=== PATIENT | male | born 1960 | race Caucasian/White ===

== ENCOUNTER 2020-11-30 15:36 | Outpatient (RCR) | payer OTHER, SELFPAY ==
[2020-11-30] MEDS: COVID-19 VACC, MRNA(PFIZER)/PF 30 MCG/0.3 ML SYRINGE IM (07:42)
[2020-12-21] MEDS: COVID-19 VACC, MRNA(PFIZER)/PF 30 MCG/0.3 ML SYRINGE IM (07:31)
== END 2021-02-22 23:59 ==
LOC: IMMUN 15:36
PROVIDERS: Referring Provider Family Medicine; Visit Provider Family Medicine
DX: Z23 Encounter for immunization (principal)
CPT/HCPCS: 0001A; 0002A; 91300

== ENCOUNTER → 2021-02-15 08:17 | Outpatient (CLI) | payer OTHER, SELFPAY | PROVIDERS: PCP Nurse Practitioner; Referring Provider Nurse Practitioner; Visit Provider Nurse Practitioner | DX: I49.9 Cardiac arrhythmia, unspecified (principal) | CPT/HCPCS: 93225; 93226 ==

== ENCOUNTER → 2021-02-16 14:24 | Outpatient (CLI) | payer OTHER, SELFPAY ==
--- NOTE | 2021-02-16 14:25 | ECHOD_ITS ---
Reason For Study: IRREGULAR HEARTBEAT Procedure This was a 2D Doppler, Color Flow transthoracic echocardiogram. Contrast injection was performed. Exam performed in department. Left Ventricle Normal LV size. Left ventricular systolic function is normal. The estimated ejection fraction is 65 %. No evidence for diastolic dysfunction. No regional wall motion abnormalities noted. Right Ventricle Normal RV size. Normal systolic function. Atria Normal left atrium. Normal right atrium. No doppler evidence for ASD. Mitral Valve There is no mitral annular calcification. Mild diffuse mitral valve thickening. Trivial mitral valve insufficiency. Tricuspid Valve Normal tricuspid valve. Trivial tricuspid valve insufficiency. Right ventricular systolic pressure estimated to be 21 mmHg. Aortic Valve Trisinus/trileaflet aortic valve. Mild focal aortic valve thickening. Mild focal aortic valve calcification. Trivial aortic valve insufficiency. Pulmonic Valve The pulmonic valve is not well visualized. Trivial pulmonic valve insufficiency. Great Vessels Mild to moderately dilated aortic root. Pericardium/Pleural No pericardial effusion. MMode/2D Measurements & Calculations LVIDd: 4.9 cm IVSd: 1.2 cm Ao root diam: 4.5 cm LVIDs: 3.1 cm LVPWd: 1.0 cm FS: 36.9 % LAV(MOD-bp): 53.6 ml LA A4 area: 19.2 cm2 LA dimension(2D): 4.1 cm LAV(MOD-bp) Indexed: 23.7 ml/m2 LAV(MOD-sp2): 52.5 ml LAV(MOD-sp4): 53.2 ml RA A4 area: 15.6 cm2 Time Measurements MV dec time: 0.31 sec Doppler Measurements & Calculations MV E max mich: 63.4 cm/sec Lat Peak E' Mich: 10.3 cm/sec Med Peak E' Mich: 5.9 cm/sec MV A max mich: 82.5 cm/sec E/E' lat: 6.1 E/E' med: 10.7 MV E/A: 0.77 Ao V2 max: 143.0 cm/sec LV V1 max: 130.3 cm/sec PA V2 max: 112.9 cm/sec Ao max P.2 mmHg LV V1 max P.8 mmHg PI dec slope: 110.8 cm/sec2 TR max mich: 212.9 cm/sec TR max P.1 mmHg ECHO/Echo Complete Interpretation Summary Left ventricular systolic function is normal. The estimated ejection fraction is 65 %. Mild diffuse mitral valve thickening. Trivial mitral valve insufficiency. Trivial tricuspid valve insufficiency. Mild focal aortic valve thickening. Mild focal aortic valve calcification. Trivial aortic valve insufficiency. Trivial pulmonic valve insufficiency. Mild to moderately dilated aortic root. Right ventricular systolic pressure estimated to be 21 mmHg. No evidence for diastolic dysfunction. Ordering Physician: 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 Referring Physician: 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 Performed By: Marley Parker, MICHAEL, RVT
== END ==
PROVIDERS: PCP Nurse Practitioner; Referring Provider Nurse Practitioner; Visit Provider Nurse Practitioner
DX: I49.9 Cardiac arrhythmia, unspecified (principal)
CPT/HCPCS: 93306

== ENCOUNTER → 2021-06-06 08:40 | Outpatient (CLI) | payer OTHER, SELFPAY ==
--- NOTE | 2021-06-06 08:45 | CDU_ITS ---
Reason For Study: CAD Rt. Velocities/BP Lt. Velocities/BP Prox CCA 88/14 cm/sec. Prox CCA 91/24 cm/sec. Mid CCA 82/23 cm/sec. Mid CCA 84/26 cm/sec. Dist CCA 82/25 cm/sec. Dist CCA 78/27 cm/sec. Prox ICA 68/16 cm/sec. Prox ICA 71/20 cm/sec. Mid ICA 46/15 cm/sec. Mid ICA 58/22 cm/sec. Dist ICA 66/32 cm/sec. Dist ICA 72/31 cm/sec. Rt. ICA/CCA = 0.8. Lt. ICA/CCA = 0.9. Prox ECA 64/13 cm/sec. Prox ECA 77/15 cm/sec. Rt. Vert. 47/20 cm/sec. Lt. Vert. 35/12 cm/sec. Right Extracranial There is intimal thickening but no significant atherosclerotic plaque noted in the right common carotid artery. There is heterogeneous, irregular atherosclerotic plaque noted in the right internal carotid artery. There is no significant atherosclerotic plaque noted in the right external carotid artery. Antegrade flow is noted in the right vertebral artery. Left Extracranial There is homogeneous, smooth atherosclerotic plaque noted in the left common carotid artery. There is heterogeneous, irregular atherosclerotic plaque noted in the left internal carotid artery. There is heterogeneous, smooth atherosclerotic plaque noted in the left external carotid artery. Antegrade flow is noted in the left vertebral artery. Procedure Carotid Duplex [id number]. This is a Carotid Duplex examination using B-mode, color flow and specral Doppler. Exam performed in department. VL/Carotid Duplex Ultrasound Interpretation Summary Calcific plaque at the proximal right internal carotid artery with less than 50 percent stenosis Less than 50 percent stenosis right external carotid artery Calcific plaque with shadowing at the proximal left internal carotid artery wit h less than 50 percent stenosis Less than 50 percent stenosis left external carotid artery Patent and antegrade vertebral arteries bilaterally Bilateral proximal internal carotid artery plaque was identified on the previou s blood flow examination of February 10, 2021 Ordering Physician: 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 Referring Physician: 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 Performed By: Pau Hendricks, MICHAEL, RVT
== END ==
PROVIDERS: PCP Nurse Practitioner; Referring Provider Nurse Practitioner; Visit Provider Nurse Practitioner
DX: I65.23 Occlusion and stenosis of bilateral carotid arteries (principal); I25.10 Atherosclerotic heart disease of native coronary artery without angina pectoris
CPT/HCPCS: 93880

== ENCOUNTER 2021-12-17 16:34 | Emergency (ER) | payer OTHER, SELFPAY ==
[2021-12-17 16:34] VITALS: BP 132/95; PULSE 66; RESP 18; TEMP 35.5; O2SAT 95; BMI 28.0
[2021-12-17] MEDS: Lidocaine 1% (20 ml mdv) 20 ML Vial INFILT (17:13)
[2021-12-17] MEDS: Diphth,Pertuss(Acell),Tet Vac 0.5 ML Vial IM (17:13)
--- NOTE | 2021-12-17 17:26 | EDS_ITS ---
HPI <CRISTINE Jerez - Last Filed: 12/17/21 17:33> History of Present Illness Chief Complaint: Laceration Narrative Narrative: Patient is a 61-year-old male with history of early dementia, hyperlipidemia who presents to the emergency department after cutting himself with a knife at work. 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 Patient has a flap-like laceration to the pad of the finger, negative for any foreign body. Patient's tetanus is not up-to-date. PFSH <CRISTINE Jerez - Last Filed: 12/17/21 17:33> [facility] Home Medications donepezil 5 mg PO QHS 12/17/21 [History Last Taken Unknown] rosuvastatin 5 mg PO QHS 12/17/21 [History Last Taken Unknown] Allergy/AdvReac Type Severity Reaction Status Date / Time No Known Allergies Allergy Verified 12/17/21 16:34 Social History Smoking Status: Never smoker ROS <CRISTINE Jerez - Last Filed: 12/17/21 17:33> ROS ED ROS Narrative Constitutional: Negative for fever, chills, weight loss or gain, weakness Eyes: Negative for vision loss, vision change, double vision ENT: Negative for any hearing changes, ringing in the ears, discharge, pain Nose: Negative for any congestion, runny nose, sinus pain, allergies Throat: Negative for any sore throat, swelling, voice changes, Cardiovascular: Negative for any chest pain, tightness, palpitations, racing heartbeat Respiratory: Negative for any cough, sputum production, hemoptysis, shortness of breath, shortness of breath on exertion, Gastrointestinal: Negative for any abdominal pain, nausea, vomiting, diarrhea, constipation, blood in stool, blood in vomit : Negative for any urinary frequency, incontinence, dysuria, retention, blood in urine Muscle skeletal: Negative for any muscle joint pain, stiffness, myalgias, arthralgias, neck pain, back pain Neurological: Negative for any headache, dizziness, syncope, numbness or tingling Skin: Negative for any rashes, lumps, itching, abrasions. Positive for laceration to the right fourth digit Psychiatric: Negative for any depression, anxiety, stress, suicidal ideation, homicidal ideation Hematologic: Negative for any easy bruising, excessive bruising, easy bleeding Allergies: Negative for any eczema, hives, rash EXAM <CRISTINE Jerez - Last Filed: 12/17/21 17:33> Physical Exam Const Vital Signs: 12/17/21 16:34 Temperature 96 F L Temperature Source Temporal Pulse Rate 66 Respiratory Rate 18 Blood Pressure 132/95 H Blood Pressure Mean 107 Pulse Ox 95 Oxygen Delivery Method Room Air Positive well nourished and well developed General Appearance ED: well developed HEENT Negative for trauma or tenderness Eyes PERRL and EOMs intact bilaterally Neck no lymphadenopathy and supple Chest Wall inspection of chest normal and palpation of chest normal Resp normal respiratory effort and clear to auscultation bilaterally Cardio regular rate and regular rhythm GI normal to inspection, nondistended, normoactive bowel sounds Back/Spine no CVA tenderness Extremity Extremity Narrative: Patient has a 1 cm flap-like laceration to the anterior aspect of the fourth digit on the right hand above the DIP joint. Patient has full range of motion of the extremity. Negative for any tendon injury. General Extremety ED: Negative for tenderness Neuro oriented x3 and CN's II-XII intact bilaterally Sensorium / Orientation: alert Motor Exam: strength 5/5 throughout Psych mental status grossly normal Skin No no wounds Skin Narrative: Laceration to the fourth digit on the right hand <Dr. Shanelle Boyer MD - Last Filed: 12/17/21 17:48> Physical Exam Const Vital Signs: 12/17/21 16:34 Temperature 96 F L Temperature Source Temporal Pulse Rate 66 Respiratory Rate 18 Blood Pressure 132/95 H Blood Pressure Mean 107 Pulse Ox 95 Oxygen Delivery Method Room Air MDM <CRISTINE Jerez - Last Filed: 12/17/21 17:33> [facility] Narrative Medical decision making narrative: Patient appears well, patient appears nontoxic, vital signs are stable. This is a Workmen's Comp. injury, patient has a 1 cm laceration to the tip of the right fourth digit. This area was cleansed, anesthetized, 4 simple noted suture of 4-0 Ethilon was used. Patient tolerated well. Patient keep the area clean and dry. Patient was updated on his tetanus vaccination today, he will return to work with no restrictions, patient struck to keep the area clean and dry and instructed return for any worsening pain or signs or symptoms of infection. <Dr. Shanelle Boyer MD - Last Filed: 12/17/21 17:48> [facility] Treatment and Re-Evaluation Narrative: Patient seen and evaluated with JACQUI. I personally interviewed and examined the patient. I was involved in all aspects of patient's orders, inte rpretation of results, and treatment. Patient presents with laceration to the distal aspect of the right fourth finger. He cut this with a knife prior to arrival. Patient sitting upright in bed no acute distress. Head and neck examination unremarkable. Regular pulses. Right upper extremity examination reveals a 1 cm laceration along the distal aspect of the right fourth finger. This is a flap laceration. Good cap refill and sensation distally. Tetanus update will be given and sutures placed across the wound. Patient will follow up for suture removal and wound check. Patient comfortable with plan. Procedures <CRISTINE Jerez - Last Filed: 12/17/21 17:33> Lacerations Finger laceration: Length: 0.39 in Depth: Skin Shape: Flap Prep: Shvikash-Clens Laceration repair: Lidocaine Irrigated (ml): 500 Number of Sutures/Anni: 3 Suture Information: Ethilon and Simple Comment: Sterile gloves, sterile drapes were used, patient tolerated well. Discharge Plan Triage Chief Complaint: Laceration ED Midlevel Provider: Harlan Mcgill ED Provider: Shanelle Boyer Dx/Rx/DC Orders Clinical Impression: Finger laceration Instructions: ED Laceration Hand with ... Prescriptions: No Action donepezil 5 mg tablet 5 mg PO QHS RF: 0 rosuvastatin 5 mg tablet 5 mg PO QHS RF: 0 Primary Care Provider: 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 NP Referrals: Clinic,NOW [NON-STAFF] - (Per your companies wishes) Fabiana yAoub NP, [employer] [Primary Care Provider] - Activity Restrictions/Additional Instructions: Please keep the area clean and dry, please return for any signs or symptoms of infection Print Language: Slovenian Disposition Disposition: Home, Self Care Discharge Date/Time: 12/17/21 17:38
== END 2021-12-17 17:38 | disposition home or self-care (01) ==
LOC: ED 17:33
PROVIDERS: Emergency Provider Emergency Medicine; PCP Nurse Practitioner; Visit Provider Emergency Medicine
DX: S61.215A Laceration without foreign body of left ring finger without damage to nail, initial encounter (principal); F03.90 Unspecified dementia, unspecified severity, without behavioral disturbance, psychotic disturbance, mood disturbance, and anxiety; E78.5 Hyperlipidemia, unspecified; W26.0XXA Contact with knife, initial encounter; Z79.899 Other long term (current) drug therapy; Z23 Encounter for immunization; Y99.0 Civilian activity done for income or pay
CPT/HCPCS: 12001; 90471; 90715; 99282

== ENCOUNTER → 2023-03-01 | Outpatient (CLI) | payer MEDICARE, OTHER, SELFPAY ==
[2023-03-01 10:54] LABS: PSA,Total - Annual Screen 1.04 ng/mL (0.00-4.00)
== END | disposition home or self-care (01) ==
LOC: LAB 08:47
PROVIDERS: PCP Nurse Practitioner Family; Referring Provider Urology; Visit Provider Urology
DX: Z12.5 Encounter for screening for malignant neoplasm of prostate (principal)
CPT/HCPCS: 36415; 84153; G0103

== ENCOUNTER → 2024-02-05 | Outpatient (CLI) | payer MEDICARE, OTHER, SELFPAY ==
--- NOTE | 2024-02-05 14:57 | CDU_ITS ---
Reason For Study: Bilateral CAD Rt. Velocities/BP Lt. Velocities/BP Prox CCA 90.4/14.2 cm/sec. Prox CCA 93.0/20.4 cm/sec. Mid CCA 79.0/18.8 cm/sec. Mid CCA 71.3/19.7 cm/sec. Dist CCA 68.8/18.8 cm/sec. Dist CCA 76.8/20.8 cm/sec. Prox ICA 48.5/12.7 cm/sec. Prox ICA 64.1/22.6 cm/sec. Mid ICA 33.1/15.8 cm/sec. Mid ICA 60.9/27.1 cm/sec. Dist ICA 110.7/37.6 cm/sec. Dist ICA 80.9/35.5 cm/sec. Rt. ICA/CCA = 1.4. Lt. ICA/CCA = 1.1. Prox ECA 60.1/10.2 cm/sec. Prox ECA 71.1/4.8 cm/sec. Rt. Vert. 41.5/16.2 cm/sec. Lt. Vert. 28.2/11.1 cm/sec. Right Extracranial There is intimal thickening but no significant atherosclerotic plaque noted in the right common carotid artery. There is heterogeneous, irregular atherosclerotic plaque noted in the right internal carotid artery. The distal right internal carotid artery is not well visualized. There is intimal thickening but no significant atherosclerotic plaque noted in the right external carotid artery. Antegrade flow is noted in the right vertebral artery. Left Extracranial There is homogeneous, smooth atherosclerotic plaque noted in the left common carotid artery. There is heterogeneous, irregular atherosclerotic plaque noted in the left internal carotid artery. The distal left internal carotid artery is not well visualized. There is heterogeneous, irregular atherosclerotic plaque noted in the left external carotid artery. Antegrade flow is noted in the left vertebral artery. Procedure Carotid Duplex [id number]. This is a Carotid Duplex examination using B-mode, color flow and specral Doppler. The exam was diagnostic. Exam performed in department. VL/Carotid Duplex Ultrasound Interpretation Summary Mild (<50%) stenosis right extracranial internal carotid. Mild (<50%) stenosis left extracranial internal carotid. Patent and antegrade vertebrals bilaterally. Ordering Physician: Erin Sanchez Referring Physician: Erin Sanchez Performed By: Gary Butt RVT
== END | disposition home or self-care (01) ==
LOC: CVS 14:56
PROVIDERS: PCP Nurse Practitioner Family; Referring Provider Nurse Practitioner Family; Visit Provider Nurse Practitioner Family
DX: I65.23 Occlusion and stenosis of bilateral carotid arteries (principal)
CPT/HCPCS: 93880

== ENCOUNTER → 2024-05-01 | Outpatient (CLI) | payer MEDICARE, OTHER, SELFPAY ==
[2024-05-01 17:09] LABS: PSA,Total - Annual Screen 1.44 ng/mL (0.00-4.00)
== END | disposition home or self-care (01) ==
LOC: LAB 16:04
PROVIDERS: PCP Nurse Practitioner Family; Referring Provider Urology; Visit Provider Urology
DX: Z12.5 Encounter for screening for malignant neoplasm of prostate (principal)
CPT/HCPCS: 36415; 84153; G0103

== ENCOUNTER → 2024-07-16 | Outpatient (CLI) | payer MEDICARE, OTHER, SELFPAY ==
--- OUTSIDE RECORDS SUMMARY | 2024-07-16 06:36 | XMS RPT_ITS | CCD ---
Author Organization [facility] ion [facility] Care Team Providers Care Technical Manager Name Role Phone 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 CNP E Unavailable Tone PHD, Vince Zapata Unavailable Gene VICENTE, Steve Unavailable Unavailable Unavailable Unavailable Kirby VICENTE, Sinai Unavailable Unavailable Mariposa ABDIN, Christelle Unavailable Unavailable Srinivas Sandra Unavailable Unavailable Unavailable Anand VICENTE, SHOLA Unavailable Unavailable Sinai Omalley MD Unavailable Dr. rGegory Llanos Unavailable Ivonne Graf MA Unavailable Unavailable Mega Faibana Unavailable Sinai Omalley MD Unavailable Unavailable Unavailable Unavailable Mega Fabiana Unavailable Unavailable Losa Fabiana Unavailable Santy Wynn CNP Unavailable Callahan ELECTRICAL LINEMAN, Kayela Unavailable Unavailable Unavailable Unavailable Santy Wynn CNP Unavailable Gravius ELECTRICAL LINEMAN, Caridad Unavailable Unavailable Borruso Alcides Unavailable Santy Wynn CNP Attending Unavailable Santy Wynn CNP Referring Unavailable Santy Wynn CNP Consulting Unavailable Unavailable Primary Care Provider UnavailDwayne Lugo MD Unavailable ANT MOSQUERA Attending Unavailable ANT MOSQUERA Admitting Unavailable Santy Wynn Primary Care Provider ANT MOSQUERA Attending Unavailable SANTY WYNN Primary Care Unavailable SANTY WYNN Primary Care Unavailable BERNICE HERNANDEZ Attending Unavailable ANT MOSQUERA Attending Unavailable Medications Completed/Discontinued Medications Medication Drug Class(es) Dates Sig (Normalized) Sig (Original) amLODIPine 5 mg oral tablet (20 sources) Dihydropyridine Calcium Channel Adria Start: 02-08-2021 End: 05-17-2021 take 0.5 tablet by mouth once daily amLODIPine Besylate 5 MG Oral Tablet 1/2 (one half) Tablet daily for 0 days Quantity: 30 {Tablet} Refills: 3 Ordered: 17-May-2021 Sinai Orr LPN Start : 08-Feb-2021 End : 17-May-2021 Inactive aspirin 81 mg delayed release oral tablet (20 sources) Platelet Aggregation Inhibitor, Nonsteroidal Anti-inflammatory Drug Start: 05-17-2021 take 1 tablet by mouth once daily Aspirin 81 MG Oral Tablet Delayed Release 1 (one) Tablet daily for 0 days Quantity: 30 {Tablet} Refills: 0 Ordered: 27-Jul-2021 SHOLA Michel LPN Start : 17-May-2021 Active Start: 05-17-2021 aspirin, enter ic coated (ASPIRIN, ENTERIC COATED) 81 mg EC tablet Take by mouth q 24 HR. 0 05/17/2021 Active Comment on above: Take by mouth q 24 H R. cholecalciferol 0.05 mg oral capsule (20 sources) Vitamin D Start: 07-28-2021 take 2 capsules by mouth once daily Vitamin D3 50 MCG (2000 UT) Oral Capsule 2 (two) Capsule daily for 0 days Quantity: 30 {Capsule} Refills: 0 Ordered: 28-Jul-2021 Debsonambenny Fabiana Start : 28-Jul-2021 Active Start: 07-28-2021 Cholecalcifero l, Vitamin D3, 50 mcg (2,000 unit) cap Take by mouth q 24 HR. 0 07/28/2021 Active Comment on above: Take by mouth q 24 H R. cyanocobalamin, vitamin B-12, (VITAMIN B-12 ORAL) (3 sources) Start: 02-09-20 21 cyanocobalamin, vitamin B-12, (VITAMIN B-12 ORAL) Dissolve under the tongue. 0 02/08/2021 Active Comment on above: Dissolve under the t ongue. donepezil hydrochloride 5 mg oral tablet (20 sources) Start: 08-29-20 21 take 1 tablet by mouth once daily at bedtime donepeziL 5 mg oral tablet 1 (one) Tablet qhs for 30 days Quantity: 30 {Tablet} Refills: 3 Ordered: 03-Oct-2022 Santy Wynn CNP Start : 03-Oct-2022 Active Comment on above: Take by mouth. ergocalciferol 1.25 mg oral capsule (20 sources) Provitamin D2 Compound Start: 02-09-20 End: 05-17-20 Ergocalciferol 1.25 MG (05701 UT) Oral Capsule 1 (one) Capsule twice weekly x 3 months for 0 days Quantity: 24 {Capsule} Refills: 0 Ordered: 17-May-2021 DebFabiana aguillon Start : 08-Feb-2021 End : 17-May-2021 Inactive metoprolol tartrate 50 mg oral tablet (20 sources) beta-Adrenergic Adria Start: 02-10-20 End: 05-17-20 take 1 tablet by mouth every hour Metoprolol Tartrate 50 MG Oral Tablet 1 (one) Tablet 1hr prior to scan for 0 days Quantity: 1 {Tablet} Refills: 0 Ordered: 17-May-2021 Myron Orr LPNcy Start : 09-Feb-2021 End : 17-May-2021 Inactive rosuvastatin calcium 5 mg oral tablet (20 sources) HMG-CoA Reductase Inhibitor Start: 08-07-20 take 1 tablet by mouth once daily at bedtime rosuvastatin 5 mg oral tablet 1 (one) Tablet qhs for 0 days Quantity: 90 {Tablet} Refills: 3 Ordered: 03-Oct-2022 Santy Wynn CNP Start : 03-Oct-2022 Active Start: 03-24-2022 take 1 tablet by mai th once daily at bedtime Rosuvastatin Calcium 5 MG Oral Tablet 1 (one) Tablet qhs for 0 days Quantity: 90 {Tablet} Refills: 3 Ordered: 24-Mar-2022 Santy Wynn CNP Start : 24-Mar-2022 Active Start: 08-29-2021 take 1 tablet by mai th once daily at bedtime Rosuvastatin Calcium 5 MG Oral Tablet 1 (one) Tablet qhs for 0 days Quantity: 90 {Tablet} Refills: 3 Ordered: 29-Aug-2021 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 Fabiana Start : 29-Aug-2021 Active sildenafil 20 mg oral tablet (19 sources) Phosphodiesterase 5 Inhibitor Start: 05-15-2022 take 1 tablet by mouth once daily sildenafil (pulm.hypertension) 20 mg oral tablet 1 Tablet daily as directed for 30 days Quantity: 30 {Tablet} Refills: 1 Ordered: 15-May-2022 Santy Wynn CNP Start : 15-May-2022 Active Start: 03-24-2022 take 1 tablet by mai th once daily Sildenafil Citrate 20 MG Oral Tablet 1 Tablet daily as directed for 30 days Quantity: 30 {Tablet} Refills: 1 Ordered: 24-Mar-2022 Santy Wynn CNP Start : 24-Mar-2022 Active vitamin b12 2.5 mg sublingual tablet (20 sources) Vitamin B12 Start: 07-28-2021 End: 03-24-2022 take 1 tablet under the tongue two times weekly Cyanocobalamin 2500 MCG Sublingual Tablet Sublingual 1 (one) Tablet twice weekly for 0 days Quantity: 30 {Tablet} Refills: 0 Ordered: 24-Mar-2022 Christelle Monge LPN Start : 28-Jul-2021 End : 24-Mar-2022 Inactive Start: 07-28-2021 End: 03-24-2022 take 1 tablet under the tongue two times weekly Cyanocobalamin 2500 MCG Sublingual Tablet Sublingual 1 (one) Tablet twice weekly for 0 days Quantity: 30 {Tablet} Refills: 0 Ordered: 24-Mar-2022 Christelle Monge LPN Start : 28-Jul-2021 End : 24-Mar-2022 Inactive Start: 02-08-2021 take 1 tablet under the tongue once daily Cyanocobalamin 2500 MCG Sublingual Tablet Sublingual 1 (one) Tablet daily for 0 days Quantity: 30 {Tablet} Refills: 0 Ordered: 08-Feb-2021 Mega GUZMAN SheriMario Ayoub CNP Fabiana Martin Start : 08-Feb-2021 Active NEGATED: Highlighted row has not occurred!No Known Historical Medications (20 sources) No Known Histori sergio Medications Problems Active Problems Problem Classification Problem Date Documented Date Episodic/Chronic Cardiac dysrhythmias (20 sources) Irregular heart beat; Translations: [Irregular heart beat] 02-08-2021 Chronic Comment on above: Sinus amauri, no symp toms. Delirium, dementia, and amnestic and other cognitive disorders (20 sources) Primary degenerative dementia of the Alzheimer type, presenile onset; Translations: [Early onset Alzheimer's dementia] Resolved: 08-26-2021 Chronic Comment on above: stable on med sleep study done has seen Tone -no new issues, mini mental normal todaystable on med. sleep study done has seen Tone Diabetes mellitus without complication (20 sources) Impaired fasting glycemia; Translations: [Impaired fasting glucose] 02-08-2021 Episodic Comment on above: a1c 5.3 A1c 5.3% Diseases of mouth; excluding dental (20 sources) Lesion of lip; Translations: [Lip lesion] 11-03-2021 Episodic Comment on above: 3mm on right upper l ip Disorders of lipid metabolism (20 sources) Mixed hypercholesterolemia and hypertriglyceridemia; Translations: [Elevated triglycerides with high cholesterol] 02-08-2021 Chronic Comment on above: -check lipids prior to next ov, on 5mg daily nowon rosuvastatin stable on 5mg daily now, last lab March 2022 so will recheck prior to next ovon rosuvastatin Genitourinary symptoms and ill-defined conditions (8 sources) Dysuria; Translations: [Difficult or painful urination] 11-22-2022 Episodic Gout and other crystal arthropathies (20 sources) Gout; Translations: [Gout] 01-25-2021 Chronic Heart valve disorders (20 sources) Irregular heart beat Episodic Nutritional deficiencies (20 sources) Vitamin D deficiency; Translations: [Vitamin D deficiency] 01-30-2021 Chronic Comment on above: will supplement Nutritional deficiencies (20 sources) Cobalamin deficiency; Translations: [Vitamin B12 deficiency] 01-30-2021 Episodic Comment on above: needs weekly B12 octavio ts start this week now on sublingual Other circulatory disease (20 sources) Disorder of carotid artery; Translations: [Bilateral carotid artery disease, unspecified type] 08-26-2021 Chronic Comment on above: seen on blood flow s creening on 02-10-21 Mild to mod disease in carotid artery (significant plaque) Other circulatory disease (20 sources) Elevated blood-pressure reading without diagnosis of hypertension; Translations: [Elevated blood-pressure reading, without diagnosis of hypertension (Renamed from Elevated blood-pressure reading without diagnosis of hypertension)] 01-25-2021 Episodic Comment on above: -keep blood pressure log for 1-2 weeks then come in for nurse visit to get it checked. Please bring home BP machine with you. We will decide at that time if you need to restart a medication or not.142/80, not on any antihypertensives. not check recently but when does his systolic is in the 120's. Other connective tissue disease (12 sources) Ganglion of hand; Translations: [Ganglion cyst of finger] 10-03-2022 Episodic Other connective tissue disease (3 sources) Cyst ; Translations: [Ganglion, multiple sites] Episodic Other connective tissue disease (1 source) Ganglion, multiple sites; Translations: [Ganglion and cyst of synovium, tendon, and bursa] Onset: 3 Episodic Other connective tissue disease (1 source) Other bursal cyst, multiple sites; Translations: [Ganglion and cyst of synovium, tendon, and bursa] Onset: 3 Episodic Other connective tissue disease (1 source) Other specified disorders of synovium and tendon, multiple sites; Translations: [Ganglion and cyst of synovium, tendon, and bursa] Onset: 3 Episodic Other liver diseases (20 sources) Alkaline phosphatase raised; Translations: [Elevated alkaline phosphatase level] 01-30-2021 Episodic Other liver diseases (20 sources) Serum lactate dehydrogenase level elevated; Translations: [Elevated LDH] 02-08-2021 Episodic Other male genital disorders (20 sources) Male erectile dysfunction, unspecified; Translations: [Erectile dysfunction] 03-24-2022 Chronic Comment on above: sildenafil, discusse d med side effects, use, precautions. sent to rxstarted recently, no hx med changes. Other nutritional; endocrine; and metabolic disorders (20 sources) Body mass index 25-29 - overweight; Translations: [BMI 28.0-28.9,adult] 01-25-2021 Episodic Other nutritional; endocrine; and metabolic disorders (20 sources) Overweight in adulthood with body mass index of 25 or more but less than 30; Translations: [BMI 27.0-27.9,adult] Resolved: 3 11-03-2021 Episodic Other screening for suspected conditions (not mental disorders or infectious disease) (20 sources) Patient encounter status; Translations: [Encounter for screening for lipid disorder] Resolved: 3 01-25-2021 Episodic Comment on above: do yearly stool ester creviewed colonoscopy (recent), Dr. Llanos. repeat in 5-7 yrs Other skin disorders (20 sources) Lesion of skin of face; Translations: [Skin lesion of face] 10-28-2021 Episodic Residual codes; unclassified (20 sources) Sleep apnea; Translations: [Sleep apnea] 10-11-2021 Chronic Comment on above: saw Jocy ching ds nasal Residual codes; unclassified (20 sources) Reduced libido; Translations: [Low libido] 01-25-2021 Episodic Residual codes; unclassified (20 sources) Non-smoker; Translations: [Nonsmoker] 01-25-2021 Episodic Residual codes; unclassified (20 sources) Poor short-term memory ; Translations: [Short-term memory loss] 01-25-2021 Episodic Comment on above: seeing in May saw neuropsych, was thought to have early onset dementia but he had repeat testing done June 2022 and it was recommended to treat him for ADHD instead.-consult with Dr. Omalley for ADHD management. plan to wean off donepezil Unclassified (20 sources) Unclassified (20 sources) Nonsmoker Unclassified (20 sources) BMI 28.0-28.9,adult Unclassified (20 sources) Short-term memory loss Unclassified (20 sources) Elevated triglycerides with high cholesterol Unclassified (18 sources) BMI 27.0-27.9,adult Unclassified (20 sources) Early onset Alzheimer's dementia Unclassified (18 sources) Bilateral carotid artery disease, unspecified type Unclassified (18 sources) Elevated LDL cholesterol level Unclassified (18 sources) Screening for colon cancer Unclassified (7 sources) Prostate cancer screening Past or Other Problems Problem Classification Problem Date Documented Da te Episodic/Chronic Unclassified (20 sources) Encounter for screening for malignant neoplasm of prostate (Renamed from Screening for prostate cancer) Unclassified (20 sources) Low libido Unclassified (20 sources) Encounter for screening for lipid disorder Unclassified (20 sources) Elevated alkaline phosphatase level Unclassified (20 sources) Elevated LDH Unclassified (20 sources) Unspecified Diagnosis 07-28-2021 Unclassified (13 sources) Lip lesion Unclassified (13 sources) Skin lesion of face Results Test Name Value Interpretation Reference Range Facility CNOVon 01-15-2023 CNOV Office Visit (ORTHWS ) ACACIAJARRETT uFentes ([id number]) 1960 M Date Time Provider Department 01/15/23 4:15 PM ANT MOSQUERA During your visit today, we recorded the following information about you: Ant Mosquera MD 02/16/2023 6:04 PM Signed Ant Mosquera MD Department of Orthopaedics Orthopaedics [address] [facility] [address] Dept: [phone] Dept January 15, 2023 CHIEF COMPLAINT: Established Patient and Post Op of the Right Hand. HPI Patient here today for 5 weeks 5 days post op excision right index finger cyst. Patient denies any pain. ASSESSMENT: M67.49, M71.39, M67.89 Ganglion and cyst of synovium, tendon, and bursa (primary encounter diagnosis) SUMMARY/PLAN: Just shy of 6 weeks and he is doing quite well. He is pleased with his results thus far. No pain really. Mildly sore and appropriate at the healing scar. He can follow-up as needed Healing appropriately. Good motion. No recurrence. Supporting Information Below: Medications: Current Outpatient Medications Medication Sig cyanocobalamin, vitamin B-12, (VITAMIN B-12 ORAL) Dissolve under the tongue. Cholecalciferol, Vitamin D3, 50 mcg (2,000 unit) cap Take by mouth q 24 HR. aspirin, enteric coated (ASPIRIN, ENTERIC COATED) 81 mg EC tablet Take by mouth q 24 HR. donepezil (ARICEPT) 5 mg tablet Take by mouth. No current facility-administered medications for this visit. Allergies: Patient has no known allergies. Ant Mosquera MD Allergies As of Date: 01/15/2023 (No Known Allergies) Date Reviewed: 01/15/2023 Reviewed by: Lauren Ledbetter Ma - Fully Assessed Reason for Visit: Established Patient [175] Post Op [174] Primary Visit Diagnosis:Ganglion and cyst of synovium, tendon, and bursa [M67.49, M71.39, M67.89] Prescriptions as of 02/16/2023 - cyanocobalamin, vitamin B-12, (VITAMIN B-12 ORAL) Dissolve under the tongue. - Cholecalciferol, Vitamin D3, 50 mcg (2,000 unit) cap Take by mouth q 24 HR. - aspirin, enteric coated (ASPIRIN, ENTERIC COATED) 81 mg EC tablet Take by mouth q 24 HR. - donepezil (ARICEPT) 5 mg tablet Take by mouth. Problem List As Of Date: 01/15/2023 (None) Encounter Status:Closed by ANT MOSQUERA on 02/16/23 [facility] CNOVon 12-18-2022 CNOV Office Visit (ORTHWS ) JARRETT ROGER ([id number]) 1960 M Date Time Provider Department 12/18/22 3:00 PM BERNICE HERNANDEZ During your visit today, we recorded the following information about you: Angela Gonzalez RN 12/18/2022 3:07 PM Signed Patient presents with: Right Index Finger - Post Op, Ganglion Cyst Patient is 1 week 5 days post op excision of ganglion cyst, R index finger. Denies pain. Bernice Hernandez PA-C 12/18/2022 3:07 PM Signed Bernice Hernandez PA-C Department of Orthopaedics Orthopaedics [address] [facility] [address] Dept: [phone] Dept December 18, 2022 CHIEF COMPLAINT: Post Op and Ganglion Cyst of the Right Index Finger. ASSESSMENT: M67.49, M71.39, M67.89 Ganglion and cyst of synovium, tendon, and bursa (primary encounter diagnosis) SUMMARY/PLAN: Patient presents 1 week and 5 days status post excision of right index finger digital mucous cyst. He is doing very well, he denies any pain today. He is very happy thus far. 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 We discussed proper hand washing, no soaking of the operative hand. No heavy lifting, pushing or pulling with the operative hand, encourage gentle motion. We discussed scar massage. Follow up as planned. Exam: Incision sites well approximated without erythema or drainage, there is mild but appropriate edema, no ecchymosis. Patient has full and active range of motion of the digit with some subjective hypersensitivity along the radial border. Imaging: Deferred today. Mr. Jarrett Roger was advised as to contrast therapies and/or to take analgesics/anti-inflamm atories as needed and all contraindications were reviewed. Supporting Information Below: Medications: Current Outpatient Medications Medication Sig cyanocobalamin, vitamin B-12, (VITAMIN B-12 ORAL) Dissolve under the tongue. Cholecalciferol, Vitamin D3, 50 mcg (2,000 unit) cap Take by mouth q 24 HR. aspirin, enteric coated (ASPIRIN, ENTERIC COATED) 81 mg EC tablet Take by mouth q 24 HR. donepezil (ARICEPT) 5 mg tablet Take by mouth. No current facility-administered medications for this visit. Allergies: Patient has no known allergies. This note was partially generated using Videolicious voice recognition system, and there may be some incorrect words, spellings, and punctuation that were not noted in checking the note before saving. Bernice Hernandez PA-C Allergies As of Date: 12/18/2022 (No Known Allergies) Date Reviewed: 12/18/2022 Reviewed by: Bernice Hernandez PA-C - Fully Assessed Reason for Visit: Post Op [174] Ganglion Cyst [1032] Primary Visit Diagnosis:Ganglion and cyst of synovium, tendon, and bursa [M67.49, M71.39, M67.89] Prescriptions as of 12/18/2022 - cyanocobalamin, vitamin B-12, (VITAMIN B-12 ORAL) Dissolve under the tongue. - Cholecalciferol, Vitamin D3, 50 mcg (2,000 unit) cap Take by mouth q 24 HR. - aspirin, enteric coated (ASPIRIN, ENTERIC COATED) 81 mg EC tablet Take by mouth q 24 HR. - donepezil (ARICEPT) 5 mg tablet Take by mouth. Problem List As Of Date: 12/18/2022 (None) Encounter Status:Closed by BERNICE HERNANDEZ on 12/18/22 [facility] NURSING PROGon 12-06-2022 NURSING PROG HNO ID: [id number] Author: Ayde Ribeiro RN Service: Nursing Author Type: Registered Nurse Type: Nursing Progress Note Filed: 12/06/2022 2:41 PM Note Text: Other: Sign In/ Timme out @1430 at bedside for local injection to R index finger. 1430 local injection of 3 ml to R index finger by . 1431 Sign out. Pt tolerated well, VSS, report to Ada Branham [facility] OPERATIVE NOon 12-06-2022 OPERATIVE NO HNO ID: [id number] Author: Ant Mosquera MD Service: Orthopaedic Surgery Author Type: Physician Type: Operative Report Filed: 12/12/2022 7:41 AM Note Text: OPERATIVE/PROCEDURE REPORT LOG ID: [id number] SURGERY/PROCEDURE DATE: 12/06/2022 INCISION/PROCEDURE START TIME: 2:49 PM INCISION CLOSE/PROCEDURE END TIME: 3:05 PM SURGEON(S)/PROCEDURALIS T(S) AND ASSET PROTECTION AGENT(S): Surgeon(s) and Role: * Ant Mosquera MD - Primary Physician China Painter: Bernice Hernandez PA-C SURGERY/PROCEDURE(S): Right, Index finger, excision of ganglion cyst. (Digital mucous) ANESTHESIA: Local SURGERY/PROCEDURE DETAILS: This is a pleasant, 62-year-old male who had a ongoing, ganglion cyst at the tip of the right index finger. It was quite painful when he bumped it and the skin was thinning out she had concerns about appearance and pain and infection possibilities. The risks, benefits, alternatives and potential complications involving both operative nonoperative care were reviewed. She understood and wished to pursue surgery. On 12/06/2022, the patient was cleared identified the preoperative area marked accordingly on the right index finger by myself. No perioperative antibiotics were necessary due to the local soft tissue procedure. He was taken the operative suite and placed in a supine position with an armboard on the right. All other bony landmarks were properly padded in standard fashion. The right upper extremity was then sterilely prepped and draped in standard fashion. Local anesthetic was provided with 2% lidocaine with 1 100,000 epinephrine for total of 3 cc locally at the digit. A turnicot was then applied for exsanguination and bleeding controlled. A 15 blade was used to make an L-shaped incision along the mid lateral portion directly over the top of the ganglion at the DIP joint. It was so thin that we were able to get into the ganglion cyst proper even just coming through the skin incision. I bluntly dissected down to its stalk distally to the joint and laterally to the attachment of the extensor tendon. I cauterized at its tip. Copiously irrigated the joint. I did not send anything for pathology as it was unnecessary based on appearance. The tournicot was taken down and hemostasis was obtained using bipolar electrocautery. 3-0 nylons were used to close the wound. Xeroform gauze, light Ronan and a Coban was used for final bandage. There are no complications during the procedure. Patient was safely transferred to the postanesthetic care unit stable condition. PRE-OP/PRE-PROCEDURE DIAGNOSIS: Right index finger, digital mucous cyst POST-OP/POST-PROCEDURE DIAGNOSIS: Same as Preop ESTIMATED BLOOD LOSS: 0 ml SPECIMENS: None sent IMPLANTABLE DEVICES: None DRAINS: None COMPLICATIONS: None PARTICIPATION IN SURGERY/PROCEDURE: I/primary surgeon/proceduralist performed the entire procedure. CLOSURE TECHNIQUE: Primary SIGNATURE: Ant Mosquera MD PATIENT NAME: Jarrett Fuentes Acacia DATE: December 12, 2022 TIME: 7:[address] [facility] 11-01-2022 [facility] Telephone (RUDY) JARRETT ROGER ([id number]) 1960 Date Time Provider Department 11/01/22 ANT MOSQUERA During your visit today, we recorded the following information about you: Karie Tapia Ma 11/01/2022 11:16 AM Signed Patient scheduled for Right index finger excision ganglion cyst on 12/06/22. Surgical request completed. Post op appointments scheduled and mailed to patient. Lauren Ledbetter Ma 11/01/2022 4:51 PM Signed Surgery has been scheduled as requested. Allergies As of Date: 11/01/2022 (No Known Allergies) Date Reviewed: 10/26/2022 Reviewed by: Ant Mosquera MD - Fully Assessed Reason for Visit: Schedule Surgery [1330] Primary Visit Diagnosis:Ganglion and cyst of synovium, tendon, and bursa [M67.49, M71.39, M67.89] Order(s):SURGICAL REQUEST - ELECTIVE (04/2020) [[id number]] Order #: [id number]: 1 Prescriptions as of 11/01/2022 - cyanocobalamin, vitamin B-12, (VITAMIN B-12 ORAL) Dissolve under the tongue. - Cholecalciferol, Vitamin D3, 50 mcg (2,000 unit) cap Take by mouth q 24 HR. - aspirin, enteric coated (ASPIRIN, ENTERIC COATED) 81 mg EC tablet Take by mouth q 24 HR. - donepezil (ARICEPT) 5 mg tablet Take by mouth. Problem List As Of Date: 11/01/2022 (None) Letter Text Encounter Status:Closed by LAUREN LEDBETTER MA on 11/01/22 [facility] CNOVon 10-26-2022 CNOV Office Visit (RUDY ) JARRETT ROGER ([id number]) 1960 M Date Time Provider Department 10/26/22 3:30 PM ANT MOSQUERA During your visit today, we recorded the following information about you: Ant Mosquera MD 11/27/2022 4:24 PM Signed Ant Mosquera MD Department of Orthopaedics Orthopaedics [address] [facility] [address] Dept: [phone] Dept October 26, 2022 CHIEF COMPLAINT: No chief complaint on file. HPI Pt here today for a cyst on R index finger. Noticed around a year ago, just appeared with no incident. Pt states at times the cyst will get bigger. Not painful unless bumped. Non limiting, just careful to not bump it at work. 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 ASSESSMENT: M67.49, M71.39, M67.89 Ganglion and cyst of synovium, tendon and bursa (primary encounter diagnosis) PLAN: We discussed the risks, benefits, alternatives and potential complications involving both operative and nonoperative treatment. He would like to pursue surgery for excision of the cyst. FOLLOW UP INSTRUCTIONS: Schedule at his convenience OBJECTIVE: Mr. Jarrett Roger is a pleasant 62 year old in no apparent distress. Gen:There were no vitals taken for this visit. nl development, non obese, no deformities ENT: Normocephalic, normal hearing, moist mucosa CV: Pulses:Radial= 2+ and symmetric, capillary refill < 2 secs, no peripheral edema/varicosities Skin: no rash, bruising or lesions. Good turgor. Psych: cooperative and appropriate, alert and oriented x 3, good mood and affect. Musculoskeletal: Focal area of swelling on the right index finger consistent with likely ganglion cyst. No skin changes. No redness or drainage. IMAGING: Deferred Supporting Subjective Information Below: Past Medical History: PAST MEDICAL HISTORY Diagnosis Date ADD (attention deficit disorder) Past Surgical History: PAST SURGICAL HISTORY Procedure Laterality Date NONE Family History: FAMILY HISTORY Problem Relation Age of Onset Breast Cancer Mother Colon Cancer Father Cancer Paternal Grandfather Social History: Social History Tobacco Use Smoking status: Former Smokeless tobacco: Former Types: Chew Substance Use Topics Alcohol use: Never Drug use: Never Medications: Current Outpatient Medications Medication Sig cyanocobalamin, vitamin B-12, (VITAMIN B-12 ORAL) Dissolve under the tongue. Cholecalciferol, Vitamin D3, 50 mcg (2,000 unit) cap Take by mouth q 24 HR. aspirin, enteric coated (ASPIRIN, ENTERIC COATED) 81 mg EC tablet Take by mouth q 24 HR. donepezil (ARICEPT) 5 mg tablet Take by mouth. No current facility-administered medications for this visit. Allergies: Patient has no known allergies. ROS: General (negative for fatigue, malaise, weight loss/gain) HEENT (negative for headache, earache, recent vision changes, sinus pain, sore throat) Respiratory (no recent shortness of breath, hemoptysis) CV (negative for chest tightness, palpitations) Musculoskeletal (see HPI) Psych (no depression, anxiety) Ant Mosquera MD Referring Provider: SELF [200] Allergies As of Date: 10/26/2022 (No Known Allergies) Date Reviewed: 10/26/2022 Reviewed by: Ant Mosquera MD - Fully Assessed Reason for Visit: New [805029] Cmt: cyst Pain [78] Cmt: cyst Primary Visit Diagnosis:Ganglion and cyst of synovium, tendon and bursa [M67.49, M71.39, M67.89] Prescriptions as of 11/27/2022 - cyanocobalamin, vitamin B-12, (VITAMIN B-12 ORAL) Dissolve under the tongue. - Cholecalciferol, Vitamin D3, 50 mcg (2,000 unit) cap Take by mouth q 24 HR. - aspirin, enteric coated (ASPIRIN, ENTERIC COATED) 81 mg EC tablet Take by mouth q 24 HR. - donepezil (ARICEPT) 5 mg tablet Take by mouth. Problem List As Of Date: 10/26/2022 (None) Encounter Status:Closed by ANT MOSQUERA on 11/27/22 Normal [facility] CALCIFEDIOL (55211)Ordered B y: Rnfa on 10-03-2022 25-hydroxyvitamin D [Mass/Vol] 26.7 ng/mL Abnormal 30.0-100.0 [facility]; [facility] Work Phone: Comment on above: Vitamin D deficiency has been defined by the [place] of[place]icine and an Endocrine Society practice guideline as alevel of serum 25-OH vitamin D less than 20 ng/mL (1,2).The Endocrine Society went on to further define vitamin Dinsufficiency as a level between 21 and 29 ng/mL (2).1. IOM ([place] of Medicine). 2010. Dietary reference intakes for calcium and D. [place]: The National Academies Press.2. Bharti MF, Cholo CHRISTY, Tung THOMSON, et al. Evaluation, treatment, and prevention of vitamin D deficiency: an Endocrine Society clinical practice guideline. JCEM. 2010; 96():1911-30. PATIENT WAS FASTINGP ERFORMED BY: CARL Lab[facility]gar Uirqfy7099 Gilbert RoadDublin [place] [id number] CBC W/AUTO DIFF WBC (52908)O rdered By: Rnfa on 10-03-2022 Basophils (Bld) [#/Vol] 0.1 10*3/uL Normal 0.0-0.2 [facility]; [facility] Work Phone: Comment on above: PATIENT WAS FASTINGP ERFORMED BY: CARL [facility] Cybbje0958 [address] RoadDublin [place] [id number] Basophils/100 WBC (Bld) 1 % Normal [facility]; [facility] Work Phone: Comment on above: PATIENT WAS FASTINGP ERFORMED BY: CARL Lablen Xejzsr2139 [address] RoadDublin [place] [id number] Eosinophils (Bld) [#/Vol] 0.4 10*3/uL Normal 0.0-0.4 [facility]; [facility] Work Phone: Comment on above: PATIENT WAS FASTINGP ERFORMED BY: CARL Lablenedgar Sybwsr9555 [address] RoadDublin [place] [id number] Eosinophils/100 WBC (Bld) 6 % Normal [facility]; [facility] Work Phone: Comment on above: PATIENT WAS FASTINGP ERFORMED BY: CARL Lablen Oylgqo1585 [address] RoadDublin [place] [id number] Erythrocyte distribution width (RBC) [Ratio] 12.7 % Normal 11.6-15.4 [facility]; [facility] Work Phone: Comment on above: PATIENT WAS FASTINGP ERFORMED BY: CARL [facility] Ngtkws4804 [address] RoadDublin [place] [id number] Hematocrit (Bld) [Volume fraction] 43.7 % Normal 37.5-51.0 [facility]; [facility] Work Phone: Comment on above: PATIENT WAS FASTINGP ERFORMED BY: CARL [facility] Npdraw6523 [facility] [id number] Hemoglobin (Bld) [Mass/Vol] 14.2 g/dL Normal 13.0-17.7 [facility]; [facility] Work Phone: Comment on above: PATIENT WAS FASTINGP ERFORMED BY: CARL [facility] Rvwtvo4899 [facility] [id number] Immature granulocytes (Bld) [#/Vol] 0.0 10*3/uL Normal 0.0-0.1 [facility]; [facility] Work Phone: Comment on above: PATIENT WAS FASTINGP ERFORMED BY: CARL [facility] Btlmgb4055 [facility] [id number] Immature granulocytes/100 WBC (Bld) 0 % Normal [facility]; [facility] Work Phone: Comment on above: PATIENT WAS FASTINGP ERFORMED BY: [facility] Mwlnuk4414 [facility] [id number] Lymphocytes (Bld) [#/Vol] 2.0 10*3/uL Normal 0.7-3.1 [facility]; [facility] Work Phone: Comment on above: PATIENT WAS FASTINGP ERFORMED BY: CARL Bianca Hohyna3944 [facility] [id number] Lymphocytes/100 WBC (Bld) 28 % Normal [facility]; [facility] Work Phone: Comment on above: PATIENT WAS FASTINGP ERFORMED BY: [facility] Qhxtdt1939 [facility] [id number] MCH (RBC) [Entitic mass] 27.5 pg Normal 26.6-33.0 [facility]; [facility] Work Phone: Comment on above: PATIENT WAS FASTINGP ERFORMED BY: [facility] Ddyxdl3346 [facility] [id number] MCHC (RBC) [Mass/Vol] 32.5 g/dL Normal 31.5-35.7 [facility]; [facility] Work Phone: Comment on above: PATIENT WAS FASTINGP ERFORMED BY: CARL [facility] Rangel6370 [address] RoadDublin [place] [id number] MCV (RBC) [Entitic vol] 85 fL Normal 79-97 [facility]; [facility] Work Phone: Comment on above: PATIENT WAS FASTINGP ERFORMED BY: CARL [facility] Rangel6370 [address] RoadDublin [place] [id number] Monocytes (Bld) [#/Vol] 0.6 10*3/uL Normal 0.1-0.9 [facility]; [facility] Work Phone: Comment on above: PATIENT WAS FASTINGP ERFORMED BY: CARL [facility] Rangel6370 [address] RoadDublin [place] [id number] Monocytes/100 WBC (Bld) 8 % Normal [facility]; [facility] Work Phone: Comment on above: PATIENT WAS FASTINGP ERFORMED BY: Bianca Yyszou8468 [address] RoadDublin [place] [id number] Neutrophils (Bld) [#/Vol] 4.0 10*3/uL Normal 1.4-7.0 [facility]; [facility] Work Phone: Comment on above: PATIENT WAS FASTINGP ERFORMED BY: CARL Rangel6370 [address] RoadDublin [place] [id number] Neutrophils/100 WBC (Bld) 57 % Normal [facility]; [facility] Work Phone: Comment on above: PATIENT WAS FASTINGP ERFORMED BY: Lablen Ytrgfi0423 [address] RoadDublin [place] [id number] Platelets (Bld) [#/Vol] 206 10*3/uL Normal 150-450 [facility]; [facility] Work Phone: Comment on above: PATIENT WAS FASTINGP ERFORMED BY: CARL [facility] SanchezPnwhpp3811 [address] RoadDublin [place] [id number] RBC (Bld) [#/Vol] 5.16 10*6/uL Normal 4.14-5.80 Compr [facility]; [facility] Work Phone: Comment on above: PATIENT WAS FASTINGP ERFORMED BY: CARL [facility] Zdgsjf1900 [address] RoadDublin [place] [id number] WBC (Bld) [#/Vol] 7.0 10*3/uL Normal 3.4-10.8 [facility]; [facility] Work Phone: Comment on above: PATIENT WAS FASTINGP ERFORMED BY: CB [facility] Bdpxln8048 [address] RoadDublin [place] [id number] LIPID PANEL (46188)Ordered B y: Rnfa on 10-03-2022 Cholesterol [Mass/Vol] 133 mg/dL Normal 100-199 [facility]; [facility] Work Phone: Comment on above: PATIENT WAS FASTINGP ERFORMED BY: CARL [facility] Fwnphl5867 [address] RoadDublin [place] [id number] Cholesterol in HDL [Mass/Vol] 39 mg/dL Abnormal [facility]; [facility] Work Phone: Comment on above: PATIENT WAS FASTINGP ERFORMED BY: CARL [facility] Zlqrow4573 [address] RoadDublin [place] [id number] Triglyceride [Mass/Vol] 56 mg/dL Normal 0-149 [facility]; [facility] Work Phone: Comment on above: PATIENT WAS FASTINGP ERFORMED BY: CARL [facility] Lnjoof9717 [address] RoadDublin [place] [id number] LIPID PANEL (47430) 12 mg/dL Normal 5-40 [facility]; [facility] Work Phone: Comment on above: PATIENT WAS FASTINGP ERFORMED BY: CB [facility] Mjisad6560 [address] RoadDublin [place] [id number] LIPID PANEL (99563) 82 mg/dL Normal 0-99 [facility]; [facility] Work Phone: Comment on above: PATIENT WAS FASTINGP ERFORMED BY: CB [facility] Ugydmo8207 [address] RoadDublin [place] [id number] LIPID PANEL (36044) 2.1 {ratio} Normal 0.0-3.6 [facility]; [facility] Work Phone: Comment on above: LDL/HDL Ratio Men Wo men 1/2 Avg.Risk 1.0 1.5 Avg.Risk 3.6 3.2 2X Avg.Risk 6.2 5.0 3X Avg.Risk 8.0 6.1 PATIENT WAS FASTINGP ERFORMED BY: CB [facility] Wdrxaw5451 [address] RoadDublin [place] [id number] METABOLIC PANEL, COMPREHENSI VE (15413)Ordered By: Rnfa on 10-03-2022 Albumin [Mass/Vol] 4.4 g/dL Normal 3.8-4.8 [facility]; [facility] Work Phone: Comment on above: PATIENT WAS FASTINGP ERFORMED BY: CB [facility] Syzxdb6436 [address] RoadDublin [place] [id number] Albumin/Globulin [Mass ratio] 2.1 {ratio} Normal 1.2-2.2 [facility]; [facility] Work Phone: Comment on above: PATIENT WAS FASTINGP ERFORMED BY: CB [facility] Kdzpcj0309 [address] RoadDublin [place] [id number] ALP [Catalytic activity/Vol] 106 U/L Normal 44-121 [facility]; [facility] Work Phone: Comment on above: PATIENT WAS FASTINGP ERFORMED BY: CB [facility] Svkdhh1309 [address] RoadDublin [place] [id number] ALT [Catalytic activity/Vol] 21 U/L Normal 0-44 [facility]; [facility] Work Phone: Comment on above: PATIENT WAS FASTINGP ERFORMED BY: CB [facility] Zhoief8588 [address] RoadDublin [place] [id number] AST [Catalytic activity/Vol] 27 U/L Normal 0-40 [facility]; [facility] Work Phone: Comment on above: PATIENT WAS FASTINGP ERFORMED BY: CB [facility] Bgfcjw9288 [address] RoadDublin [place] [id number] Bilirubin [Mass/Vol] 0.6 mg/dL Normal 0.0-1.2 [facility]; [facility] Work Phone: Comment on above: PATIENT WAS FASTINGP ERFORMED BY: CARL [facility] Ajspnd4899 [address] [facility] [place] [id number] Calcium [Mass/Vol] 9.3 mg/dL Normal 8.6-10.2 [facility]; [facility] Work Phone: Comment on above: PATIENT WAS FASTINGP ERFORMED BY: [facility] Cdvmnu3417 Gilbert Roadblin [place] [id number] Chloride [Moles/Vol] 105 mmol/L Normal 96-106 [facility]; [facility] Work Phone: Comment on above: PATIENT WAS FASTINGP ERFORMED BY: [facility] Pauwkc1635 [address] Roadblin [place] [id number] CO2 [Moles/Vol] 27 mmol/L Normal 20-29 Comprehen sive [facility]; [facility] Work Phone: Comment on above: PATIENT WAS FASTINGP ERFORMED BY: CARL Bianca Pktucq6901 [address] [facility]in [place] [id number] Creatinine [Mass/Vol] 1.09 mg/dL Normal 0.76-1.27 [facility]; [facility] Work Phone: Comment on above: PATIENT WAS FASTINGP ERFORMED BY: CARL [facility] Cgobtg3119 [address] [facility]in [place] [id number] GFR/1.73 sq M.predicted among non-blacks MDRD (S/P/Bld) [Vol rate/Area] 76 mL/min/{1.73_m2} Normal Comprehensiv e [facility]; [facility] Work Phone: Comment on above: PATIENT WAS FASTINGP ERFORMED BY: CARL [facility] Lncirq7035 [address] [facility] [place] [id number] Globulin (S) [Mass/Vol] 2.1 g/dL Normal 1.5-4.5 [facility]; [facility] Work Phone: Comment on above: PATIENT WAS FASTINGP ERFORMED BY: [facility] Oyaamp5036 [address] [facility] [id number] Glucose [Mass/Vol] 103 mg/dL Abnormal 70-99 [facility]; [facility] Work Phone: Comment on above: PATIENT WAS FASTINGP ERFORMED BY: CARL Lablenedgar SanchezLtlciz4917 [address] [facility] [id number] Potassium [Moles/Vol] 4.9 mmol/L Normal 3.5-5.2 [facility]; [facility] Work Phone: Comment on above: PATIENT WAS FASTINGP ERFORMED BY: CARL [facility] Yvxywi2440 [address] [facility] [id number] Protein [Mass/Vol] 6.5 g/dL Normal 6.0-8.5 [facility]; [facility] Work Phone: Comment on above: PATIENT WAS FASTINGP ERFORMED BY: CARL [facility] SanchezGsaygs7346 [address] [facility] [id number] Sodium [Moles/Vol] 143 mmol/L Normal 134-144 [facility]; [facility] Work Phone: Comment on above: PATIENT WAS FASTINGP ERFORMED BY: CARL Labcoedgar SanchezOpbyaj1955 [address] RoadAtrium Health Stanlyin [place] [id number] Urea nitrogen [Mass/Vol] 17 mg/dL Normal 8-27 [facility]; [facility] Work Phone: Comment on above: PATIENT WAS FASTINGP ERFORMED BY: CARL [facility] Aywrlo0527 [address] [facility]in [place] [id number] Urea nitrogen/Creatini ne [Mass ratio] 16 mg/mg Normal 10-24 [facility]; [facility] Work Phone: Comment on above: PATIENT WAS FASTINGP ERFORMED BY: CARL Labcoedgar Xeqnkv7608 [address] [facility]bl[facility] [place] [id number] URINALYSIS W MICROSCOPY (810 00)Ordered By: Rnfa on 10-03-2022 Appearance (U) Clear Normal Comprehens ayse [facility]; [facility] Work Phone: Comment on above: PATIENT WAS FASTINGP ERFORMED BY: CARL LabcoLaura [place] 6956170 [facility] [id number] Bilirubin Ql (U) Negative Normal Comprehe nsive [facility]; [facility] Work Phone: Comment on above: PATIENT WAS FASTINGP ERFORMED BY: CARL María Sanchezlin6370 [facility] [id number] Color (U) Yellow Normal [facility]; [facility] Work Phone: Comment on above: PATIENT WAS FASTINGP ERFORMED BY: CARL Bianca Rxqyga8756 [facility] [id number] Glucose Ql (U) Negative Normal Comprehens ayse [facility]; [facility] Work Phone: Comment on above: PATIENT WAS FASTINGP ERFORMED BY: CARL Biancaedgar SanchezLqyggj6944 [facility] [id number] Hemoglobin Ql (U) Negative Normal Compreh ensive [facility]; [facility] Work Phone: Comment on above: PATIENT WAS FASTINGP ERFORMED BY: CARL Tavareslen Ywdgll9605 [facility] [id number] Ketones Ql (U) Negative Normal Comprehens ayse [facility]; [facility] Work Phone: Comment on above: PATIENT WAS FASTINGP ERFORMED BY: CARL Bianca Hfvidu2070 [facility] [id number] Leukocyte esterase Test strip Ql (U) Negative Normal [facility]; [facility] Work Phone: Comment on above: PATIENT WAS FASTINGP ERFORMED BY: CARL Tavareslen Kcluho8493 [facility] [id number] Microscopic observation LM Nom (Urine sed) MICNIP Normal [facility]; [facility] Work Phone: Comment on above: Microscopic not peg cated and not performed. PATIENT WAS FASTINGP ERFORMED BY: CARL [place] [id number] [facility] [id number] Nitrite Ql (U) Negative Normal Comprehens ayse [facility]; [facility] Work Phone: Comment on above: PATIENT WAS FASTINGP ERFORMED BY: CARL Tavaresco Gihemt9492 [address] Roadblin [place] [id number] pH (U) 5.5 [pH] Normal 5.0-7.5 [facility]; [facility] Work Phone: Comment on above: PATIENT WAS FASTINGP ERFORMED BY: CARL [employer] Zfjfbz7605 [address] [facility]bl[facility] [place] [id number] Protein Ql (U) Negative Normal Comprehens ayse [facility]; [facility] Work Phone: Comment on above: PATIENT WAS FASTINGP ERFORMED BY: CARL [employer] Fomotw2739 [address] [facility]in [place] [id number] Specific gravity (U) [Rel density] 1.024 1 Normal 1.005-1.030 [facility]; [facility] Work Phone: Comment on above: PATIENT WAS FASTINGP ERFORMED BY: [facility] Sqhzdp8378 Gilbert RoadAtrium Health Stanlyin [place] [id number] Urobilinogen (U) [Mass/Vol] 0.2 mg/dL Normal 0.2-1.0 [facility]; [facility] Work Phone: Comment on above: PATIENT WAS FASTINGP ERFORMED BY: [facility] Xkchub8820 [address] [facility] Health SystemLectus Therapeuticsblin [place] [id number] VITAMIN B12 AND FOLATES (826 07)Ordered By: Rnfa on 10-03-2022 Cobalamin (Vitamin B12) [Mass/Vol] 339 pg/mL Normal 232-1245 [facility]; [facility] Work Phone: Comment on above: PATIENT WAS FASTINGP ERFORMED BY: [employer] Jfpptx0706 [address] [facility]bl[facility] [place] [id number] Folate [Mass/Vol] 18.3 ng/mL Normal Compreh ensive [facility]; [facility] Work Phone: Comment on above: A serum folate lexi ntration of less than 3.1 ng/mL isconsidered to represent clinical deficiency. PATIENT WAS FASTINGP ERFORMED BY: [employer] Uekgdo8454 [address] RoadDublin [place] [id number] CBC with auto diff ([id number])Or dered By: Rnfa on 04-14-2022 Basophils (Bld) [#/Vol] 0.1 10*3/uL Normal 0.0-0.2 [facility]; [facility] Work Phone: Comment on above: PATIENT WAS FASTINGP ERFORMED BY: CARL [facility] Tpzpde8145 [address] RoadDublin [place] [id number] Basophils/100 WBC (Bld) 1 % Normal [facility]; [facility] Work Phone: Comment on above: PATIENT WAS FASTINGP ERFORMED BY: CARL [facility] Flriop9441 [address] RoadDublin [place] [id number] Eosinophils (Bld) [#/Vol] 0.4 10*3/uL Normal 0.0-0.4 [facility]; [facility] Work Phone: Comment on above: PATIENT WAS FASTINGP ERFORMED BY: [facility] Qsyvra8185 [address] RoadDublin [place] [id number] Eosinophils/100 WBC (Bld) 5 % Normal [facility]; [facility] Work Phone: Comment on above: PATIENT WAS FASTINGP ERFORMED BY: CARL [facility] Jhrskx4171 [address] RoadDublin [place] [id number] Erythrocyte distribution width (RBC) [Ratio] 12.8 % Normal 11.6-15.4 [facility]; [facility] Work Phone: Comment on above: PATIENT WAS FASTINGP ERFORMED BY: [facility] Llkquv8794 [address] RoadDublin [place] [id number] Hematocrit (Bld) [Volume fraction] 44.0 % Normal 37.5-51.0 [facility]; [facility] Work Phone: Comment on above: PATIENT WAS FASTINGP ERFORMED BY: [facility] Zoubgx1486 [address] RoadDublin [place] [id number] Hemoglobin (Bld) [Mass/Vol] 14.4 g/dL Normal 13.0-17.7 [facility]; [facility] Work Phone: Comment on above: PATIENT WAS FASTINGP ERFORMED BY: [facility]6370 [facility] [id number] Immature granulocytes (Bld) [#/Vol] 0.0 10*3/uL Normal 0.0-0.1 [facility]; [facility] Work Phone: Comment on above: PATIENT WAS FASTINGP ERFORMED BY: [facility]6370 [facility] [id number] Immature granulocytes/100 WBC (Bld) 0 % Normal [facility]; [facility] Work Phone: Comment on above: PATIENT WAS FASTINGP ERFORMED BY: [place] [id number] [facility] [id number] Lymphocytes (Bld) [#/Vol] 2.1 10*3/uL Normal 0.7-3.1 [facility]; [facility] Work Phone: Comment on above: PATIENT WAS FASTINGP ERFORMED BY: [facility]6370 [facility] [id number] Lymphocytes/100 WBC (Bld) 29 % Normal [facility]; [facility] Work Phone: Comment on above: PATIENT WAS FASTINGP ERFORMED BY: [facility]6370 [facility] [id number] MCH (RBC) [Entitic mass] 27.9 pg Normal 26.6-33.0 [facility]; [facility] Work Phone: Comment on above: PATIENT WAS FASTINGP ERFORMED BY: [facility]6370 [facility] [id number] MCHC (RBC) [Mass/Vol] 32.7 g/dL Normal 31.5-35.7 [facility]; [facility] Work Phone: Comment on above: PATIENT WAS FASTINGP ERFORMED BY: [facility]6370 [facility] [id number] MCV (RBC) [Entitic vol] 85 fL Normal 79-97 [facility]; [facility] Work Phone: Comment on above: PATIENT WAS FASTINGP ERFORMED BY: CARL [facility] Dculbc7679 [address] RoadD[address] [place] [id number] Monocytes (Bld) [#/Vol] 0.6 10*3/uL Normal 0.1-0.9 [facility]; [facility] Work Phone: Comment on above: PATIENT WAS FASTINGP ERFORMED BY: CB [facility] Puwndz9224 [address] RoadDublin [place] [id number] Monocytes/100 WBC (Bld) 8 % Normal [facility]; [facility] Work Phone: Comment on above: PATIENT WAS FASTINGP ERFORMED BY: CB [facility] Gtrleu6595 [address] RoadDublin [place] [id number] Neutrophils (Bld) [#/Vol] 4.0 10*3/uL Normal 1.4-7.0 [facility]; [facility] Work Phone: Comment on above: PATIENT WAS FASTINGP ERFORMED BY: [facility] Fbysoh4994 [address] RoadDublin [place] [id number] Neutrophils/100 WBC (Bld) 57 % Normal [facility]; [facility] Work Phone: Comment on above: PATIENT WAS FASTINGP ERFORMED BY: CB [facility] Gtxabi8083 [address] RoadDublin [place] [id number] Platelets (Bld) [#/Vol] 212 10*3/uL Normal 150-450 [facility]; [facility] Work Phone: Comment on above: PATIENT WAS FASTINGP ERFORMED BY: CB [facility] Wszcoc6873 [address] RoadDublin [place] [id number] RBC (Bld) [#/Vol] 5.17 10*6/uL Normal 4.14-5.80 [facility]; [facility] Work Phone: Comment on above: PATIENT WAS FASTINGP ERFORMED BY: CB [facility] Opaptz2051 [address] RoadDublin [place] [id number] WBC (Bld) [#/Vol] 7.1 10*3/uL Normal 3.4-10.8 [facility]; [facility] Work Phone: Comment on above: PATIENT WAS FASTINGP ERFORMED BY: CARL [facility] Sppibg3918 [address] RoadDublin [place] [id number] LIPID PANEL (16977)Ordered B y: Rnfa on 04-14-2022 Cholesterol [Mass/Vol] 130 mg/dL Normal 100-199 [facility]; [facility] Work Phone: Comment on above: prior to next ov in aug 2022; PATIENT WAS FASTINGPERFORMED BY: CARL [facility] Bfjpcm4970 [address] RoadDublin [place] [id number] Cholesterol in HDL [Mass/Vol] 40 mg/dL Normal [facility]; [facility] Work Phone: Comment on above: prior to next ov in aug 2022; PATIENT WAS FASTINGPERFORMED BY: CARL [facility] Eqlcbx3221 [address] RoadDublin [place] [id number] Triglyceride [Mass/Vol] 114 mg/dL Normal 0-149 [facility]; [facility] Work Phone: Comment on above: prior to next ov in aug 2022; PATIENT WAS FASTINGPERFORMED BY: CARL [facility] Qlpeaz3173 [address] RoadDublin [place] [id number] LIPID PANEL (09524) 21 mg/dL Normal 5-40 [facility]; [facility] Work Phone: Comment on above: prior to next ov in aug 2022; PATIENT WAS FASTINGPERFORMED BY: CB [facility] Oevvox119[address]Dublin [place] [id number] LIPID PANEL (63893) 69 mg/dL Normal 0-99 [facility]; [facility] Work Phone: Comment on above: prior to next ov in aug 2022; PATIENT WAS FASTINGPERFORMED BY: CB [facility] Gszhlc19[address]Dublin [place] [id number] LIPID PANEL (36013) 1.7 {ratio} Normal 0.0-3.6 [facility]; [facility] Work Phone: Comment on above: LDL/HDL Ratio Men Wo men 1/2 Avg.Risk 1.0 1.5 Avg.Risk 3.6 3.2 2X Avg.Risk 6.2 5.0 3X Avg.Risk 8.0 6.1 prior to next ov in Jul/aug 2022; PATIENT WAS FASTINGPERFORMED BY: CB [facility] Obuoyf1829 [address] RoadDublin [place] [id number] METABOLIC PANEL, COMPREHENSI VE (50758)Ordered By: Rnfa on 04-14-2022 Albumin [Mass/Vol] 4.1 g/dL Normal 3.8-4.8 [facility]; [facility] Work Phone: Comment on above: PATIENT WAS FASTINGP ERFORMED BY: [facility] Wodrqr2707 [address] RoadDublin [place] [id number] Albumin/Globulin [Mass ratio] 1.8 {ratio} Normal 1.2-2.2 [facility]; [facility] Work Phone: Comment on above: PATIENT WAS FASTINGP ERFORMED BY: [facility] Pcordm3230 [address] RoadDublin [place] [id number] ALP [Catalytic activity/Vol] 106 U/L Normal 44-121 [facility]; [facility] Work Phone: Comment on above: PATIENT WAS FASTINGP ERFORMED BY: [facility] Rnaldr0276 [address] RoadDublin [place] [id number] ALT [Catalytic activity/Vol] 25 U/L Normal 0-44 [facility]; [facility] Work Phone: Comment on above: PATIENT WAS FASTINGP ERFORMED BY: [facility] Elswvy1740 [address]Dublin [place] [id number] AST [Catalytic activity/Vol] 32 U/L Normal 0-40 [facility]; [facility] Work Phone: Comment on above: PATIENT WAS FASTINGP ERFORMED BY: [facility] Enlqpn6573 [address] RoadDublin [place] [id number] Bilirubin [Mass/Vol] 0.3 mg/dL Normal 0.0-1.2 [facility]; [facility] Work Phone: Comment on above: PATIENT WAS FASTINGP ERFORMED BY: CARL [facility] Edtscp3098 [address] RoadDublin [place] [id number] Calcium [Mass/Vol] 9.0 mg/dL Normal 8.6-10.2 [facility]; [facility] Work Phone: Comment on above: PATIENT WAS FASTINGP ERFORMED BY: CB [facility] Ulmshr2238 [address] RoadDublin [place] [id number] Chloride [Moles/Vol] 104 mmol/L Normal 96-106 [facility]; [facility] Work Phone: Comment on above: PATIENT WAS FASTINGP ERFORMED BY: [facility] Nvfhdk4[address] RoadDublin [place] [id number] CO2 [Moles/Vol] 26 mmol/L Normal 20-29 Comprehen sive [facility]; [facility] Work Phone: Comment on above: PATIENT WAS FASTINGP ERFORMED BY: CARL [facility] Ngydxd7890 Gilbert Roadblin [place] [id number] Creatinine [Mass/Vol] 1.00 mg/dL Normal 0.76-1.27 [facility]; [facility] Work Phone: Comment on above: PATIENT WAS FASTINGP ERFORMED BY: CARL [facility] Hyxiia4[address] RoadDublin [place] [id number] GFR/1.73 sq M.predicted among non-blacks MDRD (S/P/Bld) [Vol rate/Area] 84 mL/min/{1.73_m2} Normal Comprehensiv e [facility]; [facility] Work Phone: Comment on above: PATIENT WAS FASTINGP ERFORMED BY: CARL [facility] Qugfje2685 [address] RoadDublin [place] [id number] Globulin (S) [Mass/Vol] 2.3 g/dL Normal 1.5-4.5 [facility]; [facility] Work Phone: Comment on above: PATIENT WAS FASTINGP ERFORMED BY: [facility] Izkeiw1079 [address] RoadDublin [place] [id number] Glucose [Mass/Vol] 114 mg/dL Abnormal 65-99 [facility]; [facility] Work Phone: Comment on above: PATIENT WAS FASTINGP ERFORMED BY: [facility] Ucyrqc1473 [facility] [id number] Potassium [Moles/Vol] 4.3 mmol/L Normal 3.5-5.2 [facility]; [facility] Work Phone: Comment on above: PATIENT WAS FASTINGP ERFORMED BY: [facility]6370 [facility] [id number] Protein [Mass/Vol] 6.4 g/dL Normal 6.0-8.5 [facility]; [facility] Work Phone: Comment on above: PATIENT WAS FASTINGP ERFORMED BY: [facility]6370 [facility] [id number] Sodium [Moles/Vol] 142 mmol/L Normal 134-144 [facility]; [facility] Work Phone: Comment on above: PATIENT WAS FASTINGP ERFORMED BY: [facility]6370 [facility] [id number] Urea nitrogen [Mass/Vol] 23 mg/dL Normal 8-27 [facility]; [facility] Work Phone: Comment on above: PATIENT WAS FASTINGP ERFORMED BY: [facility]6370 [facility] [id number] Urea nitrogen/Creatini ne [Mass ratio] 23 mg/mg Normal 10-24 [facility]; [facility] Work Phone: Comment on above: PATIENT WAS FASTINGP ERFORMED BY: [facility] Uhpdry7543 [facility] [id number] PSA (PROSTATE SPECIFIC ANTIG EN) (50655)Ordered By: Rnfa on 04-14-2022 Prostate specific Ag [Mass/Vol] 1.1 ng/mL Normal 0.0-4.0 [facility]; [facility] Work Phone: Comment on above: Jorge A ECLIA methodol ogy. .According to the [place] [employer], Serum PSA shoulddecrease and remain at undetectable levels after radicalprostatectomy. The AUA defines biochemical recurrence as an initialPSA value 0.2 ng/mL or greater followed by a subsequent confirmatoryPSA value 0.2 ng/mL or greater.Values obtained with different assay methods or kits cannot be usedinterchangeably. Results cannot be interpreted as absolute evidenceof the presence or absence of malignant disease. PATIENT WAS FASTINGP ERFORMED BY: [employer] Warenp[address] RDA MicroelectronicsAtrium Health Stanlyin [place] [id number] TSH (THYROID STIMULATING HOR SHASTA) (57868)Ordered By: Rnfa on 04-14-2022 TSH Qn 1.220 {uIU/mL} Normal 0.450-4.500 [facility]; [facility] Work Phone: Comment on above: PATIENT WAS FASTINGP ERFORMED BY: [employer] [facility] Wwzieh9402 [facility] BellsSampson [facility] [id number] Blood Glucose , Office (8296 2)Ordered By: Christelle Monge on 03-24-2022 Glucose Glucometer (BldC) [Moles/Vol] 122 1 Normal [facility]; [facility] Work Phone: HgA1C , Office ([id number])Ordere d By: Christelle Monge on 03-24-2022 HbA1c (Bld) [Mass fraction] 5.3 % Normal 4.6 - 7.1 [facility]; [facility] Work Phone: CALCIFEDIOL (91476)Ordered B y: Rnfa on 07-27-2021 25-hydroxyvitamin D [Mass/Vol] 29.4 ng/mL Abnormal 30.0-100.0 [facility]; [facility] Work Phone: Comment on above: Vitamin D deficiency has been defined by the [place] of[place]icine and an Endocrine Society practice guideline as alevel of serum 25-OH vitamin D less than 20 ng/mL (1,2).The Endocrine Society went on to further define vitamin Dinsufficiency as a level between 21 and 29 ng/mL (2).1. IOM ([place] of Medicine). 2010. Dietary reference intakes for calcium and D. [place]: The National Academies Press.2. Bharti MF, Cholo NC, Tung THOMSON, et al. Evaluation, treatment, and prevention of vitamin D deficiency: an Endocrine Society clinical practice guideline. JCEM. 2010; 96(7):1911-30. PATIENT NOT FASTINGP ERFORMED BY: Moonbasa Ykklbb0864 Arkmicroblin [place] [id number] HgA1C , Office (89815)Ordere d By: Steve Mills on 07-27-2021 HbA1c (Bld) [Mass fraction] 5.3 % Normal 4.6 - 7.1 [facility]; [facility] Work Phone: Comment on above: 5.3 VITAMIN B12 AND FOLATES (826 14)Ordered By: Rnfa on 07-27-2021 Cobalamin (Vitamin B12) [Mass/Vol] pg/mL Abnormal 232-1245 [facility]; [facility] Work Phone: Comment on above: PATIENT NOT FASTINGP ERFORMED BY: Moonbasa Njloem8822 Arkmicroblin [place] [id number] Folate [Mass/Vol] 15.2 ng/mL Normal Compreh ensive [facility]; [facility] Work Phone: Comment on above: A serum folate lexi ntration of less than 3.1 ng/mL isconsidered to represent clinical deficiency. PATIENT NOT FASTINGP ERFORMED BY: Moonbasa Ivgxby0223 Arkmicroblin [place] [id number] LIPID PANEL (03817)Ordered B y: Rnfa on 07-22-2021 Cholesterol [Mass/Vol] 138 mg/dL Normal 100-199 [facility]; [facility] Work Phone: Comment on above: PATIENT WAS FASTINGP ERFORMED BY: Moonbasa Khebpr[address] Picatchablin [place] [id number] Cholesterol in HDL [Mass/Vol] 42 mg/dL Normal [facility]; [facility] Work Phone: Comment on above: PATIENT WAS FASTINGP ERFORMED BY: Moonbasa Tvlxfj5[address] [facility] [id number] Triglyceride [Mass/Vol] 66 mg/dL Normal 0-149 [facility]; [facility] Work Phone: Comment on above: PATIENT WAS FASTINGP ERFORMED BY: CARL ChaitanyaMode SanchezIurqkv5216 [facility] [id number] LIPID PANEL (25488) 2.0 {ratio} Normal 0.0-3.6 [facility]; [facility] Work Phone: Comment on above: LDL/HDL Ratio Men Wo men 1/2 Avg.Risk 1.0 1.5 Avg.Risk 3.6 3.2 2X Avg.Risk 6.2 5.0 3X Avg.Risk 8.0 6.1 PATIENT WAS FASTINGP ERFORMED BY: CARL Sanchezlin6370 [facility] [id number] LIPID PANEL (25836) 82 mg/dL Normal 0-99 [facility]; [facility] Work Phone: Comment on above: PATIENT WAS FASTINGP ERFORMED BY: CARL Sanhcezlin6370 [facility] [id number] LIPID PANEL (74710) 14 mg/dL Normal 5-40 [facility]; [facility] Work Phone: Comment on above: PATIENT WAS FASTINGP ERFORMED BY: CARL Sanchezlin6370 [facility] [id number] Metabolic Panel, Comprehensi ve (35377)Ordered By: Rnfa on 07-22-2021 Albumin [Mass/Vol] 4.2 g/dL Normal 3.8-4.8 [facility]; [facility] Work Phone: Comment on above: PATIENT WAS FASTINGP ERFORMED BY: CARL [facility] SanchezAjpkxn7391 [facility] [id number] Albumin/Globulin [Mass ratio] 1.9 {ratio} Normal 1.2-2.2 [facility]; [facility] Work Phone: Comment on above: PATIENT WAS FASTINGP ERFORMED BY: CARL LabCoedgar Esytuz8628 [facility] [id number] ALP [Catalytic activity/Vol] 104 U/L Normal 44-121 [facility]; [facility] Work Phone: Comment on above: Please note refere nce interval change PATIENT WAS FASTINGP ERFORMED BY: CB [facility] Xbagjs9556 Gilbert RoadDublin [place] [id number] ALT [Catalytic activity/Vol] 22 U/L Normal 0-44 [facility]; [facility] Work Phone: Comment on above: PATIENT WAS FASTINGP ERFORMED BY: CB [facility] Oevntd4418 [address] RoadDublin [place] [id number] AST [Catalytic activity/Vol] 22 U/L Normal 0-40 [facility]; [facility] Work Phone: Comment on above: PATIENT WAS FASTINGP ERFORMED BY: CB [facility] Qsgikp6729 [address] RoadDublin [place] [id number] Bilirubin [Mass/Vol] 0.4 mg/dL Normal 0.0-1.2 [facility]; [facility] Work Phone: Comment on above: PATIENT WAS FASTINGP ERFORMED BY: CB [facility] Wwapbe6633 [address] RoadDublin [place] [id number] Calcium [Mass/Vol] 9.4 mg/dL Normal 8.6-10.2 [facility]; [facility] Work Phone: Comment on above: PATIENT WAS FASTINGP ERFORMED BY: CB [facility] Lkriqf7793 Gilbert RoadDublin [place] [id number] Chloride [Moles/Vol] 104 mmol/L Normal 96-106 [facility]; [facility] Work Phone: Comment on above: PATIENT WAS FASTINGP ERFORMED BY: CB [facility] Ynwcva8704 [address] RoadDublin [place] [id number] CO2 [Moles/Vol] 28 mmol/L Normal 20-29 [facility]; [facility] Work Phone: Comment on above: PATIENT WAS FASTINGP ERFORMED BY: CB [facility] Zlfwer8450 [address] RoadDublin [place] [id number] Creatinine [Mass/Vol] 1.01 mg/dL Normal 0.76-1.27 [facility]; [facility] Work Phone: Comment on above: PATIENT WAS FASTINGP ERFORMED BY: CARL Rangel6370 GilbertResearch [facility] [id number] GFR/1.73 sq M.predicted among blacks CKD-EPI (S/P/Bld) [Vol rate/Area] 91 mL/min/1.73 Normal [facility]; [facility] Work Phone: Comment on above: In accordance with recommendations from the NKF-ASN Task force, María is in the process of updating its eGFR calculation to the 2020 CKD-EPI creatinine equation that estimates kidney function without a race variable. PATIENT WAS FASTINGP ERFORMED BY: CARL Rangel6370 GilbertResearch [facility] [id number] GFR/1.73 sq M.predicted among non-blacks CKD-EPI (S/P/Bld) [Vol rate/Area] 79 mL/min/1.73 Normal [facility]; [facility] Work Phone: Comment on above: PATIENT WAS FASTINGP ERFORMED BY: CARL Rangel6370 [facility] [id number] Globulin (S) [Mass/Vol] 2.2 g/dL Normal 1.5-4.5 [facility]; [facility] Work Phone: Comment on above: PATIENT WAS FASTINGP ERFORMED BY: CARL Sanchezlin6370 [facility] [id number] Glucose [Mass/Vol] 108 mg/dL Abnormal 65-99 [facility]; [facility] Work Phone: Comment on above: PATIENT WAS FASTINGP ERFORMED BY: CARL Sanchezlin6370 [facility] [id number] Potassium [Moles/Vol] 4.4 mmol/L Normal 3.5-5.2 [facility]; [facility] Work Phone: Comment on above: PATIENT WAS FASTINGP ERFORMED BY: CB [facility] Gmltvo6637 [address] RoadDublin [place] [id number] Protein [Mass/Vol] 6.4 g/dL Normal 6.0-8.5 [facility]; [facility] Work Phone: Comment on above: PATIENT WAS FASTINGP ERFORMED BY: CB [facility] Fnmfik2865 Gilbert RoadDublin [place] [id number] Sodium [Moles/Vol] 143 mmol/L Normal 134-144 [facility]; [facility] Work Phone: Comment on above: PATIENT WAS FASTINGP ERFORMED BY: CB [facility] Ykwhil9887 [address] RoadDublin [place] [id number] Urea nitrogen [Mass/Vol] 19 mg/dL Normal 8-27 [facility]; [facility] Work Phone: Comment on above: PATIENT WAS FASTINGP ERFORMED BY: CB [facility] Hhtvvd7305 [address] RoadDublin [place] [id number] Urea nitrogen/Creatini ne [Mass ratio] 19 mg/mg Normal 10-24 [facility]; [facility] Work Phone: Comment on above: PATIENT WAS FASTINGP ERFORMED BY: CB [facility] Sglosm0998 [address] RoadDublin [place] [id number] CALCIFEDIOL (59967)Ordered B y: Rnfa on 05-05-2021 25-hydroxyvitamin D [Mass/Vol] 58.8 ng/mL Normal 30.0-100.0 [facility]; [facility] Work Phone: Comment on above: Vitamin D deficiency has been defined by the [place] of[place]icine and an Endocrine Society practice guideline as alevel of serum 25-OH vitamin D less than 20 ng/mL (1,2).The Endocrine Society went on to further define vitamin Dinsufficiency as a level between 21 and 29 ng/mL (2).1. IOM ([place] of Medicine). 2010. Dietary reference intakes for calcium and D. [place]: The National Academies Press.2. Bharti MF, [place], Tung THOMSON, et al. Evaluation, treatment, and prevention of vitamin D deficiency: an Endocrine Society clinical practice guideline. JCEM. 2010; 96(7):1911-30. PATIENT WAS FASTINGP ERFORMED BY: CARL [facility] Lpkxah5688 [facility] [id number] LDH (LD) (LACTATE DEHYDROGEN ASE) (83879)Ordered By: Rnfa on 05-05-2021 LDH [Catalytic activity/Vol] 204 U/L Normal 121-224 [facility]; [facility] Work Phone: Comment on above: PATIENT WAS FASTINGP ERFORMED BY: [facility]6370 [facility] [id number] LIPID PANEL (09026)Ordered B y: Rnfa on 05-05-2021 Cholesterol [Mass/Vol] 187 mg/dL Normal 100-199 [facility]; [facility] Work Phone: Comment on above: PATIENT WAS FASTINGP ERFORMED BY: [address] [id number] Information: ADD AIC 508510 Cholesterol in HDL [Mass/Vol] 42 mg/dL Normal [facility]; [facility] Work Phone: Comment on above: PATIENT WAS FASTINGP ERFORMED BY: [place]aitanyaBrittney V[place] 6592870 [facility] [id number] Information: ADD AIC 818045 Triglyceride [Mass/Vol] 63 mg/dL Normal 0-149 [facility]; [facility] Work Phone: Comment on above: PATIENT WAS FASTINGP ERFORMED BY: [facility]6370 [facility] [id number] Information: ADD AIC 091412 LIPID PANEL (51255) 12 mg/dL Normal 5-40 [facility]; [facility] Work Phone: Comment on above: PATIENT WAS FASTINGP ERFORMED BY: [facility]6370 [facility] [id number] Information: ADD AIC 487895 LIPID PANEL (04028) 133 mg/dL Abnormal 0-99 [facility]; [facility] Work Phone: Comment on above: PATIENT WAS FASTINGP ERFORMED BY: [facility] Pgugrp1601 ArkmicroAtrium [facility] [id number] Information: ADD AIC 578002 LIPID PANEL (03786) 3.2 {ratio} Normal 0.0-3.6 [facility]; [facility] Work Phone: Comment on above: LDL/HDL Ratio Men Wo men 1/2 Avg.Risk 1.0 1.5 Avg.Risk 3.6 3.2 2X Avg.Risk 6.2 5.0 3X Avg.Risk 8.0 6.1 PATIENT WAS FASTINGP ERFORMED BY: [facility] Ijyfpd76[address] RDA MicroelectronicsSampson Regional Medical Center [id number] Information: ADD AIC 097470 HgA1C , Office (87412)Ordere d By: Steve Mills on 02-08-2021 HbA1c (Bld) [Mass fraction] 5.3 % Normal 4.6 - 7.1 [facility]; [facility] Work Phone: ALKALINE PHOSPHATASE-ISOENZY M ([id number])Ordered By: Rnfa on 02-01-2021 ALP [Catalytic activity/Vol] 115 U/L Normal 48-121 [facility]; [facility] Work Phone: Comment on above: Please note refere nce interval change PATIENT NOT FASTINGP ERFORMED BY: [employer]6370 [facility] BellsSampson [facility] Center [id number] ALP Bone [Catalytic fraction] 27 % Normal 12-68 [facility]; [facility] Work Phone: Comment on above: PATIENT NOT FASTINGP ERFORMED BY: LabPixplitrp Vesrzj6[address] RDA MicroelectronicsSampson Regional Medical Center [id number] ALP Intest [Catalytic fraction] 23 % Abnormal 0-18 [facility]; [facility] Work Phone: Comment on above: Intestinal alkaline phosphatase is seennormally in the serum of subjects whohave B or O blood types, especiallyafter a fatty meal. Pathologically theband may be present in perforation ofthe bowel, ulcerative disease of theintestine and faintly in livercirrhosis. Acute infarction of theintestine will cause a release ofintestinal ALP from the mucosa. Largeerosive or ulcerative lesions of thestomach, duodenum or other smallintestinal areas, or colon may resultin an elevation of the serum ALP level.The small intestinal lesions associatedwith malabsorption are associated withan elevation of the serum intestinalALP level only if there is an erosiveor ulcerative mucosal lesion. PATIENT NOT FASTINGP ERFORMED BY: Talkwheelrp Udrzry1018 Gilbert RoadDublin [place] [id number] ALP Liver [Catalytic fraction] 51 % Normal 13-88 [facility]; [facility] Work Phone: Comment on above: PATIENT NOT FASTINGP ERFORMED BY: [employer] [facility] Uvwbwa72[address] RDA MicroelectronicsDublin [place] [id number] LDH (LD) (LACTATE DEHYDROGEN ASE) (01283)Ordered By: Rnfa on 02-01-2021 LDH [Catalytic activity/Vol] 245 U/L Abnormal 121-224 [facility]; [facility] Work Phone: Comment on above: PATIENT NOT FASTINGP ERFORMED BY: [employer] Kdpwqp5095 [address] RoadDublin [place] [id number] CALCIFEDIOL (34873)Ordered B y: Rnfa on 01-26-2021 25-hydroxyvitamin D [Mass/Vol] 9.5 ng/mL Abnormal 30.0-100.0 [facility]; [facility] Work Phone: Comment on above: Vitamin D deficiency has been defined by the [place] ofMedicine and an Endocrine Society practice guideline as alevel of serum 25-OH vitamin D less than 20 ng/mL (1,2).The Endocrine Society went on to further define vitamin Dinsufficiency as a level between 21 and 29 ng/mL (2).1. IOM ([place] of Medicine). 2010. Dietary reference intakes for calcium and D. [place]: The National Academies Press.2. Bharti PATIÑO, Cholo CHRISTY, Tung THOMSON, et al. Evaluation, treatment, and prevention of vitamin D deficiency: an Endocrine Society clinical practice guideline. JCEM. 2010; 96(7):1911-30. PATIENT WAS FASTINGP ERFORMED BY: Moonbasa Xhzmto2530 [facility] [id number] BY: [address] [id number] CBC, Platelets & Auto Diff ( 42073)Ordered By: Rnfa on 01-26-2021 Basophils (Bld) [#/Vol] 0.1 10*3/uL Normal 0.0-0.2 [facility]; [facility] Work Phone: Comment on above: PATIENT WAS FASTINGP ERFORMED BY: LabCoAncora Psychiatric HospitalKcnhvf7542 [facility] [id number] BY: [address] [id number] Basophils/100 WBC (Bld) 1 % Normal [facility]; [facility] Work Phone: Comment on above: PATIENT WAS FASTINGP ERFORMED BY: LabPixplitAncora Psychiatric HospitalQviwnq4038 [facility] [id number] BY: [address] [id number] Eosinophils (Bld) [#/Vol] 0.3 10*3/uL Normal 0.0-0.4 [facility] Work Phone: Comment on above: PATIENT WAS FASTINGP ERFORMED BY: LabPixplitAncora Psychiatric HospitalMitcfe9647 [facility] [id number] BY: [address] [id number] Eosinophils/100 WBC (Bld) 5 % Normal [facility]; [facility] Work Phone: Comment on above: PATIENT WAS FASTINGP ERFORMED BY: [facility] Wlrszq4115 [facility] [id number] BY: [address] [id number] Erythrocyte distribution width (RBC) [Ratio] 12.8 % Normal 11.6-15.4 [facility]; [facility] Work Phone: Comment on above: PATIENT WAS FASTINGP ERFORMED BY: [facility] Kbxwhn0179 [facility] [id number] BY: [address] [id number] Hematocrit (Bld) [Volume fraction] 46.5 % Normal 37.5-51.0 [facility]; [facility] Work Phone: Comment on above: PATIENT WAS FASTINGP ERFORMED BY: [facility] Lszahx9310 [facility] [id number] BY: [address] [id number] Hemoglobin (Bld) [Mass/Vol] 15.3 g/dL Normal 13.0-17.7 [facility]; [facility] Work Phone: Comment on above: PATIENT WAS FASTINGP ERFORMED BY: [facility]Core[facility]6370 [facility] [id number] BY: Lab[address] [id number] Immature granulocytes (Bld) [#/Vol] 0.1 10*3/uL Normal 0.0-0.1 [facility]; [facility] Work Phone: Comment on above: PATIENT WAS FASTINGP ERFORMED BY: [facility] Fojxac5301 [facility] [id number] BY: [address] [id number] Immature granulocytes/100 WBC (Bld) 1 % Normal [facility]; [facility] Work Phone: Comment on above: PATIENT WAS FASTINGP ERFORMED BY: [facility] Pjxsjo8117 [facility] [id number] BY: [address] [id number] Lymphocytes (Bld) [#/Vol] 1.6 10*3/uL Normal 0.7-3.1 [facility]; [facility] Work Phone: Comment on above: PATIENT WAS FASTINGP ERFORMED BY: LabCoAncora Psychiatric HospitalVhohhw2748 [facility] [id number] BY: [address] [id number] Lymphocytes/100 WBC (Bld) 23 % Normal [facility]; [facility] Work Phone: Comment on above: PATIENT WAS FASTINGP ERFORMED BY: LabCo[place] 6956170 [facility] [id number] BY: [address] [id number] MCH (RBC) [Entitic mass] 27.7 pg Normal 26.6-33.0 [facility]; [facility] Work Phone: Comment on above: PATIENT WAS FASTINGP ERFORMED BY: LabCore[facility]6370 [facility] [id number] BY: [address] [id number] MCHC (RBC) [Mass/Vol] 32.9 g/dL Normal 31.5-35.7 [facility]; [facility] Work Phone: Comment on above: PATIENT WAS FASTINGP ERFORMED BY: LabCoAncora Psychiatric HospitalWakciz3695 [facility] [id number] BY: [address] [id number] MCV (RBC) [Entitic vol] 84 fL Normal 79-97 [facility]; [facility] Work Phone: Comment on above: PATIENT WAS FASTINGP ERFORMED BY: LabCoAncora Psychiatric HospitalVuwijj5701 [facility] [id number] BY: [address] [id number] Monocytes (Bld) [#/Vol] 0.5 10*3/uL Normal 0.1-0.9 [facility]; [facility] Work Phone: Comment on above: PATIENT WAS FASTINGP ERFORMED BY: CARL [facility] Fgstxb3907 [facility] [id number] BY: BN [facility] [address] [id number] Monocytes/100 WBC (Bld) 7 % Normal [facility]; [facility] Work Phone: Comment on above: PATIENT WAS FASTINGP ERFORMED BY: CARL [facility] Gjrvah6546 [facility] [id number] BY: BN [facility] [address] [id number] Neutrophils (Bld) [#/Vol] 4.5 10*3/uL Normal 1.4-7.0 [facility]; [facility] Work Phone: Comment on above: PATIENT WAS FASTINGP ERFORMED BY: CARL [facility] Pwhomf7838 [facility] [id number] BY: [facility] [address] [id number] Neutrophils/100 WBC (Bld) 63 % Normal [facility]; [facility] Work Phone: Comment on above: PATIENT WAS FASTINGP ERFORMED BY: CARL LabLenrp Rxbwfy2740 [facility] [id number] BY: JYA [facility] [address] [id number] Platelets (Bld) [#/Vol] 227 10*3/uL Normal 150-450 [facility]; [facility] Work Phone: Comment on above: PATIENT WAS FASTINGP ERFORMED BY: CARL [facility] Tljlso4913 [facility] [id number] BY: [facility] [address] [id number] RBC (Bld) [#/Vol] 5.52 10*6/uL Normal 4.14-5.80 [facility]; [facility] Work Phone: Comment on above: PATIENT WAS FASTINGP ERFORMED BY: CARL [facility] Ezlppl9825 [facility] [id number] BY: LabCo[address] [id number] WBC (Bld) [#/Vol] 7.0 10*3/uL Normal 3.4-10.8 [facility]; [facility] Work Phone: Comment on above: PATIENT WAS FASTINGP ERFORMED BY: CARL [facility] Gukgaq5980 [facility] [id number] BY: [facility] [address] [id number] LIPID PANEL (77643)Ordered B y: Rnfa on 01-26-2021 Cholesterol [Mass/Vol] 192 mg/dL Normal 100-199 [facility]; [facility] Work Phone: Comment on above: PATIENT WAS FASTINGP ERFORMED BY: CARL [facility] Bwlmjc3170 [facility] [id number] BY: LabCo[address] [id number] Cholesterol in HDL [Mass/Vol] 43 mg/dL Normal [facility]; [facility] Work Phone: Comment on above: PATIENT WAS FASTINGP ERFORMED BY: CARL [facility] Khpucf7525 [facility] [id number] BY: LabCo[address] [id number] Triglyceride [Mass/Vol] 236 mg/dL Abnormal 0-149 [facility]; [facility] Work Phone: Comment on above: PATIENT WAS FASTINGP ERFORMED BY: CARL [facility] Qtbyjl8156 [facility] [id number] BY: [facility] [address] [id number] LIPID PANEL (91800) 41 mg/dL Abnormal 5-40 [facility]; [facility] Work Phone: Comment on above: PATIENT WAS FASTINGP ERFORMED BY: [facility] Uinalt4013 [facility] [id number] BY: Picarro[address] [id number] LIPID PANEL (38489) 108 mg/dL Abnormal 0-99 [facility]; [facility] Work Phone: Comment on above: PATIENT WAS FASTINGP ERFORMED BY: LabPixplit Isplht4701 [facility] [id number] BY: Lab[address] [id number] LIPID PANEL (26337) 2.5 {ratio} Normal 0.0-3.6 [facility]; [facility] Work Phone: Comment on above: LDL/HDL Ratio Men Wo men 1/2 Avg.Risk 1.0 1.5 Avg.Risk 3.6 3.2 2X Avg.Risk 6.2 5.0 3X Avg.Risk 8.0 6.1 PATIENT WAS FASTINGP ERFORMED BY: LabPixplit Tavajk1807 [facility] [id number] BY: Picarro[address] [id number] Metabolic Panel, Comprehensi ve (75274)Ordered By: Rnfa on 01-26-2021 Albumin [Mass/Vol] 4.2 g/dL Normal 3.8-4.8 [facility]; [facility] Work Phone: Comment on above: PATIENT WAS FASTINGP ERFORMED BY: LabPixplit Fnyfkq6127 [facility] [id number] BY: [address] [id number] Albumin/Globulin [Mass ratio] 1.8 {ratio} Normal 1.2-2.2 [facility]; [facility] Work Phone: Comment on above: PATIENT WAS FASTINGP ERFORMED BY: LabPixplit Sawrst1127 [facility] [id number] BY: [address] [place] [id number] ALP [Catalytic activity/Vol] 135 U/L Abnormal 39-117 [facility]; [facility] Work Phone: Comment on above: Effective January 31, 2021 Alkaline Phosphatase reference interval will be changing to: Age Male Female 0 - 5 days 52 - 127 52 - 127 6 - 10 days 34 - 242 34 - 242 11 - 20 days 114 - 357 114 - 357 21 - 30 days 107 - 494 107 - 494 1 - 2 months 162 - 539 162 - 539 3 - 6 months 141 - 452 141 - 452 7 - 11 months 128 - 401 128 - 401 12 months - 6 years 170 - 369 170 - 369 7 - 12 years 161 - 409 161 - 409 13 years 166 - 435 83 - 227 14 years 121 - 375 68 - 161 15 years 94 - 279 60 - 134 16 years 78 - 207 55 - 121 17 years 67 - 161 50 - 113 18 - 20 years 55 - 125 45 - 106 >20 years 48 - 121 48 - 121 PATIENT WAS FASTINGP ERFORMED BY: Wakoopa70 [facility] [id number] BY: [employer] [id number] ALT [Catalytic activity/Vol] 16 U/L Normal 0-44 [facility]; [facility] Work Phone: Comment on above: PATIENT WAS FASTINGP ERFORMED BY: Wakoopa70 [facility] [id number] BY: [employer] Bvj[address]zp[address] [id number] AST [Catalytic activity/Vol] 17 U/L Normal 0-40 [facility]; [facility] Work Phone: Comment on above: PATIENT WAS FASTINGP ERFORMED BY: ZAPITANO [facility] [id number] BY: [employer] [id number] Bilirubin [Mass/Vol] 0.3 mg/dL Normal 0.0-1.2 [facility]; [facility] Work Phone: Comment on above: PATIENT WAS FASTINGP ERFORMED BY: CB [facility] Lrforp6819 [facility] [id number] BY: [facility] [address] [id number] Calcium [Mass/Vol] 9.1 mg/dL Normal 8.6-10.2 [facility]; [facility] Work Phone: Comment on above: PATIENT WAS FASTINGP ERFORMED BY: CB [facility] Qcsvro3915 [facility] [id number] BY: Lab[address] [id number] Chloride [Moles/Vol] 103 mmol/L Normal 96-106 [facility]; [facility] Work Phone: Comment on above: PATIENT WAS FASTINGP ERFORMED BY: CB [facility] Qnkszb1982 [facility] [id number] BY: LabCo[address] [id number] CO2 [Moles/Vol] 25 mmol/L Normal 20-29 [facility]; [facility] Work Phone: Comment on above: PATIENT WAS FASTINGP ERFORMED BY: CB [facility] Rmqghd3887 [facility] [id number] BY: LabCo[address] [id number] Creatinine [Mass/Vol] 1.04 mg/dL Normal 0.76-1.27 [facility]; [facility] Work Phone: Comment on above: PATIENT WAS FASTINGP ERFORMED BY: CB [facility] Qkpura4543 [facility] [id number] BY: Lab[address] [id number] GFR/1.73 sq M.predicted among blacks CKD-EPI (S/P/Bld) [Vol rate/Area] 89 mL/min/1.73 Normal [facility]; [facility] Work Phone: Comment on above: [facility] currently reports eGFR in compliance with the current recommendations of the National Kidney Foundation. [facility] will update reporting as new guidelines are published from the NKF-ASN Task force. PATIENT WAS FASTINGP ERFORMED BY: [facility]6370 [facility] [id number] BY: [address] [id number] GFR/1.73 sq M.predicted among non-blacks CKD-EPI (S/P/Bld) [Vol rate/Area] 77 mL/min/1.73 Normal [facility]; [facility] Work Phone: Comment on above: PATIENT WAS FASTINGP ERFORMED BY: [facility]6370 [facility] [id number] BY: [address] [id number] Globulin (S) [Mass/Vol] 2.3 g/dL Normal 1.5-4.5 [facility]; [facility] Work Phone: Comment on above: PATIENT WAS FASTINGP ERFORMED BY: [place] 2278870 [facility] [id number] BY: [address] [id number] Glucose [Mass/Vol] 117 mg/dL Abnormal 65-99 [facility]; [facility] Work Phone: Comment on above: PATIENT WAS FASTINGP ERFORMED BY: [facility]6370 [facility] [id number] BY: [address] [id number] Potassium [Moles/Vol] 4.9 mmol/L Normal 3.5-5.2 [facility]; [facility] Work Phone: Comment on above: PATIENT WAS FASTINGP ERFORMED BY: [facility]6370 [facility] [id number] BY: Picarro[address] [id number] Protein [Mass/Vol] 6.5 g/dL Normal 6.0-8.5 [facility]; [facility] Work Phone: Comment on above: PATIENT WAS FASTINGP ERFORMED BY: [facility] Gsgkle3508 [facility] [id number] BY: [address] [id number] Sodium [Moles/Vol] 140 mmol/L Normal 134-144 [facility]; [facility] Work Phone: Comment on above: PATIENT WAS FASTINGP ERFORMED BY: [facility] Hevgvd2203 [facility] [id number] BY: [address] [id number] Urea nitrogen [Mass/Vol] 18 mg/dL Normal 8-27 [facility]; [facility] Work Phone: Comment on above: PATIENT WAS FASTINGP ERFORMED BY: [facility] Nailaq5504 [facility] [id number] BY: Lab[address] [id number] Urea nitrogen/Creatini ne [Mass ratio] 17 mg/mg Normal 10-24 [facility]; [facility] Work Phone: Comment on above: PATIENT WAS FASTINGP ERFORMED BY: [facility] Qxqibk8666 [facility] [id number] BY: Picarro[address] [id number] PSA (PROSTATE SPECIFIC ANTIG EN) (V76.44)Ordered By: Rnfa on 01-26-2021 Prostate specific Ag [Mass/Vol] 0.8 ng/mL Normal 0.0-4.0 [facility]; [facility] Work Phone: Comment on above: Jorge A ECLIA methodol ogy. .According to the [place] [employer], Serum PSA shoulddecrease and remain at undetectable levels after radicalprostatectomy. The AUA defines biochemical recurrence as an initialPSA value 0.2 ng/mL or greater followed by a subsequent confirmatoryPSA value 0.2 ng/mL or greater.Values obtained with different assay methods or kits cannot be usedinterchangeably. Results cannot be interpreted as absolute evidenceof the presence or absence of malignant disease. PATIENT WAS FASTINGP ERFORMED BY: Wakoopa70 [facility] [id number] BY: [facility] [address] [id number] TESTOSTERONE ,TOT/FREE [id number] (67778)Ordered By: Rnfa on 01-26-2021 Testosterone [Mass/Vol] 576 ng/dL Normal 264-916 [facility]; [facility] Work Phone: Comment on above: Adult male reference interval is based on a population ofhealthy nonobese males (BMI <30) between 19 and 39 years old.saba King.al. JCEM 2017,102;4482-2071. PMID: 25173716. Please note reference interval change PATIENT WAS FASTINGP ERFORMED BY: Wakoopa70 [facility] [id number] BY: [facility] [address] [id number] Testosterone Free [Mass/Vol] 9.2 pg/mL Normal 6.6-18.1 [facility]; [facility] Work Phone: Comment on above: PATIENT WAS FASTINGP ERFORMED BY: Wakoopa70 [facility] [id number] BY: [facility] [address] [id number] TSH (THYROID STIMULATING HOR SHASTA) ([id number])Ordered By: Rnfa on 01-26-2021 TSH Qn 1.320 {uIU/mL} Normal 0.450-4.500 [facility]; [facility] Work Phone: Comment on above: PATIENT WAS FASTINGP ERFORMED BY: [facility]6370 [facility] [id number] BY: Phoneplus[address] [id number] URIC ACID BLOOD (64982)Order ed By: Rnfa on 01-26-2021 Urate [Mass/Vol] 5.3 mg/dL Normal 3.8-8.4 Comprehe nsive [facility]; [facility] Work Phone: Comment on above: Therapeutic target f or gout patients: <6.0 PATIENT WAS FASTINGP ERFORMED BY: Wakoopa70 [facility] PicatchaAt[facility] [id number] BY: Phoneplus[address] [id number] VITAMIN B12 AND FOLATES (826 07)Ordered By: Rnfa on 01-26-2021 Cobalamin (Vitamin B12) [Mass/Vol] 233 pg/mL Normal 232-1245 [facility]; [facility] Work Phone: Comment on above: PATIENT WAS FASTINGP ERFORMED BY: [facility]6370 [facility] [id number] BY: Phoneplus[address] [id number] Folate [Mass/Vol] 10.9 ng/mL Normal Compreh ensive [facility]; [facility] Work Phone: Comment on above: A serum folate lexi ntration of less than 3.1 ng/mL isconsidered to represent clinical deficiency. PATIENT WAS FASTINGP ERFORMED BY: Wakoopa70 [facility] [id number] BY: Phoneplus[address] [id number] Vital Signs Date Time Vital Sign Value Performing Clinician Facility 10-03-2022 08:31-0500 Body height 187.96 cm Christelle Monge LPN [facility]; [facility] Work Phone: 10-03-2022 08:31-0500 Body mass index (BMI) [Ratio] 29.14 kg/m2 Christelle Trentonrb [employer] [facility]; [facility] Work Phone: 10-03-2022 08:31-0500 Body surface area Derived from formula 2.29 m2 Christelle Slarb [employer] [facility]; [facility] Work Phone: 10-03-2022 08:31-0500 Body temperature 97.8 [degF] Christelle Slarb [employer] [facility]; [facility] Work Phone: Comment on above: Method: Temporal 10-03-2022 08:31-0500 Body weight 102.97 kg Christelle Slarb [employer] [facility]; [facility] Work Phone: 10-03-2022 08:31-0500 Diastolic blood pressure 80 mm[Hg] Christelle Slarb [employer] [facility]; [facility] Work Phone: Comment on above: Patient Position: Sitting; Cuff Location : Left Arm; Cuff Size: Standard 10-03-2022 08:31-0500 Heart rate 80 /min Christelle Trentonrb [employer] [facility]; [facility] Work Phone: Comment on above: Pattern: Regular 10-03-2022 08:31-0500 Respiratory rate 17 /min Christelle Slarb [employer] [facility]; [facility] Work Phone: Comment on above: Pattern: Unlabored 10-03-2022 08:31-0500 SaO2% (BldA) [Mass fraction] 98 % Christelle Slarb [employer] [facility]; [facility] Work Phone: Comment on above: Room air 10-03-2022 08:31-0500 Systolic blood pressure 142 mm[Hg] Christelle Slarb [employer] [facility]; [facility] Work Phone: Comment on above: Patient Position: Sitting; Cuff Location : Left Arm; Cuff Size: Standard 03-24-2022 07:17-0400 Body height 187.96 cm Christelle Slarb [employer] [facility]; [facility] Work Phone: 03-24-2022 07:17-0400 Body mass index (BMI) [Ratio] 28.42 kg/m2 Christelle Monge [employer] [facility]; [facility] Work Phone: 03-24-2022 07:17-0400 Body surface area Derived from formula 2.27 m2 Christelle Chowdhuryrb [employer] [facility]; [facility] Work Phone: 03-24-2022 07:17-0400 Body temperature 97.1 [degF] Christelle Monge [employer] [facility]; [facility] Work Phone: 03-24-2022 07:17-0400 Body weight 100.42 kg Christelle Monge [employer] [facility]; [facility] Work Phone: 03-24-2022 07:17-0400 Diastolic blood pressure 82 mm[Hg] Christelle Monge [employer] [facility]; [facility] Work Phone: Comment on above: Patient Position: Sitting; Cuff Location : Left Arm; Cuff Size: Standard 03-24-2022 07:17-0400 Heart rate 76 /min Christelle Monge [employer] [facility]; [facility] Work Phone: Comment on above: Pattern: Regular 03-24-2022 07:17-0400 Respiratory rate 16 /min Christelle Monge [employer] [facility]; [facility] Work Phone: Comment on above: Pattern: Unlabored 03-24-2022 07:17-0400 SaO2% (BldA) [Mass fraction] 97 % Christelle Monge [employer] [facility]; [facility] Work Phone: Comment on above: Room air 03-24-2022 07:17-0400 Systolic blood pressure 132 mm[Hg] Christelle Chowdhuryrb [employer] [facility]; [facility] Work Phone: Comment on above: Patient Position: Sitting; Cuff Location : Left Arm; Cuff Size: Standard 11-03-2021 07:21-0500 Body height 187.96 cm SHOLA Michel [employer] [facility]; [facility] Work Phone: 11-03-2021 07:21-0500 Body mass index (BMI) [Ratio] 27.6 kg/m2 SHOLADICK Michel LPN [facility]; [facility] Work Phone: 11-03-2021 07:21-0500 Body surface area Derived from formula 2.24 m2 SHOLADICK Michel LPN [facility]; [facility] Work Phone: 11-03-2021 07:21-0500 Body temperature 97.9 [degF] SHOLA Michel CINTHIA Comprehensiv e [facility]; [facility] Work Phone: Comment on above: Method: Temporal 11-03-2021 07:0500 Body weight 97.52 kg SHOLADICK Michel LPN [facility]; [facility] Work Phone: 11-03-2021 07:21-0500 Diastolic blood pressure 82 mm[Hg] SHOLADICK Michel LPN [facility]; [facility] Work Phone: Comment on above: Patient Position: Sitting; Cuff Location : Left Arm; Cuff Size: Standard 11-03-2021 07:21-0500 Heart rate 74 /min SHOLADICK Michel LPN [facility]; [facility] Work Phone: Comment on above: Pattern: Regular 11-03-2021 07:21-0500 Respiratory rate 20 /min SHOLA Michel CINTHIA Comprehens[facility] e [facility]; [facility] Work Phone: Comment on above: Pattern: Unlabored 11-03-2021 07:21-0500 SaO2% (BldA) [Mass fraction] 98 % SHOLA Anand VICENTE [facility]; [facility] Work Phone: Comment on above: Room air 11-03-2021 07:21-0500 Systolic blood pressure 120 mm[Hg] SHOLA Michel LPN [facility]; [facility] Work Phone: Comment on above: Patient Position: Sitting; Cuff Location : Left Arm; Cuff Size: Standard 08-26-2021 07:22-0500 Body height 187.96 cm Steve Mills LPN [facility]; [facility] Work Phone: 08-26-2021 07:22-0500 Body mass index (BMI) [Ratio] 27.66 kg/m2 Steve Mills LPN [facility]; [facility] Work Phone: 08-26-2021 07:22-0500 Body surface area Derived from formula 2.24 m2 Steve Mills LPN [facility]; [facility] Work Phone: 08-26-2021 07:22-0500 Body temperature 97.6 [degF] Steve Mills LPN [facility]; [facility] Work Phone: Comment on above: Method: Infrared 08-26-2021 07:22-0500 Body weight 97.71 kg Steve Mills LPN [facility]; [facility] Work Phone: 08-26-2021 07:22-0500 Diastolic blood pressure 78 mm[Hg] Steve Mills LPN [facility]; [facility] Work Phone: Comment on above: Patient Position: Sitting; Cuff Location : Left Arm; Cuff Size: Standard 08-26-2021 07:22-0500 Heart rate 71 /min Steve Mills LPN [facility]; [facility] Work Phone: Comment on above: Pattern: Regular 08-26-2021 07:22-0500 Respiratory rate 16 /min Steve Mills LPN [facility]; [facility] Work Phone: Comment on above: Pattern: Unlabored 08-26-2021 07:22-0500 SaO2% (BldA) [Mass fraction] 97 % Steve Mills LPN [facility]; [facility] Work Phone: Comment on above: Room air 08-26-2021 07:22-0500 Systolic blood pressure 130 mm[Hg] Steve Mills LPN [facility]; [facility] Work Phone: Comment on above: Patient Position: Sitting; Cuff Location : Left Arm; Cuff Size: Standard 07-27-2021 08:46-0500 Body height 187.96 cm SHOLA Michel LPN [facility]; [facility] Work Phone: 07-27-2021 08:46-0500 Body mass index (BMI) [Ratio] 28.12 kg/m2 SHOLADICK Michel LPN [facility]; [facility] Work Phone: 07-27-2021 08:46-0500 Body surface area Derived from formula 2.26 m2 SHOLADICK Michel LPN [facility]; [facility] Work Phone: 07-27-2021 08:46-0500 Body temperature 97.9 [degF] SHOLA Michel [facility]; [facility] Work Phone: Comment on above: Method: Temporal 07-27-2021 08:46-0500 Body weight 99.34 kg SHOLADICK Michel LPN [facility]; [facility] Work Phone: 07-27-2021 08:46-0500 Diastolic blood pressure 74 mm[Hg] SHOLADICK Michel LPN [facility]; [facility] Work Phone: Comment on above: Patient Position: Sitting; Cuff Location : Left Arm; Cuff Size: Standard 07-27-2021 08:46-0500 Heart rate 78 /min SHOLA Anand VICENTE [facility]; [facility] Work Phone: Comment on above: Pattern: Regular 07-27-2021 08:46-0500 Respiratory rate 20 /min SHOLA Michel [facility]; [facility] Work Phone: Comment on above: Pattern: Unlabored 07-27-2021 08:46-0500 SaO2% (BldA) [Mass fraction] 98 % SHOLADICK Michel LPN [facility]; [facility] Work Phone: Comment on above: Room air 07-27-2021 08:46-0500 Systolic blood pressure 110 mm[Hg] SHOLA Michel LPN [facility]; [facility] Work Phone: Comment on above: Patient Position: Sitting; Cuff Location : Left Arm; Cuff Size: Standard 05-17-2021 08:07-0400 Body height 187.96 cm Sinai Orr LPN [facility]; [facility] Work Phone: 05-17-2021 08:07-0400 Body mass index (BMI) [Ratio] 27.88 kg/m2 Sinai Orr CINTHIA [facility]; [facility] Work Phone: 05-17-2021 08:07-0400 Body surface area Derived from formula 2.25 m2 Sinai Kirby VICENTE [facility]; [facility] Work Phone: 05-17-2021 08:07-0400 Body temperature 97.3 [degF] Sinai Jackarsenio VICENTE [facility]; [facility] Work Phone: Comment on above: Method: Temporal 05-17-2021 08:07-0400 Body weight 98.49 kg Sinaijabari Orr LPN [facility]; [facility] Work Phone: 05-17-2021 08:07-0400 Diastolic blood pressure 90 mm[Hg] Sinai Orr LPN [facility]; [facility] Work Phone: Comment on above: Patient Position: Sitting; Cuff Location : Left Arm; Cuff Size: Standard 05-17-2021 08:07-0400 Heart rate 61 /min Sinai Orr LPN [facility]; [facility] Work Phone: Comment on above: Pattern: Regular 05-17-2021 08:07-0400 Respiratory rate 16 /min Sinai Orr LPN [facility]; [facility] Work Phone: Comment on above: Pattern: Unlabored 05-17-2021 08:07-0400 SaO2% (BldA) [Mass fraction] 97 % Sinai Orr CINTHIA [facility]; [facility] Work Phone: Comment on above: Room air 05-17-2021 08:07-0400 Systolic blood pressure 110 mm[Hg] Sinai Kirby CINTHIA [facility]; [facility] Work Phone: Comment on above: Patient Position: Sitting; Cuff Location : Left Arm; Cuff Size: Standard 02-08-2021 15:06-0400 Body height 187.96 cm Steve Mills LPN [facility]; [facility] Work Phone: 02-08-2021 15:06-0400 Body mass index (BMI) [Ratio] 28.12 kg/m2 Steve Mills LPN [facility]; [facility] Work Phone: 02-08-2021 15:06-0400 Body surface area Derived from formula 2.26 m2 Steve Mills LPN [facility]; [facility] Work Phone: 02-08-2021 15:06-0400 Body temperature 97.6 [degF] Steve Mills LPN [facility]; [facility] Work Phone: Comment on above: Method: Infrared 02-08-2021 15:06-0400 Body weight 99.36 kg Steve Mills LPN [facility]; [facility] Work Phone: 02-08-2021 15:06-0400 Diastolic blood pressure 70 mm[Hg] Steve Mills LPN [facility]; [facility] Work Phone: Comment on above: Patient Position: Sitting; Cuff Location : Left Arm; Cuff Size: Standard 02-08-2021 15:06-0400 Heart rate 74 /min Steve Mills LPN [facility]; [facility] Work Phone: Comment on above: Pattern: Regular 02-08-2021 15:06-0400 Respiratory rate 16 /min Steve Mills LPN [facility]; [facility] Work Phone: Comment on above: Pattern: Unlabored 02-08-2021 15:06-0400 SaO2% (BldA) [Mass fraction] 94 % Steve Mills LPN [facility]; [facility] Work Phone: Comment on above: Room air 02-08-2021 15:06-0400 Systolic blood pressure 120 mm[Hg] Steve Mills LPN [facility]; [facility] Work Phone: Comment on above: Patient Position: Sitting; Cuff Location : Left Arm; Cuff Size: Standard 01-25-2021 14:23-0400 Body height 187.96 cm Steve Mills LPN [facility]; [facility] Work Phone: 01-25-2021 14:23-0400 Body mass index (BMI) [Ratio] 28.12 kg/m2 Steve Mills LPN [facility]; [facility] Work Phone: 01-25-2021 14:23-0400 Body surface area Derived from formula 2.26 m2 Steve Mills LPN [facility]; [facility] Work Phone: 01-25-2021 14:23-040 Body temperature 97.3 [degF] Steve Mills LPN [facility]; [facility] Work Phone: Comment on above: Method: Infrared 01-25-2021 14:040 Body weight 99.36 kg Steve Mills LPN [facility]; [facility] Work Phone: 01-25-2021 14:23-0400 Diastolic blood pressure 100 mm[Hg] Steve Mills LPN [facility]; [facility] Work Phone: Comment on above: Patient Position: Sitting; Cuff Location : Left Arm; Cuff Size: Standard 01-25-2021 14:23-0400 Heart rate 64 /min Steve Mills LPN [facility]; [facility] Work Phone: Comment on above: Pattern: Regular 01-25-2021 14:23-0400 Respiratory rate 16 /min Steve Mills LPN [facility]; [facility] Work Phone: Comment on above: Pattern: Unlabored 01-25-2021 14:23-0400 SaO2% (BldA) [Mass fraction] 98 % Steve Mills LPN [facility]; [facility] Work Phone: Comment on above: Room air 01-25-2021 14:23-0400 Systolic blood pressure 140 mm[Hg] Steve Mills LPN [facility]; [facility] Work Phone: Comment on above: Patient Position: Sitting; Cuff Location : Left Arm; Cuff Size: Standard Encounters Encounter Date Encounter Type Care Provider Facility Start: 04-03-2023 End: 04-05-2023 Patient encounter procedure Santy Wynn [employer]OMER [employer]CCESS MANAGER Work Phone: [facility] Start: 01-15-2023 End: 01-15-2023 ambulatory ANT TIPTON Facility:[facility] Start: 01-15-2023 End: 01-15-2023 Patient encounter procedure Ant Mosquera MD Work Phone: Orthopaedics Comment on above: Ganglion and cyst of synovium, tendon, and bursa (Primary Dx) Start: 12-18-2022 End: 12-18-2022 ambulatory SANTY WYNN Facility:[facility] Start: 12-18-2022 End: 12-18-2022 Patient encounter procedure Bernice Hernandez PA-C Work Phone: Orthopaedics Comment on above: Ganglion and cyst of synovium, tendon, and bursa (Primary Dx) Start: 12-06-2022 End: 12-06-2022 ambulatory ANT MOSQUERA Facility:[facility] Start: 11-22-2022 End: 11-22-2022 Annotation/Addendum Santy Wynn CNP Work Phone: [facility] Start: 11-01-2022 Telephone encounter Ant villasenor MD Work Phone: Orthopaedics Comment on above: Schedule Surgery Start: 10-26-2022 End: 10-26-2022 ambulatory ANT MOSQUERA Facility:[facility] Start: 10-03-2022 ambulatory Santy Wynn CNP [facility] Start: 10-03-2022 End: 10-03-2022 Office outpatient visit 25 minutes Santy Wynn CNP Work Phone: [facility] Start: 10-03-2022 Review Santy Wynn CNP Work Phone: [facility] Start: 04-05-2022 End: 04-05-2022 Phone Encounter Santy Wynn CNP Work Phone: [facility] Start: 03-24-2022 End: 03-24-2022 Office outpatient visit 25 minutes Santy Wynn CNP Work Phone: [facility] Start: 03-24-2022 Review Fabiana tavera [facility] Start: 11-15-2021 End: 11-15-2021 Annotation/Addendum 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 CNP Work Phone: [facility] Start: 11-03-2021 End: 11-06-2021 Office outpatient visit 25 minutes 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 CNP Work Phone: [facility] Start: 11-03-2021 Review 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 CNP Work Phone: [facility] Start: 10-28-2021 End: 11-06-2021 Office outpatient visit 25 minutes 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 CUSTOMER SUCCESS MANAGER Work Phone: [facility] Start: 10-28-2021 Review 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 CNP Work Phone: [facility] Start: 10-11-2021 End: 10-11-2021 Annotation/Addendum 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 CNP Work Phone: [facility] Start: 08-26-2021 End: 08-26-2021 Office outpatient visit 15 minutes 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 CUSTOMER SUCCESS MANAGER Work Phone: [facility] Start: 07-28-2021 End: 07-28-2021 Annotation/Addendum 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 CNP Work Phone: [facility] Start: 07-27-2021 End: 07-27-2021 Office outpatient visit 25 minutes 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 CNP Work Phone: [facility] Start: 06-28-2021 End: 06-28-2021 Annotation/Addendum 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 CNP Work Phone: [facility] Start: 05-17-2021 End: 05-17-2021 Office outpatient visit 25 minutes 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 CNP Work Phone: [facility] Start: 05-06-2021 End: 05-06-2021 Annotation/Addendum 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 CNP Work Phone: [facility] Start: 03-01-2021 End: 03-01-2021 Office outpatient visit 5 minutes 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 CUSTOMER SUCCESS MANAGER Work Phone: [facility] Start: 02-22-2021 End: 02-22-2021 Office outpatient visit 5 minutes 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 CNP Work Phone: [facility] Start: 02-15-2021 End: 02-15-2021 Office outpatient visit 5 minutes 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 CNP Work Phone: [facility] Start: 02-09-2021 End: 02-09-2021 Annotation/Addendum 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 CNP Work Phone: [facility] Start: 02-08-2021 End: 02-08-2021 Office outpatient visit 25 minutes 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 CNP Work Phone: [facility] Start: 02-01-2021 End: 02-01-2021 Office outpatient visit 5 minutes 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 CNP Work Phone: [facility] Start: 01-30-2021 End: 01-30-2021 Annotation/Addendum 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 CNP Work Phone: [facility] Start: 01-25-2021 End: 01-25-2021 Office outpatient new 45 minutes 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 CNP Work Phone: [facility] Procedures Date Procedure Procedure Detail Performing Clinician Start: 12-26-2021 End: 12-26-2021 Urgent Care Visit Report Comments: See Note; NOTES: [facility] [address] [place] [address] OFFICE VISIT Date of Service: 12/26/21 MR#: [id number] Acct: [id number] Name: JARRETT ROGER Rep #: [id number] : 1960 Provider: SHELLY masters Age/Sex: 61/M Location: [facility] Status: Signed Intake Vital Signs 12/26/21 09:15 Height 6 ft 2 in Weight: 210 lb BMI 26.9 BP 124/76 H Blood Pressure Location Lt brachial Position Sitting Respiration 16 Pulse 51 L Pulse Source Monitor Temp 97.8 F Temp Source Temporal Pulse Oximetry (%) 98 Oxygen Delivery Method room air Intake Visit Reasons: ER F/U SUTURE REMOVAL/31 BISTRO Allergies No Known Allergies Allergy (Verified 12/17/21 16:34) PFSH Medical History (Updated 12/26/21 @ 09:52 by SHELLY Conley) Laceration of right ring finger Social History Smoking Status: Never smoker HPI HPI Details: JARRETT ROGER, is a 61 M who presents to the office today for f/u s/p RRP palmar DP laceration w/ knife at work on [employer] (12/17/21). +compliance with wound care, noting no c/o to same at this time. ROS Const Constitutional: No other (as above) Exam Const General: cooperative, healthy appearing and comfortable Nutritional Appearance: well nourished Orientation: alert, awake and oriented x3 Resp Effort Inspection: normal respiratory effort, able to speak in complete sentences and symmetric chest movement Cardio Rhythm: regular rhythm Pulses: radial pulses present Skin General: no rashes or lesions noted Trauma: laceration ( 1cm to RRF palmar DP x3 SI; all removed w/o incident - bacitracin/ bandaid) Neuro General: patient alert, patient awake and patient oriented x3 Cognition: normal cognition Speech: speech normal Motor: muscle tone normal throughout Sensory Exam: no sensory deficits noted Extrem General: full ROM, capillary refill normal and normal exam except as noted (see skin exam) Psych Appearance: grossly normal Mental Status: mental status grossly normal Mood: congruent mood Affect: normal affect Speech and Movement: speech and movement normal Attitude: cooperative Thought Process: normal Thought Content: normal Judgment: judgment good Coding Level of Care Code Off vis,new,level 2 Diagnoses Laceration of right ring finger S61.214A Assessment and Plan Assessment and Plan (1) Laceration of right ring finger: Status: Acute Plan - Garry BRAVO PA: Released w/o restrictions, recommending keeping wound covered for 7 more days. F[facility]u w/ the [facility] on an as needed basis only. Pt states acknowledging understanding all the above. 12/26/21 0955 <Electronically signed by Garry RBAVO> Date Garry BRAVO Cosigner Signature: Date (if applicable) CC: 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 Work Phone: Start: 12-17-2021 End: 12-17-2021 Emergency Department Summary Comments: See Note; NOTES: [facility] Records Department [address] [place] [address] Emergency Department Summary 12/17/21 MR#: [id number] Acct: [id number] Name: JARRETT ROGER Rep #: [id number] : 1960 61 From: Harlan COLUNGA PCP: CRISTINE Hayward Status:DEP ER Location: ED HPI <CRISTINE Jerez - Last Filed: 12/17/21 17:33> History of Present Illness Chief Complaint: Laceration Narrative Narrative: Patient is a 61-year-old male with history of early dementia, hyperlipidemia who presents to the emergency department after cutting himself with a knife at work. 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 Patient has a flap-like laceration to the pad of the finger, negative for any foreign body. Patient's tetanus is not up-to-date. PFSH <CRISTINE Jerez - Last Filed: 12/17/21 17:33> PFS Home Medications donepezil 5 mg PO QHS 12/17/21 [History Last Taken Unknown] rosuvastatin 5 mg PO QHS 12/17/21 [History Last Taken Unknown] Allergy/AdvReac Type Severity Reaction Status Date / Time No Known Allergies Allergy Verified 12/17/21 16:34 Social History Smoking Status: Never smoker ROS <CRISTINE Jerez - Last Filed: 12/17/21 17:33> ROS ED ROS Narrative Constitutional: Negative for fever, chills, weight loss or gain, weakness Eyes: Negative for vision loss, vision change, double vision ENT: Negative for any hearing changes, ringing in the ears, discharge, pain Nose: Negative for any congestion, runny nose, sinus pain, allergies Throat: Negative for any sore throat, swelling, voice changes, Cardiovascular: Negative for any chest pain, tightness, palpitations, racing heartbeat Respiratory: Negative for any cough, sputum production, hemoptysis, shortness of breath, shortness of breath on exertion, Gastrointestinal: Negative for any abdominal pain, nausea, vomiting, diarrhea, constipation, blood in stool, blood in vomit : Negative for any urinary frequency, incontinence, dysuria, retention, blood in urine Muscle skeletal: Negative for any muscle joint pain, stiffness, myalgias, arthralgias, neck pain, back pain Neurological: Negative for any headache, dizziness, syncope, numbness or tingling Skin: Negative for any rashes, lumps, itching, abrasions. Positive for laceration to the right fourth digit Psychiatric: Negative for any depression, anxiety, stress, suicidal ideation, homicidal ideation Hematologic: Negative for any easy bruising, excessive bruising, easy bleeding Allergies: Negative for any eczema, hives, rash EXAM <CRISTINE Jerez - Last Filed: 12/17/21 17:33> Physical Exam Const Vital Signs: 12/17/21 16:34 Temperature 96 F L Temperature Source Temporal Pulse Rate 66 Respiratory Rate 18 Blood Pressure 132/95 H Blood Pressure Mean 107 Pulse Ox 95 Oxygen Delivery Method Room Air Positive well nourished and well developed General Appearance ED: well developed HEENT Negative for trauma or tenderness Eyes PERRL and EOMs intact bilaterally Neck no lymphadenopathy and supple Chest Wall inspection of chest normal and palpation of chest normal Resp normal respiratory effort and clear to auscultation bilaterally Cardio regular rate and regular rhythm GI normal to inspection, nondistended, normoactive bowel sounds Back/Spine no CVA tenderness Extremity Extremity Narrative: Patient has a 1 cm flap-like laceration to the anterior aspect of the fourth digit on the right hand above the DIP joint. Patient has full range of motion of the extremity. Negative for any tendon injury. General Extremety ED: Negative for tenderness Neuro oriented x3 and CN's II-XII intact bilaterally Sensorium / Orientation: alert Motor Exam: strength 5/5 throughout Psych mental status grossly normal Skin No no wounds Skin Narrative: Laceration to the fourth digit on the right hand <Dr. Shanelle Boyer MD - Last Filed: 12/17/21 17:48> Physical Exam Const Vital Signs: 12/17/21 16:34 Temperature 96 F L Temperature Source Temporal Pulse Rate 66 Respiratory Rate 18 Blood Pressure 132/95 H Blood Pressure Mean 107 Pulse Ox 95 Oxygen Delivery Method Room Air [facility] <CRISTINE Jerez - Last Filed: 12/17/21 17:33> [facility] Narrative Medical decision making narrative: Patient appears well, patient appears nontoxic, vital signs are stable. This is a Workmen's Comp. injury, patient has a 1 cm laceration to the tip of the right fourth digit. This area was cleansed, anesthetized, 4 simple noted suture of 4-0 Ethilon was used. Patient tolerated well. Patient keep the area clean and dry. Patient was updated on his tetanus vaccination today, he will return to work with no restrictions, patient struck to keep the area clean and dry and instructed return for any worsening pain or signs or symptoms of infection. <Dr. Shanelle Boyer MD - Last Filed: 12/17/21 17:48> [facility] Treatment and Re-Evaluation Narrative: Patient seen and evaluated with JACQUI. I personally interviewed and examined the patient. I was involved in all aspects of patient's orders, interpretation of results, and treatment. Patient presents with laceration to the distal aspect of the right fourth finger. He cut this with a knife prior to arrival. Patient sitting upright in bed no acute distress. Head and neck examination unremarkable. Regular pulses. Right upper extremity examination reveals a 1 cm laceration along the distal aspect of the right fourth finger. This is a flap laceration. Good cap refill and sensation distally. Tetanus update will be given and sutures placed across the wound. Patient will follow up for suture removal and wound check. Patient comfortable with plan. Procedures <CRISTINE Jerez - Last Filed: 12/17/21 17:33> Lacerations Finger laceration: Length: 0.39 in Depth: Skin Shape: Flap Prep: Elaine-Nick Laceration repair: Lidocaine Irrigated (ml): 500 Number of Sutures/Anni: 3 Suture Information: Ethilon and Simple Comment: Sterile gloves, sterile drapes were used, patient tolerated well. Discharge Plan Triage Chief Complaint: Laceration ED Midlevel Provider: Harlan Mcgill ED Provider: Shanelle Boyer Dx/Rx/DC Orders Clinical Impression: Finger laceration Instructions: ED Laceration Hand with ... Prescriptions: No Action donepezil 5 mg tablet 5 mg PO QHS RF: 0 rosuvastatin 5 mg tablet 5 mg PO QHS RF: 0 Primary Care Provider: 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 NP Referrals: [facility] [NON-STAFF] - (Per your companies wishes) 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 NP, LABELLING MACHINE OPERATOR-C [Primary Care Provider] - Activity Restrictions/Additional Instructions: Please keep the area clean and dry, please return for any signs or symptoms of infection Print Language: Spanish Disposition Disposition: Home, Self Care Discharge Date/Time: 12/17/21 17:38 What to do if you have Problems For any increased pain, shortness of breath, bleeding, nausea or vomiting, chest pain, or any unexpected problems, contact your Primary Care Provider. Call [facility] ([phone]) or report to the closest Emergency Room. Call 911 if necessary. 12/17/21 1733 <Electronically signed by Harlan COLUNGA> Cosigner Signature (if applicable): 12/17/211928 <Electronically signed by Shanelle Boyer MD> CC: LABELLING MACHINE OPERATOR-C 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 Signed 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 Work Phone: Start: 06-06-2021 End: 06-06-2021 Carotid Duplex Ultrasound Comments: See Note; NOTES: [facility] [address] [place] [address] Carotid Duplex Ultrasound 06/06/21927 MR#: [id number] Acct: [id number] Name: JARRETT ROGER Rep #: [id number] : 1960 61 From: Srinivas Maynard MD Attending Dr: CRISTINE Hayward Status: REG CLI Ordering Dr: 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 NP LABELLING MACHINE OPERATOR-C Date: 06/06/21 Location: [facility] Sex: M C Admitted: Reason For Study: CAD Rt. Velocities/BP Lt. Velocities/BP Prox CCA 88/14 cm/sec. Prox CCA 91/24 cm/sec. Mid CCA 82/23 cm/sec. Mid CCA 84/26 cm/sec. Dist CCA 82/25 cm/sec. Dist CCA 78/27 cm/sec. Prox ICA 68/16 cm/sec. Prox ICA 71/20 cm/sec. Mid ICA 46/15 cm/sec. Mid ICA 58/22 cm/sec. Dist ICA 66/32 cm/sec. Dist ICA 72/31 cm/sec. Rt. ICA/CCA = 0.8. Lt. ICA/CCA = 0.9. Prox ECA 64/13 cm/sec. Prox ECA 77/15 cm/sec. Rt. Vert. 47/20 cm/sec. Lt. Vert. 35/12 cm/sec. Right Extracranial There is intimal thickening but no significant atherosclerotic plaque noted in the right common carotid artery. There is heterogeneous, irregular atherosclerotic plaque noted in the right internal carotid artery. There is no significant atherosclerotic plaque noted in the right external carotid artery. Antegrade flow is noted in the right vertebral artery. Left Extracranial There is homogeneous, smooth atherosclerotic plaque noted in the left common carotid artery. There is heterogeneous, irregular atherosclerotic plaque noted in the left internal carotid artery. There is heterogeneous, smooth atherosclerotic plaque noted in the left external carotid artery. Antegrade flow is noted in the left vertebral artery. Procedure Carotid Duplex 15755. This is a Carotid Duplex examination using B-mode, color flow and specral Doppler. Exam performed in department. VL/Carotid Duplex Ultrasound Interpretation Summary Calcific plaque at the proximal right internal carotid artery with less than 50 percent stenosis Less than 50 percent stenosis right external carotid artery Calcific plaque with shadowing at the proximal left internal carotid artery with less than 50 percent stenosis Less than 50 percent stenosis left external carotid artery Patent and antegrade vertebral arteries bilaterally Bilateral proximal internal carotid artery plaque was identified on the previous blood flow examination of February 10, 2021 _ Ordering Physician: 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 Referring Physician: 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 Performed By: Pau Hendricks, LOLACS, RVT 06/06/21 1155 Date Srinivas Maynard MD CC: LABELLING MACHINE OPERATOR-C 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 Date Dictated: 06/06/21 0928 Date Transcribed: 06/06/21 115 Manager Aerospace: Signed 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 CNP Work Phone: Start: 02-16-2021 End: 02-16-2021 Echo Complete Comments: See Note; NOTES: [facility] [address] [place] [address] Echo Complete 02/16/21 1432 MR#: [id number] Acct: [id number] Name: JARRETT ROGER Rep #: [id number] : [id number] 60 From: Harlan Marcelo MD Attending Dr: CRISTINE Hayward Status: REG CLI Ordering Dr: 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 NP Date: 02/16/21 Location: [facility] Sex: M C Admitted: Reason For Study: IRREGULAR HEARTBEAT Procedure This was a 2D Doppler, Color Flow transthoracic echocardiogram. Contrast injection was performed. Exam performed in department. Left Ventricle Normal LV size. Left ventricular systolic function is normal. The estimated ejection fraction is 65 %. No evidence for diastolic dysfunction. No regional wall motion abnormalities noted. Right Ventricle Normal RV size. Normal systolic function. Atria Normal left atrium. Normal right atrium. No doppler evidence for ASD. Mitral Valve There is no mitral annular calcification. Mild diffuse mitral valve thickening. Trivial mitral valve insufficiency. Tricuspid Valve Normal tricuspid valve. Trivial tricuspid valve insufficiency. Right ventricular systolic pressure estimated to be 21 mmHg. Aortic Valve Trisinus/trileaflet aortic valve. Mild focal aortic valve thickening. Mild focal aortic valve calcification. Trivial aortic valve insufficiency. Pulmonic Valve The pulmonic valve is not well visualized. Trivial pulmonic valve insufficiency. Great Vessels Mild to moderately dilated aortic root. Pericardium/Pleural No pericardial effusion. MMode/2D Measurements Calculations LVIDd: 4.9 cm IVSd: 1.2 cm Ao root diam: 4.5 cm LVIDs: 3.1 cm LVPWd: 1.0 cm FS: 36.9 % ___ LAV(MOD-bp): 53.6 ml LA A4 area: 19.2 cm2 LA dimension(2D): 4.1 cm LAV(MOD-bp) Indexed: 23.7 ml/m2 LAV(MOD-sp2): 52.5 ml LAV(MOD-sp4): 53.2 ml ___ RA A4 area: 15.6 cm2 Time Measurements MV dec time: 0.31 sec Doppler Measurements Calculations MV E max cadence: 63.4 cm/sec Lat Peak E' Cadence: 10.3 cm/sec Med Peak E' Cadence: 5.9 cm/sec MV A max cadence: 82.5 cm/sec E/E' lat: 6.1 E/E' med: 10.7 MV E/A: 0.77 ___ Ao V2 max: 143.0 cm/sec LV V1 max: 130.3 cm/sec PA V2 max: 112.9 cm/sec Ao max P.2 mmHg LV V1 max P.8 mmHg ___ PI dec slope: 110.8 cm/sec2 TR max cadence: 212.9 cm/sec TR max P.1 mmHg ECHO/Echo Complete Interpretation Summary Left ventricular systolic function is normal. The estimated ejection fraction is 65 %. Mild diffuse mitral valve thickening. Trivial mitral valve insufficiency. Trivial tricuspid valve insufficiency. Mild focal aortic valve thickening. Mild focal aortic valve calcification. Trivial aortic valve insufficiency. Trivial pulmonic valve insufficiency. Mild to moderately dilated aortic root. Right ventricular systolic pressure estimated to be 21 mmHg. No evidence for diastolic dysfunction. _ Ordering Physician: 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 Referring Physician: 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 Performed By: Marley Parker, MICHAEL, RVT 02/16/21 172 Date Harlan Marcelo MD CC: LABELLING MACHINE OPERATOR-C 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 Date Dictated: 02/16/21 1432 Date Transcribed: 02/16/211721 Manager Aerospace: Signed 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 [facility] Work Phone: Colonoscopy 2017- Dr Jerald Mills LPN Colonoscopy 2016- Dr Jerald Mills LPN Colonoscopy 2016- Dr Jerald Mills LPN Colonoscopy 2016- Dr Jerald Mihcel [employer]IKE [employer]ANNING APPLICATIONS Colonoscopy 2016- Dr Jerald Romero [employer]LECT[employer] LINEMAN Colonoscopy 2016- Dr Jerald Monge LPN [facility] orthoscopic surgery 1989 [facility] Steve Gene [employer]IKE PLANNING APPLICATIONS Knee orthoscopic surgery 1989 approx Steve Mills STRIKE PLANNING APPLICATIONS Knee orthoscopic surgery 1989 approx Steve Mills STRIKE PLANNING APPLICATIONS Knee orthoscopic surgery 1989 approx SHOLA Michel [employer]IKE PLANNING APPLICATIONS Knee orthoscopic surgery 1989 approx Leoncio Romero [employer]EM[employer] Knee orthoscopic surgery 1989 approx Christelle Monge [employer]IKE PLANNING APPLICATIONS Plan of Treatment Date Care Activity Detail Author Start: 05-18-2023 Influenza vaccination INFLUENZ A (Season Ended) [facility] Start: 10-03-2022 25 hydroxy includes fractions if performed CALCIFEDIOL (42115) [facility] Work Phone: Start: 10-03-2022 Blood count complete auto&auto difrntl wbc CBC W/AUTO DIFF WBC (83486) [facility] Work Phone: Start: 10-03-2022 Comprehensive metabo lic panel METABOLIC PANEL, COMPREHENSIVE (77517) [facility] Work Phone: Start: 10-03-2022 Cyanocobalamin vitam in b-12 VITAMIN B12 AND FOLATES (03659) [facility] Work Phone: Start: 10-03-2022 Lipid panel LIPID PANEL (73316) [facility] Work Phone: Start: 10-03-2022 Procedure Education Eprescribe d prescriptions (G8553) [facility] Work Phone: Start: 10-03-2022 Provider Instruction s for Treatment Follow up in 6 months [facility] Work Phone: Start: 10-03-2022 Urinls dip stick/tab let reagnt non-auto micrscpy URINALYSIS W MICROSCOPY (76229) [facility]; [facility] Work Phone: Start: 09-17-2022 DEPRESSION ASSESSMENT DEPRESSION ASS ESSMENT [facility] Start: 05-18-2022 Influenza vaccination INFLUENZA (#1) [facility] Start: 03-24-2022 Procedure Education Eprescribe d prescriptions (G8553) [facility]; [facility] Work Phone: Start: 03-24-2022 Provider Instruction s for Treatment Follow up in 4 months [facility] Work Phone: Start: 03-24-2022 Lipid panel LIPID PANEL (15579) [facility]; [facility] Work Phone: Comment on above: prior to next ov in aug 2022 Start: 03-24-2022 Assay of thyroid stimulating hormone tsh TSH (THYROID STIMULATING HORMONE) (18176) [facility]; [facility] Work Phone: Start: 03-24-2022 Blood count manual c ell count each CBC with auto diff (96391) [facility]; [facility] Work Phone: Start: 03-24-2022 Comprehensive metabo lic panel METABOLIC PANEL, COMPREHENSIVE (21943) [facility]; [facility] Work Phone: Start: 03-24-2022 Assay of prostate specific antigen total PSA (PROSTATE SPECIFIC ANTIGEN) (51202) [facility]; [facility] Work Phone: Start: 11-06-2021 Provider Instruction s for Treatment Punch Biopsy with Epi [facility] Work Phone: Start: 09-18-2021 COVID-19 VACCINE (4 - Booster for Pfizer series) COVID-19 VACCINE (4 - Booster for Pfizer series) [facility] Start: 08-26-2021 Procedure Education Eprescribe d prescriptions (G8553) [facility]; [facility] Work Phone: Start: 08-26-2021 Provider Instruction s for Treatment Follow up in 6 months [facility] Work Phone: Start: 07-27-2021 Provider Instruction s for Treatment Follow up in 1 month [facility] Work Phone: Start: 05-17-2021 Procedure Education Eprescribe d prescriptions (G8553) [facility] Work Phone: Start: 05-17-2021 Provider Instruction s for Treatment Follow up in 3 months [facility]; [facility] Work Phone: Start: 05-11-2021 Lactate dehydrogenas e ldh LDH (LD) (LACTATE DEHYDROGENASE) (97435) [facility]; [facility] Work Phone: Start: 05-11-2021 Lipid panel LIPID PANEL (40388) [facility]; [facility] Work Phone: Start: 05-11-2021 25 hydroxy includes fractions if performed CALCIFEDIOL (22805) [facility]; [facility] Work Phone: Start: 02-08-2021 Hemoglobin glycosyla denise a1c HGB A1C (40746) [facility]; [facility] Work Phone: Start: 02-08-2021 Procedure Education Eprescribe d prescriptions (G8553) [facility]; [facility] Work Phone: Start: 02-08-2021 Provider Instruction s for Treatment [facility]; [facility] Work Phone: Start: 01-30-2021 Lactate dehydrogenas e ldh LDH (LD) (LACTATE DEHYDROGENASE) (09174) [facility]; [facility] Work Phone: Start: 01-30-2021 Assay of phosphatase alkaline isoenzymes ALKALINE PHOSPHATASE-ISOENZYM (24550) [facility]; [facility] Work Phone: Start: 01-25-2021 Assay of blood/uric acid URIC ACID BLOOD (95553) [facility]; [facility] Work Phone: Start: 01-25-2021 Lipid panel LIPID PANEL (66199) [facility]; [facility] Work Phone: Start: 01-25-2021 Assay of testosteron e free TESTOSTERONE ,TOT/FREE 92475 (05482) [facility]; [facility] Work Phone: Start: 01-25-2021 Assay of prostate specific antigen total PSA (PROSTATE SPECIFIC ANTIGEN) (V76.44) [facility]; [facility] Work Phone: Start: 01-25-2021 Cyanocobalamin vitam in b-12 VITAMIN B12 AND FOLATES (67104) [facility]; [facility] Work Phone: Start: 01-25-2021 25 hydroxy includes fractions if performed CALCIFEDIOL (46204) [facility]; [facility] Work Phone: Start: 01-25-2021 Assay of thyroid stimulating hormone tsh TSH (THYROID STIMULATING HORMONE) (54070) [facility]; [facility] Work Phone: Start: 01-25-2021 Blood count complete auto&auto difrntl wbc CBC, Platelets & Auto Diff (10996) [facility]; [facility] Work Phone: Start: 01-25-2021 Comprehensive metabo lic panel Metabolic Panel, Comprehensive (11088) [facility]; [facility] Work Phone: Start: 01-25-2021 Procedure Education Eprescribe d prescriptions (G4279) [facility]; [facility] Work Phone: Start: 01-25-2021 Provider Instruction s for Treatment [facility]; [facility] Work Phone: Start: 2013 PROSTATE CANCER SCREENING DISCUSSION PROSTATE CANCER SCREENING DISCUSSION [facility] Start: 02-27-2008 SHINGRIX VACCINE (1 of 2) SHINGRIX VACCINE (1 of 2) [facility] Start: 2003 COLOGUARD (FIT-DNA) COLOGUARD (FIT-D NA) [facility] Start: 2003 Colonoscopy COLONOSCOPY [facility] Start: 2003 COLORECTAL CANCER SCREENING COLORECTAL CANCER SCREENING [facility] Start: [address] COLONOGRAPHY [facility] Start: 2003 DIABETES SCREEN DIABETES SCREEN [facility] Start: 2003 FECAL OCCULT BLOOD FECAL OCCULT BLOO D [facility] Start: 2003 SIGMOIDOSCOPY SIGMOIDOSCOPY [facility] Start: 1993 LIPID SCREEN LIPID SCREEN [facility] Start: 1977 Urine microalbumin profile DTAP,TDAP,TD (1 - Tdap) [facility] Start: 02-27-1976 HEPATITIS C SCREENING HEPATITIS C SC JUSTICE [facility] Start: 02-27-1976 HIV SCREENING HIV SCREENING [facility] Work Phone: [facility] Work Phone: [facility] Work Phone: [facility] Work Phone: [facility] Work Phone: [facility] Work Phone: [facility] Work Phone: [facility] Work Phone: [facility] Work Phone: [facility] Work Phone: [facility] Immunizations Immunization Date Immunization Notes Care Provider Romero nunez 07-24-2021 COVID-Pfizer (30 MCG/0.3 ML) 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 CUSTOMER SUCCESS MANAGER Work Phone: [facility]; [facility] Work Phone: 06-22-2021 Seasonal, quadrivalent, recombinant, injectable influenza vaccine, preservative free 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 CUSTOMER SUCCESS MANAGER Work Phone: [facility]; [facility] Work Phone: 01-15-2021 COVID-Pfizer (30 MCG/0.3 ML) 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 CUSTOMER SUCCESS MANAGER Work Phone: [facility]; [facility] Work Phone: 12-21-2020 COVID-19 (Moderna) Fabiana zapata CUSTOMER SUCCESS MANAGER Work Phone: [facility]; [facility] Work Phone: 12-16-2020 COVID-Pfizer (30 MCG/0.3 ML) 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 CUSTOMER SUCCESS MANAGER Work Phone: [facility]; [facility] Work Phone: 11-30-2020 COVID-19 (Moderna) Fabiana zapata CUSTOMER SUCCESS MANAGER Work Phone: [facility] Work Phone: 07-18-2020 influenza, seasonal, injectable 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 CUSTOMER SUCCESS MANAGER Work Phone: [facility]; [facility] Work Phone: Payers Date Payer Category Payer Unknown 2021 Unknown [id number] 2021 Unknown [id number] 1960 Unknown [id number] Social History Date Type Detail Facility Alcohol Use: Alcohol Use: [facility] Work Phone: Caffeine Use Caffeine Use [facility] Work Phone: Comment on above: 1 pot daily smokeless tobacco- q uit 4-5 yrs ago [facility] Work Phone: Start: 10-26-2022 Tobacco smoking status NHIS Ex-smoker [facility] History of tobacco use Current smoker [facility] Start: 10-26-2022 Tobacco use and exposure Former smokeless tobacco user [facility] History of tobacco use Chews Tobacco [facility] Start: 10-26-2022 End: 02-16-2023 Alcohol intake Lifetime non-drinker (finding) [facility] Start: 1960 Sex Assigned At Not on file [facility] Clinical Notes 10-26-2022 to 01-15-2023 Ant Mosquera MD - 01/15/2023 4:13 PM Prabha Hernandez PA-C - 12/18/2022 3:02 PM Wendy Gonzalez RN - 12/18/2022 2:38 PM EDTTelephone Encounter - Lauren Ledbetter Ma - 11/01/2022 4:51 PM EST Note Date & Type Note Facility 01-15-2023 Note HNO ID: [id number] Author: Ant Mosquera MD Service: ? Author Type: Physician Type: Progress Notes Filed: 02/16/2023 6:04 PM Note Text: Ant Mosquera MD Department of Orthopaedics [facility] [address] [facility] [address] Dept: [phone] Dept January 15, 2023 CHIEF COMPLAINT: Established Patient and Post Op of the Right Hand. HPI Patient here today for 5 weeks 5 days post op excision right index finger cyst. Patient denies any pain. ASSESSMENT: M67.49, M71.39, M67.89 Ganglion and cyst of synovium, tendon, and bursa (primary encounter diagnosis) SUMMARY/PLAN: Just shy of 6 weeks and he is doing quite well. He is pleased with his results thus far. No pain really. Mildly sore and appropriate at the healing scar. He can follow-up as needed Healing appropriately. Good motion. No recurrence. Supporting Information Below: Medications: Current Outpatient Medications Medication Sig cyanocobalamin, vitamin B-12, (VITAMIN B-12 ORAL) Dissolve under the tongue. Cholecalciferol, Vitamin D3, 50 mcg (2,000 unit) cap Take by mouth q 24 HR. aspirin, enteric coated (ASPIRIN, ENTERIC COATED) 81 mg EC tablet Take by mouth q 24 HR. donepezil (ARICEPT) 5 mg tablet Take by mouth. No current facility-administered medications for this visit. Allergies: Patient has no known allergies. Ant Mosquera MD [facility] 01-15-2023 History of Presen t illness Narrative Ant Mosquera MD Department of Orthopaedics Orthopaedics [address] [facility] [address] Dept: [phone] Dept January 15, 2023 CHIEF COMPLAINT: Established Patient and Post Op of the Right Hand. HPI Patient here today for 5 weeks 5 days post op excision right index finger cyst. Patient denies any pain. ASSESSMENT: M67.49, M71.39, M67.89 Ganglion and cyst of synovium, tendon, and bursa (primary encounter diagnosis) SUMMARY/PLAN: Just shy of 6 weeks and he is doing quite well. He is pleased with his results thus far. No pain really. Mildly sore and appropriate at the healing scar. He can follow-up as needed Healing appropriately. Good motion. No recurrence. Supporting Information Below: Medications: Current Outpatient Medications Medication Sig cyanocobalamin, vitamin B-12, (VITAMIN B-12 ORAL) Dissolve under the tongue. Cholecalciferol, Vitamin D3, 50 mcg (2,000 unit) cap Take by mouth q 24 HR. aspirin, enteric coated (ASPIRIN, ENTERIC COATED) 81 mg EC tablet Take by mouth q 24 HR. donepezil (ARICEPT) 5 mg tablet Take by mouth. No current facility-administered medications for this visit. Allergies: Patient has no known allergies. Ant Mosquera MD documented in this encounter [facility] 12-18-2022 Note HNO ID: [id number] Author: Bernice Hernandez PA-C Service: ? Author Type: Physician China Painter Type: Progress Notes Filed: 12/18/2022 3:07 PM Note Text: Bernice Hernandez PA-C Department of Orthopaedics Orthopaedics [address] [facility] [address] Dept: [phone] Dept December 18, 2022 CHIEF COMPLAINT: Post Op and Ganglion Cyst of the Right Index Finger. ASSESSMENT: M67.49, M71.39, M67.89 Ganglion and cyst of synovium, tendon, and bursa (primary encounter diagnosis) SUMMARY/PLAN: Patient presents 1 week and 5 days status post excision of right index finger digital mucous cyst. He is doing very well, he denies any pain today. He is very happy thus far. 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 We discussed proper hand washing, no soaking of the operative hand. No heavy lifting, pushing or pulling with the operative hand, encourage gentle motion. We discussed scar massage. Follow up as planned. Exam: Incision sites well approximated without erythema or drainage, there is mild but appropriate edema, no ecchymosis. Patient has full and active range of motion of the digit with some subjective hypersensitivity along the radial border. Imaging: Deferred today. Mr. Jarrett Roger was advised as to contrast therapies and/or to take analgesics/anti-inflammatories as needed and all contraindications were reviewed. Supporting Information Below: Medications: Current Outpatient Medications Medication Sig cyanocobalamin, vitamin B-12, (VITAMIN B-12 ORAL) Dissolve under the tongue. Cholecalciferol, Vitamin D3, 50 mcg (2,000 unit) cap Take by mouth q 24 HR. aspirin, enteric coated (ASPIRIN, ENTERIC COATED) 81 mg EC tablet Take by mouth q 24 HR. donepezil (ARICEPT) 5 mg tablet Take by mouth. No current facility-administered medications for this visit. Allergies: Patient has no known allergies. This note was partially generated using [employer] voice recognition system, and there may be some incorrect words, spellings, and punctuation that were not noted in checking the note before saving. Bernice Hernandez PA-C [facility] 12-18-2022 Note HNO ID: [id number] Author: Angela Gonzalez RN Service: ? Author Type: ? Type: Progress Notes Filed: 12/18/2022 3:07 PM Note Text: Patient presents with: Right Index Finger - Post Op, Ganglion Cyst Patient is 1 week 5 days post op excision of ganglion cyst, R index finger. Denies pain. [facility] 12-18-2022 History of Presen t illness Narrative Bernice Hernandez PA-C Department of Orthopaedics Orthopaedics [address] [place] [address] Dept: [phone] Dept December 18, 2022 CHIEF COMPLAINT: Post Op and Ganglion Cyst of the Right Index Finger. ASSESSMENT: M67.49, M71.39, M67.89 Ganglion and cyst of synovium, tendon, and bursa (primary encounter diagnosis) SUMMARY/PLAN: Patient presents 1 week and 5 days status post excision of right index finger digital mucous cyst. He is doing very well, he denies any pain today. He is very happy thus far. 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 We discussed proper hand washing, no soaking of the operative hand. No heavy lifting, pushing or pulling with the operative hand, encourage gentle motion. We discussed scar massage. Follow up as planned. Exam: Incision sites well approximated without erythema or drainage, there is mild but appropriate edema, no ecchymosis. Patient has full and active range of motion of the digit with some subjective hypersensitivity along the radial border. Imaging: Deferred today. Mr. Jarrett Roger was advised as to contrast therapies and/or to take analgesics/anti-inflammatories as needed and all contraindications were reviewed. Supporting Information Below: Medications: Current Outpatient Medications Medication Sig cyanocobalamin, vitamin B-12, (VITAMIN B-12 ORAL) Dissolve under the tongue. Cholecalciferol, Vitamin D3, 50 mcg (2,000 unit) cap Take by mouth q 24 HR. aspirin, enteric coated (ASPIRIN, ENTERIC COATED) 81 mg EC tablet Take by mouth q 24 HR. donepezil (ARICEPT) 5 mg tablet Take by mouth. No current facility-administered medications for this visit. Allergies: Patient has no known allergies. This note was partially generated using [employer] voice recognition system, and there may be some incorrect words, spellings, and punctuation that were not noted in checking the note before saving. Bernice Hernandez PA-C Patient presents with: Right Index Finger - Post Op, Ganglion Cyst Patient is 1 week 5 days post op excision of ganglion cyst, R index finger. Denies pain. documented in this encounter [facility] 12-06-2022 Note HNO ID: [id number] Author: Ayde Ribeiro RN Service: Nursing Author Type: Registered Nurse Type: Nursing Progress Note Filed: 12/06/2022 1:41 PM Note Text: Other: pt ready for OR, call light in reach, no one here with pt, brought self. [facility] 11-01-2022 Miscellaneous Notes Surgery has been scheduled as requested. Patient scheduled for Right index finger excision ganglion cyst on 12/06/22. Surgical request completed. Post op appointments scheduled and mailed to patient. documented in this encounter [facility] 10-26-2022 Note HNO ID: [id number] Author: Ant Mosquera MD Service: ? Author Type: Physician Type: Progress Notes Filed: 11/27/2022 4:24 PM Note Text: Ant Mosquera MD Department of Orthopaedics Orthopaedics [address] [facility] [address] Dept: [phone] Dept October 26, 2022 CHIEF COMPLAINT: No chief complaint on file. HPI Pt here today for a cyst on R index finger. Noticed around a year ago, just appeared with no incident. Pt states at times the cyst will get bigger. Not painful unless bumped. Non limiting, just careful to not bump it at work. 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 ASSESSMENT: M67.49, M71.39, M67.89 Ganglion and cyst of synovium, tendon and bursa (primary encounter diagnosis) PLAN: We discussed the risks, benefits, alternatives and potential complications involving both operative and nonoperative treatment. He would like to pursue surgery for excision of the cyst. FOLLOW UP INSTRUCTIONS: Schedule at his convenience OBJECTIVE: Mr. Jarrett Roger is a pleasant 62 year old in no apparent distress. Gen:There were no vitals taken for this visit. nl development, non obese, no deformities ENT: Normocephalic, normal hearing, moist mucosa CV: Pulses:Radial= 2+ and symmetric, capillary refill < 2 secs, no peripheral edema/varicosities Skin: no rash, bruising or lesions. Good turgor. Psych: cooperative and appropriate, alert and oriented x 3, good mood and affect. Musculoskeletal: Focal area of swelling on the right index finger consistent with likely ganglion cyst. No skin changes. No redness or drainage. IMAGING: Deferred Supporting Subjective Information Below: Past Medical History: PAST MEDICAL HISTORY Diagnosis Date ADD (attention deficit disorder) Past Surgical History: PAST SURGICAL HISTORY Procedure Laterality Date NONE Family History: FAMILY HISTORY Problem Relation Age of Onset Breast Cancer Mother Colon Cancer Father Cancer Paternal Grandfather Social History: Social History Tobacco Use Smoking status: Former Smokeless tobacco: Former Types: Chew Substance Use Topics Alcohol use: Never Drug use: Never Medications: Current Outpatient Medications Medication Sig cyanocobalamin, vitamin B-12, (VITAMIN B-12 ORAL) Dissolve under the tongue. Cholecalciferol, Vitamin D3, 50 mcg (2,000 unit) cap Take by mouth q 24 HR. aspirin, enteric coated (ASPIRIN, ENTERIC COATED) 81 mg EC tablet Take by mouth q 24 HR. donepezil (ARICEPT) 5 mg tablet Take by mouth. No current facility-administered medications for this visit. Allergies: Patient has no known allergies. ROS: General (negative for fatigue, malaise, weight loss/gain) HEENT (negative for headache, earache, recent vision changes, sinus pain, sore throat) Respiratory (no recent shortness of breath, hemoptysis) CV (negative for chest tightness, palpitations) Musculoskeletal (see HPI) Psych (no depression, anxiety) Ant Mosquera MD [facility] Evaluation note Diagnosis Ganglion and cyst of synovium, tendon, and bursa- Primary Other ganglion and cyst of synovium, tendon, and bursa Ganglion and cyst of synovium, tendon, and bursa Other ganglion and cyst of synovium, tendon, and bursa [facility] Ganglion and cyst of synovium, tendon, and bursa- Primary Other ganglion and cyst of synovium, tendon, and bursa [facility] Ganglion and cyst of synovium, tendon, and bursa- Primary Other ganglion and cyst of synovium, tendon, and bursa [facility] Name Dates Details Patient Instructions Indication:BMI 28.0-28.9,adult Start:25-Jan-2021 Instruction Type:Provider Instructions for Treatment How to Access Health Informa tion Online using Patient Portal and [employer]rd [employer] Apps Indication:BMI 28.0-28.9,adult Start:25-Jan-2021 Instruction Type:Patient Education [facility]; [facility] Work Phone: Instructions* Name Dates Details Patient Instructions Indication:BMI 28.0-28.9,adult Start:25-Jan-2021 Instruction Type:Provider Instructions for Treatment How to Access Health Informa tion Online using Patient Portal and [employer]rd [employer] Apps Indication:BMI 28.0-28.9,adult Start:25-Jan-2021 Instruction Type:Patient Education [facility]; [facility] Work Phone: instructions* Name Dates Details Patient Instructions Indication:BMI 28.0-28.9,adult Start:25-Jan-2021 Instruction Type:Provider Instructions for Treatment How to Access Health Informa tion Online using Patient Portal and [employer]rd [employer] Apps Indication:BMI 28.0-28.9,adult Start:25-Jan-2021 Instruction Type:Patient Education [facility]; [facility] Work Phone: instructions* Name Dates Details Patient Instructions Indication:BMI 28.0-28.9,adult Start:25-Jan-2021 Instruction Type:Provider Instructions for Treatment How to Access Health Informa tion Online using Patient Portal and [employer]rd [employer] Apps Indication:BMI 28.0-28.9,adult Start:25-Jan-2021 Instruction Type:Patient Education [facility]; [facility] Work Phone: instructions* Name Dates Details Patient Instructions Indication:BMI 28.0-28.9,adult Start:25-Jan-2021 Instruction Type:Provider Instructions for Treatment How to Access Health Informa tion Online using Patient Portal and [employer]rd [employer] Apps Indication:BMI 28.0-28.9,adult Start:25-Jan-2021 Instruction Type:Patient Education [facility]; [facility] Work Phone: instructions* Name Dates Details Patient Instructions Indication:Nonsmoker Start:08-Feb-2021 Instruction Type:Provider Instructions for Treatment How to Access Health Informa tion Online using Patient Portal and [employer]rd [employer] Apps Indication:Nonsmoker Start:08-Feb-2021 Instruction Type:Patient Education Patient Instructions Indication:BMI 28.0-28.9,adult Start:25-Jan-2021 Instruction Type:Provider Instructions for Treatment How to Access Health Informa tion Online using Patient Portal and [employer]rd [employer] Apps Indication:BMI 28.0-28.9,adult Start:25-Jan-2021 Instruction Type:Patient Education [facility]; [facility] Work Phone: Instructions* Name Dates Details Patient Instructions Indication:Nonsmoker Start:08-Feb-2021 Instruction Type:Provider Instructions for Treatment How to Access Health Informa tion Online using Patient Portal and [employer]rd [employer] Apps Indication:Nonsmoker Start:08-Feb-2021 Instruction Type:Patient Education Patient Instructions Indication:BMI 28.0-28.9,adult Start:25-Jan-2021 Instruction Type:Provider Instructions for Treatment How to Access Health Informa tion Online using Patient Portal and [employer]rd [employer] Apps Indication:BMI 28.0-28.9,adult Start:25-Jan-2021 Instruction Type:Patient Education [facility]; [facility] Work Phone: [employer]* Name Dates Details Patient Instructions Indication:Nonsmoker Start:08-Feb-2021 Instruction Type:Provider Instructions for Treatment How to Access Health Informa tion Online using Patient Portal and [employer]rd [employer] Apps Indication:Nonsmoker Start:08-Feb-2021 Instruction Type:Patient Education Patient Instructions Indication:BMI 28.0-28.9,adult Start:25-Jan-2021 Instruction Type:Provider Instructions for Treatment How to Access Health Informa tion Online using Patient Portal and [employer]rd [employer] Apps Indication:BMI 28.0-28.9,adult Start:25-Jan-2021 Instruction Type:Patient Education [facility]; [facility] Work Phone: [employer]* Name Dates Details Patient Instructions Indication:Nonsmoker Start:08-Feb-2021 Instruction Type:Provider Instructions for Treatment How to Access Health Informa tion Online using Patient Portal and [employer]rd [employer] Apps Indication:Nonsmoker Start:08-Feb-2021 Instruction Type:Patient Education Patient Instructions Indication:BMI 28.0-28.9,adult Start:25-Jan-2021 Instruction Type:Provider Instructions for Treatment How to Access Health Informa tion Online using Patient Portal and [employer]rd [employer] Apps Indication:BMI 28.0-28.9,adult Start:25-Jan-2021 Instruction Type:Patient Education [facility]; [facility] Work Phone: [email or web address]* Name Dates Details Patient Instructions Indication:Nonsmoker Start:08-Feb-2021 Instruction Type:Provider Instructions for Treatment How to Access Health Informa tion Online using Patient Portal and [employer]rd [employer] Apps Indication:Nonsmoker Start:08-Feb-2021 Instruction Type:Patient Education Patient Instructions Indication:BMI 28.0-28.9,adult Start:25-Jan-2021 Instruction Type:Provider Instructions for Treatment How to Access Health Informa tion Online using Patient Portal and [employer]rd [employer] Apps Indication:BMI 28.0-28.9,adult Start:25-Jan-2021 Instruction Type:Patient Education [facility]; [facility] Work Phone: Instructions* Name Dates Details Patient Instructions Indication:Nonsmoker Start:08-Feb-2021 Instruction Type:Provider Instructions for Treatment How to Access Health Informa tion Online using Patient Portal and [employer]rd [employer] Apps Indication:Nonsmoker Start:08-Feb-2021 Instruction Type:Patient Education Patient Instructions Indication:BMI 28.0-28.9,adult Start:25-Jan-2021 Instruction Type:Provider Instructions for Treatment How to Access Health Informa tion Online using Patient Portal and [employer]rd [employer] Apps Indication:BMI 28.0-28.9,adult Start:25-Jan-2021 Instruction Type:Patient Education [facility]; [facility] Work Phone: Instructions* Name Dates Details Patient Instructions Indication:Nonsmoker Start:26-Aug-2021 Instruction Type:Provider Instructions for Treatment How to Access Health Informa tion Online using Patient Portal and [employer]rd [employer] Apps Indication:Nonsmoker Start:26-Aug-2021 Instruction Type:Patient Education Patient Instructions Indication:Impaired fasting glucose Start:27-Jul-2021 Instruction Type:Provider Instructions for Treatment How to Access Health Informa tion Online using Patient Portal and [employer]rd [employer] Apps Indication:Impaired fasting glucose Start:27-Jul-2021 Instruction Type:Patient Education Patient Instructions Indication:Nonsmoker Start:17-May-2021 Instruction Type:Provider Instructions for Treatment How to Access Health Informa tion Online using Patient Portal and [employer]rd [employer] Apps Indication:BMI 28.0-28.9,adult Start:17-May-2021 Instruction Type:Patient Education Patient Instructions Indication:Nonsmoker Start:08-Feb-2021 Instruction Type:Provider Instructions for Treatment How to Access Health Informa tion Online using Patient Portal and [employer]rd [employer] Apps Indication:Nonsmoker Start:08-Feb-2021 Instruction Type:Patient Education Patient Instructions Indication:BMI 28.0-28.9,adult Start:25-Jan-2021 Instruction Type:Provider Instructions for Treatment How to Access Health Informa tion Online using Patient Portal and [employer]rd [employer] Apps Indication:BMI 28.0-28.9,adult Start:25-Jan-2021 Instruction Type:Patient Education [facility]; [facility] Work Phone: instructions* Name Dates Details Patient Instructions Indication:Nonsmoker Start:26-Aug-2021 Instruction Type:Provider Instructions for Treatment How to Access Health Informa tion Online using Patient Portal and [employer]rd [employer] Apps Indication:Nonsmoker Start:26-Aug-2021 Instruction Type:Patient Education Patient Instructions Indication:Impaired fasting glucose Start:27-Jul-2021 Instruction Type:Provider Instructions for Treatment How to Access Health Informa tion Online using Patient Portal and [employer]rd [employer] Apps Indication:Impaired fasting glucose Start:27-Jul-2021 Instruction Type:Patient Education Patient Instructions Indication:Nonsmoker Start:17-May-2021 Instruction Type:Provider Instructions for Treatment How to Access Health Informa tion Online using Patient Portal and 3rd [employer] Apps Indication:BMI 28.0-28.9,adult Start:17-May-2021 Instruction Type:Patient Education Patient Instructions Indication:Nonsmoker Start:08-Feb-2021 Instruction Type:Provider Instructions for Treatment How to Access Health Informa tion Online using Patient Portal and [employer]rd [employer] Apps Indication:Nonsmoker Start:08-Feb-2021 Instruction Type:Patient Education Patient Instructions Indication:BMI 28.0-28.9,adult Start:25-Jan-2021 Instruction Type:Provider Instructions for Treatment How to Access Health Informa tion Online using Patient Portal and [employer]rd [employer] Apps Indication:BMI 28.0-28.9,adult Start:25-Jan-2021 Instruction Type:Patient Education [facility]; [facility] Work Phone: [employer]* Name Dates Details Patient Instructions Indication:Nonsmoker Start:26-Aug-2021 Instruction Type:Provider Instructions for Treatment How to Access Health Informa tion Online using Patient Portal and [employer]rd [employer] Apps Indication:Nonsmoker Start:26-Aug-2021 Instruction Type:Patient Education Patient Instructions Indication:Impaired fasting glucose Start:27-Jul-2021 Instruction Type:Provider Instructions for Treatment How to Access Health Informa tion Online using Patient Portal and [employer]rd [employer] Apps Indication:Impaired fasting glucose Start:27-Jul-2021 Instruction Type:Patient Education Patient Instructions Indication:Nonsmoker Start:17-May-2021 Instruction Type:Provider Instructions for Treatment How to Access Health Informa tion Online using Patient Portal and [employer]rd [employer] Apps Indication:BMI 28.0-28.9,adult Start:17-May-2021 Instruction Type:Patient Education Patient Instructions Indication:Nonsmoker Start:08-Feb-2021 Instruction Type:Provider Instructions for Treatment How to Access Health Informa tion Online using Patient Portal and [employer]rd [employer] Apps Indication:Nonsmoker Start:08-Feb-2021 Instruction Type:Patient Education Patient Instructions Indication:BMI 28.0-28.9,adult Start:25-Jan-2021 Instruction Type:Provider Instructions for Treatment How to Access Health Informa tion Online using Patient Portal and [employer]rd [employer] Apps Indication:BMI 28.0-28.9,adult Start:25-Jan-2021 Instruction Type:Patient Education [facility]; [facility] Work Phone: Instructions* Name Dates Details Patient Instructions Indication:Lip lesion Start:03-Nov-2021 Instruction Type:Provider Instructions for Treatment How to Access Health Informa tion Online using Patient Portal and 3rd [employer] Apps Indication:Lip lesion Start:03-Nov-2021 Instruction Type:Patient Education Patient Instructions Indication:Nonsmoker Start:26-Aug-2021 Instruction Type:Provider Instructions for Treatment How to Access Health Informa tion Online using Patient Portal and [employer]rd [employer] Apps Indication:Nonsmoker Start:26-Aug-2021 Instruction Type:Patient Education Patient Instructions Indication:Impaired fasting glucose Start:27-Jul-2021 Instruction Type:Provider Instructions for Treatment How to Access Health Informa tion Online using Patient Portal and [employer]rd [employer] Apps Indication:Impaired fasting glucose Start:27-Jul-2021 Instruction Type:Patient Education Patient Instructions Indication:Nonsmoker Start:17-May-2021 Instruction Type:Provider Instructions for Treatment How to Access Health Informa tion Online using Patient Portal and 3rd [employer] Apps Indication:BMI 28.0-28.9,adult Start:17-May-2021 Instruction Type:Patient Education Patient Instructions Indication:Nonsmoker Start:08-Feb-2021 Instruction Type:Provider Instructions for Treatment How to Access Health Informa tion Online using Patient Portal and [employer]rd [employer] Apps Indication:Nonsmoker Start:08-Feb-2021 Instruction Type:Patient Education Patient Instructions Indication:BMI 28.0-28.9,adult Start:25-Jan-2021 Instruction Type:Provider Instructions for Treatment How to Access Health Informa tion Online using Patient Portal and [employer]rd [employer] Apps Indication:BMI 28.0-28.9,adult Start:25-Jan-2021 Instruction Type:Patient Education [facility]; [facility] Work Phone: Instructions* Name Dates Details Patient Instructions Indication:Lip lesion Start:03-Nov-2021 Instruction Type:Provider Instructions for Treatment How to Access Health Informa tion Online using Patient Portal and 3rd [employer] Apps Indication:Lip lesion Start:03-Nov-2021 Instruction Type:Patient Education Patient Instructions Indication:Nonsmoker Start:26-Aug-2021 Instruction Type:Provider Instructions for Treatment How to Access Health Informa tion Online using Patient Portal and 3rd [employer] Apps Indication:Nonsmoker Start:26-Aug-2021 Instruction Type:Patient Education Patient Instructions Indication:Impaired fasting glucose Start:27-Jul-2021 Instruction Type:Provider Instructions for Treatment How to Access Health Informa tion Online using Patient Portal and [employer]rd [employer] Apps Indication:Impaired fasting glucose Start:27-Jul-2021 Instruction Type:Patient Education Patient Instructions Indication:Nonsmoker Start:17-May-2021 Instruction Type:Provider Instructions for Treatment How to Access Health Informa tion Online using Patient Portal and [employer]rd [employer] Apps Indication:BMI 28.0-28.9,adult Start:17-May-2021 Instruction Type:Patient Education Patient Instructions Indication:Nonsmoker Start:08-Feb-2021 Instruction Type:Provider Instructions for Treatment How to Access Health Informa tion Online using Patient Portal and [employer]rd [employer] Apps Indication:Nonsmoker Start:08-Feb-2021 Instruction Type:Patient Education Patient Instructions Indication:BMI 28.0-28.9,adult Start:25-Jan-2021 Instruction Type:Provider Instructions for Treatment How to Access Health Informa tion Online using Patient Portal and 3rd [employer] Apps Indication:BMI 28.0-28.9,adult Start:25-Jan-2021 Instruction Type:Patient Education [facility]; [facility] Work Phone: Instructions* Name Dates Details Patient Instructions Indication:Lip lesion Start:03-Nov-2021 Instruction Type:Provider Instructions for Treatment How to Access Health Informa tion Online using Patient Portal and [employer]rd [employer] Apps Indication:Lip lesion Start:03-Nov-2021 Instruction Type:Patient Education Patient Instructions Indication:Nonsmoker Start:26-Aug-2021 Instruction Type:Provider Instructions for Treatment How to Access Health Informa tion Online using Patient Portal and [employer] Apps Indication:Nonsmoker Start:26-Aug-2021 Instruction Type:Patient Education Patient Instructions Indication:Impaired fasting glucose Start:27-Jul-2021 Instruction Type:Provider Instructions for Treatment How to Access Health Informa tion Online using Patient Portal and [employer] Apps Indication:Impaired fasting glucose Start:27-Jul-2021 Instruction Type:Patient Education Patient Instructions Indication:Nonsmoker Start:17-May-2021 Instruction Type:Provider Instructions for Treatment How to Access Health Informa tion Online using Patient Portal and [employer] Apps Indication:BMI 28.0-28.9,adult Start:17-May-2021 Instruction Type:Patient Education Patient Instructions Indication:Nonsmoker Start:08-Feb-2021 Instruction Type:Provider Instructions for Treatment How to Access Health Informa tion Online using Patient [employer] and [employer] Apps Indication:Nonsmoker Start:08-Feb-2021 Instruction Type:Patient Education Patient Instructions Indication:BMI 28.0-28.9,adult Start:25-Jan-2021 Instruction Type:Provider Instructions for Treatment How to Access Health Informa tion Online using Patient Portal and [employer] Apps Indication:BMI 28.0-28.9,adult Start:25-Jan-2021 Instruction Type:Patient Education [facility]; [facility] Work Phone: Instructions* Name Dates Details Patient Instructions Indication:Lip lesion Start:03-Nov-2021 Instruction Type:Provider Instructions for Treatment How to Access Health Informa tion Online using Patient [employer] and [employer] Apps Indication:Lip lesion Start:03-Nov-2021 Instruction Type:Patient Education Patient Instructions Indication:Nonsmoker Start:26-Aug-2021 Instruction Type:Provider Instructions for Treatment How to Access Health Informa tion Online using Patient Portal and [employer] Apps Indication:Nonsmoker Start:26-Aug-2021 Instruction Type:Patient Education Patient Instructions Indication:Impaired fasting glucose Start:27-Jul-2021 Instruction Type:Provider Instructions for Treatment How to Access Health Informa tion Online using Patient Portal and [employer] Apps Indication:Impaired fasting glucose Start:27-Jul-2021 Instruction Type:Patient Education Patient Instructions Indication:Nonsmoker Start:17-May-2021 Instruction Type:Provider Instructions for Treatment How to Access Health Informa tion Online using Patient Portal and 3rd [employer] Apps Indication:BMI 28.0-28.9,adult Start:17-May-2021 Instruction Type:Patient Education Patient Instructions Indication:Nonsmoker Start:08-Feb-2021 Instruction Type:Provider Instructions for Treatment How to Access Health Informa tion Online using Patient Portal and [employer]rd [employer] Apps Indication:Nonsmoker Start:08-Feb-2021 Instruction Type:Patient Education Patient Instructions Indication:BMI 28.0-28.9,adult Start:25-Jan-2021 Instruction Type:Provider Instructions for Treatment How to Access Health Informa tion Online using Patient Portal and [employer]rd [employer] Apps Indication:BMI 28.0-28.9,adult Start:25-Jan-2021 Instruction Type:Patient Education [facility]; [facility] Work Phone: Instructions* Name Dates Details Patient Instructions Indication:Lip lesion Start:03-Nov-2021 Instruction Type:Provider Instructions for Treatment How to Access Health Informa tion Online using Patient Portal and [employer]rd [employer] Apps Indication:Lip lesion Start:03-Nov-2021 Instruction Type:Patient Education Patient Instructions Indication:Nonsmoker Start:26-Aug-2021 Instruction Type:Provider Instructions for Treatment How to Access Health Informa tion Online using Patient Portal and [employer] Apps Indication:Nonsmoker Start:26-Aug-2021 Instruction Type:Patient Education Patient Instructions Indication:Impaired fasting glucose Start:27-Jul-2021 Instruction Type:Provider Instructions for Treatment How to Access Health Informa tion Online using Patient Portal and [employer] Apps Indication:Impaired fasting glucose Start:27-Jul-2021 Instruction Type:Patient Education Patient Instructions Indication:Nonsmoker Start:17-May-2021 Instruction Type:Provider Instructions for Treatment How to Access Health Informa tion Online using Patient Portal and [employer]rd [employer] Apps Indication:BMI 28.0-28.9,adult Start:17-May-2021 Instruction Type:Patient Education Patient Instructions Indication:Nonsmoker Start:08-Feb-2021 Instruction Type:Provider Instructions for Treatment How to Access Health Informa tion Online using Patient Portal and [employer]rd [employer] Apps Indication:Nonsmoker Start:08-Feb-2021 Instruction Type:Patient Education Patient Instructions Indication:BMI 28.0-28.9,adult Start:25-Jan-2021 Instruction Type:Provider Instructions for Treatment How to Access Health Informa tion Online using Patient Portal and [employer]rd [employer] Apps Indication:BMI 28.0-28.9,adult Start:25-Jan-2021 Instruction Type:Patient Education [facility]; [facility] Work Phone: Instructions* Name Dates Details Patient Instructions Indication:Impaired fasting glucose Start:24-Mar-2022 Instruction Type:Provider Instructions for Treatment How to Access Health Informa tion Online using Patient Portal and [employer]rd [employer] Apps Indication:Impaired fasting glucose Start:24-Mar-2022 Instruction Type:Patient Education Patient Instructions Indication:Lip lesion Start:03-Nov-2021 Instruction Type:Provider Instructions for Treatment How to Access Health Informa tion Online using Patient Portal and [employer]rd [employer] Apps Indication:Lip lesion Start:03-Nov-2021 Instruction Type:Patient Education Patient Instructions Indication:Nonsmoker Start:26-Aug-2021 Instruction Type:Provider Instructions for Treatment How to Access Health Informa tion Online using Patient Portal and [employer] Apps Indication:Nonsmoker Start:26-Aug-2021 Instruction Type:Patient Education Patient Instructions Indication:Impaired fasting glucose Start:27-Jul-2021 Instruction Type:Provider Instructions for Treatment How to Access Health Informa tion Online using Patient Portal and [employer] Apps Indication:Impaired fasting glucose Start:27-Jul-2021 Instruction Type:Patient Education Patient Instructions Indication:Nonsmoker Start:17-May-2021 Instruction Type:Provider Instructions for Treatment How to Access Health Informa tion Online using Patient Portal and [employer] Apps Indication:BMI 28.0-28.9,adult Start:17-May-2021 Instruction Type:Patient Education Patient Instructions Indication:Nonsmoker Start:08-Feb-2021 Instruction Type:Provider Instructions for Treatment How to Access Health Informa tion Online using Patient Portal and [employer] Apps Indication:Nonsmoker Start:08-Feb-2021 Instruction Type:Patient Education Patient Instructions Indication:BMI 28.0-28.9,adult Start:25-Jan-2021 Instruction Type:Provider Instructions for Treatment How to Access Health Informa tion Online using Patient Portal and [employer] Apps Indication:BMI 28.0-28.9,adult Start:25-Jan-2021 Instruction Type:Patient Education [facility]; [facility] Work Phone: Instructions* Name Dates Details Patient Instructions Indication:Impaired fasting glucose Start:24-Mar-2022 Instruction Type:Provider Instructions for Treatment How to Access Health Informa tion Online using Patient Portal and [employer] Apps Indication:Impaired fasting glucose Start:24-Mar-2022 Instruction Type:Patient Education Patient Instructions Indication:Lip lesion Start:03-Nov-2021 Instruction Type:Provider Instructions for Treatment How to Access Health Informa tion Online using Patient Portal and [employer]rd [employer] Apps Indication:Lip lesion Start:03-Nov-2021 Instruction Type:Patient Education Patient Instructions Indication:Nonsmoker Start:26-Aug-2021 Instruction Type:Provider Instructions for Treatment How to Access Health Informa tion Online using Patient Portal and [employer] Apps Indication:Nonsmoker Start:26-Aug-2021 Instruction Type:Patient Education Patient Instructions Indication:Impaired fasting glucose Start:27-Jul-2021 Instruction Type:Provider Instructions for Treatment How to Access Health Informa tion Online using Patient Portal and [employer] Apps Indication:Impaired fasting glucose Start:27-Jul-2021 Instruction Type:Patient Education Patient Instructions Indication:Nonsmoker Start:17-May-2021 Instruction Type:Provider Instructions for Treatment How to Access Health Informa tion Online using Patient Portal and [employer] Apps Indication:BMI 28.0-28.9,adult Start:17-May-2021 Instruction Type:Patient Education Patient Instructions Indication:Nonsmoker Start:08-Feb-2021 Instruction Type:Provider Instructions for Treatment How to Access Health Informa tion Online using Patient Portal and [employer] Apps Indication:Nonsmoker Start:08-Feb-2021 Instruction Type:Patient Education Patient Instructions Indication:BMI 28.0-28.9,adult Start:25-Jan-2021 Instruction Type:Provider Instructions for Treatment How to Access Health Informa tion Online using Patient Portal and [employer] Apps Indication:BMI 28.0-28.9,adult Start:25-Jan-2021 Instruction Type:Patient Education [facility]; [facility] Work Phone: Instructions* Name Dates Details Patient Instructions Indication:Impaired fasting glucose Start:24-Mar-2022 Instruction Type:Provider Instructions for Treatment How to Access Health Informa tion Online using Patient Portal and [employer] Apps Indication:Impaired fasting glucose Start:24-Mar-2022 Instruction Type:Patient Education Patient Instructions Indication:Lip lesion Start:03-Nov-2021 Instruction Type:Provider Instructions for Treatment How to Access Health Informa tion Online using Patient Portal and [employer] Apps Indication:Lip lesion Start:03-Nov-2021 Instruction Type:Patient Education Patient Instructions Indication:Nonsmoker Start:26-Aug-2021 Instruction Type:Provider Instructions for Treatment How to Access Health Informa tion Online using Patient Portal and [employer] Apps Indication:Nonsmoker Start:26-Aug-2021 Instruction Type:Patient Education Patient Instructions Indication:Impaired fasting glucose Start:27-Jul-2021 Instruction Type:Provider Instructions for Treatment How to Access Health Informa tion Online using Patient Portal and [employer] Apps Indication:Impaired fasting glucose Start:27-Jul-2021 Instruction Type:Patient Education Patient Instructions Indication:Nonsmoker Start:17-May-2021 Instruction Type:Provider Instructions for Treatment How to Access Health Informa tion Online using Patient Portal and [employer] Apps Indication:BMI 28.0-28.9,adult Start:17-May-2021 Instruction Type:Patient Education Patient Instructions Indication:Nonsmoker Start:08-Feb-2021 Instruction Type:Provider Instructions for Treatment How to Access Health Informa tion Online using Patient Portal and [employer] Apps Indication:Nonsmoker Start:08-Feb-2021 Instruction Type:Patient Education Patient Instructions Indication:BMI 28.0-28.9,adult Start:25-Jan-2021 Instruction Type:Provider Instructions for Treatment How to Access Health Informa tion Online using Patient Portal and [employer] Apps Indication:BMI 28.0-28.9,adult Start:25-Jan-2021 Instruction Type:Patient Education [facility]; [facility] Work Phone: Instructions* Name Dates Details Patient Instructions Indication:Impaired fasting glucose Start:24-Mar-2022 Instruction Type:Provider Instructions for Treatment How to Access Health Informa tion Online using Patient Portal and [employer] Apps Indication:Impaired fasting glucose Start:24-Mar-2022 Instruction Type:Patient Education Patient Instructions Indication:Lip lesion Start:03-Nov-2021 Instruction Type:Provider Instructions for Treatment How to Access Health Informa tion Online using Patient Portal and [employer] Apps Indication:Lip lesion Start:03-Nov-2021 Instruction Type:Patient Education Patient Instructions Indication:Nonsmoker Start:26-Aug-2021 Instruction Type:Provider Instructions for Treatment How to Access Health Informa tion Online using Patient Portal and [employer] Apps Indication:Nonsmoker Start:26-Aug-2021 Instruction Type:Patient Education Patient Instructions Indication:Impaired fasting glucose Start:27-Jul-2021 Instruction Type:Provider Instructions for Treatment How to Access Health Informa tion Online using Patient Portal and [employer] Apps Indication:Impaired fasting glucose Start:27-Jul-2021 Instruction Type:Patient Education Patient Instructions Indication:Nonsmoker Start:17-May-2021 Instruction Type:Provider Instructions for Treatment How to Access Health Informa tion Online using Patient Portal and [employer] Apps Indication:BMI 28.0-28.9,adult Start:17-May-2021 Instruction Type:Patient Education Patient Instructions Indication:Nonsmoker Start:08-Feb-2021 Instruction Type:Provider Instructions for Treatment How to Access Health Informa tion Online using Patient Portal and [employer] Apps Indication:Nonsmoker Start:08-Feb-2021 Instruction Type:Patient Education Patient Instructions Indication:BMI 28.0-28.9,adult Start:25-Jan-2021 Instruction Type:Provider Instructions for Treatment How to Access Health Informa tion Online using Patient Portal and [employer] Apps Indication:BMI 28.0-28.9,adult Start:25-Jan-2021 Instruction Type:Patient Education [facility]; [facility] Work Phone: Instructions* Name Dates Details Patient Instructions Indication:Impaired fasting glucose Start:24-Mar-2022 Instruction Type:Provider Instructions for Treatment How to Access Health Informa tion Online using Patient Portal and [employer] Apps Indication:Impaired fasting glucose Start:24-Mar-2022 Instruction Type:Patient Education Patient Instructions Indication:Lip lesion Start:03-Nov-2021 Instruction Type:Provider Instructions for Treatment How to Access Health Informa tion Online using Patient Portal and [employer] Apps Indication:Lip lesion Start:03-Nov-2021 Instruction Type:Patient Education Patient Instructions Indication:Nonsmoker Start:26-Aug-2021 Instruction Type:Provider Instructions for Treatment How to Access Health Informa tion Online using Patient Portal and [employer] Apps Indication:Nonsmoker Start:26-Aug-2021 Instruction Type:Patient Education Patient Instructions Indication:Impaired fasting glucose Start:27-Jul-2021 Instruction Type:Provider Instructions for Treatment How to Access Health Informa tion Online using Patient Portal and [employer] Apps Indication:Impaired fasting glucose Start:27-Jul-2021 Instruction Type:Patient Education Patient Instructions Indication:Nonsmoker Start:17-May-2021 Instruction Type:Provider Instructions for Treatment How to Access Health Informa tion Online using Patient Portal and [employer] Apps Indication:BMI 28.0-28.9,adult Start:17-May-2021 Instruction Type:Patient Education Patient Instructions Indication:Nonsmoker Start:08-Feb-2021 Instruction Type:Provider Instructions for Treatment How to Access Health Informa tion Online using Patient Portal and [employer] Apps Indication:Nonsmoker Start:08-Feb-2021 Instruction Type:Patient Education Patient Instructions Indication:BMI 28.0-28.9,adult Start:25-Jan-2021 Instruction Type:Provider Instructions for Treatment How to Access Health Informa tion Online using Patient Portal and [employer] Apps Indication:BMI 28.0-28.9,adult Start:25-Jan-2021 Instruction Type:Patient Education [facility]; [facility] Work Phone: Instructions* Name Dates Details Patient Instructions Indication:Impaired fasting glucose Start:24-Mar-2022 Instruction Type:Provider Instructions for Treatment How to Access Health Informa tion Online using Patient Portal and [employer] Apps Indication:Impaired fasting glucose Start:24-Mar-2022 Instruction Type:Patient Education Patient Instructions Indication:Lip lesion Start:03-Nov-2021 Instruction Type:Provider Instructions for Treatment How to Access Health Informa tion Online using Patient Portal and [employer] Apps Indication:Lip lesion Start:03-Nov-2021 Instruction Type:Patient Education Patient Instructions Indication:Nonsmoker Start:26-Aug-2021 Instruction Type:Provider Instructions for Treatment How to Access Health Informa tion Online using Patient Portal and [employer] Apps Indication:Nonsmoker Start:26-Aug-2021 Instruction Type:Patient Education Patient Instructions Indication:Impaired fasting glucose Start:27-Jul-2021 Instruction Type:Provider Instructions for Treatment How to Access Health Informa tion Online using Patient Portal and [employer] Apps Indication:Impaired fasting glucose Start:27-Jul-2021 Instruction Type:Patient Education Patient Instructions Indication:Nonsmoker Start:17-May-2021 Instruction Type:Provider Instructions for Treatment How to Access Health Informa tion Online using Patient Portal and [employer] Apps Indication:BMI 28.0-28.9,adult Start:17-May-2021 Instruction Type:Patient Education Patient Instructions Indication:Nonsmoker Start:08-Feb-2021 Instruction Type:Provider Instructions for Treatment How to Access Health Informa tion Online using Patient Portal and [employer] Apps Indication:Nonsmoker Start:08-Feb-2021 Instruction Type:Patient Education Patient Instructions Indication:BMI 28.0-28.9,adult Start:25-Jan-2021 Instruction Type:Provider Instructions for Treatment How to Access Health Informa tion Online using Patient Portal and [employer] Apps Indication:BMI 28.0-28.9,adult Start:25-Jan-2021 Instruction Type:Patient Education [facility]; [facility] Work Phone: Instructions* Name Dates Details Patient Instructions Indication:Nonsmoker Start:03-Oct-2022 Instruction Type:Provider Instructions for Treatment How to Access Health Informa tion Online using Patient Portal and [employer] Apps Indication:Nonsmoker Start:03-Oct-2022 Instruction Type:Patient Education Patient Instructions Indication:Impaired fasting glucose Start:24-Mar-2022 Instruction Type:Provider Instructions for Treatment How to Access Health Informa tion Online using Patient Portal and [employer] Apps Indication:Impaired fasting glucose Start:24-Mar-2022 Instruction Type:Patient Education Patient Instructions Indication:Lip lesion Start:03-Nov-2021 Instruction Type:Provider Instructions for Treatment How to Access Health Informa tion Online using Patient Portal and [employer] Apps Indication:Lip lesion Start:03-Nov-2021 Instruction Type:Patient Education Patient Instructions Indication:Nonsmoker Start:26-Aug-2021 Instruction Type:Provider Instructions for Treatment How to Access Health Informa tion Online using Patient Portal and [employer] Apps Indication:Nonsmoker Start:26-Aug-2021 Instruction Type:Patient Education Patient Instructions Indication:Impaired fasting glucose Start:27-Jul-2021 Instruction Type:Provider Instructions for Treatment How to Access Health Informa tion Online using Patient Portal and [employer] Apps Indication:Impaired fasting glucose Start:27-Jul-2021 Instruction Type:Patient Education Patient Instructions Indication:Nonsmoker Start:17-May-2021 Instruction Type:Provider Instructions for Treatment How to Access Health Informa tion Online using Patient Portal and [employer] Apps Indication:BMI 28.0-28.9,adult Start:17-May-2021 Instruction Type:Patient Education Patient Instructions Indication:Nonsmoker Start:08-Feb-2021 Instruction Type:Provider Instructions for Treatment How to Access Health Informa tion Online using Patient Portal and [employer] Apps Indication:Nonsmoker Start:08-Feb-2021 Instruction Type:Patient Education Patient Instructions Indication:BMI 28.0-28.9,adult Start:25-Jan-2021 Instruction Type:Provider Instructions for Treatment How to Access Health Informa tion Online using Patient Portal and [employer] Apps Indication:BMI 28.0-28.9,adult Start:25-Jan-2021 Instruction Type:Patient Education [facility]; [facility] Work Phone: Instructions* Name Dates Details Patient Instructions Indication:Nonsmoker Start:03-Oct-2022 Instruction Type:Provider Instructions for Treatment How to Access Health Informa tion Online using Patient Portal and [employer] Apps Indication:Nonsmoker Start:03-Oct-2022 Instruction Type:Patient Education Patient Instructions Indication:Impaired fasting glucose Start:24-Mar-2022 Instruction Type:Provider Instructions for Treatment How to Access Health Informa tion Online using Patient Portal and [employer] Apps Indication:Impaired fasting glucose Start:24-Mar-2022 Instruction Type:Patient Education Patient Instructions Indication:Lip lesion Start:03-Nov-2021 Instruction Type:Provider Instructions for Treatment How to Access Health Informa tion Online using Patient Portal and [employer] Apps Indication:Lip lesion Start:03-Nov-2021 Instruction Type:Patient Education Patient Instructions Indication:Nonsmoker Start:26-Aug-2021 Instruction Type:Provider Instructions for Treatment How to Access Health Informa tion Online using Patient Portal and [employer] Apps Indication:Nonsmoker Start:26-Aug-2021 Instruction Type:Patient Education Patient Instructions Indication:Impaired fasting glucose Start:27-Jul-2021 Instruction Type:Provider Instructions for Treatment How to Access Health Informa tion Online using Patient Portal and [employer] Apps Indication:Impaired fasting glucose Start:27-Jul-2021 Instruction Type:Patient Education Patient Instructions Indication:Nonsmoker Start:17-May-2021 Instruction Type:Provider Instructions for Treatment How to Access Health Informa tion Online using Patient Portal and [employer] Apps Indication:BMI 28.0-28.9,adult Start:17-May-2021 Instruction Type:Patient Education Patient Instructions Indication:Nonsmoker Start:08-Feb-2021 Instruction Type:Provider Instructions for Treatment How to Access Health Informa tion Online using Patient Portal and [employer] Apps Indication:Nonsmoker Start:08-Feb-2021 Instruction Type:Patient Education Patient Instructions Indication:BMI 28.0-28.9,adult Start:25-Jan-2021 Instruction Type:Provider Instructions for Treatment How to Access Health Informa tion Online using Patient Portal and [employer] Apps Indication:BMI 28.0-28.9,adult Start:25-Jan-2021 Instruction Type:Patient Education [facility]; [facility] Work Phone: Instructions* Name Dates Details Patient Instructions Indication:Nonsmoker Start:03-Oct-2022 Instruction Type:Provider Instructions for Treatment How to Access Health Informa tion Online using Patient Portal and [employer] Apps Indication:Nonsmoker Start:03-Oct-2022 Instruction Type:Patient Education Patient Instructions Indication:Impaired fasting glucose Start:24-Mar-2022 Instruction Type:Provider Instructions for Treatment How to Access Health Informa tion Online using Patient Portal and [employer] Apps Indication:Impaired fasting glucose Start:24-Mar-2022 Instruction Type:Patient Education Patient Instructions Indication:Lip lesion Start:03-Nov-2021 Instruction Type:Provider Instructions for Treatment How to Access Health Informa tion Online using Patient Portal and [employer] Apps Indication:Lip lesion Start:03-Nov-2021 Instruction Type:Patient Education Patient Instructions Indication:Nonsmoker Start:26-Aug-2021 Instruction Type:Provider Instructions for Treatment How to Access Health Informa tion Online using Patient Portal and [employer] Apps Indication:Nonsmoker Start:26-Aug-2021 Instruction Type:Patient Education Patient Instructions Indication:Impaired fasting glucose Start:27-Jul-2021 Instruction Type:Provider Instructions for Treatment How to Access Health Informa tion Online using Patient Portal and [employer] Apps Indication:Impaired fasting glucose Start:27-Jul-2021 Instruction Type:Patient Education Patient Instructions Indication:Nonsmoker Start:17-May-2021 Instruction Type:Provider Instructions for Treatment How to Access Health Informa tion Online using Patient Portal and [employer] Apps Indication:BMI 28.0-28.9,adult Start:17-May-2021 Instruction Type:Patient Education Patient Instructions Indication:Nonsmoker Start:08-Feb-2021 Instruction Type:Provider Instructions for Treatment How to Access Health Informa tion Online using Patient Portal and [employer] Apps Indication:Nonsmoker Start:08-Feb-2021 Instruction Type:Patient Education Patient Instructions Indication:BMI 28.0-28.9,adult Start:25-Jan-2021 Instruction Type:Provider Instructions for Treatment How to Access Health Informa tion Online using Patient Portal and [employer] Apps Indication:BMI 28.0-28.9,adult Start:25-Jan-2021 Instruction Type:Patient Education [facility]; [facility] Work Phone: Instructions* Name Dates Details Patient Instructions Indication:Nonsmoker Start:03-Oct-2022 Instruction Type:Provider Instructions for Treatment How to Access Health Informa tion Online using Patient Portal and [employer] Apps Indication:Nonsmoker Start:03-Oct-2022 Instruction Type:Patient Education Patient Instructions Indication:Impaired fasting glucose Start:24-Mar-2022 Instruction Type:Provider Instructions for Treatment How to Access Health Informa tion Online using Patient Portal and [employer] Apps Indication:Impaired fasting glucose Start:24-Mar-2022 Instruction Type:Patient Education Patient Instructions Indication:Lip lesion Start:03-Nov-2021 Instruction Type:Provider Instructions for Treatment How to Access Health Informa tion Online using Patient Portal and [employer] Apps Indication:Lip lesion Start:03-Nov-2021 Instruction Type:Patient Education Patient Instructions Indication:Nonsmoker Start:26-Aug-2021 Instruction Type:Provider Instructions for Treatment How to Access Health Informa tion Online using Patient Portal and [employer] Apps Indication:Nonsmoker Start:26-Aug-2021 Instruction Type:Patient Education Patient Instructions Indication:Impaired fasting glucose Start:27-Jul-2021 Instruction Type:Provider Instructions for Treatment How to Access Health Informa tion Online using Patient Portal and [employer] Apps Indication:Impaired fasting glucose Start:27-Jul-2021 Instruction Type:Patient Education Patient Instructions Indication:Nonsmoker Start:17-May-2021 Instruction Type:Provider Instructions for Treatment How to Access Health Informa tion Online using Patient Portal and [employer] Apps Indication:BMI 28.0-28.9,adult Start:17-May-2021 Instruction Type:Patient Education Patient Instructions Indication:Nonsmoker Start:08-Feb-2021 Instruction Type:Provider Instructions for Treatment How to Access Health Informa tion Online using Patient Portal and [employer] Apps Indication:Nonsmoker Start:08-Feb-2021 Instruction Type:Patient Education Patient Instructions Indication:BMI 28.0-28.9,adult Start:25-Jan-2021 Instruction Type:Provider Instructions for Treatment How to Access Health Informa tion Online using Patient Portal and [employer] Apps Indication:BMI 28.0-28.9,adult Start:25-Jan-2021 Instruction Type:Patient Education [facility]; [facility] Work Phone: Instructions* Name Dates Details Patient Instructions Indication:Nonsmoker Start:03-Oct-2022 Instruction Type:Provider Instructions for Treatment How to Access Health Informa tion Online using Patient Portal and 3rd [employer] Apps Indication:Nonsmoker Start:03-Oct-2022 Instruction Type:Patient Education Patient Instructions Indication:Impaired fasting glucose Start:24-Mar-2022 Instruction Type:Provider Instructions for Treatment How to Access Health Informa tion Online using Patient Portal and 3rd [employer] Apps Indication:Impaired fasting glucose Start:24-Mar-2022 Instruction Type:Patient Education Patient Instructions Indication:Lip lesion Start:03-Nov-2021 Instruction Type:Provider Instructions for Treatment How to Access Health Informa tion Online using Patient Portal and 3rd [employer] Apps Indication:Lip lesion Start:03-Nov-2021 Instruction Type:Patient Education Patient Instructions Indication:Nonsmoker Start:26-Aug-2021 Instruction Type:Provider Instructions for Treatment How to Access Health Informa tion Online using Patient Portal and 3rd [employer] Apps Indication:Nonsmoker Start:26-Aug-2021 Instruction Type:Patient Education Patient Instructions Indication:Impaired fasting glucose Start:27-Jul-2021 Instruction Type:Provider Instructions for Treatment How to Access Health Informa tion Online using Patient Portal and 3rd [employer] Apps Indication:Impaired fasting glucose Start:27-Jul-2021 Instruction Type:Patient Education Patient Instructions Indication:Nonsmoker Start:17-May-2021 Instruction Type:Provider Instructions for Treatment How to Access Health Informa tion Online using Patient Portal and 3rd [employer] Apps Indication:BMI 28.0-28.9,adult Start:17-May-2021 Instruction Type:Patient Education Patient Instructions Indication:Nonsmoker Start:08-Feb-2021 Instruction Type:Provider Instructions for Treatment How to Access Health Informa tion Online using Patient Portal and 3rd [employer] Apps Indication:Nonsmoker Start:08-Feb-2021 Instruction Type:Patient Education Patient Instructions Indication:BMI 28.0-28.9,adult Start:25-Jan-2021 Instruction Type:Provider Instructions for Treatment How to Access Health Informa tion Online using Patient Portal and 3rd [employer] Apps Indication:BMI 28.0-28.9,adult Start:25-Jan-2021 Instruction Type:Patient Education [facility]; [facility] Work Phone: Instructions* Name Dates Details Patient Instructions Indication:Nonsmoker Start:03-Oct-2022 Instruction Type:Provider Instructions for Treatment How to Access Health Informa tion Online using Patient Portal and 3rd [employer] Apps Indication:Nonsmoker Start:03-Oct-2022 Instruction Type:Patient Education Patient Instructions Indication:Impaired fasting glucose Start:24-Mar-2022 Instruction Type:Provider Instructions for Treatment How to Access Health Informa tion Online using Patient Portal and 3rd [employer] Apps Indication:Impaired fasting glucose Start:24-Mar-2022 Instruction Type:Patient Education Patient Instructions Indication:Lip lesion Start:03-Nov-2021 Instruction Type:Provider Instructions for Treatment How to Access Health Informa tion Online using Patient Portal and 3rd [employer] Apps Indication:Lip lesion Start:03-Nov-2021 Instruction Type:Patient Education Patient Instructions Indication:Nonsmoker Start:26-Aug-2021 Instruction Type:Provider Instructions for Treatment How to Access Health Informa tion Online using Patient Portal and 3rd [employer] Apps Indication:Nonsmoker Start:26-Aug-2021 Instruction Type:Patient Education Patient Instructions Indication:Impaired fasting glucose Start:27-Jul-2021 Instruction Type:Provider Instructions for Treatment How to Access Health Informa tion Online using Patient Portal and 3rd [employer] Apps Indication:Impaired fasting glucose Start:27-Jul-2021 Instruction Type:Patient Education Patient Instructions Indication:Nonsmoker Start:17-May-2021 Instruction Type:Provider Instructions for Treatment How to Access Health Informa tion Online using Patient Portal and 3rd [employer] Apps Indication:BMI 28.0-28.9,adult Start:17-May-2021 Instruction Type:Patient Education Patient Instructions Indication:Nonsmoker Start:08-Feb-2021 Instruction Type:Provider Instructions for Treatment How to Access Health Informa tion Online using Patient Portal and 3rd [employer] Apps Indication:Nonsmoker Start:08-Feb-2021 Instruction Type:Patient Education Patient Instructions Indication:BMI 28.0-28.9,adult Start:25-Jan-2021 Instruction Type:Provider Instructions for Treatment How to Access Health Informa tion Online using Patient Portal and [employer] Apps Indication:BMI 28.0-28.9,adult Start:25-Jan-2021 Instruction Type:Patient Education [facility]; [facility] Work Phone: Family History Unknown Family Member Name Dates Details Cancer Comments:Breast, Colon, Lung , prostate Status:Active Drug Dependency/ Abuse Comments:Brother. Sister. Status:Active Emotional/Anxiety/Depression /Suicide Comments:Sister. Status:Active Grandparent Comments:alcoholism Status:Active HTN- father Status:Active Unknown Family Member Name Dates Details Cancer Comments:Breast, Colon, Lung , prostate Status:Active Drug Dependency/ Abuse Comments:Brother. Sister. Status:Active Emotional/Anxiety/Depression /Suicide Comments:Sister. Status:Active Grandparent Comments:alcoholism Status:Active HTN- father Status:Active Unknown Family Member Name Dates Details Cancer Comments:Breast, Colon, Lung , prostate Status:Active Drug Dependency/ Abuse Comments:Brother. Sister. Status:Active Emotional/Anxiety/Depression /Suicide Comments:Sister. Status:Active Grandparent Comments:alcoholism Status:Active HTN- father Status:Active Unknown Family Member Name Dates Details Cancer Comments:Breast, Colon, Lung , prostate Status:Active Drug Dependency/ Abuse Comments:Brother. Sister. Status:Active Emotional/Anxiety/Depression /Suicide Comments:Sister. Status:Active Grandparent Comments:alcoholism Status:Active HTN- father Status:Active Unknown Family Member Name Dates Details Cancer Comments:Breast, Colon, Lung , prostate Status:Active Drug Dependency/ Abuse Comments:Brother. Sister. Status:Active Emotional/Anxiety/Depression /Suicide Comments:Sister. Status:Active Grandparent Comments:alcoholism Status:Active HTN- father Status:Active Unknown Family Member Name Dates Details Cancer Comments:Breast, Colon, Lung , prostate Status:Active Drug Dependency/ Abuse Comments:Brother. Sister. Status:Active Emotional/Anxiety/Depression /Suicide Comments:Sister. Status:Active Grandparent Comments:alcoholism Status:Active HTN- father Status:Active Unknown Family Member Name Dates Details Cancer Comments:Breast, Colon, Lung , prostate Status:Active Drug Dependency/ Abuse Comments:Brother. Sister. Status:Active Emotional/Anxiety/Depression /Suicide Comments:Sister. Status:Active Grandparent Comments:alcoholism Status:Active HTN- father Status:Active Unknown Family Member Name Dates Details Cancer Comments:Breast, Colon, Lung , prostate Status:Active Drug Dependency/ Abuse Comments:Brother. Sister. Status:Active Emotional/Anxiety/Depression /Suicide Comments:Sister. Status:Active Grandparent Comments:alcoholism Status:Active HTN- father Status:Active Unknown Family Member Name Dates Details Cancer Comments:Breast, Colon, Lung , prostate Status:Active Drug Dependency/ Abuse Comments:Brother. Sister. Status:Active Emotional/Anxiety/Depression /Suicide Comments:Sister. Status:Active Grandparent Comments:alcoholism Status:Active HTN- father Status:Active Unknown Family Member Name Dates Details Cancer Comments:Breast, Colon, Lung , prostate Status:Active Drug Dependency/ Abuse Comments:Brother. Sister. Status:Active Emotional/Anxiety/Depression /Suicide Comments:Sister. Status:Active Grandparent Comments:alcoholism Status:Active HTN- father Status:Active Unknown Family Member Name Dates Details Cancer Comments:Breast, Colon, Lung , prostate Status:Active Drug Dependency/ Abuse Comments:Brother. Sister. Status:Active Emotional/Anxiety/Depression /Suicide Comments:Sister. Status:Active Grandparent Comments:alcoholism Status:Active HTN- father Status:Active Unknown Family Member Name Dates Details Cancer Comments:Breast, Colon, Lung , prostate Status:Active Drug Dependency/ Abuse Comments:Brother. Sister. Status:Active Emotional/Anxiety/Depression /Suicide Comments:Sister. Status:Active Grandparent Comments:alcoholism Status:Active HTN- father Status:Active Unknown Family Member Name Dates Details Cancer Comments:Breast, Colon, Lung , prostate Status:Active Drug Dependency/ Abuse Comments:Brother. Sister. Status:Active Emotional/Anxiety/Depression /Suicide Comments:Sister. Status:Active Grandparent Comments:alcoholism Status:Active HTN- father Status:Active Unknown Family Member Name Dates Details Cancer Comments:Breast, Colon, Lung , prostate Status:Active Drug Dependency/ Abuse Comments:Brother. Sister. Status:Active Emotional/Anxiety/Depression /Suicide Comments:Sister. Status:Active Grandparent Comments:alcoholism Status:Active HTN- father Status:Active Unknown Family Member Name Dates Details Cancer Comments:Breast, Colon, Lung , prostate Status:Active Drug Dependency/ Abuse Comments:Brother. Sister. Status:Active Emotional/Anxiety/Depression /Suicide Comments:Sister. Status:Active Grandparent Comments:alcoholism Status:Active HTN- father Status:Active Unknown Family Member Name Dates Details Cancer Comments:Breast, Colon, Lung , prostate Status:Active Drug Dependency/ Abuse Comments:Brother. Sister. Status:Active Emotional/Anxiety/Depression /Suicide Comments:Sister. Status:Active Grandparent Comments:alcoholism Status:Active HTN- father Status:Active Unknown Family Member Name Dates Details Cancer Comments:Breast, Colon, Lung , prostate Status:Active Drug Dependency/ Abuse Comments:Brother. Sister. Status:Active Emotional/Anxiety/Depression /Suicide Comments:Sister. Status:Active Grandparent Comments:alcoholism Status:Active HTN- father Status:Active Unknown Family Member Name Dates Details Cancer Comments:Breast, Colon, Lung , prostate Status:Active Drug Dependency/ Abuse Comments:Brother. Sister. Status:Active Emotional/Anxiety/Depression /Suicide Comments:Sister. Status:Active Grandparent Comments:alcoholism Status:Active HTN- father Status:Active Unknown Family Member Name Dates Details Cancer Comments:Breast, Colon, Lung , prostate Status:Active Drug Dependency/ Abuse Comments:Brother. Sister. Status:Active Emotional/Anxiety/Depression /Suicide Comments:Sister. Status:Active Grandparent Comments:alcoholism Status:Active HTN- father Status:Active Unknown Family Member Name Dates Details Cancer Comments:Breast, Colon, Lung , prostate Status:Active Drug Dependency/ Abuse Comments:Brother. Sister. Status:Active Emotional/Anxiety/Depression /Suicide Comments:Sister. Status:Active Grandparent Comments:alcoholism Status:Active HTN- father Status:Active Unknown Family Member Name Dates Details Cancer Comments:Breast, Colon, Lung , prostate Status:Active Drug Dependency/ Abuse Comments:Brother. Sister. Status:Active Emotional/Anxiety/Depression /Suicide Comments:Sister. Status:Active Grandparent Comments:alcoholism Status:Active HTN- father Status:Active Unknown Family Member Name Dates Details Cancer Comments:Breast, Colon, Lung , prostate Status:Active Drug Dependency/ Abuse Comments:Brother. Sister. Status:Active Emotional/Anxiety/Depression /Suicide Comments:Sister. Status:Active Grandparent Comments:alcoholism Status:Active HTN- father Status:Active Unknown Family Member Name Dates Details Cancer Comments:Breast, Colon, Lung , prostate Status:Active Drug Dependency/ Abuse Comments:Brother. Sister. Status:Active Emotional/Anxiety/Depression /Suicide Comments:Sister. Status:Active Grandparent Comments:alcoholism Status:Active HTN- father Status:Active Unknown Family Member Name Dates Details Cancer Comments:Breast, Colon, Lung , prostate Status:Active Drug Dependency/ Abuse Comments:Brother. Sister. Status:Active Emotional/Anxiety/Depression /Suicide Comments:Sister. Status:Active Grandparent Comments:alcoholism Status:Active HTN- father Status:Active Unknown Family Member Name Dates Details Cancer Comments:Breast, Colon, Lung , prostate Status:Active Drug Dependency/ Abuse Comments:Brother. Sister. Status:Active Emotional/Anxiety/Depression /Suicide Comments:Sister. Status:Active Grandparent Comments:alcoholism Status:Active HTN- father Status:Active Unknown Family Member Name Dates Details Cancer Comments:Breast, Colon, Lung , prostate Status:Active Drug Dependency/ Abuse Comments:Brother. Sister. Status:Active Emotional/Anxiety/Depression /Suicide Comments:Sister. Status:Active Grandparent Comments:alcoholism Status:Active HTN- father Status:Active Unknown Family Member Name Dates Details Cancer Comments:Breast, Colon, Lung , prostate Status:Active Drug Dependency/ Abuse Comments:Brother. Sister. Status:Active Emotional/Anxiety/Depression /Suicide Comments:Sister. Status:Active Grandparent Comments:alcoholism Status:Active HTN- father Status:Active Unknown Family Member Name Dates Details Cancer Comments:Breast, Colon, Lung , prostate Status:Active Drug Dependency/ Abuse Comments:Brother. Sister. Status:Active Emotional/Anxiety/Depression /Suicide Comments:Sister. Status:Active Grandparent Comments:alcoholism Status:Active HTN- father Status:Active Unknown Family Member Name Dates Details Cancer Comments:Breast, Colon, Lung , prostate Status:Active Drug Dependency/ Abuse Comments:Brother. Sister. Status:Active Emotional/Anxiety/Depression /Suicide Comments:Sister. Status:Active Grandparent Comments:alcoholism Status:Active HTN- father Status:Active Unknown Family Member Name Dates Details Cancer Comments:Breast, Colon, Lung , prostate Status:Active Drug Dependency/ Abuse Comments:Brother. Sister. Status:Active Emotional/Anxiety/Depression /Suicide Comments:Sister. Status:Active Grandparent Comments:alcoholism Status:Active HTN- father Status:Active Unknown Family Member Name Dates Details Cancer Comments:Breast, Colon, Lung , prostate Status:Active Drug Dependency/ Abuse Comments:Brother. Sister. Status:Active Emotional/Anxiety/Depression /Suicide Comments:Sister. Status:Active Grandparent Comments:alcoholism Status:Active HTN- father Status:Active Unknown Family Member Name Dates Details Cancer Comments:Breast, Colon, Lung , prostate Status:Active Drug Dependency/ Abuse Comments:Brother. Sister. Status:Active Emotional/Anxiety/Depression /Suicide Comments:Sister. Status:Active Grandparent Comments:alcoholism Status:Active HTN- father Status:Active Advance Directives Name Dates Details Immunization Registry [place] - Effective on 01/25/2021. Expiration date unspecified Effective:25-Jan-2021 Name Dates Details Immunization Registry [place] - Effective on 01/25/2021. Expiration date unspecified Effective:25-Jan-2021 Name Dates Details Immunization Registry [place] - Effective on 01/25/2021. Expiration date unspecified Effective:25-Jan-2021 Name Dates Details Immunization Registry [place] - Effective on 01/25/2021. Expiration date unspecified Effective:25-Jan-2021 Name Dates Details Immunization Registry [place] - Effective on 01/25/2021. Expiration date unspecified Effective:25-Jan-2021 Name Dates Details Immunization Registry [place] - Effective on 01/25/2021. Expiration date unspecified Effective:25-Jan-2021 Name Dates Details Immunization Registry [place] - Effective on 01/25/2021. Expiration date unspecified Effective:25-Jan-2021 Name Dates Details Immunization Registry [place] - Effective on 01/25/2021. Expiration date unspecified Effective:25-Jan-2021 Name Dates Details Immunization Registry [place] - Effective on 01/25/2021. Expiration date unspecified Effective:25-Jan-2021 Name Dates Details Immunization Registry [place] - Effective on 01/25/2021. Expiration date unspecified Effective:25-Jan-2021 Name Dates Details Immunization Registry [place] - Effective on 01/25/2021. Expiration date unspecified Effective:25-Jan-2021 Name Dates Details Immunization Registry [place] - Effective on 01/25/2021. Expiration date unspecified Effective:25-Jan-2021 Name Dates Details Immunization Registry [place] - Effective on 01/25/2021. Expiration date unspecified Effective:25-Jan-2021 Name Dates Details Immunization Registry [place] - Effective on 01/25/2021. Expiration date unspecified Effective:25-Jan-2021 Name Dates Details Immunization Registry [place] - Effective on 01/25/2021. Expiration date unspecified Effective:25-Jan-2021 Name Dates Details Immunization Registry [place] - Effective on 01/25/2021. Expiration date unspecified Effective:25-Jan-2021 Name Dates Details Immunization Registry [place] - Effective on 01/25/2021. Expiration date unspecified Effective:25-Jan-2021 Name Dates Details Immunization Registry [place] - Effective on 01/25/2021. Expiration date unspecified Effective:25-Jan-2021 Name Dates Details Immunization Registry [place] - Effective on 01/25/2021. Expiration date unspecified Effective:25-Jan-2021 Name Dates Details Immunization Registry [place] - Effective on 01/25/2021. Expiration date unspecified Effective:25-Jan-2021 Name Dates Details Immunization Registry [place] - Effective on 01/25/2021. Expiration date unspecified Effective:25-Jan-2021 Name Dates Details Immunization Registry [place] - Effective on 01/25/2021. Expiration date unspecified Effective:25-Jan-2021 Name Dates Details Immunization Registry [place] - Effective on 01/25/2021. Expiration date unspecified Effective:25-Jan-2021 Name Dates Details Immunization Registry [place] - Effective on 01/25/2021. Expiration date unspecified Effective:25-Jan-2021 Name Dates Details Immunization Registry [place] - Effective on 01/25/2021. Expiration date unspecified Effective:25-Jan-2021 Name Dates Details Immunization Registry [place] - Effective on 01/25/2021. Expiration date unspecified Effective:25-Jan-2021 Name Dates Details Immunization Registry [place] - Effective on 01/25/2021. Expiration date unspecified Effective:25-Jan-2021 Summary Purpose Additional Source Comments (unrecognized sect ion and content) No Status Records FoundNo Status Records FoundNo Status Records Found INFORMATION SOURCE (unrecogn ized section and content) DATE CREATED AUTHOR 10/03/2022 [facility] DATE CREATED AUTHOR AUTHOR'S ORGANIZ ATION 12/14/2022 [facility] DATE CREATED AUTHOR AUTHOR'S ORGANIZ ATION 02/24/2023 [facility] Source Comments (unrecognize d section and content) In the event this informatio n is protected by the [facility] Confidentiality of Alcohol and Drug Abuse Patient Records regulations: The Federal rules restrict any use of the information to criminally investigate or prosecute any alcohol or drug abuse patient.[facility] the event this information is protected by the Federal Confidentiality of Alcohol and Drug Abuse Patient Records regulations: The Federal rules restrict any use of the information to criminally investigate or prosecute any alcohol or drug abuse patient.[facility] the event this information is protected by the Federal Confidentiality of Alcohol and Drug Abuse Patient Records regulations: The Federal rules restrict any use of the information to criminally investigate or prosecute any alcohol or drug abuse patient.[facility] Reason for Visit (unrecogniz ed section and content) Reason Comments Schedule Surgery Reason Comments Post Op Ganglion Cyst Reason Comments Established Patient Post Op Care Teams (unrecognized sec tion and content) Technical Manager Relationship Specialty Start Date End Date Santy Wynn [address] [place] [address] PCP - General Family Medicine 11/23/22 Technical Manager Relationship Specialty Start Date End Date Santy Wynn [address] [place], [place] [id number] PCP - General Family Medicine 11/23/22 FOR RECORDS PERTAINING TO PATIENTS WHO ARE OR HAVE BEEN ENROLLED IN A CHEMICAL DEPENDENCY/SUBSTANCEABUSE PROGRAM, SOME INFORMATION MAY BE OMITTED. This clinical summary was aggregated from multiple sources. Caution should be exercised in using it in the provision of clinical care. This summary normalizes information from multiple sources, and as a consequence, information in this document may materially change the coding, format and clinical context of patient data. In addition, data may be omitted in some cases. CLINICAL DECISIONS SHOULD BE BASED ON THE PRIMARY CLINICAL RECORDS. [facility]. provides no warranty or guarantee of the accuracy or completeness of information in this document.
--- NOTE | 2024-07-16 06:45 | MRI_ITS ---
EXAM: MR HEAD WITHOUT AND WITH INTRAVENOUS CONTRAST CLINICAL INDICATION: progressive memory loss, behavior changes. r/o mass, cva TECHNIQUE: Multiplanar and multisequence MR images of the brain were obtained without and with intravenous contrast. CONTRAST: IV 19 cc Clariscan COMPARISON: No relevant prior studies available. FINDINGS: BRAIN AND EXTRA-AXIAL SPACES: Unremarkable. No intra- or extra-axial hemorrhage. No evidence of acute infarct. No intracranial mass or mass effect. There is preservation of the carroll/white matter interface. Posterior fossa structures are unremarkable. Ventricles are appropriate for age. No hydrocephalus. Basal cisterns are patent. Following IV contrast administration, there are no abnormally enhancing lesions intra-axially and extra-axially. SELLA: Unremarkable. Normal sella turcica, pituitary gland, infundibular stalk, optic chiasm and hypothalamus. AUDITORY SYSTEM: Unremarkable. The internal auditory canals are patent. BONES/JOINTS: Unremarkable. No discrete lytic or blastic abnormalities. SINUSES: Unremarkable as visualized. Clear. MASTOID AIR CELLS: Unremarkable as visualized. Clear. ORBITS: Unremarkable as visualized. Both globes, extraocular muscles, optic nerves and retrobulbar fat appear unremarkable. VASCULATURE: Unremarkable as visualized. Normal flow voids in the major intracranial circulation. MRI/Brain W/WO Contrast IMPRESSION: Negative MRI brain without and with intravenous contrast. Electronically Signed: Eliud Stanley MD at 13:44 EDT ,
[2024-07-16 07:11] LABS: CREATININE FINGERSTICK < 1.0 mg/dL (0.70-1.30); EGFR FINGERSTICK > 60.0000 mL/min (>60)
== END | disposition home or self-care (01) ==
LOC: MRI 06:34
PROVIDERS: PCP Nurse Practitioner Family; Referring Provider Nurse Practitioner Family; Visit Provider Nurse Practitioner Family
DX: R41.89 Other symptoms and signs involving cognitive functions and awareness (principal)
CPT/HCPCS: 70553; A9575

== ENCOUNTER → 2024-11-14 | Outpatient (CLI) | payer MEDICARE, SELFPAY ==
[2024-11-14 15:41] LABS: Absolute Lymphocyte Count 1.91 X10^3/uL (0.83-4.51); Absolute Neutrophil Count 5.6 X10^3/uL (2.0-7.7); Basophil# 0.07 X10^3/uL; Basophil% 0.8 % (0-1); Eosinophil# 0.33 X10^3/uL; Eosinophils% 3.9 % (0-5); Hematocrit 43.6 % (40-54); Hemoglobin 14.2 g/dL (13.0-16.5); Lymphocyte # 1.91 X10^3/ul (0.83-4.51); Lymphocyte % 22.4 % (19-41); Mean Corp Hgb Conc 32.6 g/dL (32-36); Mean Corpuscular Hgb 27.7 pg (27.0-32.0); Mean Corpuscular Volume 85.2 fL (80-94); Mean Platelet Vol. 11.5 fl (6.2-12.0); Monocyte# 0.59 X10^3/uL; Monocyte% 6.9 % (0-10); NRBC Flagged by Analyzer 0 % (0-5); Neutrophil % 65.8 % (47-70); Platelet Count 238 K/mm3 (150-450); RBC Distribution Width SD 40.6 fl (35.1-43.9); Red Blood Count 5.12 M/mm3 (4.6-6.2); White Blood Count 8.5 K/mm3 (4.4-11.0)
[2024-11-14 16:41] LABS: ALB/GLOB Ratio 1.7 RATIO (0.9-2.4); AST(SGOT) 27 U/L (<=37); Alanine Aminotransfer ALT/SGPT 21 U/L (<=46); Albumin, Serum 4.4 g/dL (3.4-4.8); Alkaline Phosphatase 92 U/L (40-129); Anion Gap 12 (5-15); BUN 25 mg/dL (4-19); BUN/Creat Ratio 24.7 RATIO (10-20); Calcium 9.5 mg/dL (7.6-11.0); Carbon Dioxide 23.9 mmol/L (22.0-29.0); Chloride 102 mmol/L (96-108); Creatinine, Serum 1.02 mg/dL (0.70-1.20); EST Glomerular Filtration Rate 81 (>60); Globulin 2.6 g/dL (2.2-4.2); Glucose 80 mg/dL (70-99); Potassium 4.2 mmol/L (3.3-5.1); Sodium Level 138 mmol/L (133-145); Thyroid Stim Hormone (TSH) 0.813 uIU/mL (0.300-4.200); Total Bilirubin 0.75 mg/dL (0.00-1.30); Vitamin B12 766 pg/mL (180-914)
[2024-11-18 15:08] LABS: Vitamin D 1,25-Dihydroxy 33.1 pg/mL (24.8-81.5)
== END | disposition home or self-care (01) ==
PROVIDERS: PCP Nurse Practitioner Family; Referring Provider Internal Medicine; Visit Provider Internal Medicine
DX: E87.5 Hyperkalemia (principal); R41.3 Other amnesia
CPT/HCPCS: 36415; 80053; 82607; 82652; 82746; 83735; 84443; 85025

== ENCOUNTER 2025-01-30 07:00 | Outpatient (RCR) | payer MEDICARE, SELFPAY ==
--- NOTE | 2025-01-05 09:43 | HP.PTEVAL_ITS ---
Patient's Visit Information Visit Information Visit Information: LYNN ROGER is a 64 year old M referred to Physical Therapy by CRISTINE Holland with a diagnosis of L sciatica. Date of Evaluation: 01/05/25 Physical Therapist: Christelle Dunlap MPT Visit Plan Frequency: 2x /Week Duration: 6 Weeks Plan: started with 4 visits 2X/ week for 6 weeks for L piriformis stretching, IT band, Core stability with HEP HEP: seated L knee to R shoulder piriformis stretch, seated 4 piriformis stretch Subjective Subjective: Pt has pain 1/2 way through his sleep. He has no pain when he is up and moving. He has pain when he sits. They tied give him Prednisone and it did not help at all. They took x-rays and shows spondylosis. They said to go to PT. His pain is in his L buttocks when he is sitting or sleeping. He is ok while he is moving. Pain Back pain: Pain Intensity (Out of 10): 0 L buttock pain: Pain Intensity (Out of 10): 0 Objective Objective: Gait: Normal gait pattern Trunk AROM: flexion 100%, Ext 50%, SB B 75%, Rot B 75% Pt is able to walk on heels and toes with no issue LE MMT: B hip flex, knee ext, knee flex, hip abd 5/5 Pt is able to do a full bridge without pain Pt is tight piriformis on the L. Decreased R hip AROM on the R (IR/ER) but no pain and does not feel tight but just more of a restriction. Stretching in supine L piriformis 30 sec X 3 manually and then did L knee to R shoulder sitting in a chair 30 sec X 3 and then figure 4 piriformis stretch 30 sec X 3 and pt felt like it really hit the right spot Balance/Special Test Scores Oswestry Low Back Score: 10 Goals Goal 1:: I HEP Goal Time Frame: 4-6 Weeks Goal 2:: Increase L piriformis flexibility Goal Time Frame: 4-6 Weeks Goal 3:: Be able to sit at night without having L buttock pain Goal Time Frame: 4-6 Weeks Goal 4:: Be able to sleep through the night without having L buttock pain Goal Time Frame: 4-6 Weeks Rehabilitation Potential Rehabilitation Potential: Good Anticipated Interventions Patient/Client Instruction: Educate patient on: Condition and Plan of Care For the Purpose of:: To decrease pain, To increase ROM, To improve nutrient delivery to tissue, To improve muscle performance and motor function, To improve ability to perform ADL's, To improve health of tissue, To decrease soft tissue restriction and To increase flexibility/ROM Therapeutic Exercise to Include: Strength training, Postural training, Flexibilty training, Neuromotor development, Passive ROM and Active ROM For the Purpose of:: To decrease pain, To increase ROM, To improve nutrient delivery to tissue, To improve muscle performance and motor function, To improve ability to perform ADL's, To improve health of tissue, To decrease soft tissue restriction and To increase flexibility/ROM Manual Therapy Techniques to Include: Passive ROM and Soft tissue mobilization For the Purpose of:: To increase ROM, To improve nutrient delivery to tissue, To improve health of tissue, To decrease soft tissue restriction and To increase flexibility/ROM Text: Thank you for the opportunity to evaluate your patient. For Medicare and Medicare HMO plans, please review the plan of care and approve it. It will need to be FAXED BACK to us at [phone] for Medicare purposes. For Medicare only, by signing this I certify the plan of care. Please let me know if there are questions or concerns regarding this plan of care. Physician Signature: Date:
--- NOTE | 2025-06-16 08:34 | HP.PT.NRP ---
Patient Information Patient Information: LYNN ROGER was seen in my office for initial evaluation on 01/05/25. The following Plan of Care was established for this patient: POC Established Initial Frequency: 2x /Week Initial Duration: 6 Weeks Anticipated Interventions Patient/Client Instruction: Educate patient on: Condition and Plan of Care For the Purpose of:: To decrease pain, To increase ROM, To improve nutrient delivery to tissue, To improve muscle performance and motor function, To improve ability to perform ADL's, To improve health of tissue, To decrease soft tissue restriction and To increase flexibility/ROM Therapeutic Exercise to Include: Strength training, Postural training, Flexibilty training, Neuromotor development, Passive ROM and Active ROM For the Purpose of:: To decrease pain, To increase ROM, To improve nutrient delivery to tissue, To improve muscle performance and motor function, To improve ability to perform ADL's, To improve health of tissue, To decrease soft tissue restriction and To increase flexibility/ROM Manual Therapy Techniques to Include: Passive ROM and Soft tissue mobilization For the Purpose of:: To increase ROM, To improve nutrient delivery to tissue, To improve health of tissue, To decrease soft tissue restriction and To increase flexibility/ROM Last Seen Last Seen: This patient was last seen in our office 01/30/25. Pertinent comments regarding their Physical therapy will appear below: MARISELA PT At this point I will be discontinuing this patient from physical therapy. I would be happy to see this patient again in the future if found appropriate by the physician. Thank you! Christelle Dunlap, MEI Balance/Gait/Functional tests Balance/Special Test Scores Oswestry Low Back Score: 10
== END 2025-01-30 19:00 | disposition home or self-care (01) ==
LOC: PT 07:00
PROVIDERS: PCP Nurse Practitioner Family; Referring Provider Nurse Practitioner Family; Visit Provider Nurse Practitioner Family
DX: M54.32 Sciatica, left side (principal)
CPT/HCPCS: 97110; 97161

== ENCOUNTER 2025-04-27 09:40 | Outpatient (CLI) | payer MEDICARE, SELFPAY | END 2025-04-27 23:59 | disposition home or self-care (01) | LOC: MTLAB 09:41 | PROVIDERS: PCP Nurse Practitioner Family; Referring Provider Psychiatry & Neurology Neurology; Visit Provider Psychiatry & Neurology Neurology | DX: Z00.00 Encounter for general adult medical examination without abnormal findings (principal) | CPT/HCPCS: 36415 ==

== ENCOUNTER → 2025-05-08 | Outpatient (CLI) | payer MEDICARE, SELFPAY ==
--- OUTSIDE RECORDS SUMMARY | 2025-05-08 07:31 | XMS RPT_ITS | CCD ---
Author Organization [facility] Inform ion Partnership [facility] Care Team Providers Care Delinquent Tax Collector Name Role Phone 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 CNP E Unavailable Tone PHD, Vince España Unavailable Steve Mills LPN Unavailable Unavailable Unavailable Unavailable Kirby VICENTE, Sinai Unavailable Unavailable Mariposa VICENTE, Christelle Unavailable Unavailable Srinivas Sandra Unavailable Unavailable Unavailable SHOLA Michel LPN Unavailable Unavailable Sinai Omalley MD Unavailable Dr. Gregory Llanos Unavailable Ivonne Graf MA Unavailable Unavailable MegaFabiana Unavailable Sinai Omalley MD Unavailable Unavailable Unavailable Unavailable Fabiaan Ayoub Unavailable Unavailable Losa Fabiana Unavailable Santy Sanchez CNP Unavailable Nick NATURAL RESOURCES TECHNICIAN, Kayela Unavailable Unavailable Unavailable Unavailable Santy Sanchez CNP Unavailable Gravius NATURAL RESOURCES TECHNICIAN, Caridad Unavailable Unavailable Borruso Alcides Unavailable Santy Sanchez CNP Attending Unavailable Santy Sanchez CNP Referring Unavailable Santy Sanchez CNP Consulting Unavailable Unavailable Primary Care Provider UnavailDwayne Lugo MD Unavailable [phone] ANT MOSQUERA Attending Unavailable ANT MOSQUERA Admitting Unavailable Santy Sanchez Primary Care Provider [phone] ANT MOSQUERA Attending Unavailable SANTY SANCHEZ Primary Care Unavailable SANTY SANCHEZ Primary Care Unavailable BERNICE BASILIO Attending Unavailable ANT MOSQUERA Attending Unavailable Daniel MUSICAL INSTRUMENT MAKER-C, Santy Primary Care Provider Daniel MUSICAL INSTRUMENT MAKER-C, Santy Referring Provider Tanvir OLMOS, Dr. Mcgrath Attending Provider Shahram OLMOS, Dr. Rawls Attending Provider Shahram OLMOS, Dr. Rawls Referring Provider Daniel MUSICAL INSTRUMENT MAKER-C, Santy Primary Care Provider Kirsten OLMOS, Dr. Fragoso Attending Provider Daniel MUSICAL INSTRUMENT MAKER-C, Santy Attending Provider Daniel MUSICAL INSTRUMENT MAKER-C, Santy Referring Provider [phone] Tanvir OLMOS, Dr. Mcgrath Attending Provider [phone] Tanvir OLMOS, Dr. Mcgrath Referring Provider Daniel, Santy Primary Care Unavailable Sinai Omalley Attending Unavailable Sinai Omalley Referring Unavailable Daniel, Santy Attending Unavailable Daniel, Santy Referring Unavailable Daniel, Santy Primary Care Unavailable Alcides Ramey Attending Unavailable Daniel, Santy Referring Unavailable Daniel, Santy Primary Care Unavailable Alcides Ramey Attending Unavailable Daniel, Santy Referring Unavailable Daniel, Santy Primary Care Unavailable Daniel, Santy Primary Care Unavailable Daniel, Santy Attending Unavailable Daniel, Santy Referring Unavailable Richmond Curtis Attending Unavailable Daniel, Santy Primary Care Unavailable Alcides Ramey Referring Unavailable Daniel, Santy Primary Care Unavailable Alcides Ramey Attending Unavailable Alcides Ramey Referring Unavailable Daniel, Santy Primary Care Unavailable Alcides Ramey Attending Unavailable Medications Current Medications Medication Drug Class(es) Dates Sig (Normalized) Sig (Original) finasteride 5 mg oral tablet (3 sources) 5-alpha Reductase Inhibitor Start: 11-06-2024 take 1 tablet by mouth once daily Finasteride 5 mg tablet Active 5 mg PO daily November 06, 2024 1:00am methylphenidate hydrochloride 20 mg oral tablet (5 sources) Central Nervous System Stimulant Start: 04-15-2025 take 2 tablets by mouth twice daily Methylphenidate Hcl (Ritalin) 20 mg tablet Active 40 mg PO TWICE A DAY 0 April 15, 2025 8:07am Start: 11-06-2024 End: 04-15-2025 take 1 tablet by mouth twice daily Methylphenidate Hcl (Ritalin) 20 mg tablet Discontinued 20 mg PO TWICE A DAY 0 November 06, 2024 1:00am April 15, 2025 8:07am rosuvastatin calcium 5 mg oral tablet (20 sources) HMG-CoA Reductase Inhibitor Start: 08-29-2021 take 1 tablet by mouth at bedtime Rosuvastatin 5 mg tablet Active 5 mg PO AT BEDTIME December 17, 2021 12:00am Completed/Discontinued Medications Medication Drug Class(es) Dates Sig [...] Quantity: 30 {Capsule} Refills: 0 Ordered: 28-Jul-2021 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 Start : 28-Jul-2021 Active Start: 07-28-2021 Cholecalcifero l, Vitamin D3, 50 mcg (2,000 unit) cap Take by mouth q 24 HR. 0 07/28/2021 Active Comment on above: Take by mouth q 24 H R. cyanocobalamin, vitamin B-12, (VITAMIN B-12 ORAL) (3 sources) Start: cyanocobalamin, vitamin B-12, (VITAMIN B-12 ORAL) Dissolve under the tongue. 0 02/08/2021 Active Comment on above: Dissolve under the t ongue. donepezil hydrochloride 5 mg oral tablet (20 sources) Start: End: take 1 tablet by mouth at bedtime Donepezil 5 mg tablet Discontinued 5 mg PO AT BEDTIME December 17, 2021 12:00am November 06, 2024 3:16pm Comment on above: Take by mouth. ergocalciferol 1.25 mg oral capsule (20 sources) Provitamin D2 Compound Start: End: Ergocalciferol 1.25 MG (89805 UT) Oral Capsule 1 (one) Capsule twice weekly x 3 months for 0 days Quantity: 24 {Capsule} Refills: 0 Ordered: 17-May-2021 DebFabiana aguillon Start : 08-Feb-2021 End : 17-May-2021 Inactive metoprolol tartrate 50 mg oral tablet (20 sources) beta-Adrenergic Adria Start: End: take 1 tablet by mouth every hour Metoprolol Tartrate 50 MG Oral Tablet 1 (one) Tablet 1hr prior to scan for 0 days Quantity: 1 {Tablet} Refills: 0 Ordered: 17-May-2021 Sinai Orr LPN Start : 09-Feb-2021 End : 17-May-2021 Inactive sildenafil 20 mg oral tablet (19 sources) Phosphodiesterase 5 Inhibitor Start: take 1 tablet by mouth once daily sildenafil (pulm.hypertension) 20 mg oral tablet 1 Tablet daily as directed for 30 days Quantity: 30 {Tablet} Refills: 1 Ordered: 15-May-2022 Santy Sanchez CNP Start : 15-May-2022 Active Start: 03-24-2022 take 1 tablet by mai once daily Sildenafil Citrate 20 MG Oral Tablet 1 Tablet daily as directed for 30 days Quantity: 30 {Tablet} Refills: 1 Ordered: 24-Mar-2022 Daniel THOMASSanty Start : 24-Mar-2022 Active vitamin b12 2.5 mg sublingual tablet (20 sources) Vitamin B12 Start: 07-28-2021 End: 03-24-2022 take 1 tablet under the tongue two times weekly Cyanocobalamin 2500 MCG Sublingual Tablet Sublingual 1 (one) Tablet twice weekly for 0 days Quantity: 30 {Tablet} Refills: 0 Ordered: 24-Mar-2022 Dennis Monge LPNa Start : 28-Jul-2021 End : 24-Mar-2022 Inactive Start: 07-28-2021 End: 03-24-2022 take 1 tablet under the tongue two times weekly Cyanocobalamin 2500 MCG Sublingual Tablet Sublingual 1 (one) Tablet twice weekly for 0 days Quantity: 30 {Tablet} Refills: 0 Ordered: 24-Mar-2022 Slamaulik VICENTE Christelle Start : 28-Jul-2021 End : 24-Mar-2022 Inactive Start: 02-08-2021 take 1 tablet under the tongue once daily Cyanocobalamin 2500 MCG Sublingual Tablet Sublingual 1 (one) Tablet daily for 0 days Quantity: 30 {Tablet} Refills: 0 Ordered: 08-Feb-2021 Mega GUZMAN Fabiana Madisonbenny GUZMAN Fabiana Martin Start : 08-Feb-2021 Active NEGATED: [...] onset; Translations: [Early onset Alzheimer's dementia] Resolved: 3 08-26-2021 Chronic Comment on above: stable on [...] ts start this week now on sublingual Open wounds of extremities (9 sources) Laceration of finger; Translations: [Laceration without foreign body of unspecified finger without damage to nail, initial encounter] 12-25-2021 Episodic Other circulatory disease (20 sources) Disorder of [...] apnea] 10-11-2021 Chronic Comment on above: saw Sibilia recommen ds nasal Residual codes; unclassified (20 sources) Reduced libido; Translations: [Low libido] 01-25-2021 Episodic Residual codes; unclassified (20 sources) Non-smoker; Translations: [Nonsmoker] 01-25-2021 Episodic Residual codes; unclassified (20 sources) Poor short-term memory ; Translations: [Short-term memory loss] 01-25-2021 Episodic Comment on above: seeing in May saw marsha, was thought to have early onset dementia but he had repeat testing done June 2022 and it was recommended to treat him for ADHD instead.-consult with Dr. Omalley for ADHD management. plan to wean off donepezil Residual codes; unclassified (2 sources) Memory impairment; Translations: [Other amnesia] 11-06-2024 Episodic Residual codes; unclassified (2 sources) Other amnesia; Translations: [Other amnesia] Onset: Episodic Unclassified (20 sources) Unclassified (20 sources) Nonsmoker [...] Classification Problem Date Documented Da te Episodic/Chronic Fluid and electrolyte disorders (1 source) Hyperkalemia; Translations: [Hyperkalemia] Onset: 11-27-2024 Episodic Other nervous system disorders (1 source) Other symptoms and signs involving cognitive functions and awareness; Translations: [Other symptoms and signs involving cognitive functions and awareness] Onset: 08-05-2024 Episodic Spondylosis; intervertebral disc disorders; other back problems (1 source) Sciatica, left side; Translations: [Sciatica, left side] Onset: 01-02-2025 Episodic Unclassified (20 sources) Encounter for screening for [...] Test Name Value Interpretation Reference Range Facility L3410.9994on 05-07-2025 [facility] Misc. 2 COMMENT Normal . [facility] Comment on above: Order Comment: [id number] APOE alheimer disease risk Result Comment: Test Ordered: [id number] APOE Alzheimer's Disease Risk Test(s) 085111-GSMP Genotyping Result:; [id number]- Additional Comments was developed and its performance characteristics determined by [facility]. It has not been cleared or approved by the Food and Drug Administration. APOE Genotyping Result: Comment [facility] Reference Range: . E4/E4 This individual has the APOE E4/E4 genotype. This result is positive for APOE E4, which is associated with increased risk for late-onset Alzheimer's disease. Results should be interpreted in clinical context. Additional Comments Comment [facility] Reference Range: . This test cannot predict or rule out the development of Alzheimer's disease in an individual. Genetic counseling is recommended to discuss the potential clinical implications of positive results, as well as recommendations for testing family members. Limitations Comment [facility] Reference Range: . APOE E2, E3, and E4 are validated for this analysis. The rare APOE E1/E1, E1/E2 are reported as failed results. E2/E4 and E1/E3 genotypes cannot be distinguished by this assay. Molecular-based testing is highly accurate, but as in any laboratory test, rare errors may occur. False positive or false negative results may occur for reasons that include genetic variants, blood transfusions, bone marrow trans-plantation, somatic or tissue-specific mosaicism, mislabeled samples, or erroneous representation of family relationships. Methodology Comment [facility] Reference Range: . Custom genotyping arrays ([employer] are used to perform genetic testing for two common variants in the APOE gene: NM_000041.4(APOE):c.388T>C(p.Utx359Pjh)(ea677062) and NM_000041.4(APOE):c.526C>T(p.Duo172Bfk)(ld9856). Three common combi-nations of the two variants include: APOE E2(Qcf160,Kbt000); APOE E3(Cmq578,Jnx941); and APOE E4 (Sqw224,Igt760). Individuals are interpreted as having one of the following genotypes: E1/E4, E2/E2, E2/E3, E3/E3, E3/E4, and E4/E4, (E2/E4 or E1/E3). The rare allele APOE E1 (Cdl281,Pnh968) is not validated in this assay. The E1/E4 genotype, if detected, will be reported. The genotypes E2/E4 and E1/E3 cannot be distinguished in our assay. However, the E1 allele is very rare, making E2/E4 more likely in patients with this indeterminate genotype result. Analytical sensitivity and specificity is greater than 99%. Background Information Comment [facility] Reference Range: . Alzheimer's disease is a progressive neurodegenerative disorder that affects more than 6.7 million Americans ages 65 and older and is the most common form of dementia in the elderly. Signs and symptoms may include cognitive decline, memory loss, loss of problem-solving skills, and personality changes. Clinical symp-toms appear after 60-65 years in 95% of cases. The development of late-onset disease may be influenced by age, sex, family- history, level of education, history of head trauma, and other factors including cardiovascular risk factors. Approximately 15-20% of late-onset disease may be familial. The APOE gene is a known susceptibility gene for Alzheimer's disease. The APOE gene encodes apolipoprotein E, which has a role in lipid metabolism. APOE has three commom alleles: E2, E3, and E4. The presence of the E4 allele increases the lifetime risk of Alzheimer's disease but is neither necessary nor sufficient for the development of Alzheimer's disease. APOE E2 may have some protective effect against development of late-onset disease (PMID: 88827310). APOE also has a rare allele: E1 (legacy name E3r). There is insufficient evidence to assess the clinical association of APOE E1 with Alzheimer's disease PMID: 32477904. References Comment [facility] Reference Range: . 1) Vasile JENSEN. Alzheimer Disease Overview. GeneReviews (internet). Basim DOMINGUEZ et al., editors. [facility]: [facility], [place], [place]. Last revised 2014. PMID: 59950360. 2) Oneyda STEPHENS et al. Genetic counseling and testing for Alzheimer disease: Joint Practice guidelines of the [place] [employer] and the National Society of Genetic Counselors. Dena in Med 2011;13(6) 490-087. PMID: 48095935. 3) Cezar HANCOCK et al. The fourth apolipoprotein E haplotype [facility]. Am J Med Dena B Neuropsychiatr Dena. 2006 Feb 19;141B4):726-7. PMID: 54001316. Result release: Comment [facility] Reference Range: . Report released under the direction of Tia Cassidy, PhD, FACMG Performed at: [facility] [address] [place] [address] [id number] Mainframe Systems Engineer: Tia Cassidy PhD, Phone: [phone] Performed at: [address] [id number] Mainframe Systems Engineer: Gregory Connor PhD, Phone: [phone] Performed By: #### L 3410.9994, L3410.9992 #### [facility] [address] [place] [address]. [place], [place], [address] L3410.9992on 05-06-2025 [facility]. COMMENT Normal . [facility] Comment on above: Order Comment: [id number] yDhk841/Beta amyloid 42 ratio Result Comment: Test Ordered: [id number] pTau-217/AB42 Ratio Test(s) 474170-wKem-154; 036171-Flqy-xvcfxiw 42 was developed and its performance characteristics determined by [facility]. It has not been cleared or approved by the Food and Drug Administration. pTau-217 0.779 pg/mL L9 Reference Range: Not Estab. The quantitative range of this assay is 0.060 to 10.000 pg/mL. Beta-amyloid 42 21.0 pg/mL L9 Reference Range: Not Estab. The quantitative range of this assay is 1.0 to 230.0 pg/mL. pTau-217/AB42 Ratio 0.0371 [H ] L9 Reference Range: . Low <0.0086 Intermediate 0.0086 - 0.0152 High >0.0152 Interpretation Comment L9 Reference Range: . A high ratio is consistent with a positive (abnormal) amyloid-positron emission tomography (PET) scan result. This result aids in the identification of amyloid-related pathology associated with Alzheimer disease. In the proper clinical context this test is supportive of Alzheimer disease being related to current clinical symptoms. Both pTau-217 and Beta Amyloid 42 are well documented indicators of pathological changes associated with Alzheimer's disease. Their ratio provides a higher level of sensitivity and specificity than their individual measurements alone. The performance of this test meets the criteria for a confirmatory test as defined by an international consortium of Alzheimer's experts (1). This test should not be used in asymptomatic individuals. (1) Sunshine Sosa, et al. Acceptable performance of blood biomarker tests of amyloid pathology- recommendations from the operator and truck driver Initiative on Alzheimer's Disease. Nature Reviews Neurology 20.7 (2023): 426-439. Effective June 01, 2025, LDT panel 888279 will be made non-orderable. [facility] will transition to the FDA- cleared IVD version, test code 637983, Lumipulse(R) pTau- 217/Beta Amyloid 42 Ratio. Performed at: [facility] [employer] [address] [place] [id number] Mainframe Systems Engineer: Milton Shi MD, Phone: [phone] Performed at: - [facility] [address] [id number] Mainframe Systems Engineer: Gregory Connor PhD, Phone: [phone] Performed By: #### L 3410.9994, L3410.9992 #### [facility] [address] [place] [address]. [place], [address] Neurology Visit Reporton Neurology Visit Report [facility] [address], [address] [place] [address] OFFICE VISIT Date of Service: 04/15/25 MR#: [id number] Acct: [id number] Name: JARRETT ROGER Rep #: [id number] : 1960 Provider: Dr. Alcides vizcaino MD Age/Sex: 65/M Location: [facility] Status: Signed HPI HPI Details: The patient is a 65-year-old right-handed male who presents for a 5 month follow up on memory changes. This patient is accompanied by his for follow-up evaluation. Patient was referred by neuropsychology for management and assessment of possible dementia. Patient has a diagnosis of ADHD that is approximately 3 years old. Patient has been started on Ritalin. He has had a recent increase in dose since his last visit to this clinic. Last clinic visit was dated 11/07/2024. At that point it was decided to obtain basic blood work including B12 folate magnesium thyroid function test as well as CBC chemistries. Those have been performed by his PCP and those lab values are all within acceptable ranges. At this point in time patient has had no significant changes in overall performance. I will proceed to repeating the MRI to see if there is documentable evidence of a progressive neurologic disorder and because of what appears to be a change in cognition we will obtain screens f or Alzheimer's disease and neurologic degenerative change through blood work. Review of Systems: No changes in comparison to the last neurologic assessment. No headaches no change in vision no strokelike symptoms. Exam Const Other: Blood pressure 134/83 pulse 65 respiration 15 temperature 98.6 O2 sat 97% BMI is 27.4%. General appearance well-developed well nourished man sitting in a chair. Neurologic examination: Mental status: He is awake alert oriented to person place day month and year. Memory testing showed recall was impaired. Mini-Mental status exam on last visit was 20/30. No change observed at this time. There are no delusions hallucinations. CN II-XII: Pupils equal round react light. Visual barker full to confrontation. Extraocular muscles intact. Funduscopic exam not done. Motor and sensory function of face intact. Hearing swallowing phonation time normal. Motor exam demonstrates no focal weakness. Cerebellar testing showed no cogwheeling rigidity tremor bradykinesia or ataxia. Reflexes 1+ at biceps 1-2+ at knees. Pinsky not done. Sensory exam intact to tactile sense all 4 extremities. Station gait is normal. Assessment and Plan Assessment and Plan (1) Memory changes: Status: Suspected Comment: This patient has had change in cognitive capability. Exact etiology not clear. Evaluation is in progress. Plan: 1. MRI of brain without contrast to assess for potential progression of brain atrophy. 2. pTau 217/beta amyloid 42 will also be obtained to screen for neurodegenerative diseases including Alzheimer's disease. 3. Patient return to neurology clinic in 3 to 4 months for reassessment or as needed. Orders: Orders [facility] Misc. Today [facility] Misc. 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 Operator Required: No Accompanied by: Allergies No Known Allergies Allergy (Verified 04/15/25 08:06) Medications ???Medication ???Instructions ???Recorded ???Confirmed ???Type rosuvastatin 5 mg tablet 5 mg PO QHS 12/17/21 04/15/25 Hist ory finasteride 5 mg tablet 5 mg PO QDAY 11/06/24 04/15/25 His tory methylphenidate HCl 20 mg tablet 40 mg PO BID 04/15/25 04/15/25 His tory (Ritalin) Have you fallen in the past year?: No [facility] Medical History Hypercholesteremia Enlarged prostate ADHD Laceration of right ring finger Family History Father , 70 Hypertension Rectal cancer Mother , 40's Breast cancer Social History household members: spouse current occupational status: employed 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 Normal [facility] Inital Evaluation (1) - PTon 01-05-2025 Inital Evaluation (1) - PT [facility] Physical Therapy [address] [place] [address] / REHABILITATION SERVICES INITIAL EVALUATION MR#: [id number] Acct: [id number] Name: JARRETT ROGER Rep #: [id number] : 1960 64 From: Christelle HURLEY Referring Dr.: CRISTINE Holland Status: REG RCR Insurance: [facility] SELF PAY INSURANCE Patient's Visit Information Visit Information Visit Information: JARRETT ROGER is a 64 year old M referred to Physical Therapy by CRISTINE Holland with a diagnosis of L sciatica. Date of Evaluation: 01/05/25 Physical Therapist: MEI Kennedy Visit Plan Frequency: 2x /Week Duration: 6 Weeks Plan: started with 4 visits 2X/ week for 6 weeks for L piriformis stretching, IT band, Core stability with HEP HEP: seated L knee to R shoulder piriformis stretch, seated 4 piriformis stretch Subjective Subjective: Pt has pain 1/2 way through his sleep. He has no pain when he is up and moving. He has pain when he sits. They tied give him Prednisone and it did not help at all. They took x-rays and shows spondylosis. They said to go to PT. His pain is in his L buttocks when he is sitting or sleeping. He is ok while he is moving. Pain Back pain: Pain Intensity (Out of 10): 0 L buttock pain: Pain Intensity (Out of 10): 0 Objective Objective: Gait: Normal gait pattern Trunk AROM: flexion 100%, Ext 50%, SB B 75%, Rot B 75% Pt is able to walk on heels and toes with no issue LE MMT: B hip flex, knee ext, knee flex, hip abd 5/5 Pt is able to do a full bridge without pain Pt is tight piriformis on the L. Decreased R hip AROM on the R (IR/ER) but no pain and does not feel tight but just more of a restriction. Stretching in supine L piriformis 30 sec X 3 manually and then did L knee to R shoulder sitting in a chair 30 sec X 3 and then figure 4 piriformis stretch 30 sec X 3 and pt felt like it really hit the right spot Balance/Special Test Scores Oswestry Low Back Score: 10 Goals Goal 1:: I HEP Goal Time Frame: 4-6 Weeks Goal 2:: Increase L piriformis flexibility Goal Time Frame: 4-6 Weeks Goal 3:: Be able to sit at night without having L buttock pain Goal Time Frame: 4-6 Weeks Goal 4:: Be able to sleep through the night without having L buttock pain Goal Time Frame: 4-6 Weeks Rehabilitation Potential Rehabilitation Potential: Good Anticipated Interventions Patient/Client Instruction: Educate patient on: Condition and Plan of Care For the Purpose of:: To decrease pain, To increase ROM, To improve nutrient delivery to tissue, To improve muscle performance and motor function, To improve ability to perform ADL's, To improve health of tissue, To decrease soft tissue restriction and To increase flexibility/ROM Therapeutic Exercise to Include: Strength training, Postural training, Flexibilty training, Neuromotor development, Passive ROM and Active ROM For the Purpose of:: To decrease pain, To increase ROM, To improve nutrient delivery to tissue, To improve muscle performance and motor function, To improve ability to perform ADL's, To improve health of tissue, To decrease soft tissue restriction and To increase flexibility/ROM Manual Therapy Techniques to Include: Passive ROM and Soft tissue mobilization For the Purpose of:: To increase ROM, To improve nutrient delivery to tissue, To improve health of tissue, To decrease soft tissue restriction and To increase flexibility/ROM Text: Thank you for the opportunity to evaluate your patient. For Medicare and Medicare HMO plans, please review the plan of care and approve it. It will need to be FAXED BACK to us at [phone] for Medicare purposes. For Medicare only, by signing this I certify the plan of care. Please let me know if there are questions or concerns regarding this plan of care. Physician Signature: Date : 01/05/25 0943 CC: CRISTINE Sanchez Signed Normal [facility] L/S Spine Min 4 Viewson 12-16 L/S Spine Min 4 Views [facility] Imaging Services [address] [place] [address] L/S Spine Min 4 Views MR#: [id number] Acct: [id number] Name: JARRETT ROGER Rep #: [id number] : 1960 M 64 From: Duy chahal MD PCP: CRISTINE Holland Status: DEP AMB Study: L/S Spine Min 4 Views Date of Exam: 01/02/25 Exam# [id number] Ordering Dr: Santy Sanchez PROCEDURE: L/S SPINE MIN 4 VIEWS 01/02/2025 REASON FOR EXAM: XRAY LUMBAR SPINE, 4+ VIEWS - SCIATICA PAIN TECHNIQUE: Standing AP view(s) of the thoracic and lumbar spine. COMPARISON: None. FINDINGS: Mild S-shaped degenerative scoliosis. Moderate diffuse spondylosis. Exaggerated lumbar lordosis. Moderate chronic changes of Baastrup's disease. Moderate diffuse spondylosis, more prominent at L3-L4 and L4-L5 levels. No evidence of instability on flexion/extension images. RAD/L/S Spine Min 4 Views IMPRESSION: 1. Spondylosis. 2. S-shaped scoliosis. Reading Location: [place] [address] CC: CRISTINE Sanchez Chief Dispatcher: Signed Normal [facility] Vitamin D 1,25-Dihydroxyon 0 11-18-2024 VIT D 1,25 DIHY 33.1 pg/mL Normal 24.8-81.5 [facility] Comment on above: Result Comment: Perf ormed at: [facility] - [facility] [address] [id number] Mainframe Systems Engineer: Juan Akins MD, Phone: [phone] Performed By: #### L 501.4624, L3300.0960, L100.0100, L500.4050, L506.0200, L501.5200, L503.0106 ####[facility] [address] [place], [place], [id number] 1,25-dihydroxyvitamin D3 [Ma ss/Vol]Ordered By: Sinaibenny Omalley on 11-14-2024 Vitamin D 1,25-Dihydroxy 33.1 pg/mL 24.8-81.5 [facility] Comment on above: Performed at: [address] [id number] Director: Juan Akins MD, Phone: [phone] Absolute neutrophil countOrd ered By: Sinai Omalley on 11-14-2024 Neutrophils (Bld) [#/Vol] 5.6 10*3/uL 2.0-7.7 [facility] BUN/creatinine ratioOrdered By: Sinai Omalley on 11-14-2024 Urea nitrogen/Creatinine [Mass ratio] 24.7 mg/mg High 10-20 [facility] Basophil percentageOrdered B y: Sinai Omalley on 11-14-2024 Basophils/100 WBC (Bld) 0.8 % 0-1 [facility] Bilirubin, totalOrdered By: Sinai Omalley on 11-14-2024 Bilirubin [Mass/Vol] 0.75 mg/dL 0.00-1.30 [facility] CBC W/Diff, Automatedon 10-19 Absolute Lymph 1.91 X10 3/uL Normal 0.83-4.51 [facility] Comment on above: Performed By: #### L 501.9520, L3300.0960, L100.0100, L500.4050, L506.0200, L501.5200, L503.0106 #### [facility] [address] [place], [address] Absolute Neut 5.6 X10 3/uL Normal 2.0-7.7 [facility] Comment on above: Performed By: #### L 501.9520, L3300.0960, L100.0100, L500.4050, L506.0200, L501.5200, L503.0106 #### [facility] [address] [place], [address] Basophils/100 WBC (Bld) 0.8 % Normal 0-1 [facility] Comment on above: Performed By: #### L 501.9520, L3300.0960, L100.0100, L500.4050, L506.0200, L501.5200, L503.0106 #### [facility] [address] [place], [address] Eosinophils/100 WBC (Bld) 3.9 % Normal 0-5 [facility] Comment on above: Performed By: #### L 501.9520, L3300.0960, L100.0100, L500.4050, L506.0200, L501.5200, L503.0106 #### [facility] [address] [place], [address] Erythrocyte distribution width (RBC) [Ratio] 13.0 % Normal 11.6-14.6 [facility] Comment on above: Performed By: #### L 501.9520, L3300.0960, L100.0100, L500.4050, L506.0200, L501.5200, L503.0106 #### [facility] [address] [place], [address] Hematocrit (Bld) [Volume fraction] 43.6 % Normal 40-54 [facility] Comment on above: Performed By: #### L 501.9520, L3300.0960, L100.0100, L500.4050, L506.0200, L501.5200, L503.0106 #### [facility] [address] [place], [address] Hemoglobin (Bld) [Mass/Vol] 14.2 g/dL Normal 13.0-16.5 [facility] Comment on above: Performed By: #### L 501.9520, L3300.0960, L100.0100, L500.4050, L506.0200, L501.5200, L503.0106 #### [facility] [address] [place], [address] IG% 0.200 Normal 0.0-0.9 [facility] Comment on above: Result Comment: IG% - Immature Granulocytes (promyelocytes, myelocytes and metamyelocytes) > 1% indicates that a LEFT SHIFT is Present. Performed By: #### L 501.9520, L3300.0960, L100.0100, L500.4050, L506.0200, L501.5200, L503.0106 #### [facility] [address] [place], [address] Lymphocytes/100 WBC (Bld) 22.4 % Normal 19-41 [facility] Comment on above: Performed By: #### L 501.9520, L3300.0960, L100.0100, L500.4050, L506.0200, L501.5200, L503.0106 #### [facility] [address] [place], [address] MCH (RBC) [Entitic mass] 27.7 pg Normal 27.0-32.0 [facility] Comment on above: Performed By: #### L 501.9520, L3300.0960, L100.0100, L500.4050, L506.0200, L501.5200, L503.0106 #### [facility] [address] [place], [address] MCHC (RBC) [Mass/Vol] 32.6 g/dL Normal 32-36 [facility] Comment on above: Performed By: #### L 501.9520, L3300.0960, L100.0100, L500.4050, L506.0200, L501.5200, L503.0106 #### [facility] [address] [place], [address] MCV (RBC) [Entitic vol] 85.2 fL Normal 80-94 [facility] Comment on above: Performed By: #### L 501.9520, L3300.0960, L100.0100, L500.4050, L506.0200, L501.5200, L503.0106 #### [facility] [address] [place], [address] Monocytes/100 WBC (Bld) 6.9 % Normal 0-10 [facility] Comment on above: Performed By: #### L 501.9520, L3300.0960, L100.0100, L500.4050, L506.0200, L501.5200, L503.0106 #### [facility] [address] [place], [address] Neutrophils/100 WBC (Bld) 65.8 % Normal 47-70 [facility] Comment on above: Performed By: #### L 501.9520, L3300.0960, L100.0100, L500.4050, L506.0200, L501.5200, L503.0106 #### [facility] [address] [place], [address] Nucleated RBC (Bld) [#/Vol] 0 10*3/uL Normal 0-5 [facility] Comment on above: Performed By: #### L 501.9520, L3300.0960, L100.0100, L500.4050, L506.0200, L501.5200, L503.0106 #### [facility] [address] [place], [address] Platelet mean volume (Bld) [Entitic vol] 11.5 fL Normal 6.2-12.0 [facility] Comment on above: Performed By: #### L 501.9520, L3300.0960, L100.0100, L500.4050, L506.0200, L501.5200, L503.0106 #### [facility] [address] [place], [address] Platelets (Bld) [#/Vol] 238 10*3/uL Normal 150-450 [facility] Comment on above: Performed By: #### L 501.9520, L3300.0960, L100.0100, L500.4050, L506.0200, L501.5200, L503.0106 #### [facility] [address] [place], [place], [id number] (464) RBC (Bld) [#/Vol] 5.12 10*6/uL Normal 4.6-6.2 [facility] Comment on above: Performed By: #### L 501.9520, L3300.0960, L100.0100, L500.4050, L506.0200, L501.5200, L503.0106 #### [facility] [address] [place], [place], [id number] ([address] RDW SD 40.6 fl Normal 35.1-43.9 [facility] Comment on above: Performed By: #### L 501.9520, L3300.0960, L100.0100, L500.4050, L506.0200, L501.5200, L503.0106 #### [facility] [address] [place], [address] WBC (Bld) [#/Vol] 8.5 10*3/uL Normal 4.4-11.0 [facility] Comment on above: Performed By: #### L 501.9520, L3300.0960, L100.0100, L500.4050, L506.0200, L501.5200, L503.0106 #### [facility] [address] [place], [place], [id number] Carbon dioxide measurementOr dered By: Sinai Omalley on 11-14-2024 CO2 [Moles/Vol] 23.9 mmol/L 22.0-29.0 [facility] Chloride measurementOrdered By: Sinai Omalley on 11-14-2024 Chloride [Moles/Vol] 102 mmol/L 96-108 [facility] Comprehensive Metabolic Prof ilon 11-14-2024 Albumin [Mass/Vol] 4.4 g/dL Normal 3.4-4.8 [facility] Comment on above: Performed By: #### L 501.9520, L3300.0960, L100.0100, L500.4050, L506.0200, L501.5200, L503.0106 #### [facility] [address] [place], [address] Albumin/Globulin [Mass ratio] 1.7 {ratio} Normal 0.9-2.4 [facility] Comment on above: Performed By: #### L 501.9520, L3300.0960, L100.0100, L500.4050, L506.0200, L501.5200, L503.0106 #### [facility] [address] [place], [address] ALK PHOS 92 U/L Normal 40-129 [facility] Comment on above: Performed By: #### L 501.9520, L3300.0960, L100.0100, L500.4050, L506.0200, L501.5200, L503.0106 #### [facility] [address] [place], [address] ALT [Catalytic activity/Vol] 21 U/L Normal <=46 [facility] Comment on above: Performed By: #### L 501.9520, L3300.0960, L100.0100, L500.4050, L506.0200, L501.5200, L503.0106 #### [facility] [address] [place], [address] Anion gap [Moles/Vol] 12 mmol/L Normal 5-15 [facility] Comment on above: Performed By: #### L 501.9520, L3300.0960, L100.0100, L500.4050, L506.0200, L501.5200, L503.0106 #### [facility] [address] [place], [address] AST [Catalytic activity/Vol] 27 U/L Normal <=37 [facility] Comment on above: Performed By: #### L 501.9520, L3300.0960, L100.0100, L500.4050, L506.0200, L501.5200, L503.0106 #### [facility] [address] [place], [address] Bilirubin [Mass/Vol] 0.75 mg/dL Normal 0.00-1.30 [facility] Comment on above: Performed By: #### L 501.9520, L3300.0960, L100.0100, L500.4050, L506.0200, L501.5200, L503.0106 #### [facility] [address] [place], [address] BUN/CRE 24.7 RATIO High 10-20 [facility] Comment on above: Performed By: #### L 501.9520, L3300.0960, L100.0100, L500.4050, L506.0200, L501.5200, L503.0106 #### [facility] [address] [place], [address] Calcium [Mass/Vol] 9.5 mg/dL Normal 7.6-11.0 [facility] Comment on above: Performed By: #### L 501.9520, L3300.0960, L100.0100, L500.4050, L506.0200, L501.5200, L503.0106 #### [facility] [address] [place], [address] Chloride [Moles/Vol] 102 mmol/L Normal 96-108 [facility] Comment on above: Performed By: #### L 501.9520, L3300.0960, L100.0100, L500.4050, L506.0200, L501.5200, L503.0106 #### [facility] [address] [place], [address] CO2 [Moles/Vol] 23.9 mmol/L Normal 22.0-29.0 [facility] Comment on above: Performed By: #### L 501.9520, L3300.0960, L100.0100, L500.4050, L506.0200, L501.5200, L503.0106 #### [facility] [address] [place], [address] Creatinine [Mass/Vol] 1.02 mg/dL Normal 0.70-1.20 [facility] Comment on above: Performed By: #### L 501.9520, L3300.0960, L100.0100, L500.4050, L506.0200, L501.5200, L503.0106 #### [facility] [address] [place], [address] GFR/1.73 sq M.predicted among non-blacks MDRD (S/P/Bld) [Vol rate/Area] 81 mL/min/{1.73_m2} Normal >60 [facility] Comment on above: Result Comment: mL/m in/1.73m2 CKD-EPI Creatinine Equation (2020) Performed By: #### L 501.9520, L3300.0960, L100.0100, L500.4050, L506.0200, L501.5200, L503.0106 #### [facility] [address] [place], [address] Globulin (S) [Mass/Vol] 2.6 g/dL Normal 2.2-4.2 [facility] Comment on above: Performed By: #### L 501.9520, L3300.0960, L100.0100, L500.4050, L506.0200, L501.5200, L503.0106 #### [facility] [address] [place], [address] Glucose [Mass/Vol] 80 mg/dL Normal 70-99 [facility] Comment on above: Performed By: #### L 501.9520, L3300.0960, L100.0100, L500.4050, L506.0200, L501.5200, L503.0106 #### [facility] [address] [place], [address] Potassium [Moles/Vol] 4.2 mmol/L Normal 3.3-5.1 [facility] Comment on above: Performed By: #### L 501.9520, L3300.0960, L100.0100, L500.4050, L506.0200, L501.5200, L503.0106 #### [facility] [address] [place], [address] Sodium [Moles/Vol] 138 mmol/L Normal 133-145 [facility] Comment on above: Performed By: #### L 501.9520, L3300.0960, L100.0100, L500.4050, L506.0200, L501.5200, L503.0106 #### [facility] [address] [place], [address] T PROT 7.0 g/dL Normal 5.9-8.4 [facility] Comment on above: Performed By: #### L 501.9520, L3300.0960, L100.0100, L500.4050, L506.0200, L501.5200, L503.0106 #### [facility] [address] [place], [address] Urea nitrogen [Mass/Vol] 25 mg/dL High 4-19 [facility] Comment on above: Performed By: #### L 501.9520, L3300.0960, L100.0100, L500.4050, L506.0200, L501.5200, L503.0106 #### [facility] [address] [place], [place], [id number] Eosinophil percentageOrdered By: Sinai Omalley on 11-14-2024 Eosinophils/100 WBC (Bld) 3.9 % 0-5 [facility] Erythrocyte distribution wid th ratioOrdered By: Sinai Omalley on 11-14-2024 Erythrocyte distribution width (RBC) [Ratio] 13.0 % 11.6-14.6 [facility] Erythrocyte distribution wid th standard deviationOrdered By: Sinai Omalley on 11-14-2024 Erythrocyte distribution width (RBC) [Entitic vol] 40.6 fL 35.1-43.9 [facility] FOLATES,SERUM (FOLIC ACID)on 11-14-2024 FOLATES,SERUM 15.40 ng/mL Normal 4.60-34.80 [facility] Comment on above: Order Comment: N Result Comment: Hemo lysis, Results will be affected, Requires Recollection. Performed By: #### L 501.9520, L3300.0960, L100.0100, L500.4050, L506.0200, L501.5200, L503.0106 ####[facility] [address] [place], [place], [id number] Folate [Mass/Vol]Ordered By: Sinai Omalley on 11-14-2024 Folate 15.40 ng/mL 4.60-34.80 [facility] Comment on above: Hemolysis, Results w ill be affected, Requires Recollection. GFR/1.73 sq M.predicted bia g non-blacks MDRD (S/P/Bld) [Vol rate/Area]Ordered By: Sinai Omalley on 11-14-2024 Estimated GFR (MDRD) Non-Af Amer 81 >60 [facility] Comment on above: mL/min/1.73m2 CKD-EP I Creatinine Equation (2020) Hematocrit Auto (Bld) [Volum e fraction]Ordered By: Sinai Omalley on 11-14-2024 Hematocrit (Bld) [Volume fraction] 43.6 % 40-54 [facility] Hemoglobin measurementOrdere d By: Sinai Omalley on 11-14-2024 Hemoglobin (Bld) [Mass/Vol] 14.2 g/dL 13.0-16.5 [facility] Immature granulocytes/100 WB C Auto (Bld)Ordered By: Sinai Omalley on 11-14-2024 Immature granulocytes/100 WBC (Bld) 0.200 % 0.0-0.9 [facility] Comment on above: IG% - Immature Granu locytes (promyelocytes, myelocytes and metamyelocytes) > 1% indicates that a LEFT SHIFT is Present. L503.0106on 11-14-2024 Cobalamin (Vitamin B12) [Mass/Vol] 766 pg/mL Normal 180-914 [facility] Comment on above: Performed By: #### L 501.9520, L3300.0960, L100.0100, L500.4050, L506.0200, L501.5200, L503.0106 ####[facility] [address] [place], [address] Laboratory - Chemistry and C hemistry - challengeOrdered By: Sinai Omalley on 11-14-2024 AST [Catalytic activity/Vol] 27 U/L <38 [facility] Lymphocytes Auto (Unsp spec) [#/Vol]Ordered By: Sinai Omalley on 11-14-2024 Lymphocytes (Bld) [#/Vol] 1.91 10*3/uL 0.83-4.51 [facility] Lymphocytes/100 WBC Auto (Un sp spec)Ordered By: Sinai Omalley on 11-14-2024 Lymphocytes/100 WBC (Bld) 22.4 % 19-41 [facility] MCV (mean corpuscular volume ) determinationOrdered By: Sinai Omalley on 11-14-2024 MCV (RBC) [Entitic vol] 85.2 fL 80-94 [facility] Magnesiumon 11-14-2024 Magnesium [Mass/Vol] 2.0 mg/dL Normal 1.5-2.2 [facility] Comment on above: Performed By: #### L 501.9520, L3300.0960, L100.0100, L500.4050, L506.0200, L501.5200, L503.0106 #### [facility] [address] [place], [address] Magnesium (Unsp spec) [Mass/ Vol]Ordered By: Sinia Omalley on 11-14-2024 Magnesium [Mass/Vol] 2.0 mg/dL 1.5-2.2 [facility] Mean corpuscular hemoglobin (MCH) determinationOrdered By: Sinai Omalley on 11-14-2024 MCH (RBC) [Entitic mass] 27.7 pg 27.0-32.0 [facility] Mean corpuscular hemoglobin concentration (MCHC) determinationOrdered By: Sinai Omalley on 11-14-2024 MCHC (RBC) [Mass/Vol] 32.6 g/dL 32-36 [facility] Mean platelet volume determi nationOrdered By: Sinai Omalley on 11-14-2024 Platelet mean volume (Bld) [Entitic vol] 11.5 fL 6.2-12.0 [facility] Monocyte percentageOrdered B y: Sinai Omalley on 11-14-2024 Monocytes/100 WBC (Bld) 6.9 % 0-10 [facility] Neutrophil percentageOrdered By: Sinai Omalley on 11-14-2024 Neutrophils/100 WBC (Bld) 65.8 % 47-70 [facility] Nucleated red blood cell per centageOrdered By: Sinai Omalley on 11-14-2024 Nucleated RBC/100 WBC (Bld) [Ratio] 0 % 0-5 [facility] Platelet countOrdered By: Gerard Omalley on 11-14-2024 Platelets (Bld) [#/Vol] 238 10*3/uL 150-450 [facility] RBC Auto (Bld) [#/Vol]Ordere d By: Sinai Omalley on 11-14-2024 RBC (Bld) [#/Vol] 5.12 10*6/uL 4.6-6.2 [facility] Serum creatinine measurement (mass/volume)Ordered By: Sinai Omalley on 11-14-2024 Creatinine [Mass/Vol] 1.02 mg/dL 0.70-1.20 [facility] Serum globulin measurementOr dered By: Sinai Omalley on 11-14-2024 Globulin (S) [Mass/Vol] 2.6 g/dL 2.2-4.2 [facility] Serum glucose measurement (m ass/volume)Ordered By: Sinai Omalley on 11-14-2024 Glucose [Mass/Vol] 80 mg/dL 70-99 [facility] Serum or plasma alanine anderson otransferase (ALT) measurementOrdered By: Sinai Omalley on 11-14-2024 ALT [Catalytic activity/Vol] 21 U/L <47 [facility] Serum or plasma albumin harpal urement (mass/volume)Ordered By: Sinai Omalley on 11-14-2024 Albumin [Mass/Vol] 4.4 g/dL 3.4-4.8 [facility] Serum or plasma albumin/glob ulin mass ratioOrdered By: Sinai Omalley on 11-14-2024 Albumin/Globulin [Mass ratio] 1.7 {ratio} 0.9-2.4 [facility] Serum or plasma alkaline tramaine sphatase measurementOrdered By: Sinai Omalley on 11-14-2024 ALP [Catalytic activity/Vol] 92 U/L 40-129 [facility] Serum or plasma anion gap de termination (moles/volume)Ordered By: Sinai Omalley on 11-14-2024 Anion gap [Moles/Vol] 12 mmol/L 5-15 [facility] Serum or plasma calcium harpal urement (mass/volume)Ordered By: Sinai Omalley on 11-14-2024 Calcium [Mass/Vol] 9.5 mg/dL 7.6-11.0 [facility] Serum or plasma potassium me asurementOrdered By: Sinai Omalley on 11-14-2024 Potassium [Moles/Vol] 4.2 mmol/L 3.3-5.1 [facility] Serum or plasma sodium measu rement (moles/volume)Ordered By: Sinai Omalley on 02-28-2025 Sodium [Moles/Vol] 138 mmol/L 133-145 [facility] Serum or plasma urea nitroge n measurement (mass/volume)Ordered By: Sinai Omalley on 11-14-2024 Urea nitrogen [Mass/Vol] 25 mg/dL High 4-19 [facility] TSH DL <= 0.005 mIU/L QnOrde red By: Sinai Omalley on 11-14-2024 Thyroid Stimulating Hormone (TSH) 0.813 uIU/mL 0.300-4.200 [facility] Thyroid Stim Hormone (TSH)on 11-14-2024 TSH 0.813 uIU/mL Normal 0.300-4.200 [facility] Comment on above: Performed By: #### L 501.9520, L3300.0960, L100.0100, L500.4050, L506.0200, L501.5200, L503.0106 ####[facility] [address] [place], [place], [id number] Total proteinOrdered By: Maxwell Omalley on 11-14-2024 Protein [Mass/Vol] 7.0 g/dL 5.9-8.4 [facility] Vitamin B12 ser/plasOrdered By: Sinai Omalley on 11-14-2024 Cobalamin (Vitamin B12) [Mass/Vol] 766 pg/mL 180-914 [facility] White blood cell (WBC) count Ordered By: Sinai Omalley on 11-14-2024 WBC (Bld) [#/Vol] 8.5 10*3/uL 4.4-11.0 [facility] Neurology Visit Reporton Neurology Visit Report [facility] [address] [facility] [address], [address] [place], [place] [id number] OFFICE VISIT Date of Service: 11/06/24 MR#: [id number] Acct: [id number] Name: JARRETT ROGER Rep #: [id number] : 1960 Provider: Dr. Alcides vizcaino MD Age/Sex: 64/M Location: [facility] Status: Signed HPI HPI Chief Complaint: Establish Care Details: The patient is a 64-year-old right-handed male who presents to [facility]. He was referred 10/01/2024 by [facility] for rapid acceleration of cognitive decline. This patient presents with his for evaluation of cognitive changes. Patient has limited ability to provide information on his own behalf regarding these deficits. Patient has been evaluated by a neuropsychologist Dr. Vince Wayne PhD. I have records indicating that the patient has been seen by Dr. Wayne dating back to 07/06/2021 to the last report of 09/24/2024. Evaluations have supported a finding of mild cognitive impairment. The etiology has been less clear. Patient has been said to have ADHD for which he receives methylphenidate. There is also been concern over a progressive dementia which was thought to possibly be Alzheimer's type or possible Lewy body disease. Frontotemporal dementia did not seem as likely based on neuropsychology testing. Patient's indicates that the patient has become very impulsive. They have been for 7 years. Recently the patient has become impulsive and that he has been gambling and is incurred a serious debt. This is currently being addressed but has caused significant hardship on the patient and his . Patient has been in very good health. He is not a drinker or smoker. He has not done illicit drugs. He has not manifested impulsive sexual behavior or excessive eating habits. 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 Patient's has noticed a change in performance level and episodes of lapse of memory. For example he may forget names. He may also forget task that he is executing. He may forget tasks that he had recently performed. And every other respects he appears to be performing well. He does drive a car. No history of trauma is identified. No history of recent illnesses noted although he may have had an exposure to COVID and RSV. I was able to review MRI images of his brain which is in the file dated 07/16/2024. The study was interpreted as basically normal by radiology however to my eye I think that there is some vermian atrophy of the cerebellum which is relatively subtle. I do think that the right mesial temporal lobe shows atrophy and that there may be mild atrophy of the left mesial temporal lobes well. There may be very subtle atrophy of the cerebral hemispheres otherwise noted. ROS General: No fever malaise. Head: No headaches or injuries Eyes: No loss of vision double vision Ears: No loss of hearing Oropharynx maintains ability to swallow and speak Respiratory: No hemoptysis no lung disease Cardiac: No chest pain or palpitations. Abdomen: Does not cough up blood vomit blood past blood in stool or urine. Extremities intact no trauma Skin no evidence of rashes or inflammatory arthritis Neurologic no seizures or strokes. It should be noted patient does have a history of severe B12 and vitamin D deficiency. Those abnormalities have been corrected by laboratory values. Exam Const Other: Blood pressure 126/82 pulse 86 respiration 16 temperature 98 O2 sat 98% BMI is 27.5 General Appearance well-developed well-nourished male resting quietly in a chair Head appears atraumatic Eyes conjunctiva clear Ears hearing intact Oropharynx appears to be able to swallow and phonate normally Respiratory clear to auscultation Cardiac regular rhythm no murmur Abdomen not distended Extremities without evidence of trauma Skin no obvious rashes or abnormalities. Neurologic examination: Mental status: He is awake alert and did know that he was at doctor's office. He had some difficulty with day month and year. Recall was impaired. Mini-Mental status exam is on the chart performed by me which was 20/30. For many provide issues language capabilities are show normal treatment technician expression and repetition. At times some difficulty with communication was noted. Superficially appears to be intact. CN II-XII: Pupils equal round react to light. 3 mm in size. Visual barker grossly intact. Extraocular muscles intact. No nystagmus. No ptosis. Motor and sensory function face normal. Hearing swallowing phonation tongue appear normal. Motor exam: No focal weakness. Bulk tone and strength. Cerebellar testing: Normal finger-nose maneuvers. No cogwheeling or rigidity bradykinesia or ataxia. Reflexes were 2+ at biceps 2+ at knees 1+ at ankles toes down. Sensory exam is intact (more content not included)... Normal [facility] Brain W/WO Contraston 2023 Brain W/WO Contrast [facility] Imaging Services [address] [place], [place] [address] Brain W/WO Contrast MR#: [id number] Acct: [id number] Name: BILLIEMarthaJARRETT SEGUN Rep #: [id number] : 1960 M 64 From: Eliud Stanley MD PCP: CRISTINE Holland Status: REG CLI Study: Brain W/WO Contrast Date of Exam: 07/16/24 Exam# [id number] Ordering Dr: Santy Sanchez NP-C [id number] EXAM: MR HEAD WITHOUT AND WITH INTRAVENOUS CONTRAST CLINICAL INDICATION: progressive memory loss, behavior changes. r/o mass, cva TECHNIQUE: Multiplanar and multisequence MR images of the brain were obtained without and with intravenous contrast. CONTRAST: IV 19 cc Clariscan COMPARISON: No relevant prior studies available. FINDINGS: BRAIN AND EXTRA-AXIAL SPACES: Unremarkable. No intra- or extra-axial hemorrhage. No evidence of acute infarct. No intracranial mass or mass effect. There is preservation of the carroll/white matter interface. Posterior fossa structures are unremarkable. Ventricles are appropriate for age. No hydrocephalus. Basal cisterns are patent. Following IV contrast administration, there are no abnormally enhancing lesions intra-axially and extra-axially. SELLA: Unremarkable. Normal sella turcica, pituitary gland, infundibular stalk, optic chiasm and hypothalamus. AUDITORY SYSTEM: Unremarkable. The internal auditory canals are patent. BONES/JOINTS: Unremarkable. No discrete lytic or blastic abnormalities. SINUSES: Unremarkable as visualized. Clear. MASTOID AIR CELLS: Unremarkable as visualized. Clear. ORBITS: Unremarkable as visualized. Both globes, extraocular muscles, optic nerves and retrobulbar fat appear unremarkable. VASCULATURE: Unremarkable as visualized. Normal flow voids in the major intracranial circulation. MRI/Brain W/WO Contrast IMPRESSION: Negative MRI brain without and with intravenous contrast. Electronically Signed: Eliud Stanley MD at 13:44 EDT , CC: CRISTINE Sanchez Chief Dispatcher: Signed Normal [facility] CREATININE FINGERSTICKon CREATININE WB < 1.0 Normal 0.70-1.30 [facility] Comment on above: Performed By: #### L 9100.0200 ####[facility] [address] [place], [address] EGFR WB > 60.0000 Normal >60 [facility] Comment on above: Performed By: #### L 9100.0200 ####[facility] [address] [place], [address] No Panel InformationOrdered By: Dr. Calero on 03-01-2023 Prostate Specific Antigen Screen 1.04 ng/mL 0.00-4.00 [facility] Comment on above: This test was perfor med using the TPSA assay method for [employer] (formerly [employer]) chemistry system. Values obtained with differentassay methods cannot be used interchangably.When changing PSA assays in the course of monitoring apatient, additional sequential testing should be carriedout to confirm baseline values. CNOVon 01-15-2023 CNOV Office Visit (RUDY ) JARRETT ROGER ([id number]) 1960 Date Time Provider Department 01/15/23 4:15 PM ANT MOSQUERA During your visit today, we recorded the following information about you: Ant Mosquera MD 02/16/2023 6:04 PM Signed Ant Mosquera MD Department of Orthopaedics Orthopaedics [address] [facility] [address] Dept: [phone] Dept January 15, 2023 CHIEF COMPLAINT: Established [...] Encounter Status:Closed by ANT MOSQUERA on 02/16/23 [facility] CNOVon 12-18-2022 CNOV Office Visit (ORTHWS ) JARRETT ROGER ([id number]) 1960 M Date Time Provider Department 12/18/22 3:00 PM BERNICE BASILIO During your visit today, we recorded the following information about you: Angela Gonzalez RN 12/18/2022 3:07 PM Signed Patient presents with: Right Index Finger - Post Op, Ganglion Cyst Patient is 1 week 5 days post op excision of ganglion cyst, R index finger. Denies pain. Bernice Basilio PA-C 12/18/2022 3:07 PM Signed Bernice Basilio PA-C Department of Orthopaedics Orthopaed[facility] [address] [facility] [address] Dept: [phone] Dept December 18, 2022 CHIEF COMPLAINT: Post [...] as to contrast therapies and/or to take analgesics/anti-infla mmatories as needed and all contraindications were reviewed. [...] allergies. This note was partially generated using [employer] voice recognition system, and there may be some incorrect words, spellings, and punctuation that were not noted in checking the note before saving. Bernice Basilio PA-C Allergies As of Date: 12/18/2022 (No Known Allergies) Date Reviewed: 12/18/2022 Reviewed by: Bernice Basilio PA-C - Fully Assessed Reason for Visit: [...] Date: 12/18/2022 (None) Encounter Status:Closed by BERNICE BASILIO on 12/18/22 [facility] NURSING PROGon 12-06-2022 NURSING PROG HNO ID: [id number] Author: Ayde Ribeiro RN Service: Nursing Author Type: Registered Nurse Type: Nursing Progress Note Filed: 12/06/2022 2:41 PM Note Text: Other: Sign In/ Timme out @1430 at bedside for local injection to R index finger. 1430 local injection of 3 ml to R index finger by . 1431 Sign out. Pt tolerated well, VSS, report to [facility] OPERATIVE NOon 12-06-2022 OPERATIVE NO HNO ID: [id number] Author: Ant Mosquera MD Service: Orthopaedic Surgery Author Type: Physician Type: Operative Report Filed: 12/12/2022 7:41 AM Note Text: OPERATIVE/PROCEDURE REPORT LOG ID: [id number] SURGERY/PROCEDURE DATE: 12/06/2022 INCISION/PROCEDURE START TIME: 2:49 PM INCISION CLOSE/PROCEDURE END TIME: 3:05 PM SURGEON(S)/PROCEDURAL IST(S) AND PUBLIC HEALTH INFORMATICIAN(S): Surgeon(s) and Role: * Ant Mosquera MD - Primary Physician [employer] Soaping Machine Operator: Bernice Basilio PA-C SURGERY/PROCEDURE(S): Right, Index finger, excision of [...] DIAGNOSIS: Right index finger, digital mucous cyst POST-OP/POST-PROCEDUR E DIAGNOSIS: Same as Preop ESTIMATED BLOOD LOSS: 0 ml SPECIMENS: None sent IMPLANTABLE DEVICES: None DRAINS: None COMPLICATIONS: None PARTICIPATION IN SURGERY/PROCEDURE: I/primary surgeon/proceduralist performed the entire procedure. CLOSURE TECHNIQUE: Primary SIGNATURE: Ant Mosquera MD PATIENT NAME: Jarrett Reddmartha DATE: December 12, 2022 TIME: 7:39 AM [facility] JARRETT ROG[facility] ([id number]) 1960 M Date Time Provider Department 11/01/22 ANT MOSQUERA [...] M71.39, M67.89] Order(s):SURGICAL REQUEST - ELECTIVE (04/2020) [[id number]] Order #: [id number]: 1 Prescriptions as of 11/01/2022 - cyanocobalamin, [...] Status:Closed by LAUREN LEDBETTER MA on 11/01/22 [facility] CNOVon 10-26-2022 CNOV Office Visit (ORTHWS ) JARRETT ROGER ([id number]) 1960 M Date Time Provider Department 10/26/22 3:30 PM ANT MOSQUERA During your visit today, we recorded the following information about you: Ant Mosquera MD 11/27/2022 4:24 PM Signed Ant Mosquera MD Department of Orthopaedics Orthopaedics [address] [facility] [address] Dept: [phone] Dept October 26, 2022 CHIEF COMPLAINT: No [...] - Fully Assessed Reason for Visit: New [[id number]] Cmt: cyst Pain [78] Cmt: cyst Primary [...] Status:Closed by ANT MOSQUERA on 11/27/22 Normal [facility] CALCIFEDIOL ([id number])Ordered B y: Slot Floor Supervisor on 10-03-2022 25-hydroxyvitamin D [Mass/Vol] 26.7 ng/mL Abnormal 30.0-100.0 [facility]; [facility] Work Phone: Comment on above: Vitamin D deficiency has been defined by the [place] ofMedicine and an Endocrine Society practice guideline as alevel of serum 25-OH vitamin D less than 20 ng/mL (1,2).The Endocrine Society went on to further define vitamin Dinsufficiency as a level between 21 and 29 ng/mL (2).1. IOM ([place] of Medicine). 2010. Dietary reference intakes for calcium and D. [place]: The National Academies Press.2. Bharti MF, Cholo CHRISTY, Tung THOMSON, et al. Evaluation, treatment, and prevention of vitamin D deficiency: an Endocrine Society clinical practice guideline. JCEM. 2010; 96(7):1911-30. PATIENT WAS FASTINGP ERFORMED BY: [place] [id number] CBC W/AUTO DIFF WBC ([id number])O rdered By: Slot Floor Supervisor on 10-03-2022 Basophils (Bld) [#/Vol] 0.1 10*3/uL Normal 0.0-0.2 [facility]; [facility] Work Phone: Comment on above: PATIENT WAS FASTINGP ERFORMED BY: [employer]70 [facility] [id number] Basophils/100 WBC (Bld) 1 % Normal C omprehensive [facility]; [facility] Work Phone: Comment on above: PATIENT WAS FASTINGP ERFORMED BY: [employer]70 [facility] [id number] Eosinophils (Bld) [#/Vol] 0.4 10*3/uL Normal 0.0-0.4 [facility]; [facility] Work Phone: Comment on above: PATIENT WAS FASTINGP ERFORMED BY: [facility] Ocnypg2198 [address] RoadDublin [place] [id number] Eosinophils/100 WBC (Bld) 6 % Normal [facility]; [facility] Work Phone: Comment on above: PATIENT WAS FASTINGP ERFORMED BY: [facility] Gsnjtg0146 [address] Roadblin [place] [id number] Erythrocyte distribution width (RBC) [Ratio] 12.7 % Normal 11.6-15.4 [facility]; [facility] Work Phone: Comment on above: PATIENT WAS FASTINGP ERFORMED BY: [facility] Ajokod6468 [address] RoadDublin [place] [id number] Hematocrit (Bld) [Volume fraction] 43.7 % Normal 37.5-51.0 [facility]; [facility] Work Phone: Comment on above: PATIENT WAS FASTINGP ERFORMED BY: [facility] Qdzmvj6876 [address] RoadDublin [place] [id number] Hemoglobin (Bld) [Mass/Vol] 14.2 g/dL Normal 13.0-17.7 [facility]; [facility] Work Phone: Comment on above: PATIENT WAS FASTINGP ERFORMED BY: [facility] Rztqle7085 [address] RoadDublin [place] [id number] Immature granulocytes (Bld) [#/Vol] 0.0 10*3/uL Normal 0.0-0.1 [facility]; [facility] Work Phone: Comment on above: PATIENT WAS FASTINGP ERFORMED BY: [facility] Gjmcjq6[address] RoadDublin [place] [id number] Immature granulocytes/100 WBC (Bld) 0 % Normal [facility]; [facility] Work Phone: Comment on above: PATIENT WAS FASTINGP ERFORMED BY: CB [facility] Vtonry4176 [address] RoadDublin [place] [id number] Lymphocytes (Bld) [#/Vol] 2.0 10*3/uL Normal 0.7-3.1 [facility]; [facility] Work Phone: Comment on above: PATIENT WAS FASTINGP ERFORMED BY: CB [facility] Ipgzzh8663 [address] RoadDublin [place] [id number] Lymphocytes/100 WBC (Bld) 28 % Normal [facility]; [facility] Work Phone: Comment on above: PATIENT WAS FASTINGP ERFORMED BY: CB [facility] Zgidga4805 [address] RoadDublin [place] [id number] MCH (RBC) [Entitic mass] 27.5 pg Normal 26.6-33.0 [facility]; [facility] Work Phone: Comment on above: PATIENT WAS FASTINGP ERFORMED BY: CB [facility] Qspqhg2598 [address] RoadDublin [place] [id number] MCHC (RBC) [Mass/Vol] 32.5 g/dL Normal 31.5-35.7 [facility]; [facility] Work Phone: Comment on above: PATIENT WAS FASTINGP ERFORMED BY: CB [facility] Zguery20[address] [place] [id number] MCV (RBC) [Entitic vol] 85 fL Normal 79-97 C omprehens[facility]; [facility] Work Phone: Comment on above: PATIENT WAS FASTINGP ERFORMED BY: CB [facility] Xyrzqn2302 [address] RoadDublin [place] [id number] Monocytes (Bld) [#/Vol] 0.6 10*3/uL Normal 0.1-0.9 [facility]; [facility] Work Phone: Comment on above: PATIENT WAS FASTINGP ERFORMED BY: CB [facility] Jsmron0895 [address] RoadDublin [place] [id number] Monocytes/100 WBC (Bld) 8 % Normal C [facility]mp[facility]; [facility] Work Phone: Comment on above: PATIENT WAS FASTINGP ERFORMED BY: CB [facility] Sblmlt5793 [address]Dublin [place] [id number] Neutrophils (Bld) [#/Vol] 4.0 10*3/uL Normal 1.4-7.0 [facility]; [facility] Work Phone: Comment on above: PATIENT WAS FASTINGP ERFORMED BY: CARL Chaitanyafiona SanchezGfcili7323 [address] Roadblin [place] [id number] Neutrophils/100 WBC (Bld) 57 % Normal [facility]; [facility] Work Phone: Comment on above: PATIENT WAS FASTINGP ERFORMED BY: CARL Labfiona SanchezQwaxti1242 [address] RoadDublin [place] [id number] Platelets (Bld) [#/Vol] 206 10*3/uL Normal 150-450 [facility]; [facility] Work Phone: Comment on above: PATIENT WAS FASTINGP ERFORMED BY: CARL Labfoina SanchezUcdrrl488[address] Roadblin [place] [id number] RBC (Bld) [#/Vol] 5.16 10*6/uL Normal 4.14-5.80 [facility]; [facility] Work Phone: Comment on above: PATIENT WAS FASTINGP ERFORMED BY: CARL Sanchezlin[address] [facility]in [place] [id number] WBC (Bld) [#/Vol] 7.0 10*3/uL Normal 3.4-10.8 [facility]; [facility] Work Phone: Comment on above: PATIENT WAS FASTINGP ERFORMED BY: CARL Sanchezlin[address] [facility] [id number] LIPID PANEL (96006)Ordered B y: Slot Floor Supervisor on 10-03-2022 Cholesterol [Mass/Vol] 133 mg/dL Normal 100-199 [facility]; [facility] Work Phone: Comment on above: PATIENT WAS FASTINGP ERFORMED BY: CARL Labfiona SanchezWheniv[address] [facility] HospitalDublin [place] [id number] Cholesterol in HDL [Mass/Vol] 39 mg/dL Abnormal [facility]; [facility] Work Phone: Comment on above: PATIENT WAS FASTINGP ERFORMED BY: CARL María Sanchezlin6370 [facility] [id number] Triglyceride [Mass/Vol] 56 mg/dL Normal 0-149 [facility]; [facility] Work Phone: Comment on above: PATIENT WAS FASTINGP ERFORMED BY: CARL Labfiona SanchezUnuvkr6982 [facility] [id number] LIPID PANEL (04617) 12 mg/dL Normal 5-40 [facility]; [facility] Work Phone: Comment on above: PATIENT WAS FASTINGP ERFORMED BY: CARL Labfiona Tsspug1514 [facility] [id number] LIPID PANEL (11852) 82 mg/dL Normal 0-99 [facility]eren[facility]; [facility] Work Phone: Comment on above: PATIENT WAS FASTINGP ERFORMED BY: CARL Labfiona SanchezKigezq6551 [facility] [id number] LIPID PANEL (19759) 2.1 {ratio} Normal 0.0-3.6 Comp [facility]erens[facility]; [facility] Work Phone: Comment on above: LDL/HDL Ratio Men Wo men 1/2 Avg.Risk 1.0 1.5 Avg.Risk 3.6 3.2 2X Avg.Risk 6.2 5.0 3X Avg.Risk 8.0 6.1 PATIENT WAS FASTINGP ERFORMED BY: CARL Sanchezlin6370 [facility] [id number] METABOLIC PANEL, COMPREHENSI VE (19784)Ordered By: Slot Floor Supervisor on 10-03-2022 Albumin [Mass/Vol] 4.4 g/dL Normal 3.8-4.8 [facility]; [facility] Work Phone: Comment on above: PATIENT WAS FASTINGP ERFORMED BY: CARL Labfiona SanchezXepcce6477 [facility] [id number] Albumin/Globulin [Mass ratio] 2.1 {ratio} Normal 1.2-2.2 [facility]; [facility] Work Phone: Comment on above: PATIENT WAS FASTINGP ERFORMED BY: CARL Valenzuela Cpdhzr2310 [address] RoadDublin [place] [id number] ALP [Catalytic activity/Vol] 106 U/L Normal 44-121 [facility]; [facility] Work Phone: Comment on above: PATIENT WAS FASTINGP ERFORMED BY: CARL Labfiona SanchezOpaghe0279 [address] RoadDublin [place] [id number] ALT [Catalytic activity/Vol] 21 U/L Normal 0-44 [facility]; [facility] Work Phone: Comment on above: PATIENT WAS FASTINGP ERFORMED BY: CARL [facility] Njigao8198 [address] RoadDublin [place] [id number] AST [Catalytic activity/Vol] 27 U/L Normal 0-40 [facility]; [facility] Work Phone: Comment on above: PATIENT WAS FASTINGP ERFORMED BY: CARL [facility] Ubpfsn0182 [address] RoadDublin [place] [id number] Bilirubin [Mass/Vol] 0.6 mg/dL Normal 0.0-1.2 Comp rehensive Internal Medicine; [facility] Work Phone: Comment on above: PATIENT WAS FASTINGP ERFORMED BY: CARL [facility] Sfdrxa0022 [address] RoadDublin [place] [id number] Calcium [Mass/Vol] 9.3 mg/dL Normal 8.6-10.2 [facility]; [facility] Work Phone: Comment on above: PATIENT WAS FASTINGP ERFORMED BY: CARL [facility]rus[facility] Yknbmj6056 [address] RoadDublin [place] [id number] Chloride [Moles/Vol] 105 mmol/L Normal 96-106 Comp rehensive [facility]; [facility] Work Phone: Comment on above: PATIENT WAS FASTINGP ERFORMED BY: CARL [facility] Uhuufj5203 [address] RoadDublin [place] [id number] CO2 [Moles/Vol] 27 mmol/L Normal 20-29 [facility]; [facility] Work Phone: Comment on above: PATIENT WAS FASTINGP ERFORMED BY: CARL [facility] Abxoyk3709 [address] RoadDublin [place] [id number] Creatinine [Mass/Vol] 1.09 mg/dL Normal 0.76-1.27 [facility] prehensive Internal Medicine; [facility] Work Phone: Comment on above: PATIENT WAS FASTINGP ERFORMED BY: CB [facility] Zbelug42[address]bl[address] [place] [id number] GFR/1.73 sq M.predicted among non-blacks MDRD (S/P/Bld) [Vol rate/Area] 76 mL/min/{1.73_m2} Normal Comprehensiv e [facility] Medicine; [facility] Work Phone: Comment on above: PATIENT WAS FASTINGP ERFORMED BY: [facility] Bembyx[address] [facility]bl[facility] [place] [id number] Globulin (S) [Mass/Vol] 2.1 g/dL Normal 1.5-4.5 [facility]ensive [facility]; [facility] Work Phone: Comment on above: PATIENT WAS FASTINGP ERFORMED BY: [facility] Gqgqzl3064 [address] RoadDublin [place] [id number] Glucose [Mass/Vol] 103 mg/dL Abnormal 70-99 [facility]; [facility] Work Phone: Comment on above: PATIENT WAS FASTINGP ERFORMED BY: [facility] Udykum[address] [facility] HospitalDublin [place] [id number] Potassium [Moles/Vol] 4.9 mmol/L Normal 3.5-5.2 [facility] prehensive Internal Medicine; [facility] Work Phone: Comment on above: PATIENT WAS FASTINGP ERFORMED BY: [facility] Okjzmu8383 [address] RoadDublin [place] [id number] Protein [Mass/Vol] 6.5 g/dL Normal 6.0-8.5 [facility]; [facility] Work Phone: Comment on above: PATIENT WAS FASTINGP ERFORMED BY: [facility] Wegufv0481 [address] RoadDublin [place] [id number] Sodium [Moles/Vol] 143 mmol/L Normal 134-144 Compre hensive [facility]; [facility] Work Phone: Comment on above: PATIENT WAS FASTINGP ERFORMED BY: CARL [facility] Ofleau8221 [address] RoadDublin [place] [id number] Urea nitrogen [Mass/Vol] 17 mg/dL Normal 8-27 [facility]; [facility] Work Phone: Comment on above: PATIENT WAS FASTINGP ERFORMED BY: CB [facility] Mygsty5001 [address]Dublin [place] [id number] Urea nitrogen/Creatinine [Mass ratio] 16 mg/mg Normal 10-24 [facility]; [facility] Work Phone: Comment on above: PATIENT WAS FASTINGP ERFORMED BY: CARL [facility] Hdywvg5152 [address] RoadD[address] [place] [id number] URINALYSIS W MICROSCOPY ([id number] 00)Ordered By: Slot Floor Supervisor on 10-03-2022 Appearance (U) Clear Normal Comprehens ayse [facility]; [facility] Work Phone: Comment on above: PATIENT WAS FASTINGP ERFORMED BY: CARL [facility] Dhjxzh4023 [address] RoadD[address] [place] [id number] Bilirubin Ql (U) Negative Normal Comprehe nsive [facility] Medicine; [facility] Work Phone: Comment on above: PATIENT WAS FASTINGP ERFORMED BY: CARL [facility] Zfgiuo5784 [address] RoadDublin [place] [id number] Color (U) Yellow Normal [facility]; [facility] Work Phone: Comment on above: PATIENT WAS FASTINGP ERFORMED BY: CARL [facility] Fjyeqa7980 [address] [place] [id number] Glucose Ql (U) Negative Normal Comprehens ayse [facility]; [facility] Work Phone: Comment on above: PATIENT WAS FASTINGP ERFORMED BY: CARL [facility] Fxwzxr0903 [address] RoadDublin [place] [id number] Hemoglobin Ql (U) Negative Normal Compreh ensive [facility]; [facility] Work Phone: Comment on above: PATIENT WAS FASTINGP ERFORMED BY: CARL Rangel6[address] RoadD[address] [place] [id number] Ketones Ql (U) Negative Normal Comprehens ayse [facility]; [facility] Work Phone: Comment on above: PATIENT WAS FASTINGP ERFORMED BY: CARL Rangel6[address] [place] [id number] Leukocyte esterase Test strip Ql (U) Negative Normal [facility]; [facility] Work Phone: Comment on above: PATIENT WAS FASTINGP ERFORMED BY: CARL Rangel6[address] [place] [id number] Microscopic observation LM Nom (Urine sed) MICNIP Normal [facility]; [facility] Work Phone: Comment on above: Microscopic not peg cated and not performed. PATIENT WAS FASTINGP ERFORMED BY: CARL Rangel6[address] RoadD[address] [place] [id number] Nitrite Ql (U) Negative Normal Comprehens ayse [facility]; [facility] Work Phone: Comment on above: PATIENT WAS FASTINGP ERFORMED BY: CARL Rangel6[address] [place] [id number] pH (U) 5.5 [pH] Normal 5.0-7.5 [facility]; [facility] Work Phone: Comment on above: PATIENT WAS FASTINGP ERFORMED BY: CARL Sanchezlin6370 [address]Dublin [place] [id number] Protein Ql (U) Negative Normal Comprehens ayse [facility]; [facility] Work Phone: Comment on above: PATIENT WAS FASTINGP ERFORMED BY: CARL Sanchezlin6[address] RoadDublin [place] [id number] Specific gravity (U) [Rel density] 1.024 1 Normal 1.005-1.030 [facility]; [facility] Work Phone: Comment on above: PATIENT WAS FASTINGP ERFORMED BY: CARL Sanchezlin[address] RoadDublin [place] [id number] Urobilinogen (U) [Mass/Vol] 0.2 mg/dL Normal 0.2-1.0 [facility]; [facility] Work Phone: Comment on above: PATIENT WAS FASTINGP ERFORMED BY: [employer] Nlnsnr1596 Av[address]bl[address] [place] [id number] VITAMIN B12 AND FOLATES (826 07)Ordered By: Slot Floor Supervisor on 10-03-2022 Cobalamin (Vitamin B12) [Mass/Vol] 339 pg/mL Normal 232-1245 [facility]; [facility] Work Phone: Comment on above: PATIENT WAS FASTINGP ERFORMED BY: [employer]ox [employer] [place]zymesbl[place] [id number] Folate [Mass/Vol] 18.3 ng/mL Normal Compreh ensive Internal Medicine; [facility] Work Phone: Comment on above: A serum folate lexi ntration of less than 3.1 ng/mL isconsidered to represent clinical deficiency. PATIENT WAS FASTINGP ERFORMED BY: PubGame6370 [address] [place] [id number] CBC with auto diff (54355)Or dered By: Slot Floor Supervisor on 04-14-2022 Basophils (Bld) [#/Vol] 0.1 10*3/uL Normal 0.0-0.2 [facility]; [facility] Work Phone: Comment on above: PATIENT WAS FASTINGP ERFORMED BY: [employer] Qbnmqx8620 [address] [place] [id number] Basophils/100 WBC (Bld) 1 % Normal C omprehensive Internal Medicine; [facility] Work Phone: Comment on above: PATIENT WAS FASTINGP ERFORMED BY: [employer] [employer] Enzymesblin [place] [id number] Eosinophils (Bld) [#/Vol] 0.4 10*3/uL Normal 0.0-0.4 [facility]; [facility] Work Phone: Comment on above: PATIENT WAS FASTINGP ERFORMED BY: CARL Rangel6370 [facility] [id number] Eosinophils/100 WBC (Bld) 5 % Normal [facility]; [facility] Work Phone: Comment on above: PATIENT WAS FASTINGP ERFORMED BY: CARL Rangel6370 [facility] [id number] Erythrocyte distribution width (RBC) [Ratio] 12.8 % Normal 11.6-15.4 [facility]; [facility] Work Phone: Comment on above: PATIENT WAS FASTINGP ERFORMED BY: CARL Sanchezlin6370 [facility] [id number] Hematocrit (Bld) [Volume fraction] 44.0 % Normal 37.5-51.0 [facility]; [facility] Work Phone: Comment on above: PATIENT WAS FASTINGP ERFORMED BY: CARL Rangel6370 [facility] [id number] Hemoglobin (Bld) [Mass/Vol] 14.4 g/dL Normal 13.0-17.7 [facility]; [facility] Work Phone: Comment on above: PATIENT WAS FASTINGP ERFORMED BY: CARL Rangel6370 [facility] [id number] Immature granulocytes (Bld) [#/Vol] 0.0 10*3/uL Normal 0.0-0.1 [facility]; [facility] Work Phone: Comment on above: PATIENT WAS FASTINGP ERFORMED BY: CARL Sanchezlin6370 [facility] [id number] Immature granulocytes/100 WBC (Bld) 0 % Normal [facility]; [facility] Work Phone: Comment on above: PATIENT WAS FASTINGP ERFORMED BY: CARL Sanchezlin6370 [facility] [id number] Lymphocytes (Bld) [#/Vol] 2.1 10*3/uL Normal 0.7-3.1 [facility]; [facility] Work Phone: Comment on above: PATIENT WAS FASTINGP ERFORMED BY: [employer] Nbhhsx6625 Gilbert RoadDublin [place] [id number] Lymphocytes/100 WBC (Bld) 29 % Normal [facility]; [facility] Work Phone: Comment on above: PATIENT WAS FASTINGP ERFORMED BY: CARL [facility] Btuxix3[address] Roadblin [place] [id number] MCH (RBC) [Entitic mass] 27.9 pg Normal 26.6-33.0 [facility]; [facility] Work Phone: Comment on above: PATIENT WAS FASTINGP ERFORMED BY: [employer] Jthzjn7919 Gilbert Roadblin [place] [id number] MCHC (RBC) [Mass/Vol] 32.7 g/dL Normal 31.5-35.7 [facility] prehensive Internal Medicine; [facility] Work Phone: Comment on above: PATIENT WAS FASTINGP ERFORMED BY: [employer] Lnxiad3360 [address] [facility]in [place] [id number] MCV (RBC) [Entitic vol] 85 fL Normal 79-97 C omprehensive [facility]; [facility] Work Phone: Comment on above: PATIENT WAS FASTINGP ERFORMED BY: [employer] Tqscji4132 [address] [facility]in [place] [id number] Monocytes (Bld) [#/Vol] 0.6 10*3/uL Normal 0.1-0.9 [facility]; [facility] Work Phone: Comment on above: PATIENT WAS FASTINGP ERFORMED BY: [employer] Wgdhax5627 [address] RoadDavis Regional Medical Centerin [place] [id number] Monocytes/100 WBC (Bld) 8 % Normal C omprehensive [facility]; [facility] Work Phone: Comment on above: PATIENT WAS FASTINGP ERFORMED BY: [employer] Qvsnex9099 [address] [facility] HospitalDublin [place] [id number] Neutrophils (Bld) [#/Vol] 4.0 10*3/uL Normal 1.4-7.0 [facility]; [facility] Work Phone: Comment on above: PATIENT WAS FASTINGP ERFORMED BY: CARL Labcoedgar Kqdoai2337 [address] RoadDublin [place] [id number] Neutrophils/100 WBC (Bld) 57 % Normal [facility]; [facility] Work Phone: Comment on above: PATIENT WAS FASTINGP ERFORMED BY: CARL [facility] Jolzug7[address] RoadDublin [place] [id number] Platelets (Bld) [#/Vol] 212 10*3/uL Normal 150-450 [facility]; [facility] Work Phone: Comment on above: PATIENT WAS FASTINGP ERFORMED BY: CARL Labcoedgar SanchezOqjtuc6057 [address] RoadDublin [place] [id number] RBC (Bld) [#/Vol] 5.17 10*6/uL Normal 4.14-5.80 [facility] Internal [facility]; [facility] Work Phone: Comment on above: PATIENT WAS FASTINGP ERFORMED BY: CARL Labfiona Jktyfr6955 [address] RoadDublin [place] [id number] WBC (Bld) [#/Vol] 7.1 10*3/uL Normal 3.4-10.8 [facility] Internal Medicine; [facility] Work Phone: Comment on above: PATIENT WAS FASTINGP ERFORMED BY: CARL Labfiona SanchezPqwnmx9164 [address] RoadDublin [place] [id number] LIPID PANEL (65332)Ordered B y: Slot Floor Supervisor on 04-14-2022 Cholesterol [Mass/Vol] 130 mg/dL Normal 100-199 Co [facility] Internal Medicine; [facility] Work Phone: Comment on above: prior to next ov in aug 2022; PATIENT WAS FASTINGPERFORMED BY: CARL Labcoedgar SanchezJpthvs5666 [address] RoadDublin [place] [id number] Cholesterol in HDL [Mass/Vol] 40 mg/dL Normal [facility]; [facility] Work Phone: Comment on above: prior to next ov in aug 2022; PATIENT WAS FASTINGPERFORMED BY: CARL Labcoedgar Ygxwqk[address] [facility] [id number] Triglyceride [Mass/Vol] 114 mg/dL Normal 0-149 C ompohiohealth grant medical centerensive Internal Medicine; [facility] Work Phone: Comment on above: prior to next ov in aug 2022; PATIENT WAS FASTINGPERFORMED BY: CARL [facility] Fznjkk5024 [address] [facility] [id number] LIPID PANEL (36980) 21 mg/dL Normal 5-40 Compr ensive Internal Medicine; [facility] Work Phone: Comment on above: prior to next ov in aug 2022; PATIENT WAS FASTINGPERFORMED BY: CARL Labfiona SanchezMjviil7324 [facility] [id number] LIPID PANEL (00548) 69 mg/dL Normal 0-99 Compr ensive [facility] Medicine; [facility] Work Phone: Comment on above: prior to next ov in aug 2022; PATIENT WAS FASTINGPERFORMED BY: CARL Labfiona SanchezPslbqh2693 [facility] [id number] LIPID PANEL (00275) 1.7 {ratio} Normal 0.0-3.6 Comp [facility] centerensive [facility]; [facility] Work Phone: Comment on above: LDL/HDL Ratio Men Wo men 1/2 Avg.Risk 1.0 1.5 Avg.Risk 3.6 3.2 2X Avg.Risk 6.2 5.0 3X Avg.Risk 8.0 6.1 prior to next ov in aug 2022; PATIENT WAS FASTINGPERFORMED BY: CARL [facility] Hxksnu1242 [facility] [id number] METABOLIC PANEL, COMPREHENSI VE (68959)Ordered By: Slot Floor Supervisor on 04-14-2022 Albumin [Mass/Vol] 4.1 g/dL Normal 3.8-4.8 [facility]; [facility] Work Phone: Comment on above: PATIENT WAS FASTINGP ERFORMED BY: CARL [facility] Afjwhr4786 [address] [facility] [id number] Albumin/Globulin [Mass ratio] 1.8 {ratio} Normal 1.2-2.2 [facility]; [facility] Work Phone: Comment on above: PATIENT WAS FASTINGP ERFORMED BY: CARL [facility] Nzyxil6631 [address] RoadDublin [place] [id number] ALP [Catalytic activity/Vol] 106 U/L Normal 44-121 [facility]; [facility] Work Phone: Comment on above: PATIENT WAS FASTINGP ERFORMED BY: [facility] Hopnzr8235 [address] RoadDublin [place] [id number] ALT [Catalytic activity/Vol] 25 U/L Normal 0-44 [facility]; [facility] Work Phone: Comment on above: PATIENT WAS FASTINGP ERFORMED BY: [facility] Ikabyw0181 [address] RoadDublin [place] [id number] AST [Catalytic activity/Vol] 32 U/L Normal 0-40 [facility]; [facility] Work Phone: Comment on above: PATIENT WAS FASTINGP ERFORMED BY: Lab[facility] Labdhh1481 [address] RoadDublin [place] [id number] Bilirubin [Mass/Vol] 0.3 mg/dL Normal 0.0-1.2 [facility]erensive [facility]; [facility] Work Phone: Comment on above: PATIENT WAS FASTINGP ERFORMED BY: [facility] Hdgwwf3704 [address] RoadDublin [place] [id number] Calcium [Mass/Vol] 9.0 mg/dL Normal 8.6-10.2 [facility] Internal [facility]; [facility] Work Phone: Comment on above: PATIENT WAS FASTINGP ERFORMED BY: [facility] Pikiui8742 [address] RoadDublin [place] [id number] Chloride [Moles/Vol] 104 mmol/L Normal 96-[address] [facility] Internal Medicine; [facility] Work Phone: Comment on above: PATIENT WAS FASTINGP ERFORMED BY: [employer] Vecjnv2749 [address] RoadDublin [place] [id number] CO2 [Moles/Vol] 26 mmol/L Normal 20-29 Comprehen [facility] Internal [facility]; [facility] Work Phone: Comment on above: PATIENT WAS FASTINGP ERFORMED BY: CARL Rangel6370 [facility] [id number] Creatinine [Mass/Vol] 1.00 mg/dL Normal 0.76-1.27 Com prehensive Internal Medicine; [facility] Work Phone: Comment on above: PATIENT WAS FASTINGP ERFORMED BY: CARL Sanchezlin6370 [facility] [id number] GFR/1.73 sq M.predicted among non-blacks MDRD (S/P/Bld) [Vol rate/Area] 84 mL/min/{1.73_m2} Normal Comprehensiv e Internal Medicine; [facility] Work Phone: Comment on above: PATIENT WAS FASTINGP ERFORMED BY: CARL Lablen Unpytb5280 [facility] [id number] Globulin (S) [Mass/Vol] 2.3 g/dL Normal 1.5-4.5 C omprehensive [facility] Medicine; [facility] Work Phone: Comment on above: PATIENT WAS FASTINGP ERFORMED BY: CARL Labfiona SanchezAlfdib1708 [facility] [id number] Glucose [Mass/Vol] 114 mg/dL Abnormal 65-99 [facility] centerive [facility]; [facility] Work Phone: Comment on above: PATIENT WAS FASTINGP ERFORMED BY: CARL Labcoedgar Fcpjii1784 [facility] [id number] Potassium [Moles/Vol] 4.3 mmol/L Normal 3.5-5.2 Com prehensive Internal Medicine; [facility] Work Phone: Comment on above: PATIENT WAS FASTINGP ERFORMED BY: CARL Lablen Ncbfmf1740 [facility] [id number] Protein [Mass/Vol] 6.4 g/dL Normal 6.0-8.5 [facility]ere hensive [facility]; [facility] Work Phone: Comment on above: PATIENT WAS FASTINGP ERFORMED BY: CB [facility] Khhgvq3761 [address] RoadDublin [place] [id number] Sodium [Moles/Vol] 142 mmol/L Normal 134-144 [facility] Internal Medicine; [facility] Work Phone: Comment on above: PATIENT WAS FASTINGP ERFORMED BY: [facility] Ssbvtv8055 [address] RoadDublin [place] [id number] Urea nitrogen [Mass/Vol] 23 mg/dL Normal 8-27 [facility]; [facility] Work Phone: Comment on above: PATIENT WAS FASTINGP ERFORMED BY: CB [facility] Byfxtt3463 [address] RoadDublin [place] [id number] Urea nitrogen/Creatinine [Mass ratio] 23 mg/mg Normal 10-24 [facility]; [facility] Work Phone: Comment on above: PATIENT WAS FASTINGP ERFORMED BY: [facility] Hpzgai5838 [address] [facility]in [place] [id number] PSA (PROSTATE SPECIFIC ANTIG EN) (08201)Ordered By: Slot Floor Supervisor on 04-14-2022 Prostate specific Ag [Mass/Vol] 1.1 ng/mL Normal 0.0-4.0 [facility]; [facility] Work Phone: Comment on above: [employer] ECLIA methodol ogy. .According to the [place] [employer], Serum PSA shoulddecrease and remain [...] malignant disease. PATIENT WAS FASTINGP ERFORMED BY: CB [facility] Wssibl9699 [address] RoadDublin [place] [id number] TSH (THYROID STIMULATING HOR SHASTA) (67376)Ordered By: Slot Floor Supervisor on 04-14-2022 TSH Qn 1.220 {uIU/mL} Normal 0.450-4.500 [facility] Internal Medicine; [facility] Work Phone: Comment on above: PATIENT WAS FASTINGP ERFORMED BY: [employer] Beyfxa8188 [facility] [id number] Blood Glucose , Office (8296 2)Ordered By: Christelle Monge on 03-24-2022 Glucose Glucometer (BldC) [Moles/Vol] 122 1 Normal [facility]; [facility] Work Phone: HgA1C , Office (20860)Ordere d By: Christelle Monge on 03-24-2022 HbA1c (Bld) [Mass fraction] 5.3 % Normal 4.6 - 7.1 [facility]; [facility] Work Phone: CALCIFEDIOL (51393)Ordered B y: Slot Floor Supervisor on 07-27-2021 25-hydroxyvitamin D [Mass/Vol] 29.4 ng/mL Abnormal 30.0-100.0 [facility]; [facility] Work Phone: Comment on above: Vitamin D deficiency has been defined by the [place] ofMedicine and an Endocrine Society practice guideline as alevel of serum 25-OH vitamin D less than 20 ng/mL (1,2).The Endocrine Society went on to further define vitamin Dinsufficiency as a level between 21 and 29 ng/mL (2).1. IOM (Warren of Medicine). 2010. Dietary reference intakes for calcium and D. [place]: The National Academies Press.2. Bharti MF, Cholo [place], Tung THOMSON, et al. Evaluation, treatment, and prevention of vitamin D deficiency: an Endocrine Society clinical practice guideline. JCEM. 2010; 96(7):1911-30. PATIENT NOT FASTINGP ERFORMED BY: LabRanken [facility] Opiuzl4529 [facility] [id number] HgA1C , Office (89279)Ordere d By: Steve Mills on 07-27-2021 HbA1c (Bld) [Mass fraction] 5.3 % Normal 4.6 - 7.1 [facility]; [facility] Work Phone: Comment on above: 5.3 VITAMIN B12 AND FOLATES (826 07)Ordered By: Slot Floor Supervisor on 07-27-2021 Cobalamin (Vitamin B12) [Mass/Vol] pg/mL Abnormal 232-1245 [facility]; [facility] Work Phone: Comment on above: PATIENT NOT FASTINGP ERFORMED BY: CARL Labslinkset Negfif[address] [employer] En[employer]bl[employer] [place] [id number] Folate [Mass/Vol] 15.2 ng/mL Normal Compreh ensive Internal Medicine; [facility] Work Phone: Comment on above: A serum folate lexi ntration of less than 3.1 ng/mL isconsidered to represent clinical deficiency. PATIENT NOT FASTINGP ERFORMED BY: CARL [facility] Guxcxd5086 [address] BellyDublin [place] [id number] LIPID PANEL (79064)Ordered B y: Slot Floor Supervisor on 07-22-2021 Cholesterol [Mass/Vol] 138 mg/dL Normal 100-199 Co mprehensive [facility]; [facility] Work Phone: Comment on above: PATIENT WAS FASTINGP ERFORMED BY: Labslinkset Qfyfoi35[address] [employer] [id number] Cholesterol in HDL [Mass/Vol] 42 mg/dL Normal [facility]; [facility] Work Phone: Comment on above: PATIENT WAS FASTINGP ERFORMED BY: Labslinkset Hlqbgw6837 [address] [employer]bl[place] [id number] Triglyceride [Mass/Vol] 66 mg/dL Normal 0-149 C omprehensive [facility]; [facility] Work Phone: Comment on above: PATIENT WAS FASTINGP ERFORMED BY: Labslinkset Brchyb8275 [address] BellyDublin [place] [id number] LIPID PANEL (52548) 2.0 {ratio} Normal 0.0-3.6 Comp rehensive Internal Medicine; [facility] Work Phone: Comment on above: LDL/HDL Ratio Men Wo men 1/2 Avg.Risk 1.0 1.5 Avg.Risk 3.6 3.2 2X Avg.Risk 6.2 5.0 3X Avg.Risk 8.0 6.1 PATIENT WAS FASTINGP ERFORMED BY: CB [facility] Nmgpcs7066 [address] RoadDublin [place] [id number] LIPID PANEL (42818) 82 mg/dL Normal 0-99 [facility]erens[facility] Internal [facility]; [facility] Work Phone: Comment on above: PATIENT WAS FASTINGP ERFORMED BY: CB [facility] Bjlscw8141 [address] RoadDublin [place] [id number] LIPID PANEL (78271) 14 mg/dL Normal 5-40 [facility] Internal Medicine; [facility] Work Phone: Comment on above: PATIENT WAS FASTINGP ERFORMED BY: CB [facility] Xqbpqv9582 [address] RoadDublin [place] [id number] Metabolic Panel, Comprehensi ve (66807)Ordered By: Slot Floor Supervisor on 07-22-2021 Albumin [Mass/Vol] 4.2 g/dL Normal 3.8-4.8 [facility] Internal Medicine; [facility] Work Phone: Comment on above: PATIENT WAS FASTINGP ERFORMED BY: CB [facility] Rfkibh5384 Gilbert RoadDublin [place] [id number] Albumin/Globulin [Mass ratio] 1.9 {ratio} Normal 1.2-2.2 [facility]; [facility] Work Phone: Comment on above: PATIENT WAS FASTINGP ERFORMED BY: CB [facility] Eenwoo1630 [address] RoadDublin [place] [id number] ALP [Catalytic activity/Vol] 104 U/L Normal 44-121 [facility]; [facility] Work Phone: Comment on above: Please note refere nce interval change PATIENT WAS FASTINGP ERFORMED BY: CB [facility] Czvppd1641 Gilbert RoadDublin [place] [id number] ALT [Catalytic activity/Vol] 22 U/L Normal 0-44 [facility]; [facility] Work Phone: Comment on above: PATIENT WAS FASTINGP ERFORMED BY: CB [facility] Uouqqg8547 Gilbert RoadDublin [place] [id number] AST [Catalytic activity/Vol] 22 U/L Normal 0-40 [facility]; [facility] Work Phone: Comment on above: PATIENT WAS FASTINGP ERFORMED BY: CARL Rangel6370 [address] RoadGuevarablin [place] [id number] Bilirubin [Mass/Vol] 0.4 mg/dL Normal 0.0-1.2 Comp rehensive Internal Medicine; [facility] Work Phone: Comment on above: PATIENT WAS FASTINGP ERFORMED BY: CARL Rangel6[address] RoadDublin [place] [id number] Calcium [Mass/Vol] 9.4 mg/dL Normal 8.6-10.2 [facility] Internal Medicine; [facility] Work Phone: Comment on above: PATIENT WAS FASTINGP ERFORMED BY: CARL Rangel6370 [address] RoadDublin [place] [id number] Chloride [Moles/Vol] 104 mmol/L Normal 96-106 Comp rehensive Internal Medicine; [facility] Work Phone: Comment on above: PATIENT WAS FASTINGP ERFORMED BY: CARL Rangel6[address] RoadDublin [place] [id number] CO2 [Moles/Vol] 28 mmol/L Normal 20-29 [facility] Internal Medicine; [facility] Work Phone: Comment on above: PATIENT WAS FASTINGP ERFORMED BY: CARL Rangel6370 [address] RoadGuevarablin [place] [id number] Creatinine [Mass/Vol] 1.01 mg/dL Normal 0.76-1.27 [facility] prehensive Internal Medicine; [facility] Work Phone: Comment on above: PATIENT WAS FASTINGP ERFORMED BY: CARL Sanchezlin[address] RoadDublin [place] [id number] GFR/1.73 sq M.predicted among blacks CKD-EPI (S/P/Bld) [Vol rate/Area] 91 mL/min/1.73 Normal [facility]; [facility] Work Phone: Comment on above: In accordance with recommendations from the NKF-ASN Task force, María is in the process of updating its eGFR calculation to the 2020 CKD-EPI creatinine equation that estimates kidney function without a race variable. PATIENT WAS FASTINGP ERFORMED BY: CARL Rangel6[address] [id number] GFR/1.73 sq M.predicted among non-blacks CKD-EPI (S/P/Bld) [Vol rate/Area] 79 mL/min/1.73 Normal [facility]; [facility] Work Phone: Comment on above: PATIENT WAS FASTINGP ERFORMED BY: CARL Rangel6370 [facility] [id number] Globulin (S) [Mass/Vol] 2.2 g/dL Normal 1.5-4.5 C ompohiohealth grant medical centerensive Internal Medicine; [facility] Work Phone: Comment on above: PATIENT WAS FASTINGP ERFORMED BY: CARL Rangel6370 [facility] [id number] Glucose [Mass/Vol] 108 mg/dL Abnormal 65-99 [facility]; [facility] Work Phone: Comment on above: PATIENT WAS FASTINGP ERFORMED BY: CARL Rangel6370 [facility] [id number] Potassium [Moles/Vol] 4.4 mmol/L Normal 3.5-5.2 [facility]; [facility] Work Phone: Comment on above: PATIENT WAS FASTINGP ERFORMED BY: CARL Sanchezlin6370 [facility] [id number] Protein [Mass/Vol] 6.4 g/dL Normal 6.0-8.5 [facility] Internal Medicine; [facility] Work Phone: Comment on above: PATIENT WAS FASTINGP ERFORMED BY: CARL Sanchezlin6370 [facility] [id number] Sodium [Moles/Vol] 143 mmol/L Normal 134-144 [facility] center[facility]; [facility] Work Phone: Comment on above: PATIENT WAS FASTINGP ERFORMED BY: CARL Sanchezlin6370 [address] Roadblin [place] [id number] Urea nitrogen [Mass/Vol] 19 mg/dL Normal 8-27 [facility]; [facility] Work Phone: Comment on above: PATIENT WAS FASTINGP ERFORMED BY: [facility] Fporvs6072 [address] RoadDublin [place] [id number] Urea nitrogen/Creatinine [Mass ratio] 19 mg/mg Normal 10-24 [facility]; [facility] Work Phone: Comment on above: PATIENT WAS FASTINGP ERFORMED BY: [facility] Tiyfps3643 Gilbert RoadDublin [place] [id number] CALCIFEDIOL (35164)Ordered B y: Slot Floor Supervisor on 05-05-2021 25-hydroxyvitamin D [Mass/Vol] 58.8 ng/mL Normal 30.0-100.0 [facility]; [facility] Work Phone: Comment on above: Vitamin D deficiency has been defined by the [place] ofMedicine and an Endocrine Society practice guideline as alevel of serum 25-OH vitamin D less than 20 ng/mL (1,2).The Endocrine Society went on to further define vitamin Dinsufficiency as a level between 21 and 29 ng/mL (2).1. IOM ([place] of Medicine). 2010. Dietary reference intakes for calcium and D. [place]: The National Academies Press.2. Bharti MF, Cholo NC, Tung THOMSON, et al. Evaluation, treatment, and prevention of vitamin D deficiency: an Endocrine Society clinical practice guideline. JCEM. 2010; 96(7):1911-30. PATIENT WAS FASTINGP ERFORMED BY: [facility] Qtpfkc4576 [facility] [place] [id number] LDH (LD) (LACTATE DEHYDROGEN ASE) (38316)Ordered By: Slot Floor Supervisor on 05-05-2021 LDH [Catalytic activity/Vol] 204 U/L Normal 121-224 [facility]; [facility] Work Phone: Comment on above: PATIENT WAS FASTINGP ERFORMED BY: [facility] Ergvtg3557 [facility] HospitalD[facility] [place] [id number] LIPID PANEL (51811)Ordered B y: Slot Floor Supervisor on 05-05-2021 Cholesterol [Mass/Vol] 187 mg/dL Normal 100-199 [facility]; [facility] Work Phone: Comment on above: PATIENT WAS FASTINGP ERFORMED BY: CARL [facility] Vyyorg9979 [facility] [place] [id number] Information: ADD AIC 961911 Cholesterol in HDL [Mass/Vol] 42 mg/dL Normal [facility]; [facility] Work Phone: Comment on above: PATIENT WAS FASTINGP ERFORMED BY: CB [facility] Fdaecx6164 Gilbert RoadDavis Regional Medical Centerin [place] [id number] Information: ADD AIC 011466 Triglyceride [Mass/Vol] 63 mg/dL Normal 0-149 C [facility]; [facility] Work Phone: Comment on above: PATIENT WAS FASTINGP ERFORMED BY: [facility] Oonsbx5186 [facility] [id number] Information: ADD AIC 043869 LIPID PANEL (40951) 12 mg/dL Normal 5-40 Compr ensive Internal Medicine; [facility] Work Phone: Comment on above: PATIENT WAS FASTINGP ERFORMED BY: [facility] Thaunr2595 [facility] [id number] Information: ADD AIC 990743 LIPID PANEL (32134) 133 mg/dL Abnormal 0-99 Compr ensive Internal Medicine; [facility] Work Phone: Comment on above: PATIENT WAS FASTINGP ERFORMED BY: [facility] Lxrzkf4609 [facility]in [place] [id number] Information: ADD AIC 008125 LIPID PANEL (15054) 3.2 {ratio} Normal 0.0-3.6 Comp [facility]erensive [facility]; [facility] Work Phone: Comment on above: LDL/HDL Ratio Men Wo men 1/2 Avg.Risk 1.0 1.5 Avg.Risk 3.6 3.2 2X Avg.Risk 6.2 5.0 3X Avg.Risk 8.0 6.1 PATIENT WAS FASTINGP ERFORMED BY: CB [facility] Tsnvni3721 [address] [employer] En[employer]bl[employer] [place] [id number] Information: ADD PALMER 348003 HgA1C , Office (23921)Ordere d By: Steve Mills on 02-08-2021 HbA1c (Bld) [Mass fraction] 5.3 % Normal 4.6 - 7.1 [facility]; [facility] Work Phone: ALKALINE PHOSPHATASE-ISOENZY M (32071)Ordered By: Slot Floor Supervisor on 02-01-2021 ALP [Catalytic activity/Vol] 115 U/L Normal 48-121 [facility]; [facility] Work Phone: Comment on above: Please note refere nce interval change PATIENT NOT FASTINGP ERFORMED BY: CB [facility] Pbctkx0673 [place] [employer] [place] [id number] ALP Bone [Catalytic fraction] 27 % Normal 12-68 [facility]; [facility] Work Phone: Comment on above: PATIENT NOT FASTINGP ERFORMED BY: CB [facility] Saatzs6137 [address] [employer] [place] [id number] ALP Intest [Catalytic fraction] 23 % Abnormal [...] mucosal lesion. PATIENT NOT FASTINGP ERFORMED BY: CB [facility] Hkzogk1886 Gilbert BellyDublin [place] [id number] ALP Liver [Catalytic fraction] 51 % Normal 13-88 [facility]; [facility] Work Phone: Comment on above: PATIENT NOT FASTINGP ERFORMED BY: BreakerGerald [facility] Regional Medical CenterAbnzkf0677 [facility] [id number] LDH (LD) (LACTATE DEHYDROGEN ASE) (20271)Ordered By: Slot Floor Supervisor on 02-01-2021 LDH [Catalytic activity/Vol] 245 U/L Abnormal 121-224 [facility]; [facility] Work Phone: Comment on above: PATIENT NOT FASTINGP ERFORMED BY: Breaker Wuwuen7062 [facility] [id number] CALCIFEDIOL (97824)Ordered B y: Slot Floor Supervisor on 01-26-2021 25-hydroxyvitamin D [Mass/Vol] 9.5 ng/mL Abnormal 30.0-100.0 [facility]; [facility] Work Phone: Comment on above: Vitamin D deficiency has been defined by the [place] ofMain Campus Medical Centercine and an Endocrine Society practice guideline as alevel of serum 25-OH vitamin D less than 20 ng/mL (1,2).The Endocrine Society went on to further define vitamin Dinsufficiency as a level between 21 and 29 ng/mL (2).1. IOM ([place] of Medicine). 2010. Dietary reference intakes for calcium and D. [place]: The National Academies Press.2. Bharti MF, Cholo CHRISTY, Tung THOMSON, et al. Evaluation, treatment, and prevention of vitamin D deficiency: an Endocrine Society clinical practice guideline. JCEM. 2010; 96(7):1911-30. PATIENT WAS FASTINGP ERFORMED BY: BreakerHunterdon Medical CenterXojrdf7761 [facility] [id number] BY: [place] 485877 [facility] [id number] CBC, Platelets & Auto Diff ( 38444)Ordered By: Slot Floor Supervisor on 01-26-2021 Basophils (Bld) [#/Vol] 0.1 10*3/uL Normal 0.0-0.2 [facility]; [facility] Work Phone: Comment on above: PATIENT WAS FASTINGP ERFORMED BY: [facility] Vusapm3582 Gilbert RoadDublin [place] [id number] BY: Lab[address] [id number] Basophils/100 WBC (Bld) 1 % Normal C omprehensive Internal Medicine; [facility] Work Phone: Comment on above: PATIENT WAS FASTINGP ERFORMED BY: CARL [facility] Sgelpa3814 Gilbert RoadDublin [place] [id number] BY: LabCo[address] [id number] Eosinophils (Bld) [#/Vol] 0.3 10*3/uL Normal 0.0-0.4 [facility]; [facility] Work Phone: Comment on above: PATIENT WAS FASTINGP ERFORMED BY: CARL [facility] Ihfuun9521 Gilbert RoadDuin [place] [id number] BY: Lab[address] [id number] Eosinophils/100 WBC (Bld) 5 % Normal [facility]; [facility] Work Phone: Comment on above: PATIENT WAS FASTINGP ERFORMED BY: CARL [facility] Ozpiwv2134 Gilbert RoadUNC Health [id number] BY: Lab[address] [id number] Erythrocyte distribution width (RBC) [Ratio] 12.8 % Normal 11.6-15.4 [facility]; [facility] Work Phone: Comment on above: PATIENT WAS FASTINGP ERFORMED BY: CARL [facility] Qsizfp0954 Gilbert RoadDuin [place] [id number] BY: Lab[address] [id number] Hematocrit (Bld) [Volume fraction] 46.5 % Normal 37.5-51.0 [facility]; [facility] Work Phone: Comment on above: PATIENT WAS FASTINGP ERFORMED BY: CARL [facility] Ochgau3577 [address] RoadDuFormerly [facility] [id number] BY: [address] [id number] Hemoglobin (Bld) [Mass/Vol] 15.3 g/dL Normal 13.0-17.7 [facility]; [facility] Work Phone: Comment on above: PATIENT WAS FASTINGP ERFORMED BY: [facility] Knxksq2285 [facility] [id number] BY: [address] [id number] Immature granulocytes (Bld) [#/Vol] 0.1 10*3/uL Normal 0.0-0.1 [facility]; [facility] Work Phone: Comment on above: PATIENT WAS FASTINGP ERFORMED BY: CARL [facility] Ielrdq1526 [facility] [id number] BY: [address] [id number] Immature granulocytes/100 WBC (Bld) 1 % Normal [facility]; [facility] Work Phone: Comment on above: PATIENT WAS FASTINGP ERFORMED BY: CARL [facility]Rank[facility] Ykcclo4005 [facility] [id number] BY: [address] [id number] Lymphocytes (Bld) [#/Vol] 1.6 10*3/uL Normal 0.7-3.1 [facility]; [facility] Work Phone: Comment on above: PATIENT WAS FASTINGP ERFORMED BY: [facility] Ryopls6740 [facility] [id number] BY: [address] [id number] Lymphocytes/100 WBC (Bld) 23 % Normal [facility]; [facility] Work Phone: Comment on above: PATIENT WAS FASTINGP ERFORMED BY: [facility] Lnowkh7822 [facility] [id number] BY: Storify[address] [id number] MCH (RBC) [Entitic mass] 27.7 pg Normal 26.6-33.0 [facility]; [facility] Work Phone: Comment on above: PATIENT WAS FASTINGP ERFORMED BY: CARL LabCoHunterdon Medical CenterBjrmci0861 [facility] [id number] BY: [address] [id number] MCHC (RBC) [Mass/Vol] 32.9 g/dL Normal 31.5-35.7 [facility] prehensive Internal Medicine; [facility] Work Phone: Comment on above: PATIENT WAS FASTINGP ERFORMED BY: CARL [facility] Npinsd3976 [facility] [id number] BY: [address] [id number] MCV (RBC) [Entitic vol] 84 fL Normal 79-97 C omprehensive Internal Medicine; [facility] Work Phone: Comment on above: PATIENT WAS FASTINGP ERFORMED BY: CARL LabCoHunterdon Medical CenterXlqucz2792 [facility] [id number] BY: [address] [id number] Monocytes (Bld) [#/Vol] 0.5 10*3/uL Normal 0.1-0.9 [facility]; [facility] Work Phone: Comment on above: PATIENT WAS FASTINGP ERFORMED BY: [facility] Khkwjb8203 [facility] [id number] BY: [address] [id number] Monocytes/100 WBC (Bld) 7 % Normal C omprehensive [facility]; [facility] Work Phone: Comment on above: PATIENT WAS FASTINGP ERFORMED BY: CARL [facility] Mvbhyh6308 [facility] [id number] BY: LabCo[address] [id number] Neutrophils (Bld) [#/Vol] 4.5 10*3/uL Normal 1.4-7.0 [facility]; [facility] Work Phone: Comment on above: PATIENT WAS FASTINGP ERFORMED BY: CARL [facility] Benrxz5615 [address] [facility] HospitalDuFormerly [facility] [id number] BY: [facility] [address] [id number] Neutrophils/100 WBC (Bld) 63 % Normal [facility]; [facility] Work Phone: Comment on above: PATIENT WAS FASTINGP ERFORMED BY: CARL [facility] Ysrmpn6099 [facility] [id number] BY: LabCo[address] [id number] Platelets (Bld) [#/Vol] 227 10*3/uL Normal 150-450 [facility]; [facility] Work Phone: Comment on above: PATIENT WAS FASTINGP ERFORMED BY: CARL [facility] Deefai7897 [facility] [id number] BY: [facility] [address] [id number] RBC (Bld) [#/Vol] 5.52 10*6/uL Normal 4.14-5.80 Compr ehtrinity [facility] Internal [facility]; [facility] Work Phone: Comment on above: PATIENT WAS FASTINGP ERFORMED BY: CB [facility] Guytsu7262 [facility] [id number] BY: [facility] [address] [id number] WBC (Bld) [#/Vol] 7.0 10*3/uL Normal 3.4-10.8 Compre [facility]; [facility] Work Phone: Comment on above: PATIENT WAS FASTINGP ERFORMED BY: CB [facility] Rxrddt2987 [facility] [id number] BY: LabCo[address] [id number] LIPID PANEL (30855)Ordered B y: Slot Floor Supervisor on 01-26-2021 Cholesterol [Mass/Vol] 192 mg/dL Normal 100-199 [facility]; [facility] Work Phone: Comment on above: PATIENT WAS FASTINGP ERFORMED BY: CARL [facility] Pjojii5952 Gilbert RoadDublin [place] [id number] BY: [facility] [address] [id number] Cholesterol in HDL [Mass/Vol] 43 mg/dL Normal [facility]; [facility] Work Phone: Comment on above: PATIENT WAS FASTINGP ERFORMED BY: CARL [facility] Naibkv0565 Gilbert RoadDublin [place] [id number] BY: [facility] [address] [id number] Triglyceride [Mass/Vol] 236 mg/dL Abnormal 0-149 C omprehensive Internal Medicine; [facility] Work Phone: Comment on above: PATIENT WAS FASTINGP ERFORMED BY: CARL [facility] Wcdmbu8344 Gilbert RoadDublin [place] [id number] BY: [facility] [address] [id number] LIPID PANEL (87780) 41 mg/dL Abnormal 5-40 Compr ehensive Internal Medicine; [facility] Work Phone: Comment on above: PATIENT WAS FASTINGP ERFORMED BY: CB [facility] Mwcndv4665 Gilbert RoadDublin [place] [id number] BY: [facility] [address] [id number] LIPID PANEL (09137) 108 mg/dL Abnormal 0-99 Compr ehensive Internal Medicine; [facility] Work Phone: Comment on above: PATIENT WAS FASTINGP ERFORMED BY: CB [facility] Ailaox2161 Gilbert RoadDublin [place] [id number] BY: SingOn Dpnyjfedto9037 [facility] [id number] LIPID PANEL (53609) 2.5 {ratio} Normal 0.0-3.[address] [facility] Internal Medicine; [facility] Work Phone: Comment on above: LDL/HDL Ratio Men Wo men 1/2 Avg.Risk 1.0 1.5 Avg.Risk 3.6 3.2 2X Avg.Risk 6.2 5.0 3X Avg.Risk 8.0 6.1 PATIENT WAS FASTINGP ERFORMED BY: [employer]70 [facility] [id number] BY: SingOn [address] [id number] Metabolic Panel, Comprehensi ve (94497)Ordered By: Slot Floor Supervisor on 01-26-2021 Albumin [Mass/Vol] 4.2 g/dL Normal 3.8-4.8 [facility] Internal Medicine; [facility] Work Phone: Comment on above: PATIENT WAS FASTINGP ERFORMED BY: S[employer]6370 [facility] [id number] BY: SingOn [address] [id number] Albumin/Globulin [Mass ratio] 1.8 {ratio} Normal 1.2-2.2 [facility]; [facility] Work Phone: Comment on above: PATIENT WAS FASTINGP ERFORMED BY: [employer]6370 [facility] [id number] BY: Breaker[address] [id number] ALP [Catalytic activity/Vol] 135 U/L Abnormal 39-117 [...] - 121 PATIENT WAS FASTINGP ERFORMED BY: [employer] Rmxmfj6124 [facility] [id number] BY: Breaker[address] [id number] ALT [Catalytic activity/Vol] 16 U/L Normal 0-44 [facility]; [facility] Work Phone: Comment on above: PATIENT WAS FASTINGP ERFORMED BY: [employer]6370 [facility] [id number] BY: Breaker[address] [id number] AST [Catalytic activity/Vol] 17 U/L Normal 0-40 [facility]; [facility] Work Phone: Comment on above: PATIENT WAS FASTINGP ERFORMED BY: [employer] Uemfzl2064 [facility] [id number] BY: Breaker[address] [id number] Bilirubin [Mass/Vol] 0.3 mg/dL Normal 0.0-1.2 Comp rehensive Internal Medicine; [facility] Work Phone: Comment on above: PATIENT WAS FASTINGP ERFORMED BY: DataStaxrp Aryaxe0002 [facility] [id number] BY: Storify[address] [id number] Calcium [Mass/Vol] 9.1 mg/dL Normal 8.6-10.2 [facility] Internal [facility]; [facility] Work Phone: Comment on above: PATIENT WAS FASTINGP ERFORMED BY: [facility] Dkrqpx7575 [facility] [id number] BY: LabCo[address] [id number] Chloride [Moles/Vol] 103 mmol/L Normal 96-106 [facility] rehensive Internal Medicine; [facility] Work Phone: Comment on above: PATIENT WAS FASTINGP ERFORMED BY: CB [facility] Sbwmjr1276 [facility] [id number] BY: LabCo[address] [id number] CO2 [Moles/Vol] 25 mmol/L Normal 20-29 [facility] Internal Medicine; [facility] Work Phone: Comment on above: PATIENT WAS FASTINGP ERFORMED BY: [facility] Wouozc9671 [facility] [id number] BY: LabCo[address] [id number] Creatinine [Mass/Vol] 1.04 mg/dL Normal 0.76-1.27 [facility] prehensive Internal Medicine; [facility] Work Phone: Comment on above: PATIENT WAS FASTINGP ERFORMED BY: [facility] Eigrds2935 [facility] [id number] BY: LabCo[address] [id number] GFR/1.73 sq M.predicted among blacks CKD-EPI (S/P/Bld) [Vol rate/Area] 89 mL/min/1.73 Normal [facility]; [facility] Work Phone: Comment on above: [facility] currently reports eGFR in compliance with the current recommendations of the National Kidney Foundation. [facility] will update reporting as new guidelines are published from the NKF-ASN Task force. PATIENT WAS FASTINGP ERFORMED BY: [facility] Srvgdr1526 [facility] [id number] BY: LabCo[address] [id number] GFR/1.73 sq M.predicted among non-blacks CKD-EPI (S/P/Bld) [Vol rate/Area] 77 mL/min/1.73 Normal [facility]; [facility] Work Phone: Comment on above: PATIENT WAS FASTINGP ERFORMED BY: Labslinkset Xlaaji8395 [facility] [id number] BY: Breaker[address] [id number] Globulin (S) [Mass/Vol] 2.3 g/dL Normal 1.5-4.5 C omprehensive Internal Medicine; [facility] Work Phone: Comment on above: PATIENT WAS FASTINGP ERFORMED BY: Labslinkset Liootl0890 [facility] [id number] BY: Breaker[address] [id number] Glucose [Mass/Vol] 117 mg/dL Abnormal 65-99 [facility]; [facility] Work Phone: Comment on above: PATIENT WAS FASTINGP ERFORMED BY: Labslinkset Fttprf1303 [facility] [id number] BY: Breaker[address] [id number] Potassium [Moles/Vol] 4.9 mmol/L Normal 3.5-5.2 [facility]; [facility] Work Phone: Comment on above: PATIENT WAS FASTINGP ERFORMED BY: Labslinkset Mqjfcx2329 [facility] [id number] BY: Storify[address] [id number] Protein [Mass/Vol] 6.5 g/dL Normal 6.0-8.5 [facility] centerive [facility]; [facility] Work Phone: Comment on above: PATIENT WAS FASTINGP ERFORMED BY: [facility]6370 [facility] [id number] BY: [address] [id number] Sodium [Moles/Vol] 140 mmol/L Normal 134-144 [facility] Internal Medicine; [facility] Work Phone: Comment on above: PATIENT WAS FASTINGP ERFORMED BY: [facility] Gwrvok9650 [facility] [id number] BY: Lab[address] [id number] Urea nitrogen [Mass/Vol] 18 mg/dL Normal 8-27 [facility]; [facility] Work Phone: Comment on above: PATIENT WAS FASTINGP ERFORMED BY: [facility] Fijpek2328 [facility] [id number] BY: [address] [id number] Urea nitrogen/Creatinine [Mass ratio] 17 mg/mg Normal 10-24 [facility]; [facility] Work Phone: Comment on above: PATIENT WAS FASTINGP ERFORMED BY: [facility] Xjkfwd6902 [facility] [id number] BY: Lab[address] [id number] PSA (PROSTATE SPECIFIC ANTIG EN) (V76.44)Ordered By: Slot Floor Supervisor on 01-26-2021 Prostate specific Ag [Mass/Vol] 0.8 ng/mL Normal 0.0-4.0 [facility]; [facility] Work Phone: Comment on above: Jorge A ECLIA methodol ogy. .According to the [place] [employer], Serum PSA shoulddecrease and remain [...] malignant disease. PATIENT WAS FASTINGP ERFORMED BY: [employer] LabGameSkinny Ocfuxu1172 [facility] [id number] BY: Breaker[address] [id number] TESTOSTERONE ,TOT/FREE 78618 (03208)Ordered By: Slot Floor Supervisor on 01-26-2021 Testosterone [Mass/Vol] 576 ng/dL Normal 264-916 C omprehensive Internal Medicine; [facility] Work Phone: Comment on above: Adult male reference interval is based on a population ofhealthy nonobese males (BMI <30) between 19 and 39 years old.Fernando et.al. JCEM 2017,102;9793-5128. PMID: 43494763. Please note reference interval change PATIENT WAS FASTINGP ERFORMED BY: [employer] Oskgbl5786 [facility] [id number] BY: SingOn [address] [id number] Testosterone Free [Mass/Vol] 9.2 pg/mL Normal 6.6-18.1 [facility]; [facility] Work Phone: Comment on above: PATIENT WAS FASTINGP ERFORMED BY: [employer] Labslinksetrp Xuvqqt6952 [facility] [id number] BY: SingOn [address] [id number] TSH (THYROID STIMULATING HOR SHASTA) (38052)Ordered By: Slot Floor Supervisor on 01-26-2021 TSH Qn 1.320 {uIU/mL} Normal 0.450-4.500 [facility] Internal Medicine; [facility] Work Phone: Comment on above: PATIENT WAS FASTINGP ERFORMED BY: [employer] Labslinksetrp Rqhtmh2832 [facility] [id number] BY: MENA360 [address] [id number] URIC ACID BLOOD (18797)Order ed By: Slot Floor Supervisor on 01-26-2021 Urate [Mass/Vol] 5.3 mg/dL Normal 3.8-8.4 Comprehe nsive Internal Medicine; [facility] Work Phone: Comment on above: Therapeutic target f or gout patients: <6.0 PATIENT WAS FASTINGP ERFORMED BY: [employer]70 [facility] [id number] BY: SingOn [address] [id number] VITAMIN B12 AND FOLATES (826 07)Ordered By: Slot Floor Supervisor on 01-26-2021 Cobalamin (Vitamin B12) [Mass/Vol] 233 pg/mL Normal 232-1245 [facility]; [facility] Work Phone: Comment on above: PATIENT WAS FASTINGP ERFORMED BY: [employer]70 [facility] [id number] BY: SingOn [address] [id number] Folate [Mass/Vol] 10.9 ng/mL Normal Compreh ensive Internal Medicine; [facility] Work Phone: Comment on above: A serum folate lexi ntration of less than 3.1 ng/mL isconsidered to represent clinical deficiency. PATIENT WAS FASTINGP ERFORMED BY: CARL [employer] [facility] [id number] BY: [employer] [address] [id number] Vital Signs Date Time Vital Sign Value Performing Clinician Facility 04-15-2025 08:00-0400 Body height 184.15 cm Santy COLUNGA Work Phone: [facility] 04-15-2025 08:00-0400 Body mass index (BMI) [Ratio] 27.4 kg/m2 Santy COLUNGA Work Phone: [facility] 04-15-2025 08:00-0400 Body temperature 98.6 [degF] Santy COLUNGA Work Phone: [facility] 04-15-2025 08:00-0400 Body weight 92.98 kg Santy Daniel MUSICAL INSTRUMENT MAKER-C Work Phone: [facility] 04-15-2025 08:00-0400 Diastolic blood pressure 83 mm[Hg] Santy Barbosaam MUSICAL INSTRUMENT MAKER-C Work Phone: [facility] 04-15-2025 08:00-0400 Heart rate 65 /min Santy Barbosaam MUSICAL INSTRUMENT MAKER-C Work Phone: [facility] 04-15-2025 08:00-0400 Respiratory rate 15 /min Santy Barbosaam MUSICAL INSTRUMENT MAKER-C Work Phone: [facility] 04-15-2025 08:00-0400 SaO2% (BldA) [Mass fraction] 97 % Santy Barbosaam MUSICAL INSTRUMENT MAKER-C Work Phone: [facility] 04-15-2025 08:00-0400 Systolic blood pressure 134 mm[Hg] Santy Barbosaam MUSICAL INSTRUMENT MAKER-C Work Phone: [facility] 11-06-2024 14:13-0500 Body height 184.15 cm Santy Barbosaam MUSICAL INSTRUMENT MAKER-C Work Phone: [facility] 11-06-2024 14:13-0500 Body mass index (BMI) [Ratio] 27.5 kg/m2 Santy Barbosaam MUSICAL INSTRUMENT MAKER-C Work Phone: [facility] 11-06-2024 14:13-0500 Body temperature 98 [degF] Santy Barbosaam MUSICAL INSTRUMENT MAKER-C Work Phone: [facility] 11-06-2024 14:13-0500 Body weight 93.44 kg Santy Barbosaam MUSICAL INSTRUMENT MAKER-C Work Phone: [facility] 11-06-2024 14:13-0500 Diastolic blood pressure 82 mm[Hg] Santy Barbosaam MUSICAL INSTRUMENT MAKER-C Work Phone: [facility] 11-06-2024 14:13-0500 Heart rate 86 /min Santy Barbosaam MUSICAL INSTRUMENT MAKER-C Work Phone: [facility] 11-06-2024 14:13-0500 Respiratory rate 16 /min Santy Sanchez MUSICAL INSTRUMENT MAKER-C Work Phone: [facility] 11-06-2024 14:13-0500 SaO2% (BldA) [Mass fraction] 98 % Snaty Sanchez MUSICAL INSTRUMENT MAKER-C Work Phone: [facility] 11-06-2024 14:13-0500 Systolic blood pressure 126 mm[Hg] Santy Sanchez MUSICAL INSTRUMENT MAKER-C Work Phone: [facility] 10-03-2022 08:31-0500 Body height 187.96 cm Christelle Slarb UNDERWRITING CLERK [facility] Work Phone: 10-03-2022 08:31-0500 Body mass index (BMI) [Ratio] 29.14 kg/m2 Christelle Slarb UNDERWRITING CLERK [facility] Work Phone: 10-03-2022 08:31-0500 Body surface area Derived from formula 2.29 m2 Christelle Trentonrb UNDERWRITING CLERK [facility] Work Phone: 10-03-2022 08:31-0500 Body temperature 97.8 [degF] Christelle Slarb UNDERWRITING CLERK [facility] Work Phone: Comment on above: Method: Temporal 10-03-2022 08:31-0500 Body weight 102.97 kg Christelle Trentonrb UNDERWRITING CLERK [facility] Work Phone: 10-03-2022 08:31-0500 Diastolic blood pressure 80 mm[Hg] Christelle Slarb UNDERWRITING CLERK [facility] Work Phone: Comment on above: Patient Position: Sitting; Cuff Location : Left Arm; Cuff Size: Standard 10-03-2022 08:31-0500 Heart rate 80 /min Chrsitelle Slarb UNDERWRITING CLERK [facility] Work Phone: Comment on above: Pattern: Regular 10-03-2022 08:31-0500 Respiratory rate 17 /min Christelle Slarb UNDERWRITING CLERK [facility] Work Phone: Comment on above: Pattern: Unlabored 10-03-2022 08:31-0500 SaO2% (BldA) [Mass fraction] 98 % Christelle Slarb UNDERWRITING CLERK [facility] Work Phone: Comment on above: Room air 10-03-2022 08:31-0500 Systolic blood pressure 142 mm[Hg] Christelle Slarb UNDERWRITING CLERK [facility] Work Phone: Comment on above: Patient Position: Sitting; Cuff Location : Left Arm; Cuff Size: Standard 03-24-2022 07:17-0400 Body height 187.96 cm Christelle Slarb UNDERWRITING CLERK [facility] Work Phone: 03-24-2022 07:17-0400 Body mass index (BMI) [Ratio] 28.42 kg/m2 Christelle Slarb UNDERWRITING CLERK [facility] Work Phone: 03-24-2022 07:17-0400 Body surface area Derived from formula 2.27 m2 Christelle Slarb UNDERWRITING CLERK [facility] Work Phone: 03-24-2022 07:17-0400 Body temperature 97.1 [degF] Christelle Slarb UNDERWRITING CLERK [facility] Work Phone: 03-24-2022 07:17-0400 Body weight 100.42 kg Christelle Slarb UNDERWRITING CLERK [facility] Work Phone: 03-24-2022 07:17-0400 Diastolic blood pressure 82 mm[Hg] Christelle Slarb UNDERWRITING CLERK [facility] Work Phone: Comment on above: Patient Position: Sitting; Cuff Location : Left Arm; Cuff Size: Standard 03-24-2022 07:17-0400 Heart rate 76 /min Christelle Slarb UNDERWRITING CLERK [facility] Work Phone: Comment on above: Pattern: Regular 03-24-2022 07:17-0400 Respiratory rate 16 /min Christelle Slarb UNDERWRITING CLERK [facility] Work Phone: Comment on above: Pattern: Unlabored 03-24-2022 07:17-0400 SaO2% (BldA) [Mass fraction] 97 % Christelle Monge LPN [facility] Work Phone: Comment on above: Room air 03-24-2022 07:17-0400 Systolic blood pressure 132 mm[Hg] Christelle Monge LPN [facility] Work Phone: Comment on above: Patient Position: Sitting; Cuff Location : Left Arm; Cuff Size: Standard 12-17-2021 16:34-0400 Body height 187.96 cm [facility] Work Phone: 12-17-2021 16:34-0400 Body mass index (BMI) [Ratio] 28 kg/m2 [facility] Work Phone: 12-17-2021 16:34-0400 Body temperature 96 [degF] [facility] Work Phone: 12-17-2021 16:34-0400 Body weight 98.88 kg [facility] Work Phone: 12-17-2021 16:34-0400 Diastolic blood pressure 95 mm[Hg] [facility] Work Phone: 12-17-2021 16:34-0400 Heart rate 66 /min [facility] Work Phone: 12-17-2021 16:34-0400 Respiratory rate 18 /min [facility] Work Phone: 12-17-2021 16:34-0400 SaO2% (BldA) [Mass fraction] 95 % [facility] Work Phone: 12-17-2021 16:34-0400 Systolic blood pressure 132 mm[Hg] [facility] Work Phone: 11-03-2021 07:21-0500 Body height 187.96 cm SHOLA Michel LPN [...] Standard 11-03-2021 07:21-0500 Heart rate 74 /min SHOLA Michel LPN [facility] Work Phone: Comment on above: Pattern: Regular 11-03-2021 07:21-0500 Respiratory rate 20 /min SHOLA Michel CINTHIA [facility]; [facility] Work Phone: Comment on above: Pattern: Unlabored 11-03-2021 07:21-0500 SaO2% (BldA) [Mass fraction] 98 % SHOLADICK [...] surface area Derived from formula 2.24 m2 Stvee Mills LPN [facility] [...] Body mass index (BMI) [Ratio] 28.12 kg/m2 SHOLA Michel LPN [facility]; [facility] [...] 07-27-2021 08:46-0500 Diastolic blood pressure 74 mm[Hg] SHOLA Michel LPN [facility] Work Phone: Comment on above: Patient Position: Sitting; Cuff Location : Left Arm; Cuff Size: Standard 07-27-2021 08:46-0500 Heart rate 78 /min SHOLADICK Michel LPN [facility]; [...] area Derived from formula 2.25 m2 Sinai Orr CINTHIA [facility] Work Phone: 05-17-2021 08:07-0400 Body temperature 97.3 [degF] Sinai Orr CINTHIA [facility] Work Phone: Comment on above: Method: Temporal 05-17-2021 08:07-0400 Body weight 98.49 kg Sinai Orr CINTHIA [facility] Work Phone: 05-17-2021 08:07-0400 Diastolic blood pressure 90 mm[Hg] Sinaijabari Orr LPN [facility]; [facility] Work Phone: Comment on above: Patient Position: Sitting; Cuff Location : Left Arm; Cuff Size: Standard 05-17-2021 08:07-0400 Heart rate 61 /min Sinai Orr LPN [facility]; [facility] Work Phone: Comment on above: Pattern: Regular 05-17-2021 08:07-0400 Respiratory rate 16 /min Sinai Jackarsenio VICENTE [facility] Work Phone: Comment on above: Pattern: Unlabored 05-17-2021 08:07-0400 SaO2% (BldA) [Mass fraction] 97 % Sinai Orr CINTHIA [facility] Work Phone: Comment on above: Room air 05-17-2021 08:07-0400 Systolic blood pressure 110 mm[Hg] Sinai Orr CINTHIA [facility] [...] Date Encounter Type Care Provider Facility Start: 05-04-2025 Encounter for genera l adult medical examination without abnormal findings Alcides Ramey [facility] Start: 04-27-2025 End: 04-27-2025 ambulatory Santy Sanchez MUSICAL INSTRUMENT MAKER-C Work Phone: [facility] [place] Start: 04-27-2025 End: 04-27-[address] Alcides Ramey MD -[facility] [place] Work Phone: Start: 04-27-2025 End: 04-27-2025 ambulatory Alcides Ramey Facility:[facility] Start: 04-15-2025 End: 04-15-[address] Alcides Ramey MD -[facility] Work Phone: Start: 04-15-2025 End: 04-15-2025 ambulatory Santy Sanchez MUSICAL INSTRUMENT MAKER-C Work Phone: -[facility] Start: 01-30-2025 ambulatory Santy Sanchez Facility :[facility] Start: 01-30-2025 Registered Recurring Santy Sanchez MUSICAL INSTRUMENT MAKER-C -Physical Therapy Work Phone: Start: 01-02-2025 End: 01-02-[address] Richmond Curtis MD -[facility] Start: 01-02-2025 End: 01-02-2025 ambulatory Richmond Curtis Facility:[facility] Start: 11-14-2024 End: 11-14-2024 ambulatory Santy Daniel MUSICAL INSTRUMENT MAKER-C Work Phone: [facility] Work Phone: Start: 11-14-2024 End: 11-14-[address] Sinai Omalley MD -Laboratory Work Phone: Start: 11-14-2024 End: 11-14-2024 ambulatory Santy Barbosaam Facility:[facility] Start: 11-06-2024 End: 11-06-[address] Alcides Ramey MD -[facility] Work Phone: Start: 11-06-2024 End: 11-06-2024 ambulatory Alcides Ramey Facility:[facility] Start: 07-16-2024 End: 07-16-2024 ambulatory Santy Sanchez Facility:[facility] Start: 04-03-2023 End: 04-05-2023 Patient encounter procedure Santy Sanchez CNP Work Phone: [facility] Start: 03-01-2023 End: 03-01-2023 ambulatory [facility] Work Phone: Start: 03-01-2023 End: 03-01-2023 Patient encounter procedure [facility] Start: 01-15-2023 End: 01-15-2023 ambulatory ANT SAVANNAH Facility:[facility] Start: 01-15-2023 End: 01-15-2023 Patient encounter procedure Ant Mosquera MD Work Phone: Orthopaedics Comment on above: Ganglion and cyst of synovium, tendon, and bursa (Primary Dx) Start: 12-18-2022 End: 12-18-2022 ambulatory SANTY SANCHEZ Facility:[facility] Start: 12-18-2022 End: 12-18-2022 Patient encounter procedure Bernice Basilio PA-C Work Phone: Orthopaedics Comment on above: Ganglion and cyst of synovium, tendon, and bursa (Primary Dx) Start: 12-06-2022 End: 12-06-2022 ambulatory ANT MOSUQERA Facility:[facility] Start: 11-22-2022 End: 11-22-2022 Annotation/Addendum Santy Sanchez CNP Work Phone: [facility] Start: 11-01-2022 Telephone encounter Ant villasenor MD Work Phone: Orthopaedics Comment on above: Schedule Surgery Start: 10-26-2022 End: 10-26-2022 ambulatory ANT EVELINE Facility:[facility] Start: 10-03-2022 ambulatory Santy Sanchez CNP [facility] Start: 10-03-2022 End: 10-03-2022 Office outpatient visit 25 minutes Santy Sanchez CNP Work Phone: [facility] Start: 10-03-2022 Review Santy Sanchez CNP Work Phone: [facility] Start: 04-05-2022 End: 04-05-2022 Phone Encounter Santy Sanchez CNP Work Phone: [facility] Start: 03-24-2022 End: 03-24-2022 Office outpatient visit 25 minutes Santy Sanchez 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 Work Phone: [facility] Start: 03-24-2022 Review Fabiana Alexandraens [facility] Start: 12-17-2021 End: 12-17-2021 Emergency department patient visit [facility] Start: 11-15-2021 End: 11-15-2021 Annotation/Addendum 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 Work Phone: [facility] Start: 11-03-2021 End: 11-06-2021 Office outpatient visit 25 minutes 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 Work Phone: [facility] Start: 11-03-2021 Review 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 Work Phone: [facility] Start: 10-28-2021 End: 11-06-2021 Office outpatient visit 25 minutes 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 Work Phone: [facility] Start: 10-28-2021 Review 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 Work Phone: [facility] Start: 10-11-2021 End: 10-11-2021 Annotation/Addendum 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 Work Phone: [facility] Start: 08-26-2021 End: 08-26-2021 Office outpatient visit 15 minutes 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 Work Phone: [facility] Start: 07-28-2021 End: 07-28-2021 Annotation/Addendum 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 Work Phone: [facility] Start: 07-27-2021 End: 07-27-2021 Office outpatient visit 25 minutes 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 Work Phone: [facility] Start: 06-28-2021 End: 06-28-2021 Annotation/Addendum 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 Work Phone: [facility] Start: 05-17-2021 End: 05-17-2021 Office outpatient visit 25 minutes 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 Work Phone: [facility] Start: 05-06-2021 End: 05-06-2021 Annotation/Addendum 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 Work Phone: [facility] Start: 03-01-2021 End: 03-01-2021 Office outpatient visit 5 minutes 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 Work Phone: [facility] Start: 02-22-2021 End: 02-22-2021 Office outpatient visit 5 minutes 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 Work Phone: [facility] Start: 02-15-2021 End: 02-15-2021 Office outpatient visit 5 minutes 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 Work Phone: [facility] Start: 02-09-2021 End: 02-09-2021 Annotation/Addendum 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 Work Phone: [facility] Start: 02-08-2021 End: 02-08-2021 Office outpatient visit 25 minutes 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 Work Phone: [facility] Start: 02-01-2021 End: 02-01-2021 Office outpatient visit 5 minutes 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 Work Phone: [facility] Start: 01-30-2021 End: 01-30-2021 Annotation/Addendum 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 CNP Work Phone: [facility] Start: 01-25-2021 End: 01-25-2021 Office outpatient new 45 minutes 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 Work Phone: [facility] Procedures Date Procedure Procedure Detail Performing Clinician Start: 01-02-2025 X-ray of lumbosacral spine Santy Sanchez NP-C Work Phone: Start: 12-26-2021 End: 12-26-2021 Urgent Care Visit Report Comments: See Note; NOTES: [address] [place] [address] OFFICE VISIT Date of Service: 12/26/21 MR#: [id number] Acct: [id number] Name: JARRETT ROGER #: [id number] : 1960 Provider: SHELLY masters Age/Sex: 61/M Location: [facility] Status: Signed Intake Vital Signs 12/26/21 09:15 [...] No Known Allergies Allergy (Verified 12/17/21 16:34) [facility] Medical History (Updated 12/26/21 @ 09:52 by Garry BRAVO, PA) Laceration of right ring finger Social History [...] ring finger: Status: Acute Plan - Garry BRAVO, PA: Released w/o restrictions, recommending keeping wound covered for 7 more days. F[facility]u w/ the [facility] on an as needed basis only. Pt states acknowledging understanding all the above. 12/26/21 0955 <Electronically signed by Garry BRAVO> Date Garry BRAVO Cosigner Signature: Date (if applicable) CC: 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 Work Phone: Start: 12-17-2021 End: 12-17-2021 Emergency Department Summary Comments: See Note; NOTES: [facility] Medical Records Department [address] [place] [address] Emergency Department Summary 12/17/21 MR#: [id number] Acct: [id number] Name: JARRETT ROGER Rep #: [id number] : 1960 61 From: Harlan COLUNGA PCP: [...] <CRISTINE Jerez - Last Filed: 12/17/21 17:33> PFSH Home Medications donepezil 5 mg PO QHS [...] Ox 95 Oxygen Delivery Method Room Air [facility] <CRISTINE Jerez - Last Filed: 12/17/21 17:33> [facility] Narrative Medical decision making narrative: Patient appears [...] Boyer MD - Last Filed: 12/17/21 17:48> [facility] Treatment and Re-Evaluation Narrative: Patient [...] 0.39 in Depth: Skin Shape: Flap Prep: Shure-Clens Laceration repair: Lidocaine Irrigated (ml): 500 Number of Sutures/[place]: 3 Suture Information: Ethilon and Simple Comment: [...] (Per your companies wishes) 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 NP, MUSICAL INSTRUMENT MAKER-C [Primary Care Provider] - Activity Restrictions/Additional Instructions: Please keep the area clean and dry, please return for any signs or symptoms of infection Print Language: Cypriot Disposition Disposition: Home, Self Care Discharge Date/Time: 12/17/21 17:38 What to do if you have Problems For any increased pain, shortness of breath, bleeding, nausea or vomiting, chest pain, or any unexpected problems, contact your Primary Care Provider. Call [facility] ([phone]) or report to the closest Emergency Room. Call 911 if necessary. 12/17/21 1733 <Electronically signed by Harlan COLUNGA> Cosigner Signature (if applicable): 12/17/21 1929 <Electronically signed by Shanelle Boyer MD> CC: MUSICAL INSTRUMENT MAKER-C 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 Signed 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 Work Phone: Start: 06-06-2021 End: 06-06-2021 Carotid Duplex Ultrasound Comments: See Note; NOTES: [facility] [address] [place] [address] Carotid Duplex Ultrasound 06/06/21927 MR#: [id number] Acct: [id number] Name: JARRETT ROGER Rep #: [id number] : 1960 61 From: Srinivas Maynard MD Attending Dr: 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, MUSICAL INSTRUMENT MAKER-C Status: REG CLI Ordering Dr: 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 NP MUSICAL INSTRUMENT MAKER-C Date: 06/06/21 Location: [facility] Sex: M C Admitted: Reason [...] the left vertebral artery. Procedure Carotid Duplex 33793. This is a Carotid Duplex examination using [...] Physician: 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 Performed By: Pau Hendricks, MICHAEL, RVT 06/06/21 1155 Date Srinivas Maynard MD CC: MUSICAL INSTRUMENT MAKER-C 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 Date Dictated: 06/06/21927 Date Transcribed: 06/06/21 115 Chief Dispatcher: Signed 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 [facility] Work Phone: Start: 02-16-2021 End: 02-16-2021 Echo Complete Comments: See Note; NOTES: [facility] [address] [place] [address] Echo Complete 02/16/21 1432 MR#: [id number] Acct: [id number] Name: JARRETT ROGER Rep #: [id number] : 1960 60 From: Harlan Marcelo MD Attending Dr: CRISTINE Hayward Status: REG CLI Ordering Dr: 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 NP MUSICAL INSTRUMENT MAKER-C Date: 02/16/21 Location: [facility] Sex: M C Admitted: Reason [...] Referring Physician: 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 Performed By: Marley Parker RDCS, RVT 02/16/21 1722 Date Harlan Marcelo MD CC: MUSICAL INSTRUMENT MAKER-Alfredo Fabiana Debpal Date Dictated: 02/16/21 1432 Date Transcribed: 02/16/21 1722 Chief Dispatcher: Epi Fabiana Martin [place] [facility] Work Phone: Colonoscopy 2017- Dr Jerald Mills UNDERWRITING CLERK Colonoscopy 2017- Dr Jerald Mills UNDERWRITING CLERK Colonoscopy 2017- Dr Jerald Mills UNDERWRITING CLERK Colonoscopy 2017- Dr Jerald Michel UNDERWRITING CLERK Colonoscopy 2017- Dr Jerald Romero NATURAL RESOURCES TECHNICIAN Colonoscopy 2016- Dr Jerald Monge UNDERWRITING CLERK [facility] 1989 approx Steve Mills UNDERWRITING CLERK [facility] 1989 approx Steve Mills UNDERWRITING CLERK K[facility] 1989 approx Steve Mills UNDERWRITING CLERK K[facility] 1989 approx SHOLA Michel UNDERWRITING CLERK [facility] 1989 approx Leoncio Romero NATURAL RESOURCES TECHNICIAN [facility] 1989 approx Christelle Monge UNDERWRITING CLERK Plan of Treatment Date Care Activity Detail Author Start: 05-12-2025 ambulatory Ambulatory Facility:[facility] Start: 04-27-2025 Procedure [facility] Start: 05-18-2023 Influenza vaccination INFLUENZ A (Season Ended) [facility] Start: 10-03-2022 25 hydroxy includes fractions if performed CALCIFEDIOL (80025) [facility] Work Phone: Start: 10-03-2022 Blood count complete auto&auto difrntl wbc CBC W/AUTO DIFF WBC (66169) [facility]; [facility] Work Phone: Start: 10-03-2022 Comprehensive metabo lic panel METABOLIC PANEL, COMPREHENSIVE (84422) [facility]; [facility] Work Phone: Start: 10-03-2022 Cyanocobalamin vitam in b-12 VITAMIN B12 AND FOLATES (69757) [facility]; [facility] Work Phone: Start: 10-03-2022 Lipid panel LIPID PANEL (99641) [facility]; [facility] Work Phone: Start: 10-03-2022 Procedure Education Eprescribe d prescriptions (G8553) [facility]; [facility] Work Phone: Start: 10-03-2022 Provider Instruction s for Treatment Follow up in 6 months [facility]; [facility] Work Phone: Start: 10-03-2022 Urinls dip stick/tab let reagnt non-auto micrscpy URINALYSIS W MICROSCOPY (68646) [facility]; [facility] Work Phone: Start: 09-17-2022 DEPRESSION ASSESSMENT DEPRESSION ASS ESSMENT [facility] Start: 05-18-2022 Influenza vaccination INFLUENZA (#1) [facility] Start: 03-24-2022 Procedure Education Eprescribe d prescriptions (G8553) [facility]; [facility] Work Phone: Start: 03-24-2022 Provider Instruction s for Treatment Follow up in 4 months [facility]; [facility] Work Phone: Start: 03-24-2022 Lipid panel LIPID PANEL (93891) [facility]; [facility] Work Phone: Comment on above: prior to next ov in Jul/aug 2022 Start: 03-24-2022 Assay of thyroid stimulating hormone tsh TSH (THYROID STIMULATING HORMONE) (05853) [facility]; [facility] Work Phone: Start: 03-24-2022 Blood count manual c ell count each CBC with auto diff (95124) [facility]; [facility] Work Phone: Start: 03-24-2022 Comprehensive metabo lic panel METABOLIC PANEL, COMPREHENSIVE (96179) [facility]; [facility] Work Phone: Start: 03-24-2022 Assay of prostate specific antigen total PSA (PROSTATE SPECIFIC ANTIGEN) (20194) [facility]; [facility] Work Phone: Start: 11-06-2021 Provider Instruction s for Treatment Punch Biopsy with Epi [facility]; [facility] Work Phone: Start: 09-18-2021 COVID-19 VACCINE (4 - Booster for Pfizer series) COVID-19 VACCINE (4 - Booster for Pfizer series) [facility] Start: 08-26-2021 Procedure Education Eprescribe d [...] dehydrogenas e ldh LDH (LD) (LACTATE DEHYDROGENASE) (39741) [facility]; [facility] Work Phone: Start: 05-11-2021 Lipid panel LIPID PANEL (35019) [facility]; [facility] Work Phone: Start: 05-11-2021 25 hydroxy includes fractions if performed CALCIFEDIOL (06763) [facility]; [facility] Work Phone: Start: 02-08-2021 Hemoglobin glycosyla denise a1c HGB A1C (49642) [facility]; [facility] Work Phone: Start: 02-08-2021 Procedure Education Eprescribe d prescriptions (G8553) [facility]; [facility] Work Phone: Start: 02-08-2021 Provider Instruction s for Treatment [facility]; [facility] Work Phone: Start: 01-30-2021 Lactate dehydrogenas e ldh LDH (LD) (LACTATE DEHYDROGENASE) (55510) [facility]; [facility] Work Phone: Start: 01-30-2021 Assay of phosphatase alkaline isoenzymes ALKALINE PHOSPHATASE-ISOENZYM (43029) [facility]; [facility] Work Phone: Start: 01-25-2021 Assay of blood/uric acid URIC ACID BLOOD (38468) [facility]; [facility] Work Phone: Start: 01-25-2021 Lipid panel LIPID PANEL (41704) [facility]; [facility] Work Phone: Start: 01-25-2021 Assay of testosteron e free TESTOSTERONE ,TOT/FREE 04742 (03898) [facility]; [facility] Work Phone: Start: 01-25-2021 Assay of prostate specific antigen total PSA (PROSTATE SPECIFIC ANTIGEN) (V76.44) [facility]; [facility] Work Phone: Start: 01-25-2021 Cyanocobalamin vitam in b-12 VITAMIN B12 AND FOLATES (24737) [facility]; [facility] Work Phone: Start: 01-25-2021 25 hydroxy includes fractions if performed CALCIFEDIOL (64856) [facility]; [facility] Work Phone: Start: 01-25-2021 Assay of thyroid stimulating hormone tsh TSH (THYROID STIMULATING HORMONE) (66444) [facility]; [facility] Work Phone: Start: 01-25-2021 Blood count complete auto&auto difrntl wbc CBC, Platelets & Auto Diff (91376) [facility]; [facility] Work Phone: Start: 01-25-2021 Comprehensive metabo lic panel Metabolic Panel, Comprehensive (89432) [facility]; [facility] Work Phone: Start: 01-25-2021 Procedure Education Eprescribe d prescriptions (G8553) [facility]; [facility] Work Phone: Start: 01-25-2021 Provider Instruction s for Treatment [facility]; [facility] Work Phone: Start: 2013 PROSTATE CANCER SCREENING DISCUSSION PROSTATE CANCER SCREENING DISCUSSION [facility] Start: 02-27-2008 SHINGRIX VACCINE (1 of 2) SHINGRIX VACCINE (1 of 2) [facility] Start: 2003 COLOGUARD (FIT-DNA) COLOGUARD (FIT-D NA) [facility] Start: 2003 Colonoscopy COLONOSCOPY [facility] Start: 2003 COLORECTAL CANCER SCREENING COLORECTAL CANCER SCREENING [facility] Start: [address] COLONOGRAPHY [facility] Start: 2003 DIABETES SCREEN DIABETES SCREEN [facility] Start: 2003 FECAL OCCULT BLOOD FECAL OCCULT BLOO D [facility] Start: 2003 SIGMOIDOSCOPY SIGMOIDOSCOPY [facility] Start: 1993 LIPID SCREEN LIPID SCREEN [facility] Start: 1977 Urine microalbumin profile DTAP,TDAP,TD (1 - Tdap) [facility] Start: 02-27-1976 HEPATITIS C SCREENING HEPATITIS C SC REENING [facility] Start: 02-27-1976 HIV SCREENING HIV SCREENING [facility] MR Brain contrast [facility] Patient Education ED Laceration Hand with ... [facility] Work Phone: Patient referral [facility] Work Phone: [facility]; [facility] [...] nternal Medicine; [facility] Work Phone: [facility] Immunization Date Immunization Notes Care Provider Fa enrique 12-17-2021 tetanus toxoid, reduced diphtheria toxoid, and acellular pertussis vaccine, adsorbed [facility] 07-24-2021 COVID-Pfizer (30 MCG/0.3 ML) 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 Work Phone: [facility]; [facility] Work Phone: 06-22-2021 Seasonal, quadrivalent, recombinant, injectable influenza vaccine, preservative free 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 Work Phone: [facility]; [facility] Work Phone: 01-15-2021 COVID-Pfizer (30 MCG/0.3 ML) 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 Work Phone: [facility]; [facility] Work Phone: 12-21-2020 Covid (Pfizer) [facility] 12-21-2020 COVID-19 (Moderna) Fabiana españa 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 Work Phone: [facility]; [facility] Work Phone: 12-16-2020 COVID-Pfizer (30 MCG/0.3 ML) 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 Work Phone: [facility]; [facility] Work Phone: 11-30-2020 Covid (Pfizer) [facility] 11-30-2020 COVID-19 (Moderna) Fabiana españa 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 Work Phone: [facility]; [facility] Work Phone: 07-18-2020 influenza, seasonal, injectable 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 Work Phone: [facility]; [facility] Work Phone: Payers Date Payer Category Payer Private Health Insurance [id number] 2024 Medicare [id number] 2024 Self-pay [id number] 2024 Medicare [id number] 2024 Unknown [id number] 2022 Unknown 2021 Unknown [id number] 2021 Unknown [id number] 1960 Unknown [id number] 2.16.84 [id number] Unknown [id number] 2.16.8 [id number] Unknown [id number] 2.16.8 [id number] Unknown [id number] 2.16.8 [id number] Unknown [id number] 2.16.8 [id number] Unknown [id number] 2.16.8 [id number] Unknown [id number] 2.16.8 [id number] Unknown [id number] 2.16.8 [id number] Unknown [id number] 2.16.8 [id number] Social History Date Type Detail Facility Alcohol Use: Alcohol Use: [facility]; [facility] Work Phone: Caffeine Use Caffeine Use [facility]; [facility] Work Phone: Comment on above: 1 pot daily smokeless tobacco- q uit 4-5 yrs ago [facility] Work Phone: Start: 12-17-2021 End: 12-26-2021 Tobacco smoking status NHIS Unknown if ever smoked [facility] Start: 1960 Sex Assigned At Male [facility] Start: 10-26-2022 Tobacco smoking status NHIS Ex-smoker [facility] History of tobacco use Current smoker [facility] Start: 10-26-2022 Tobacco use and exposure Former smokeless tobacco user [facility] History of tobacco use Chews Tobacco [facility] Start: 10-26-2022 End: 02-16-2023 Alcohol intake Lifetime non-drinker (finding) [facility] Start: 1960 Sex Assigned At Not on file [facility] Start: 11-06-2024 End: 01-02-2025 Tobacco smoking status NHIS Never smoked tobacco (finding) [facility] Start: 11-27-2024 Sex Male (finding) [facility] Clinical Notes 10-26-2022 to 04-15-2025 Note Date & Type Note Facility 04-15-2025 Evaluation note Diagnosis Onset Date Resolution Memory changes suspected April 15, 2025 7:57am [facility] Work Phone: 1(279) 188-874802-20-2025 Chief complaint+Reason for visit Narrative * Chief Complaint Admit Date PROGRESSIVE DEMENTIA November 06, 2024 2:13pm NEED ORDER November 14, 2024 1:57pm Reason for Visit Admit Date Memory changes November 06, 2024 2:13pm [facility] Work Phone: 1(281) 952-595802-20-2025 Evaluation note* Diagnosis Onset Date Resolution Status Admit Date Memory changes suspected October 192024 2:13pm [facility] Work Phone: 1(232) 404-879505-01-2023 NoteHNO ID: [id number] Author: Ant Mosquera MD Service: ? Author Type: Physician Type: Progress Notes Filed: 02/16/2023 6:04 PM Note Text: Ant Mosquera MD Department of Orthopaedics Orthopaedics [address] [facility] [address] Dept: [phone] Dept January 15, 2023 CHIEF COMPLAINT: Established [...] visit. Allergies: Patient has no known allergies. [facility] History of Present illness Narrative* Ant Mosquera MD - 01/15/2023 4:13 PM EDT Ant Mosquera MD Department of Orthopaedics Orthopaedics [address] [facility] [address] Dept: [phone] Dept January 15, 2023 CHIEF COMPLAINT: Established [...] allergies. Ant Mosquera MD [facility] NoteHNO ID: [id number] Author: Bernice Basilio PA-C Service: ? Author Type: Physician [employer] Machine Operator Type: Progress Notes Filed: 12/18/2022 3:07 PM Note Text: Bernice Basilio PA-C Department of Orthopaedics Orthopaedics [address] [facility] [address] Dept: [phone] Dept December 18, 2022 CHIEF COMPLAINT: Post [...] allergies. This note was partially generated using [employer] voice recognition system, and there may be some incorrect words, spellings, and punctuation that were not noted in checking the note before saving. [facility]-03-2023 NoteHNO ID: [id number] Author: Angela Gonzalez RN Service: ? Author Type: ? Type: Progress Notes Filed: 12/18/2022 3:07 PM Note Text: Patient presents with: Right Index Finger - Post Op, Ganglion Cyst Patient is 1 week 5 days post op excision of ganglion cyst, R index finger. 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 We discussed proper hand washing, no soaking of the operative hand. No heavy lifting, pushing or pulling with the operative hand, encourage gentle motion. We discussed scar massage. Follow up as planned. Exam: Incision sites well approximated without erythema or drainage, there is mild but appropriate edema,no ecchymosis. Patient has full and active range of motion of the digit with some subjective hypersensitivity along the radial border. Imaging: Deferred today. Mr. Jarrett Roger was advised as to contrast therapies and/or to take analgesics/anti-inflammatoriesas needed and all contraindications were reviewed. Supporting [...] allergies. This note was partially generated using [employer] recognition system, and there may be some incorrect words, spellings, and punctuation that were not noted in checking the note before saving. Bernice Basilio PA-C * Angela Gonzalez RN - 12/18/2022 2:38 PM EDT Patient presents with: Right Index Finger - Post Op, Ganglion Cyst Patient is 1 week 5 days post op excision of ganglion cyst, R index finger. Denies pain. [facility] NoteHNO ID: [id number] Author: Ayde Ribeiro, RN Service: Nursing Author Type: Registered Nurse Type: Nursing Progress Note Filed: 12/06/2022 1:41 PM Note Text: Other: pt ready for OR, call light in reach, no one here with pt, brought self.[id number] Miscellaneous Notes* Telephone Encounter - Lauren Ledbetter Ma - 11/01/2022 4:51 PM EST Surgery has been scheduled as requested. * Telephone Encounter - Karie Tapia Ma - 11/01/2022 10:58 AM EST Patient scheduled for Right index finger excision ganglion cyst on 12/06/22. Surgical request completed. Post op appointments scheduled and mailed to patient. documented [facility]-2023 NoteHNO ID: [id number] Author: Ant Mosquera MD Service: ? Author Type: Physician Type: Progress Notes Filed: 11/27/2022 4:24 PM Note Text: Ant Mosquera MD Department of Orthopaedics Orthopaedics [address] [facility] [address] Dept: [phone] Dept October 26, 2022 CHIEF COMPLAINT: No [...] HPI) Psych (no depression, anxiety) Ant Mosquera [facility] noteNo assessment information available[facility] Work Phone: Evaluation note* Diagnosis Ganglion and cyst of synovium, tendon, and bursa- Primary Other ganglion and cyst of synovium, tendon, and bursa Ganglion and cyst of synovium, tendon, and bursa Other ganglion and cyst of synovium, tendon, and bursa [facility] Diagnosis Ganglion and cyst of synovium, tendon, and bursa- Primary Other ganglion and cyst of synovium, tendon, and bursa [facility] Diagnosis Ganglion and cyst of synovium, tendon, and bursa- Primary Other ganglion and cyst of synovium, tendon, and bursa [facility] Additional Instructions Please keep the area clean and dry, please return for any signs or symptoms of infectionWLicking [facility] Work Phone: Instructions* Name Dates Details Patient Instructions Indication:BMI 28.0-28.9,adult Start:25-Jan-2021 Instruction Type:Provider Instructions for Treatment How to Access Health Informa tion Online using Patient Portal and 3rd Libertarian Apps Indication:BMI 28.0-28.9,adult Start:25-Jan-2021 Instruction Type:Patient Education [facility]; [facility] Work Phone: Instructions* Name Dates Details Patient Instructions Indication:BMI 28.0-28.9,adult Start:25-Jan-2021 Instruction Type:Provider Instructions for Treatment How to Access Health Informa tion Online using Patient Portal and 3rd Libertarian Apps Indication:BMI 28.0-28.9,adult Start:25-Jan-2021 Instruction Type:Patient Education [facility]; [facility] Work Phone: instructions* Name Dates Details Patient Instructions Indication:BMI 28.0-28.9,adult Start:25-Jan-2021 Instruction Type:Provider Instructions for Treatment How to Access Health Informa tion Online using Patient Portal and 3rd Libertarian Apps Indication:BMI 28.0-28.9,adult Start:25-Jan-2021 Instruction Type:Patient Education [facility]; [facility] Work Phone: instructions* Name Dates Details Patient Instructions Indication:BMI 28.0-28.9,adult Start:25-Jan-2021 Instruction Type:Provider Instructions for Treatment How to Access Health Informa tion Online using Patient Portal and 3rd Libertarian Apps Indication:BMI 28.0-28.9,adult Start:25-Jan-2021 Instruction Type:Patient Education [facility]; [facility] Work Phone: instructions* Name Dates Details Patient Instructions Indication:BMI 28.0-28.9,adult Start:25-Jan-2021 Instruction Type:Provider Instructions for Treatment How to Access Health Informa tion Online using Patient Portal and 3rd Libertarian Apps Indication:BMI 28.0-28.9,adult Start:25-Jan-2021 Instruction Type:Patient Education [facility]; [facility] Work Phone: instructqibh* Name Dates Details Patient Instructions Indication:Nonsmoker Start:08-Feb-2021 Instruction Type:Provider Instructions for Treatment How to Access Health Informa tion Online using Patient Portal and 3rd Libertarian Apps Indication:Nonsmoker Start:08-Feb-2021 Instruction Type:Patient Education Patient Instructions Indication:BMI 28.0-28.9,adult Start:25-Jan-2021 Instruction Type:Provider Instructions for Treatment How to Access Health Informa tion Online using Patient Portal and 3rd Libertarian Apps Indication:BMI 28.0-28.9,adult Start:25-Jan-2021 Instruction Type:Patient Education [facility]; [facility] Work Phone: instructions* Name Dates Details Patient Instructions Indication:Nonsmoker Start:08-Feb-2021 Instruction Type:Provider Instructions for Treatment How to Access Health Informa tion Online using Patient Portal and 3rd Libertarian Apps Indication:Nonsmoker Start:08-Feb-2021 Instruction Type:Patient Education Patient Instructions Indication:BMI 28.0-28.9,adult Start:25-Jan-2021 Instruction Type:Provider Instructions for Treatment How to Access Health Informa tion Online using Patient Portal and 3rd Libertarian Apps Indication:BMI 28.0-28.9,adult Start:25-Jan-2021 Instruction Type:Patient Education [facility]; [facility] Work Phone: instructions* Name Dates Details Patient Instructions Indication:Nonsmoker Start:08-Feb-2021 Instruction Type:Provider Instructions for Treatment How to Access Health Informa tion Online using Patient Portal and 3rd Libertarian Apps Indication:Nonsmoker Start:08-Feb-2021 Instruction Type:Patient Education Patient Instructions Indication:BMI 28.0-28.9,adult Start:25-Jan-2021 Instruction Type:Provider Instructions for Treatment How to Access Health Informa tion Online using Patient Portal and 3rd Libertarian Apps Indication:BMI 28.0-28.9,adult Start:25-Jan-2021 Instruction Type:Patient Education [facility]; [facility] Work Phone: instructions* Name Dates Details Patient Instructions Indication:Nonsmoker Start:08-Feb-2021 Instruction Type:Provider Instructions for Treatment How to Access Health Informa tion Online using Patient Portal and 3rd Libertarian Apps Indication:Nonsmoker Start:08-Feb-2021 Instruction Type:Patient Education Patient Instructions Indication:BMI 28.0-28.9,adult Start:25-Jan-2021 Instruction Type:Provider Instructions for Treatment How to Access Health Informa tion Online using Patient Portal and 3rd Libertarian Apps Indication:BMI 28.0-28.9,adult Start:25-Jan-2021 Instruction Type:Patient Education [facility]; [facility] Work Phone: instructions* Name Dates Details Patient Instructions Indication:Nonsmoker Start:08-Feb-2021 Instruction Type:Provider Instructions for Treatment How to Access Health Informa tion Online using Patient Portal and 3rd Libertarian Apps Indication:Nonsmoker Start:08-Feb-2021 Instruction Type:Patient Education Patient Instructions Indication:BMI 28.0-28.9,adult Start:25-Jan-2021 Instruction Type:Provider Instructions for Treatment How to Access Health Informa tion Online using Patient Portal and 3rd Libertarian Apps Indication:BMI 28.0-28.9,adult Start:25-Jan-2021 Instruction Type:Patient Education [facility]; [facility] Work Phone: instructions* Name Dates Details Patient Instructions Indication:Nonsmoker Start:08-Feb-2021 Instruction Type:Provider Instructions for Treatment How to Access Health Informa tion Online using Patient Portal and 3rd Libertarian Apps Indication:Nonsmoker Start:08-Feb-2021 Instruction Type:Patient Education Patient Instructions Indication:BMI 28.0-28.9,adult Start:25-Jan-2021 Instruction Type:Provider Instructions for Treatment How to Access Health Informa tion Online using Patient Portal and [employer] Libertarian Apps Indication:BMI 28.0-28.9,adult Start:25-Jan-2021 Instruction Type:Patient Education [facility]; [facility] Work Phone: instructTransGenRx* Name Dates Details Patient Instructions Indication:Nonsmoker Start:26-Aug-2021 Instruction Type:Provider Instructions for Treatment How to Access Health Informa tion Online using Patient Portal and Design A Apps Indication:Nonsmoker Start:26-Aug-2021 Instruction Type:Patient Education Patient Instructions Indication:Impaired fasting glucose Start:27-Jul-2021 Instruction Type:Provider Instructions for Treatment How to Access Health Informa tion Online using Patient Portal and [employer] Libertarian Apps Indication:Impaired fasting glucose Start:27-Jul-2021 Instruction Type:Patient Education Patient Instructions Indication:Nonsmoker Start:17-May-2021 Instruction Type:Provider Instructions for Treatment How to Access Health Informa tion Online using Patient Portal and 3rd Libertarian Apps Indication:BMI 28.0-28.9,adult Start:17-May-2021 Instruction Type:Patient Education Patient Instructions Indication:Nonsmoker Start:08-Feb-2021 Instruction Type:Provider Instructions for Treatment How to Access Health Informa tion Online using Patient Portal and 3rd Libertarian Apps Indication:Nonsmoker Start:08-Feb-2021 Instruction Type:Patient Education Patient Instructions Indication:BMI 28.0-28.9,adult Start:25-Jan-2021 Instruction Type:Provider Instructions for Treatment How to Access Health Informa tion Online using Patient Portal and [employer]arian Apps Indication:BMI 28.0-28.9,adult Start:25-Jan-2021 Instruction Type:Patient Education [facility]; [facility] Work Phone: instructions* Name Dates Details Patient Instructions Indication:Nonsmoker Start:26-Aug-2021 Instruction Type:Provider Instructions for Treatment How to Access Health Informa tion Online using Patient Portal and 3rd Libertarian Apps Indication:Nonsmoker Start:26-Aug-2021 Instruction Type:Patient Education Patient Instructions Indication:Impaired fasting glucose Start:27-Jul-2021 Instruction Type:Provider Instructions for Treatment How to Access Health Informa tion Online using Patient Portal and Design A Apps Indication:Impaired fasting glucose Start:27-Jul-2021 Instruction Type:Patient Education Patient Instructions Indication:Nonsmoker Start:17-May-2021 Instruction Type:Provider Instructions for Treatment How to Access Health Informa tion Online using Patient Portal and [employer] Apps Indication:BMI 28.0-28.9,adult Start:17-May-2021 Instruction Type:Patient Education Patient Instructions Indication:Nonsmoker Start:08-Feb-2021 Instruction Type:Provider Instructions for Treatment How to Access Health Informa tion Online using Patient Portal and Design A Apps Indication:Nonsmoker Start:08-Feb-2021 Instruction Type:Patient Education Patient Instructions Indication:BMI 28.0-28.9,adult Start:25-Jan-2021 Instruction Type:Provider Instructions for Treatment How to Access Health Informa tion Online using Patient Portal and [employer] Apps Indication:BMI 28.0-28.9,adult Start:25-Jan-2021 Instruction Type:Patient Education [facility]; [facility] Work Phone: instructions* Name Dates Details Patient Instructions Indication:Nonsmoker Start:26-Aug-2021 Instruction Type:Provider Instructions for Treatment How to Access Health Informa tion Online using Patient Portal and [employer] Indication:Nonsmoker Start:26-Aug-2021 Instruction Type:Patient Education Patient Instructions Indication:Impaired fasting glucose Start:27-Jul-2021 Instruction Type:Provider Instructions for Treatment How to Access Health Informa tion Online using Patient Portal and [employer] Indication:Impaired fasting glucose Start:27-Jul-2021 Instruction Type:Patient Education Patient Instructions Indication:Nonsmoker Start:17-May-2021 Instruction Type:Provider Instructions for Treatment How to Access Health Informa tion Online using Patient Portal and [employer] Indication:BMI 28.0-28.9,adult Start:17-May-2021 Instruction Type:Patient Education Patient Instructions Indication:Nonsmoker Start:08-Feb-2021 Instruction Type:Provider Instructions for Treatment How to Access Health Informa tion Online using Patient Portal and [employer] Indication:Nonsmoker Start:08-Feb-2021 Instruction Type:Patient Education Patient Instructions Indication:BMI 28.0-28.9,adult Start:25-Jan-2021 Instruction Type:Provider Instructions for Treatment How to Access Health Informa tion Online using Patient Portal and [employer] Indication:BMI 28.0-28.9,adult Start:25-Jan-2021 Instruction Type:Patient Education [facility]; [facility] Work Phone: Instructions* Name Dates Details Patient Instructions Indication:Lip lesion Start:03-Nov-2021 Instruction Type:Provider Instructions for Treatment How to Access Health Informa tion Online using Patient Portal and [employer] Indication:Lip lesion Start:03-Nov-2021 Instruction Type:Patient Education Patient Instructions Indication:Nonsmoker Start:26-Aug-2021 Instruction Type:Provider Instructions for Treatment How to Access Health Informa tion Online using Patient Portal and [employer] Indication:Nonsmoker Start:26-Aug-2021 Instruction Type:Patient Education Patient Instructions Indication:Impaired fasting glucose Start:27-Jul-2021 Instruction Type:Provider Instructions for Treatment How to Access Health Informa tion Online using Patient Portal and [employer] Indication:Impaired fasting glucose Start:27-Jul-2021 Instruction Type:Patient Education Patient Instructions Indication:Nonsmoker Start:17-May-2021 Instruction Type:Provider Instructions for Treatment How to Access Health Informa tion Online using Patient Portal and [employer] Indication:BMI 28.0-28.9,adult Start:17-May-2021 Instruction Type:Patient Education Patient Instructions Indication:Nonsmoker Start:08-Feb-2021 Instruction Type:Provider Instructions for Treatment How to Access Health Informa tion Online using Patient Portal and [employer] Indication:Nonsmoker Start:08-Feb-2021 Instruction Type:Patient Education Patient Instructions Indication:BMI 28.0-28.9,adult Start:25-Jan-2021 Instruction Type:Provider Instructions for Treatment How to Access Health Informa tion Online using Patient Portal and [employer] Indication:BMI 28.0-28.9,adult Start:25-Jan-2021 Instruction Type:Patient Education [facility]; [facility] Work Phone: Instructions* Name Dates Details Patient Instructions Indication:Lip lesion Start:03-Nov-2021 Instruction Type:Provider Instructions for Treatment How to Access Health Informa tion Online using Patient Portal and [employer] Apps Indication:Lip lesion Start:03-Nov-2021 Instruction Type:Patient Education Patient Instructions Indication:Nonsmoker Start:26-Aug-2021 Instruction Type:Provider Instructions for Treatment How to Access Health Informa tion Online using Patient Portal and [employer] Apps Indication:Nonsmoker Start:26-Aug-2021 Instruction Type:Patient Education Patient Instructions Indication:Impaired fasting glucose Start:27-Jul-2021 Instruction Type:Provider Instructions for Treatment How to Access Health Informa tion Online using Patient Portal and [employer] Indication:Impaired fasting glucose Start:27-Jul-2021 Instruction Type:Patient Education Patient Instructions Indication:Nonsmoker Start:17-May-2021 Instruction Type:Provider Instructions for Treatment How to Access Health Informa tion Online using Patient Portal and [employer] Indication:BMI 28.0-28.9,adult Start:17-May-2021 Instruction Type:Patient Education Patient Instructions Indication:Nonsmoker Start:08-Feb-2021 Instruction Type:Provider Instructions for Treatment How to Access Health Informa tion Online using Patient Portal and [employer] Indication:Nonsmoker Start:08-Feb-2021 Instruction Type:Patient Education Patient Instructions Indication:BMI 28.0-28.9,adult Start:25-Jan-2021 Instruction Type:Provider Instructions for Treatment How to Access Health Informa tion Online using Patient Portal and [employer] Indication:BMI 28.0-28.9,adult Start:25-Jan-2021 Instruction Type:Patient Education [facility]; [facility] Work Phone: Instructions* Name Dates Details Patient Instructions Indication:Lip lesion Start:03-Nov-2021 Instruction Type:Provider Instructions for Treatment How to Access Health Informa tion Online using Patient Portal and [employer] Indication:Lip lesion Start:03-Nov-2021 Instruction Type:Patient Education Patient Instructions Indication:Nonsmoker Start:26-Aug-2021 Instruction Type:Provider Instructions for Treatment How to Access Health Informa tion Online using Patient Portal and [employer] Apps Indication:Nonsmoker Start:26-Aug-2021 Instruction Type:Patient Education Patient Instructions Indication:Impaired fasting glucose Start:27-Jul-2021 Instruction Type:Provider Instructions for Treatment How to Access Health Informa tion Online using Patient Portal and [employer] Indication:Impaired fasting glucose Start:27-Jul-2021 Instruction Type:Patient Education Patient Instructions Indication:Nonsmoker Start:17-May-2021 Instruction Type:Provider Instructions for Treatment How to Access Health Informa tion Online using Patient Portal and [employer] Indication:BMI 28.0-28.9,adult Start:17-May-2021 Instruction Type:Patient Education Patient Instructions Indication:Nonsmoker Start:08-Feb-2021 Instruction Type:Provider Instructions for Treatment How to Access Health Informa tion Online using Patient Portal and [employer] Indication:Nonsmoker Start:08-Feb-2021 Instruction Type:Patient Education Patient Instructions Indication:BMI 28.0-28.9,adult Start:25-Jan-2021 Instruction Type:Provider Instructions for Treatment How to Access Health Informa tion Online using Patient Portal and [employer] Indication:BMI 28.0-28.9,adult Start:25-Jan-2021 Instruction Type:Patient Education [facility]; [facility] Work Phone: Instructions* Name Dates Details Patient Instructions Indication:Lip lesion Start:03-Nov-2021 Instruction Type:Provider Instructions for Treatment How to Access Health Informa tion Online using Patient Portal and [employer] Indication:Lip lesion Start:03-Nov-2021 Instruction Type:Patient Education Patient Instructions Indication:Nonsmoker Start:26-Aug-2021 Instruction Type:Provider Instructions for Treatment How to Access Health Informa tion Online using Patient Portal and [employer] Indication:Nonsmoker Start:26-Aug-2021 Instruction Type:Patient Education Patient Instructions Indication:Impaired fasting glucose Start:27-Jul-2021 Instruction Type:Provider Instructions for Treatment How to Access Health Informa tion Online using Patient Portal and [employer] Indication:Impaired fasting glucose Start:27-Jul-2021 Instruction Type:Patient Education Patient Instructions Indication:Nonsmoker Start:17-May-2021 Instruction Type:Provider Instructions for Treatment How to Access Health Informa tion Online using Patient Portal and [employer] Indication:BMI 28.0-28.9,adult Start:17-May-2021 Instruction Type:Patient Education Patient Instructions Indication:Nonsmoker Start:08-Feb-2021 Instruction Type:Provider Instructions for Treatment How to Access Health Informa tion Online using Patient Portal and [employer] Indication:Nonsmoker Start:08-Feb-2021 Instruction Type:Patient Education Patient Instructions Indication:BMI 28.0-28.9,adult Start:25-Jan-2021 Instruction Type:Provider Instructions for Treatment How to Access Health Informa tion Online using Patient Portal and [employer] Indication:BMI 28.0-28.9,adult Start:25-Jan-2021 Instruction Type:Patient Education [facility]; [facility] Work Phone: Instructions* Name Dates Details Patient Instructions Indication:Lip lesion Start:03-Nov-2021 Instruction Type:Provider Instructions for Treatment How to Access Health Informa tion Online using Patient Portal and [employer] Indication:Lip lesion Start:03-Nov-2021 Instruction Type:Patient Education Patient Instructions Indication:Nonsmoker Start:26-Aug-2021 Instruction Type:Provider Instructions for Treatment How to Access Health Informa tion Online using Patient Portal and [employer] Indication:Nonsmoker Start:26-Aug-2021 Instruction Type:Patient Education Patient Instructions Indication:Impaired fasting glucose Start:27-Jul-2021 Instruction Type:Provider Instructions for Treatment How to Access Health Informa tion Online using Patient Portal and [employer] Indication:Impaired fasting glucose Start:27-Jul-2021 Instruction Type:Patient Education Patient Instructions Indication:Nonsmoker Start:17-May-2021 Instruction Type:Provider Instructions for Treatment How to Access Health Informa tion Online using Patient Portal and [employer] Indication:BMI 28.0-28.9,adult Start:17-May-2021 Instruction Type:Patient Education Patient Instructions Indication:Nonsmoker Start:08-Feb-2021 Instruction Type:Provider Instructions for Treatment How to Access Health Informa tion Online using Patient Portal and [employer] Indication:Nonsmoker Start:08-Feb-2021 Instruction Type:Patient Education Patient Instructions Indication:BMI 28.0-28.9,adult Start:25-Jan-2021 Instruction Type:Provider Instructions for Treatment How to Access Health Informa tion Online using Patient Portal and [employer] Indication:BMI 28.0-28.9,adult Start:25-Jan-2021 Instruction Type:Patient Education [facility]; [facility] Work Phone: Instructions* Name Dates Details Patient Instructions Indication:Impaired fasting glucose Start:24-Mar-2022 Instruction Type:Provider Instructions for Treatment How to Access Health Informa tion Online using Patient Portal and [employer] Indication:Impaired fasting glucose Start:24-Mar-2022 Instruction Type:Patient Education Patient Instructions Indication:Lip lesion Start:03-Nov-2021 Instruction Type:Provider Instructions for Treatment How to Access Health Informa tion Online using Patient Portal and [employer] Indication:Lip lesion Start:03-Nov-2021 Instruction Type:Patient Education Patient Instructions Indication:Nonsmoker Start:26-Aug-2021 Instruction Type:Provider Instructions for Treatment How to Access Health Informa tion Online using Patient Portal and [employer] Apps Indication:Nonsmoker Start:26-Aug-2021 Instruction Type:Patient Education Patient Instructions Indication:Impaired fasting glucose Start:27-Jul-2021 Instruction Type:Provider Instructions for Treatment How to Access Health Informa tion Online using Patient Portal and [employer] Indication:Impaired fasting glucose Start:27-Jul-2021 Instruction Type:Patient Education Patient Instructions Indication:Nonsmoker Start:17-May-2021 Instruction Type:Provider Instructions for Treatment How to Access Health Informa tion Online using Patient Portal and [employer] Indication:BMI 28.0-28.9,adult Start:17-May-2021 Instruction Type:Patient Education Patient Instructions Indication:Nonsmoker Start:08-Feb-2021 Instruction Type:Provider Instructions for Treatment How to Access Health Informa tion Online using Patient Portal and [employer] Indication:Nonsmoker Start:08-Feb-2021 Instruction Type:Patient Education Patient Instructions Indication:BMI 28.0-28.9,adult Start:25-Jan-2021 Instruction Type:Provider Instructions for Treatment How to Access Health Informa tion Online using Patient Portal and [employer] Indication:BMI 28.0-28.9,adult Start:25-Jan-2021 Instruction Type:Patient Education [facility]; [facility] Work Phone: [employer]* Name Dates Details Patient Instructions Indication:Impaired fasting glucose Start:24-Mar-2022 Instruction Type:Provider Instructions for Treatment How to Access Health Informa tion Online using Patient Portal and [employer] Indication:Impaired fasting glucose Start:24-Mar-2022 Instruction Type:Patient Education Patient Instructions Indication:Lip lesion Start:03-Nov-2021 Instruction Type:Provider Instructions for Treatment How to Access Health Informa tion Online using Patient Portal and [employer] Indication:Lip lesion Start:03-Nov-2021 Instruction Type:Patient Education Patient Instructions Indication:Nonsmoker Start:26-Aug-2021 Instruction Type:Provider Instructions for Treatment How to Access Health Informa tion Online using Patient Portal and [employer] Indication:Nonsmoker Start:26-Aug-2021 Instruction Type:Patient Education Patient Instructions Indication:Impaired fasting glucose Start:27-Jul-2021 Instruction Type:Provider Instructions for Treatment How to Access Health Informa tion Online using Patient Portal and [employer] Indication:Impaired fasting glucose Start:27-Jul-2021 Instruction Type:Patient Education Patient Instructions Indication:Nonsmoker Start:17-May-2021 Instruction Type:Provider Instructions for Treatment How to Access Health Informa tion Online using Patient Portal and [employer] Indication:BMI 28.0-28.9,adult Start:17-May-2021 Instruction Type:Patient Education Patient Instructions Indication:Nonsmoker Start:08-Feb-2021 Instruction Type:Provider Instructions for Treatment How to Access Health Informa tion Online using Patient Portal and [employer] Indication:Nonsmoker Start:08-Feb-2021 Instruction Type:Patient Education Patient Instructions Indication:BMI 28.0-28.9,adult Start:25-Jan-2021 Instruction Type:Provider Instructions for Treatment How to Access Health Informa tion Online using Patient Portal and [employer] Indication:BMI 28.0-28.9,adult Start:25-Jan-2021 Instruction Type:Patient Education [facility]; [facility] Work Phone: Instructions* Name Dates Details Patient Instructions Indication:Impaired fasting glucose Start:24-Mar-2022 Instruction Type:Provider Instructions for Treatment How to Access Health Informa tion Online using Patient Portal and [employer] Indication:Impaired fasting glucose Start:24-Mar-2022 Instruction Type:Patient Education Patient Instructions Indication:Lip lesion Start:03-Nov-2021 Instruction Type:Provider Instructions for Treatment How to Access Health Informa tion Online using Patient Portal and [employer] Apps Indication:Lip lesion Start:03-Nov-2021 Instruction Type:Patient Education Patient Instructions Indication:Nonsmoker Start:26-Aug-2021 Instruction Type:Provider Instructions for Treatment How to Access Health Informa tion Online using Patient Portal and [employer] Indication:Nonsmoker Start:26-Aug-2021 Instruction Type:Patient Education Patient Instructions Indication:Impaired fasting glucose Start:27-Jul-2021 Instruction Type:Provider Instructions for Treatment How to Access Health Informa tion Online using Patient Portal and [employer] Indication:Impaired fasting glucose Start:27-Jul-2021 Instruction Type:Patient Education Patient Instructions Indication:Nonsmoker Start:17-May-2021 Instruction Type:Provider Instructions for Treatment How to Access Health Informa tion Online using Patient Portal and [employer] Indication:BMI 28.0-28.9,adult Start:17-May-2021 Instruction Type:Patient Education Patient Instructions Indication:Nonsmoker Start:08-Feb-2021 Instruction Type:Provider Instructions for Treatment How to Access Health Informa tion Online using Patient Portal and [employer] Indication:Nonsmoker Start:08-Feb-2021 Instruction Type:Patient Education Patient Instructions Indication:BMI 28.0-28.9,adult Start:25-Jan-2021 Instruction Type:Provider Instructions for Treatment How to Access Health Informa tion Online using Patient Portal and [employer] Indication:BMI 28.0-28.9,adult Start:25-Jan-2021 Instruction Type:Patient Education [facility]; [facility] Work Phone: Instructions* Name Dates Details Patient Instructions Indication:Impaired fasting glucose Start:24-Mar-2022 Instruction Type:Provider Instructions for Treatment How to Access Health Informa tion Online using Patient Portal and [employer] Indication:Impaired fasting glucose Start:24-Mar-2022 Instruction Type:Patient Education Patient Instructions Indication:Lip lesion Start:03-Nov-2021 Instruction Type:Provider Instructions for Treatment How to Access Health Informa tion Online using Patient Portal and [employer] Apps Indication:Lip lesion Start:03-Nov-2021 Instruction Type:Patient Education Patient Instructions Indication:Nonsmoker Start:26-Aug-2021 Instruction Type:Provider Instructions for Treatment How to Access Health Informa tion Online using Patient Portal and [employer] Indication:Nonsmoker Start:26-Aug-2021 Instruction Type:Patient Education Patient Instructions Indication:Impaired fasting glucose Start:27-Jul-2021 Instruction Type:Provider Instructions for Treatment How to Access Health Informa tion Online using Patient Portal and [employer] Indication:Impaired fasting glucose Start:27-Jul-2021 Instruction Type:Patient Education Patient Instructions Indication:Nonsmoker Start:17-May-2021 Instruction Type:Provider Instructions for Treatment How to Access Health Informa tion Online using Patient Portal and [employer] Indication:BMI 28.0-28.9,adult Start:17-May-2021 Instruction Type:Patient Education Patient Instructions Indication:Nonsmoker Start:08-Feb-2021 Instruction Type:Provider Instructions for Treatment How to Access Health Informa tion Online using Patient Portal and [employer] Indication:Nonsmoker Start:08-Feb-2021 Instruction Type:Patient Education Patient Instructions Indication:BMI 28.0-28.9,adult Start:25-Jan-2021 Instruction Type:Provider Instructions for Treatment How to Access Health Informa tion Online using Patient Portal and [employer] Indication:BMI 28.0-28.9,adult Start:25-Jan-2021 Instruction Type:Patient Education [facility]; [facility] Work Phone: Instructions* Name Dates Details Patient Instructions Indication:Impaired fasting glucose Start:24-Mar-2022 Instruction Type:Provider Instructions for Treatment How to Access Health Informa tion Online using Patient Portal and [employer] Indication:Impaired fasting glucose Start:24-Mar-2022 Instruction Type:Patient Education Patient Instructions Indication:Lip lesion Start:03-Nov-2021 Instruction Type:Provider Instructions for Treatment How to Access Health Informa tion Online using Patient Portal and [employer] Indication:Lip lesion Start:03-Nov-2021 Instruction Type:Patient Education Patient Instructions Indication:Nonsmoker Start:26-Aug-2021 Instruction Type:Provider Instructions for Treatment How to Access Health Informa tion Online using Patient Portal and [employer] Indication:Nonsmoker Start:26-Aug-2021 Instruction Type:Patient Education Patient Instructions Indication:Impaired fasting glucose Start:27-Jul-2021 Instruction Type:Provider Instructions for Treatment How to Access Health Informa tion Online using Patient Portal and [employer] Indication:Impaired fasting glucose Start:27-Jul-2021 Instruction Type:Patient Education Patient Instructions Indication:Nonsmoker Start:17-May-2021 Instruction Type:Provider Instructions for Treatment How to Access Health Informa tion Online using Patient Portal and [employer] Indication:BMI 28.0-28.9,adult Start:17-May-2021 Instruction Type:Patient Education Patient Instructions Indication:Nonsmoker Start:08-Feb-2021 Instruction Type:Provider Instructions for Treatment How to Access Health Informa tion Online using Patient Portal and [employer] Indication:Nonsmoker Start:08-Feb-2021 Instruction Type:Patient Education Patient Instructions Indication:BMI 28.0-28.9,adult Start:25-Jan-2021 Instruction Type:Provider Instructions for Treatment How to Access Health Informa tion Online using Patient Portal and [employer] Indication:BMI 28.0-28.9,adult Start:25-Jan-2021 Instruction Type:Patient Education [facility]; [facility] Work Phone: Instructions* Name Dates Details Patient Instructions Indication:Impaired fasting glucose Start:24-Mar-2022 Instruction Type:Provider Instructions for Treatment How to Access Health Informa tion Online using Patient Portal and [employer] Indication:Impaired fasting glucose Start:24-Mar-2022 Instruction Type:Patient Education Patient Instructions Indication:Lip lesion Start:03-Nov-2021 Instruction Type:Provider Instructions for Treatment How to Access Health Informa tion Online using Patient Portal and [employer] Indication:Lip lesion Start:03-Nov-2021 Instruction Type:Patient Education Patient Instructions Indication:Nonsmoker Start:26-Aug-2021 Instruction Type:Provider Instructions for Treatment How to Access Health Informa tion Online using Patient Portal and [employer] Indication:Nonsmoker Start:26-Aug-2021 Instruction Type:Patient Education Patient Instructions Indication:Impaired fasting glucose Start:27-Jul-2021 Instruction Type:Provider Instructions for Treatment How to Access Health Informa tion Online using Patient Portal and [employer] Indication:Impaired fasting glucose Start:27-Jul-2021 Instruction Type:Patient Education Patient Instructions Indication:Nonsmoker Start:17-May-2021 Instruction Type:Provider Instructions for Treatment How to Access Health Informa tion Online using Patient Portal and [employer] Indication:BMI 28.0-28.9,adult Start:17-May-2021 Instruction Type:Patient Education Patient Instructions Indication:Nonsmoker Start:08-Feb-2021 Instruction Type:Provider Instructions for Treatment How to Access Health Informa tion Online using Patient Portal and [employer] Indication:Nonsmoker Start:08-Feb-2021 Instruction Type:Patient Education Patient Instructions Indication:BMI 28.0-28.9,adult Start:25-Jan-2021 Instruction Type:Provider Instructions for Treatment How to Access Health Informa tion Online using Patient Portal and [employer] Indication:BMI 28.0-28.9,adult Start:25-Jan-2021 Instruction Type:Patient Education [facility]; [facility] Work Phone: Instructions* Name Dates Details Patient Instructions Indication:Nonsmoker Start:03-Oct-2022 Instruction Type:Provider Instructions for Treatment How to Access Health Informa tion Online using Patient Portal and [employer] Indication:Nonsmoker Start:03-Oct-2022 Instruction Type:Patient Education Patient Instructions Indication:Impaired fasting glucose Start:24-Mar-2022 Instruction Type:Provider Instructions for Treatment How to Access Health Informa tion Online using Patient Portal and [employer] Indication:Impaired fasting glucose Start:24-Mar-2022 Instruction Type:Patient Education Patient Instructions Indication:Lip lesion Start:03-Nov-2021 Instruction Type:Provider Instructions for Treatment How to Access Health Informa tion Online using Patient Portal and [employer] Indication:Lip lesion Start:03-Nov-2021 Instruction Type:Patient Education Patient Instructions Indication:Nonsmoker Start:26-Aug-2021 Instruction Type:Provider Instructions for Treatment How to Access Health Informa tion Online using Patient Portal and 3rd [employer] Apps Indication:Nonsmoker Start:26-Aug-2021 Instruction Type:Patient Education Patient Instructions Indication:Impaired fasting glucose Start:27-Jul-2021 Instruction Type:Provider Instructions for Treatment How to Access Health Informa tion Online using Patient Portal and 3rd Libert[employer] Apps Indication:Impaired fasting glucose Start:27-Jul-2021 Instruction Type:Patient Education Patient Instructions Indication:Nonsmoker Start:17-May-2021 Instruction Type:Provider Instructions for Treatment How to Access Health Informa tion Online using Patient Portal and 3rd Libertarian Apps Indication:BMI 28.0-28.9,adult Start:17-May-2021 Instruction Type:Patient Education Patient Instructions Indication:Nonsmoker Start:08-Feb-2021 Instruction Type:Provider Instructions for Treatment How to Access Health Informa tion Online using Patient Portal and 3rd [employer] Apps Indication:Nonsmoker Start:08-Feb-2021 Instruction Type:Patient Education Patient Instructions Indication:BMI 28.0-28.9,adult Start:25-Jan-2021 Instruction Type:Provider Instructions for Treatment How to Access Health Informa tion Online using Patient Portal and 3rd [employer] Apps Indication:BMI 28.0-28.9,adult Start:25-Jan-2021 Instruction Type:Patient Education [facility]; [facility] Work Phone: Instructions* Name Dates Details Patient Instructions Indication:Nonsmoker Start:03-Oct-2022 Instruction Type:Provider Instructions for Treatment How to Access Health Informa tion Online using Patient Portal and 3rd [employer] Apps Indication:Nonsmoker Start:03-Oct-2022 Instruction Type:Patient Education Patient Instructions Indication:Impaired fasting glucose Start:24-Mar-2022 Instruction Type:Provider Instructions for Treatment How to Access Health Informa tion Online using Patient Portal and 3rd [employer] Apps Indication:Impaired fasting glucose Start:24-Mar-2022 Instruction Type:Patient Education Patient Instructions Indication:Lip lesion Start:03-Nov-2021 Instruction Type:Provider Instructions for Treatment How to Access Health Informa tion Online using Patient Portal and 3rd Libertarian Apps Indication:Lip lesion Start:03-Nov-2021 Instruction Type:Patient Education Patient Instructions Indication:Nonsmoker Start:26-Aug-2021 Instruction Type:Provider Instructions for Treatment How to Access Health Informa tion Online using Patient Portal and 3rd [employer] Apps Indication:Nonsmoker Start:26-Aug-2021 Instruction Type:Patient Education Patient Instructions Indication:Impaired fasting glucose Start:27-Jul-2021 Instruction Type:Provider Instructions for Treatment How to Access Health Informa tion Online using Patient Portal and 3rd [employer] Apps Indication:Impaired fasting glucose Start:27-Jul-2021 Instruction Type:Patient Education Patient Instructions Indication:Nonsmoker Start:17-May-2021 Instruction Type:Provider Instructions for Treatment How to Access Health Informa tion Online using Patient Portal and 3rd [employer] Apps Indication:BMI 28.0-28.9,adult Start:17-May-2021 Instruction Type:Patient Education Patient Instructions Indication:Nonsmoker Start:08-Feb-2021 Instruction Type:Provider Instructions for Treatment How to Access Health Informa tion Online using Patient Portal and 3rd [employer] Apps Indication:Nonsmoker Start:08-Feb-2021 Instruction Type:Patient Education Patient Instructions Indication:BMI 28.0-28.9,adult Start:25-Jan-2021 Instruction Type:Provider Instructions for Treatment How to Access Health Informa tion Online using Patient Portal and 3rd [employer] Apps Indication:BMI 28.0-28.9,adult Start:25-Jan-2021 Instruction Type:Patient Education [facility]; [facility] Work Phone: Instructions* Name Dates Details Patient Instructions Indication:Nonsmoker Start:03-Oct-2022 Instruction Type:Provider Instructions for Treatment How to Access Health Informa tion Online using Patient Portal and 3rd Libertarian Apps Indication:Nonsmoker Start:03-Oct-2022 Instruction Type:Patient Education Patient Instructions Indication:Impaired fasting glucose Start:24-Mar-2022 Instruction Type:Provider Instructions for Treatment How to Access Health Informa tion Online using Patient Portal and 3rd Libertarian Apps Indication:Impaired fasting glucose Start:24-Mar-2022 Instruction Type:Patient Education Patient Instructions Indication:Lip lesion Start:03-Nov-2021 Instruction Type:Provider Instructions for Treatment How to Access Health Informa tion Online using Patient Portal and 3rd Libertarian Apps Indication:Lip lesion Start:03-Nov-2021 Instruction Type:Patient Education Patient Instructions Indication:Nonsmoker Start:26-Aug-2021 Instruction Type:Provider Instructions for Treatment How to Access Health Informa tion Online using Patient Portal and 3rd Libert[employer] Apps Indication:Nonsmoker Start:26-Aug-2021 Instruction Type:Patient Education Patient Instructions Indication:Impaired fasting glucose Start:27-Jul-2021 Instruction Type:Provider Instructions for Treatment How to Access Health Informa tion Online using Patient Portal and 3rd Libertarian Apps Indication:Impaired fasting glucose Start:27-Jul-2021 Instruction Type:Patient Education Patient Instructions Indication:Nonsmoker Start:17-May-2021 Instruction Type:Provider Instructions for Treatment How to Access Health Informa tion Online using Patient Portal and 3rd Libertarian Apps Indication:BMI 28.0-28.9,adult Start:17-May-2021 Instruction Type:Patient Education Patient Instructions Indication:Nonsmoker Start:08-Feb-2021 Instruction Type:Provider Instructions for Treatment How to Access Health Informa tion Online using Patient Portal and 3rd [employer] Apps Indication:Nonsmoker Start:08-Feb-2021 Instruction Type:Patient Education Patient Instructions Indication:BMI 28.0-28.9,adult Start:25-Jan-2021 Instruction Type:Provider Instructions for Treatment How to Access Health Informa tion Online using Patient Portal and 3rd [employer]arian Apps Indication:BMI 28.0-28.9,adult Start:25-Jan-2021 Instruction Type:Patient Education [facility]; [facility] Work Phone: Instructions* Name Dates Details Patient Instructions Indication:Nonsmoker Start:03-Oct-2022 Instruction Type:Provider Instructions for Treatment How to Access Health Informa tion Online using Patient Portal and 3rd Libertarian Apps Indication:Nonsmoker Start:03-Oct-2022 Instruction Type:Patient Education Patient Instructions Indication:Impaired fasting glucose Start:24-Mar-2022 Instruction Type:Provider Instructions for Treatment How to Access Health Informa tion Online using Patient Portal and 3rd Libertarian Apps Indication:Impaired fasting glucose Start:24-Mar-2022 Instruction Type:Patient Education Patient Instructions Indication:Lip lesion Start:03-Nov-2021 Instruction Type:Provider Instructions for Treatment How to Access Health Informa tion Online using Patient Portal and 3rd Libertarian Apps Indication:Lip lesion Start:03-Nov-2021 Instruction Type:Patient Education Patient Instructions Indication:Nonsmoker Start:26-Aug-2021 Instruction Type:Provider Instructions for Treatment How to Access Health Informa tion Online using Patient Portal and 3rd Libertarian Apps Indication:Nonsmoker Start:26-Aug-2021 Instruction Type:Patient Education Patient Instructions Indication:Impaired fasting glucose Start:27-Jul-2021 Instruction Type:Provider Instructions for Treatment How to Access Health Informa tion Online using Patient Portal and 3rd Libertarian Apps Indication:Impaired fasting glucose Start:27-Jul-2021 Instruction Type:Patient Education Patient Instructions Indication:Nonsmoker Start:17-May-2021 Instruction Type:Provider Instructions for Treatment How to Access Health Informa tion Online using Patient Portal and 3rd Libertarian Apps Indication:BMI 28.0-28.9,adult Start:17-May-2021 Instruction Type:Patient Education Patient Instructions Indication:Nonsmoker Start:08-Feb-2021 Instruction Type:Provider Instructions for Treatment How to Access Health Informa tion Online using Patient Portal and 3rd Libert[employer] Apps Indication:Nonsmoker Start:08-Feb-2021 Instruction Type:Patient Education Patient Instructions Indication:BMI 28.0-28.9,adult Start:25-Jan-2021 Instruction Type:Provider Instructions for Treatment How to Access Health Informa tion Online using Patient Portal and 3rd Libertarian Apps Indication:BMI 28.0-28.9,adult Start:25-Jan-2021 Instruction Type:Patient Education [facility]; [facility] Work Phone: Instructions* Name Dates Details Patient Instructions Indication:Nonsmoker Start:03-Oct-2022 Instruction Type:Provider Instructions for Treatment How to Access Health Informa tion Online using Patient Portal and 3rd Libertarian Apps Indication:Nonsmoker Start:03-Oct-2022 Instruction Type:Patient Education Patient Instructions Indication:Impaired fasting glucose Start:24-Mar-2022 Instruction Type:Provider Instructions for Treatment How to Access Health Informa tion Online using Patient Portal and 3rd Libertarian Apps Indication:Impaired fasting glucose Start:24-Mar-2022 Instruction Type:Patient Education Patient Instructions Indication:Lip lesion Start:03-Nov-2021 Instruction Type:Provider Instructions for Treatment How to Access Health Informa tion Online using Patient Portal and 3rd Libertarian Apps Indication:Lip lesion Start:03-Nov-2021 Instruction Type:Patient Education Patient Instructions Indication:Nonsmoker Start:26-Aug-2021 Instruction Type:Provider Instructions for Treatment How to Access Health Informa tion Online using Patient Portal and 3rd Libertarian Apps Indication:Nonsmoker Start:26-Aug-2021 Instruction Type:Patient Education Patient Instructions Indication:Impaired fasting glucose Start:27-Jul-2021 Instruction Type:Provider Instructions for Treatment How to Access Health Informa tion Online using Patient Portal and 3rd Libertarian Apps Indication:Impaired fasting glucose Start:27-Jul-2021 Instruction Type:Patient Education Patient Instructions Indication:Nonsmoker Start:17-May-2021 Instruction Type:Provider Instructions for Treatment How to Access Health Informa tion Online using Patient Portal and 3rd Libertarian Apps Indication:BMI 28.0-28.9,adult Start:17-May-2021 Instruction Type:Patient Education Patient Instructions Indication:Nonsmoker Start:08-Feb-2021 Instruction Type:Provider Instructions for Treatment How to Access Health Informa tion Online using Patient Portal and 3rd Libertarian Apps Indication:Nonsmoker Start:08-Feb-2021 Instruction Type:Patient Education Patient Instructions Indication:BMI 28.0-28.9,adult Start:25-Jan-2021 Instruction Type:Provider Instructions for Treatment How to Access Health Informa tion Online using Patient Portal and 3rd Libertarian Apps Indication:BMI 28.0-28.9,adult Start:25-Jan-2021 Instruction Type:Patient Education [facility]; [facility] Work Phone: Instructions* Name Dates Details Patient Instructions Indication:Nonsmoker Start:03-Oct-2022 Instruction Type:Provider Instructions for Treatment How to Access Health Informa tion Online using Patient Portal and 3rd Libertarian Apps Indication:Nonsmoker Start:03-Oct-2022 Instruction Type:Patient Education Patient Instructions Indication:Impaired fasting glucose Start:24-Mar-2022 Instruction Type:Provider Instructions for Treatment How to Access Health Informa tion Online using Patient Portal and 3rd Libertarian Apps Indication:Impaired fasting glucose Start:24-Mar-2022 Instruction Type:Patient Education Patient Instructions Indication:Lip lesion Start:03-Nov-2021 Instruction Type:Provider Instructions for Treatment How to Access Health Informa tion Online using Patient Portal and 3rd Libertarian Apps Indication:Lip lesion Start:03-Nov-2021 Instruction Type:Patient Education Patient Instructions Indication:Nonsmoker Start:26-Aug-2021 Instruction Type:Provider Instructions for Treatment How to Access Health Informa tion Online using Patient Portal and 3rd Libertarian Apps Indication:Nonsmoker Start:26-Aug-2021 Instruction Type:Patient Education Patient Instructions Indication:Impaired fasting glucose Start:27-Jul-2021 Instruction Type:Provider Instructions for Treatment How to Access Health Informa tion Online using Patient Portal and 3rd Libertarian Apps Indication:Impaired fasting glucose Start:27-Jul-2021 Instruction Type:Patient Education Patient Instructions Indication:Nonsmoker Start:17-May-2021 Instruction Type:Provider Instructions for Treatment How to Access Health Informa tion Online using Patient Portal and 3rd Libertarian Apps Indication:BMI 28.0-28.9,adult Start:17-May-2021 Instruction Type:Patient Education Patient Instructions Indication:Nonsmoker Start:08-Feb-2021 Instruction Type:Provider Instructions for Treatment How to Access Health Informa tion Online using Patient Portal and 3rd Libertarian Apps Indication:Nonsmoker Start:08-Feb-2021 Instruction Type:Patient Education Patient Instructions Indication:BMI 28.0-28.9,adult Start:25-Jan-2021 Instruction Type:Provider Instructions for Treatment How to Access Health Informa tion Online using Patient Portal and 3rd Libertarian Apps Indication:BMI 28.0-28.9,adult Start:25-Jan-2021 Instruction Type:Patient Education [facility]; [facility] Work Phone: reason for referral (narrative)No reason for referral information availableWLicking [facility] Work Phone: Family History No Family History Records FoundUnknown Family Member Name Dates Details Cancer Comments:Breast, [...] Status:Active Grandparent Comments:alcoholism Status:Active HTN- father Status:Active Relationship Condition Age at Onset Recorded Date/T snow father Hypertension Unknown Malignant neoplasm of rectum Unknown mother Malignant neoplasm of breast Unknown Advance Directives No Advanced Directives Records Found Name Dates Details Immunization Registry [place] - Effective on 01/25/2021. Expiration date unspecified Effective:25-Jan-2021 Name Dates Details Immunization Registry [place] - Effective on 01/25/2021. Expiration date unspecified Effective:25-Jan-2021 Name Dates Details Immunization Registry [place] - Effective on 01/25/2021. Expiration date unspecified Effective:25-Jan-2021 Name Dates Details Immunization Registry [place] - Effective on 01/25/2021. Expiration date unspecified Effective:25-Jan-2021 Name Dates Details Immunization Registry [place] - Effective on 01/25/2021. Expiration date unspecified Effective:25-Jan-2021 Name Dates Details Immunization Registry [place] - Effective on 01/25/2021. Expiration date unspecified Effective:25-Jan-2021 Name Dates Details Immunization Registry [place] - Effective on 01/25/2021. Expiration date unspecified Effective:25-Jan-2021 Name Dates Details Immunization Registry [place] - Effective on 01/25/2021. Expiration date unspecified Effective:25-Jan-2021 Name Dates Details Immunization Registry [place] - Effective on 01/25/2021. Expiration date unspecified Effective:25-Jan-2021 Name Dates Details Immunization Registry [place] - Effective on 01/25/2021. Expiration date unspecified Effective:25-Jan-2021 Name Dates Details Immunization Registry [place] - Effective on 01/25/2021. Expiration date unspecified Effective:25-Jan-2021 Name Dates Details Immunization Registry [place] - Effective on 01/25/2021. Expiration date unspecified Effective:25-Jan-2021 Name Dates Details Immunization Registry [place] - Effective on 01/25/2021. Expiration date unspecified Effective:25-Jan-2021 Name Dates Details Immunization Registry [place] - Effective on 01/25/2021. Expiration date unspecified Effective:25-Jan-2021 Name Dates Details Immunization Registry [place] - Effective on 01/25/2021. Expiration date unspecified Effective:25-Jan-2021 Advance Directive Response Recorded Date/ Time Living Will No December 17, 2021 5:03pm Power of Branch Operation Evaluation Manager No December 17 5:03pm Name Dates Details Immunization Registry [place] - Effective on 01/25/2021. Expiration date unspecified Effective:25-Jan-2021 Name Dates Details Immunization Registry [place] - Effective on 01/25/2021. Expiration date unspecified Effective:25-Jan-2021 Name Dates Details Immunization Registry [place] - Effective on 01/25/2021. Expiration date unspecified Effective:25-Jan-2021 Name Dates Details Immunization Registry [place] - Effective on 01/25/2021. Expiration date unspecified Effective:25-Jan-2021 Name Dates Details Immunization Registry [place] - Effective on 01/25/2021. Expiration date unspecified Effective:25-Jan-2021 Name Dates Details Immunization Registry [place] - Effective on 01/25/2021. Expiration date unspecified Effective:25-Jan-2021 Name Dates Details Immunization Registry [place] - Effective on 01/25/2021. Expiration date unspecified Effective:25-Jan-2021 Name Dates Details Immunization Registry [place] - Effective on 01/25/2021. Expiration date unspecified Effective:25-Jan-2021 Name Dates Details Immunization Registry [place] - Effective on 01/25/2021. Expiration date unspecified Effective:25-Jan-2021 Name Dates Details Immunization Registry [place] - Effective on 01/25/2021. Expiration date unspecified Effective:25-Jan-2021 Name Dates Details Immunization Registry [place] - Effective on 01/25/2021. Expiration date unspecified Effective:25-Jan-2021 Name Dates Details Immunization Registry [place] - Effective on 01/25/2021. Expiration date unspecified Effective:25-Jan-2021 Chief Complaint and Reason for Visit Chief Complaint laceration Chief Complaint Admit Date XRAY January 02, 2025 7:4 1am [facility] January 30, 2025 7:00a m FU VISIT April 15, 2025 7:57 am Chief Complaint Admit Date XRAY January 02, 2025 7:4 1am [facility] January 30, 2025 7:00a m FU VISIT April 15, 2025 7:57 am EORDERS April 27, 2025 9: 40am Reason for Visit Admit Date Memory changes April 15, 2025 7:57 am Summary Purpose Additional Source Comments Goals (unrecognized section and content) Goals may be documented in a n alternate sectionGoals may be documented in an alternate sectionGoals may be documented in an alternate sectionGoals may be documented in an alternate sectionGoals may be documented in an alternate section (unrecognized sect ion and content) No Status Records FoundNo Status Records FoundNo Status Records FoundNo Status Records Found INFORMATION SOURCE (unrecogn ized section and content) DATE CREATED AUTHOR 10/03/2022 [facility] DATE CREATED AUTHOR AUTHOR'S ORGANIZ ATION 12/14/2022 [facility] DATE CREATED AUTHOR AUTHOR'S ORGANIZ ATION 02/24/2023 [facility] DATE CREATED AUTHOR AUTHOR'S ORGANIZ ATION 05/07/2025 [facility] Source Comments (unrecognize d section and content) In the event this informatio n is protected by the Federal Confidentiality of Alcohol and Drug Abuse Patient Records regulations: The Federal rules restrict any use of the information to criminally investigate or prosecute any alcohol or drug abuse patient.[facility] the event this information is protected by the Federal Confidentiality of Alcohol and Drug Abuse Patient Records regulations: The Federal rules restrict any use of the information to criminally investigate or prosecute any alcohol or drug abuse patient.[facility] the event this information is protected by the Federal Confidentiality of Alcohol and Drug Abuse Patient Records regulations: The Federal rules restrict any use of the information to criminally investigate or prosecute any alcohol or drug abuse patient.[facility] Reason for Visit (unrecogniz ed section and content) Reason Comments Schedule Surgery Reason Comments Post Op Ganglion Cyst Reason Comments Established Patient Post Op Care Teams (unrecognized sec tion and content) 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 Sagar Calero MD Attending Provider, Referr ing Provider Active Team Status: Inactive Member Role Status Dates CRISTINE Holland Primary Care Provider Active Start: November 06, 2024 End: November 06, 2024 CRISTINE Holland Referring Provider Active Start: November 06, 2024 End: November 06, 2024 Dr. Alcides Ramey MD Attending Provider Active Start: November 06, 2024 End: November 06, 2024 Team Status: Inactive Member Role Status Dates Santy Sanchez , MUSICAL INSTRUMENT MAKER-C Primary Care Provider Active Start: November 14, 2024 End: November 14, 2024 Dr. Sinai Omalley MD Attending Provider Active Start: November 14, 2024 End: November 14, 2024 Dr. Sinai Omalley MD Referring Provider Active Start: November 14, 2024 End: November 14, 2024 Team Status: Active Member Role/Relationship Status Dates Santy Sanchez , MUSICAL INSTRUMENT MAKER-C Primary Care Provider Active Team Status: Inactive Member Role/Relationship Status Dates Santyosito Sanchez , MUSICAL INSTRUMENT MAKER-C Primary Care Provider Active Start: January 02, 2025 End: January 02, 2025 Dr. Richmond Curtis MD Attending Provider Active S tart: January 02, 2025 End: January 02, 2025 Team Status: Active Member Role/Relationship Status Dates Santyosito Sanchez , MUSICAL INSTRUMENT MAKER-C Primary Care Provider Active Start: January 30, 2025 Santy Sanchez , MUSICAL INSTRUMENT MAKER-C Attending Provider Active Start: January 30, 2025 Santy Sanchez , MUSICAL INSTRUMENT MAKER-C Referring Provider Active Start: January 30, 2025 Team Status: Inactive Member Role/Relationship Status Dates Santyosito Sanchez , MUSICAL INSTRUMENT MAKER-C Primary Care Provider Active Start: April 15, 2025 End: April 15, 2025 Santy Sanchez , MUSICAL INSTRUMENT MAKER-C Referring Provider Active Start: April 15, 2025 End: April 15, 2025 Dr. Alcides Ramey MD Attending Provider Active Start: April 15, 2025 End: April 15, 2025 Team Status: Inactive Member Role/Relationship Status Dates Santyosito Sanchez , MUSICAL INSTRUMENT MAKER-C Primary Care Provider Active Start: April 27, 2025 End: April 27, 2025 Dr. Alcides Ramey MD Attending Provider Active Start: April 27, 2025 End: April 27, 2025 Dr. Alcides Ramey MD Referring Provider Active Start: April 27, 2025 End: April 27, 2025 FOR RECORDS PERTAINING TO PATIENTS WHO ARE [...] BE BASED ON THE PRIMARY CLINICAL RECORDS. [facility] [employer] [facility]. provides no warranty or guarantee of the accuracy or completeness of information in this document.
[2025-05-08 10:51] LABS: PSA,Total - Annual Screen 0.98 ng/mL (0.02-4.00)
== END | disposition home or self-care (01) ==
LOC: MTLAB 07:22
PROVIDERS: PCP Nurse Practitioner Family; Referring Provider Nurse Practitioner; Visit Provider Nurse Practitioner
DX: Z12.5 Encounter for screening for malignant neoplasm of prostate (principal)
CPT/HCPCS: 36415; 84153; G0103

== ENCOUNTER → 2025-05-12 | Outpatient (CLI) | payer MEDICARE, SELFPAY ==
--- NOTE | 2025-05-12 15:49 | MRI_ITS ---
PROCEDURE: BRAIN WITHOUT CONTRAST 05/12/2025 REASON FOR EXAM: PROGRESSIVE COGNITIVE DECLINE TECHNIQUE: BRAIN WITHOUT CONTRAST Multiplanar and multisequence images were obtained. COMPARISON: 07-16-2024 FINDINGS: No acute or hyperacute infarcts. No intracerebral or extra-axial acute hemorrhage. Bilateral cerebral periventricular and subcortical high T2/FLAIR WI signal. Normal MRI signal of the cerebellar hemispheres and brain stem. Dilated ventricular system, cortical sulci and extra-axial CSF spaces. No shift of midline structures. Normal MRI appearance of the petrous temporal bones cerebellopontine angles with no definite masses. Normal MRI appearance of orbital structures, both globes, optic nerves, optic chiasm, optic tracts and optic radiations. Scanned paranasal sinuses are unremarkable. MRI/Brain without Contrast IMPRESSION: No acute infarcts. No intracerebral or extra-axial hematomas. Bilateral cerebral mild microvascular ischemic changes. Brain involutional changes. No interval changes since the last study. Reading [facility] [place]
== END | disposition home or self-care (01) ==
LOC: MRI 15:47
PROVIDERS: PCP Nurse Practitioner Family; Referring Provider Psychiatry & Neurology Neurology; Visit Provider Psychiatry & Neurology Neurology
DX: R41.3 Other amnesia (principal)
CPT/HCPCS: 70551

== ENCOUNTER → 2025-05-28 | Outpatient (CLI) | payer MEDICARE, SELFPAY ==
--- NOTE | 2025-05-28 16:00 | MRI_ITS ---
PROCEDURE: SPINE LUMBAR (ROUTINE) 05/28/2025 REASON FOR EXAM: RADICULOPATHY Low back pain. TECHNIQUE: Procedure Code: MRISPL Modality: MR Procedure: SPINE LUMBAR (ROUTINE) COMPARISON: Radiographs December 2024 FINDINGS: T11-L1: Vertebral bodies: Negative. Disk Space: Negative. Negative for Modic changes. Facet Joints: Negative for bilateral facet joint hypertrophy. Neural foramina: Negative for neural foraminal narrowing Spinal Canal: Negative for central spinal narrowing. L1-2: Vertebral bodies: Negative. Disk Space: Disc desiccation. Mild loss of disc height. Mild diffuse disc bulge. Negative for Modic changes. Facet Joints: Moderate bilateral facet joint hypertrophy. Small amount of fluid in the facet joints. Neural foramina: Moderate bilateral neural foraminal narrowing Spinal Canal: Moderate bilateral subarticular zone narrowing. Mild central spinal narrowing. L2-3: Vertebral bodies: Negative. Disk Space: Negative. Negative for Modic changes. Facet Joints: Mild bilateral facet joint hypertrophy. Neural foramina: Mild bilateral neural foraminal narrowing Spinal Canal: Adge-ae-xibfeayj subarticular zone narrowing. Mild central spinal narrowing. L3-4: Vertebral bodies: Anterior osteophyte formation. Disk Space: Negative. Negative for Modic changes. Facet Joints: Severe bilateral facet joint hypertrophy. Neural foramina: Severe bilateral neural foraminal narrowing Spinal Canal: [id number]-ga-[id number] bilateral subarticular zone narrowing. Mild central spinal narrowing. L4-5: Vertebral bodies: Osteophyte formation. Disk Space: Disc desiccation with severe loss of disc height. Negative for Modic changes. Facet Joints: Severe bilateral facet joint hypertrophy. Asymmetric to the right Neural foramina: Severe bilateral neural foraminal narrowing Spinal Canal: Moderate severe right subarticular zone narrowing. Moderate right central spinal narrowing. L5-S1: Vertebral bodies: Negative. Disk Space: Negative. Negative for Modic changes. Facet Joints: Mild bilateral bilateral facet joint hypertrophy. Neural foramina: Negative for neural foraminal narrowing Spinal Canal: Negative for subarticular zone narrowing. Negative for central spinal narrowing. Vertebrae: Normal bone marrow signal. Conus Medullaris: Spinal cord is normal and ends at L1. Imaged kidneys aorta otherwise negative. The remainder of the exam negative. 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 Significant but slightly lesser disease L1-L2 and L2-L3 as above. Reading Location: [id number]
== END | disposition home or self-care (01) ==
PROVIDERS: PCP Nurse Practitioner Family; Referring Provider Anesthesiology Pain Medicine; Visit Provider Anesthesiology Pain Medicine
DX: M54.17 Radiculopathy, lumbosacral region (principal)
CPT/HCPCS: 72148